=== PATIENT | female | born 1950 | race Caucasian/White ===

== ENCOUNTER → 2019-11-16 08:08 | Outpatient (CLI) | payer MEDICARE, MEDICAID, SELFPAY ==
--- NOTE | ~2019-11-16 | XR_ITS ---
XR knee RT min 4V 11/16/2019 08:40 Indication: Right knee pain Procedure: 4 views right knee Comparison: 05/26/2017 Findings: There is mild-moderate tricompartment osteoarthritis. No acute fracture or traumatic malali gnment. No significant joint effusion. No foreign bodies. Impression: 1: Mild-moderate tricompartment osteoarthritis of the right knee. Reviewed, dictated and finalized at location A. Impression: 1: Mild-moderate tricompartment osteoarthritis of the right knee.
== END ==
PROVIDERS: Visit Provider Nurse Practitioner Adult Health
DX: M17.11 Unilateral primary osteoarthritis, right knee (principal)
CPT/HCPCS: 73564

== ENCOUNTER 2020-02-01 07:16 | Outpatient (CLI) | payer MEDICARE, MEDICAID, SELFPAY ==
[2020-02-01 08:30] LABS: Basophils Percent Auto 0.2 % (0.2-1.2); Eosinophils Absolute Auto 0.1 K/mm3 (0-0.3); Hematocrit 45.6 % (37.0-47.0); Hemoglobin 14.8 g/dL (12.0-15.0); Immature Granulocyte Absolute 0.01 K/mm3 (0.00-0.031); Immature Granulocyte Percent A 0.2 % (0-0.5); Lymphocytes Absolute Auto 1.66 K/mm3 (0.9-3.2); Lymphocytes Percent Auto 33.3 % (18.3-44.2); Mean Corpuscular HGB Conc 32.5 g/dl (32-36); Mean Corpuscular Hemoglobin 29.2 pg (26-34); Mean Corpuscular Volume 90.1 fl (80-100); Mean Platelet Volume 10.4 fl (7.4-10.4); Monocytes Absolute Auto 0.4 K/mm3 (0.1-0.6); Neutrophils Absolute Auto 2.8 K/mm3 (1.3-6.7); Neutrophils Percent Auto 56.3 % (45.5-73.1); Platelet Count Result 222 k/mm3 (150-375); Red Blood Count 5.06 M/mm3 (4.2-5.4); Red Cell Distribution Width 13.1 % (11.5-14.5)
[2020-02-01 08:34] LABS: Add Urine Microscopic? NO; Appearance Urine Clear (Clear); Bilirubin Urine Negative (Negative); Blood Urine Negative (Negative); Color Urine Yellow (Yellow); Glucose Urine UA Negative (Negative); Ketones Urine Negative (Negative); Leukocyte Esterase Ur Negative LEU/UL (NEGATIVE); Nitrate Urine Negative (Negative); Protein Urine Negative (Negative); Specific Grav Ur 1.014 (1.001-1.035); Urobilinogen Urine Negative mg/dL (<2.0)
[2020-02-01 08:39] LABS: Alanine Aminotransferase 18 U/L (4-35); Albumin Level 4.1 g/dL (3.5-5.1); Alkaline Phosphatase 64 U/L (38-126); Aspartate Amino Transferase 23 U/L (14-36); Bilirubin,Total 0.4 mg/dL (0.2-1.3); Blood Urea Nitrogen 21 mg/dL (7-17); Calcium 9.1 mg/dL (8.4-10.2); Carbon Dioxide 27 mmol/L (22-30); Chloride 105 mmol/L (98-107); Cholesterol 260 mg/dL (0-200); Estimated Glomerular Filt Rate 44; Glucose 166 mg/dL (65-105); HDL Direct 44 mg/dL; Hemoglobin A1C 7.1 % (<5.7); Potassium 4.2 mmol/L (3.4-5.0); Sodium 139 mmol/L (137-145); Triglycerides 212 mg/dL (<150)
[2020-02-01 08:51] LABS: LDL Cholesterol Direct 158 mg/dL
[2020-02-01 09:45] LABS: Folic Acid 13.9 ng/mL (2.76->20)
== END 2020-02-01 07:17 | disposition home or self-care (01) ==
PROVIDERS: PCP Physician Assistant; Visit Provider Physician Assistant
DX: E78.2 Mixed hyperlipidemia (principal); R73.02 Impaired glucose tolerance (oral); E03.9 Hypothyroidism, unspecified; E53.8 Deficiency of other specified B group vitamins; R53.83 Other fatigue; Z79.899 Other long term (current) drug therapy
CPT/HCPCS: 36415; 80048; 80061; 80076; 81003; 82607; 82746; 83036; 84439; 84443; 85025

== ENCOUNTER 2020-03-21 12:40 | Inpatient (IN) | payer MEDICARE, MEDICAID, SELFPAY ==
[2020-03-21] VITALS (8 sets, daily range): BP systolic 142–176; BP diastolic 70–112; PULSE 60–83; RESP 16–20; TEMP 36.6–36.9; O2SAT 95–99; BMI 30.2; BMI 31.6
--- NOTE | ~2020-03-21 | CT_ITS ---
EXAMINATION: CT abdomen pelvis w con DATE: 03/21/2020 13:52 INDICATION: Upper abdominal pain for 2 months. History of uterine cancer. TECHNIQUE: Computed tomography (CT) of the abdomen and pelvis was performed with 100 cc Omnipaque 350 intravenous contrast. Automated exposure control and iterative reconstruction technique were employe d. Exam dose: 968.65 mGy-cm total exam DLP. COMPARISON: 09/25/2018 CT abdomen pelvis FINDINGS: There is minimal predominantly dependent atelectasis at the lower lungs. Heart size is with in normal range. No pericardial or pleural effusion. Status post cholecystectomy. Diffuse hepatic steatosis. No hepatic, splenic, pancreatic, and adrenal space-occupying mass lesion. No bile duct or pancreatic duct dilatation. No right renal mass lesion. 9 Millimeter probable left renal cyst. No urinary tract calculus or hydroureteronephrosis. Normal caliber of the abdominal aorta. No intraperitoneal or retroperitoneal or pelvic mass lesion or adenopathy or ascites. Diverticulosis of the colon; no CT evidence of diverticulitis. No bowel obstruction, bowel wall thick ening, pneumatosis or intraperitoneal free air. The appendix is not visualized. The urinary bladder is unremarkable. Status post hysterectomy. Status post ventral abdominal wall repair. Diffuse idiopathic skeletal hyperostosis of the thoracic spine. Moderate degenerative disc disease of the lumbar and lumbosacral spine. No suspicious osteolytic or osteoblastic lesions are noted. IMPRESSION: Status post cholecystectomy Status post hysterectomy Hepatic steatosis 9 mm left renal probable cyst Diverticulosis of the colon Reviewed, dictated and finalized at Location A. Reviewed, dictated and finalized at location B.
--- NOTE | 2020-03-21 13:03 | ED.ABDPAIN ---
HPI - Abdominal Pain General Chief Complaint: Abdominal Pain Stated Complaint: Rib Pain Time Seen by Provider: 03/21/20 12:49 Source: RN notes reviewed History of Present Illness HPI narrative: Patient presents emergency department from home for abdominal pain. Patient states that pain began 1 hour ago and is located in the upper abdomen with pain worse in the right upper quadrant. Associated with nausea. She has been having intermittent abdominal pain for the past 2 months. She denies any fevers or chills chest pain shortness of breath or any other symptoms. States she has been having associated diarrhea over the past month. Patient states she has had a previous cholecystectomy Related Data Allergies Allergy/AdvReac Type Severity Reaction Status Date / Time fentanyl Allergy Intermediate Nausea and Verified 03/21/20 12:57 Vomiting propoxyphene Allergy Mild VOMITTING Verified 03/21/20 12:57 albuterol Allergy Unknown ANXIETY. Verified 03/21/20 12:57 CAN'T STAND IT dicyclomine Allergy Unknown Nausea and Verified 03/21/20 12:57 Vomiting hydrocodone Allergy Unknown severe Verified 03/21/20 12:57 vomiting metoclopramide Allergy Unknown anxiety Verified 03/21/20 12:57 adhesive AdvReac Severe SKIN Verified 03/21/20 12:57 BLISTERS erythromycin base AdvReac Intermediate ABDOMINAL Verified 03/21/20 12:57 PAIN/VOMITING codeine AdvReac Mild NAUSEA Verified 03/21/20 12:57 morphine AdvReac Mild NAUSEA Verified 03/21/20 12:57 phenazopyridine AdvReac Unknown NAUSEA Verified 03/21/20 12:57 Review of Systems Review of Systems: Narrative: Gen.: Denies fevers or chills ENT: Denies congestion Respiratory: Denies shortness of breath or cough CV: Denies chest pain or palpitations GI: See HPI denies burning, urgency, frequency or hematuria Musculoskeletal: Denies back pain or muscle pain Neuro: Denies numbness, tingling, weakness or focal weakness Skin: Denies rash Except as documented, all other systems reviewed and negative [facility] Past Medical History Medical History (Updated 03/21/20 @ 14:35 by Dorian Hernandez DO) Diabetes mellitus Hypothyroidism Surgical History Surgical History (Updated 03/21/20 @ 13:04 by Dorian Hernandez DO) History of cholecystectomy Family History Family History (Updated 09/06/17 @ 10:33 by DOCTOR UNKNOWN) Father Family history of malignant neoplasm of stomach Sibling Family history of malignant neoplasm of esophagus Mother Family history of osteoarthritis Family history of elevated blood lipids Family history of thyroid disease Family history of cataracts Family history of arthritis Family history of diabetes mellitus in first degree relative Grandparent Diabetes mellitus Other Family history of kidney disease Family history of malignant neoplasm Social History Social History Smoking status: Never smoker Alcohol intake: never Exam Narrative: Exam Narrative: APPEARANCE: No acute distress, nontoxic, resting in bed HEENT: Normocephalic, atraumatic, OMM RESPIRATORY: No respiratory distress, clear to auscultation bilaterally with no rhonchi wheezing or rales CARDIOVASCULAR: RRR s murmur ABDOMINAL: Soft, nondistended, tender palpation epigastric and right upper quadrant, no tenderness left upper quadrant, right lower quadrant left lower quadrant, no rebound or guarding MUSCULOSKELETAl: Moves all extremities. No clubbing, cyanosis or edema. NEURO: Awake and alert. Following commands, speech normal, no focal deficits SKIN:: Warm, dry. Normal Color PSYCHIATRIC: Normal affect/mood Course Course Emergency Course: Discussed with CAPO Terry for Dr. Gunn presentation work-up. Agrees with admission at this time Discussed with patient and family results of workup and diagnosis. Discussed need for admission. Patient and family understand and agree to current treatment plan Vital Signs Vi
--- NOTE | 2020-03-21 13:05 | ECG_ITS ---
Measurements Intervals [place] Rate: 70 P: 34 MT: 152 QRS: -22 QRSD: 91 T: 59 QT: 353 QTc: 382 Interpretive Statements SINUS RHYTHM BORDERLINE R WAVE PROGRESSION, ANTERIOR LEADS CONSIDER INFERIOR INFARCT, AGE INDETERMINATE BASELINE ARTIFACT- I, II, III, AVR, AVL, AVF ABNORMAL ECG Electronically Signed On 03-21-2020 13:24:38 CDT by Carlos Jacome D.O.
[2020-03-21 13:06] LABS: Basophils Percent Auto 0.2 % (0.2-1.2); Eosinophils Absolute Auto 0.1 K/mm3 (0-0.3); Eosinophils Percent Auto 0.8 % (0-4.4); Hematocrit 49.8 % (37.0-47.0); Hemoglobin 16.7 g/dL (12.0-15.0); Immature Granulocyte Absolute 0.04 K/mm3 (0.00-0.031); Immature Granulocyte Percent A 0.4 % (0-0.5); Lymphocytes Absolute Auto 2.74 K/mm3 (0.9-3.2); Mean Corpuscular HGB Conc 33.5 g/dl (32-36); Mean Corpuscular Hemoglobin 29.7 pg (26-34); Mean Corpuscular Volume 88.6 fl (80-100); Mean Platelet Volume 9.9 fl (7.4-10.4); Monocytes Absolute Auto 0.6 K/mm3 (0.1-0.6); Monocytes Percent Auto 6.8 % (2.6-8.5); Neutrophils Absolute Auto 5.6 K/mm3 (1.3-6.7); Neutrophils Percent Auto 61.8 % (45.5-73.1); Platelet Count Result 265 k/mm3 (150-375); Red Blood Count 5.62 M/mm3 (4.2-5.4); Red Cell Distribution Width 13.2 % (11.5-14.5); White Blood Count 9.1 K/mm3 (4.5-10.0)
[2020-03-21] MEDS: SODIUM CHLORIDE 0.9% IV 1,000 ML 999 ML IV CONT (13:15)
[2020-03-21] MEDS: PROMETHAZINE HCL 25 MG/ML AMPUL 12.5 MG IV PUSH (13:18)
[2020-03-21 13:21] LABS: Alanine Aminotransferase 30 U/L (4-35); Albumin Level 4.6 g/dL (3.5-5.1); Alkaline Phosphatase 84 U/L (38-126); Aspartate Amino Transferase 50 U/L (14-36); Bilirubin,Total 0.5 mg/dL (0.2-1.3); Blood Urea Nitrogen 28 mg/dL (7-17); Calcium 9.5 mg/dL (8.4-10.2); Carbon Dioxide 24 mmol/L (22-30); Chloride 105 mmol/L (98-107); Estimated CRCL calculation 51 ml/min; Estimated Glomerular Filt Rate 49; Glucose 128 mg/dL (65-105); Sodium 137 mmol/L (137-145)
[2020-03-21 13:52] LABS: Lipase 3253 U/L (23-300)
[2020-03-21 15:10] LABS: Add Urine Microscopic? NO; Appearance Urine Clear (Clear); Bilirubin Urine Negative (Negative); Blood Urine Negative (Negative); Color Urine Straw (Yellow); Glucose Urine UA Negative (Negative); Ketones Urine Negative (Negative); Leukocyte Esterase Ur Negative LEU/UL (Negative); Nitrate Urine Negative (Negative); Protein Urine Negative (Negative); Squamous Epithelial Cell Urine Rare /hpf (Few); Urobilinogen Urine Negative mg/dL (<2.0)
[2020-03-21 15:21] LABS: Specific Grav Ur 1.034 (1.001-1.035)
--- NOTE | 2020-03-21 15:47 | ADMGEN ---
This patient, Jazlyn Montgomery, was admitted to Medical Room 340-01. Patient/family oriented to hospital policies and general routines including ID bracelet, bed and alarms, visiting hours, pain management, procedures, bathroom and other care routines, personal items, smoking policy, room service/diet, and visiting hours. Valuables list has been completed. Information on how to activate the Rapid Response Team has been discussed. Patient/Family are encouraged to report perceived risks to care and to ask questions if they do not understand what they are told or what they should do.
[2020-03-21] MEDS: SODIUM CHLORIDE 0.9% IV 1,000 ML 125 ML IV CONT (17:00)
--- NOTE | 2020-03-21 17:00 | PM.IMHP ---
H&P: HPI History of Present Illness Chief complaint: Epigastric pain. Narrative: Jazlyn Montgomery is a 69-year-old female with history of GERD, H. pylori, esophageal spasms requiring Botox injections (patient denies having achalasia), irritable bowel syndrome, type 2 diabetes mellitus, and hypothyroidism who presented to the emergency department earlier today for evaluation of abdominal pain. For the past couple of months she has had intermittent stomach issues including frequent nausea, occasional emesis, and severe heartburn for which she takes Gaviscon. Earlier today she developed pretty severe upper abdominal pain which she describes as a band like fashion just under her ribcage. It felt like a hollow feeling or severe gastritis. The pain was unrelenting , with associated nausea and sweats, and thus she came in for evaluation. A CT of the abdomen and pelvis showed no acute findings however her lipase was elevated and she is being admitted in this setting. She has no history of pancreatitis and she is status post cholecystectomy in 2007. She drinks approximately 10 beers per week and 1 large coffee a day. She denies hematemesis, melena, and hematochezia. Weight has remained relatively stable. She felt a bit short of breath, which she attributes to splinting due to the pain, and that has since resolved. No chest pain or pleuritic pain. Review of Systems Review of Systems: Narrative: Twelve systems were reviewed with pertinent positives and negatives as per HPI. She is currently going through physical therapy for neck pain attributed to bulging discs. She has mild neuropathy in her right great toe which is intermittent. No blurry vision, polydipsia, or polyuria. She denies dysphagia and concerns for aspiration. No history of sleep apnea but she reports snoring quite loudly. She does suffer from irritable bowel syndrome with intermittent diarrhea and constipation. Except as documented, all other systems were reviewed and are negative. [facility] Past Medical History Medical History (Updated 03/21/20 @ 20:11 by Mara Lugo PA-C) Anxiety Chronic kidney disease, stage 3 Baseline creatinine between 1.1 and 1.20. Degenerative disc disease Depression Gastroesophageal reflux disease Hypothyroidism Irritable bowel syndrome Osteoarthritis PTSD (post-traumatic stress disorder) Sarcoidosis In remission for over 40 years. Type 2 diabetes mellitus Surgical History Surgical History (Updated 03/21/20 @ 19:55 by Mara Lugo PA-C) History of appendectomy (~1997) Incidental appendectomy at the time of her hysterectomy. History of bilateral cataract extraction History of cardiac catheterization No evidence of coronary artery disease. History of cholecystectomy (~2007) History of cystoscopy For evaluation of microscopic hematuria reportedly unremarkable History of hysterectomy (~1997) History of partial thyroidectomy (~2007) Pathology revealed a benign nodule. History of tonsillectomy Family History Family History Father Family history of malignant neoplasm of stomach Sibling Family history of malignant neoplasm of esophagus Mother Family history of osteoarthritis Family history of elevated blood lipids Family history of thyroid disease Family history of cataracts Family history of arthritis Family history of diabetes mellitus in first degree relative Grandparent Diabetes mellitus Other Family history of kidney disease Family history of malignant neoplasm Social History Social History (Updated 03/21/20 @ 19:56 by Mara Lugo PA-C) Social History: The patient lives in [place]. She has a roommate at this time, a student from [employer]. she has 3 grown children. She smoked socially for short period of time and quit > 30 years ago. She drinks about 10 beers a week. She has used marijuana and THC pen in the past. She designates her son, B
[2020-03-21] MEDS: PANTOPRAZOLE SODIUM IV 40 MG VIAL IV PUSH (22:13)
[2020-03-22] VITALS (9 sets, daily range): BP systolic 123–167; BP diastolic 67–88; PULSE 63–84; RESP 14–16; TEMP 36.6–36.7; O2SAT 96–98
[2020-03-22] MEDS: AMITRIPTYLINE HCL 10 MG TABLET 30 MG PO ×2 (00:08→21:01)
[2020-03-22] MEDS: ALPRAZolam 0.5 MG TABLET 2 MG PO ×2 (00:09→21:01)
[2020-03-22] MEDS: SODIUM CHLORIDE 0.9% IV 1,000 ML 125 ML IV CONT (01:15)
[2020-03-22] MEDS: LEVOTHYROXINE SODIUM 100 MCG TABLET PO (05:27)
[2020-03-22 06:36] LABS: Basophils Percent Auto 0.2 % (0.2-1.2); Eosinophils Absolute Auto 0.1 K/mm3 (0-0.3); Hematocrit 41.8 % (37.0-47.0); Hemoglobin 13.7 g/dL (12.0-15.0); Immature Granulocyte Absolute 0.02 K/mm3 (0.00-0.031); Immature Granulocyte Percent A 0.3 % (0-0.5); Lymphocytes Percent Auto 23.6 % (18.3-44.2); Mean Corpuscular HGB Conc 32.8 g/dl (32-36); Mean Corpuscular Hemoglobin 29.3 pg (26-34); Mean Corpuscular Volume 89.3 fl (80-100); Mean Platelet Volume 10.2 fl (7.4-10.4); Monocytes Absolute Auto 0.5 K/mm3 (0.1-0.6); Monocytes Percent Auto 7.6 % (2.6-8.5); Neutrophils Percent Auto 67.3 % (45.5-73.1); Platelet Count Result 212 k/mm3 (150-375); Red Blood Count 4.68 M/mm3 (4.2-5.4); Red Cell Distribution Width 13.2 % (11.5-14.5); White Blood Count 5.9 K/mm3 (4.5-10.0)
[2020-03-22 06:48] LABS: Alanine Aminotransferase 109 U/L (4-35); Albumin Level 3.5 g/dL (3.5-5.1); Alkaline Phosphatase 73 U/L (38-126); Aspartate Amino Transferase 77 U/L (14-36); Bilirubin,Total 0.5 mg/dL (0.2-1.3); Blood Urea Nitrogen 21 mg/dL (7-17); Calcium 8.3 mg/dL (8.4-10.2); Carbon Dioxide 24 mmol/L (22-30); Chloride 109 mmol/L (98-107); Estimated CRCL calculation 62 ml/min; Estimated Glomerular Filt Rate > 60; Glucose 128 mg/dL (65-105); Lipase 587 U/L (23-300); Magnesium 2.4 mg/dL (1.6-2.3); Sodium 137 mmol/L (137-145)
[2020-03-22 07:12] LABS: Hemoglobin A1C 7.1 % (<5.7)
[2020-03-22] MEDS: FAMOTIDINE 20 MG TABLET PO (08:07)
[2020-03-22] MEDS: PANTOPRAZOLE SODIUM IV 40 MG VIAL IV PUSH ×2 (08:08→21:01)
--- NOTE | 2020-03-22 08:16 | PC.NURSE ---
Patient refuses xanax voices that she takes it at night.
--- NOTE | 2020-03-22 09:12 | WPDGICN ---
Assessment and Plan Assessment and plan (1) Acute pancreatitis: Code(s): K85.90 - Acute pancreatitis without necrosis or infection, unspecified Status: Acute Assessment and Plan: clinically she is doing much better, ok to start liquid diet and continue medical care maybe go home tomorrow if she is feeling better I can do her EGD as outpatient (h/o GERD and chronic nausea) I wonder if pancreatitis was triggered by alcohol, she says that will quit altogether (2) Epigastric pain: Code(s): R10.13 - Epigastric pain Status: Acute Assessment and Plan: resolved now (3) Chronic kidney disease, stage 3: Code(s): N18.3 - Chronic kidney disease, stage 3 (moderate) Status: Acute (4) Alcohol use: Code(s): Z72.89 - Other problems related to lifestyle Status: Acute (5) Colon cancer screening: Code(s): Z12.11 - Encounter for screening for malignant neoplasm of colon Status: Acute Assessment and Plan: her last colonoscopy was 10 years ago and she is due to have another one will set up as outpatient. GI Consult Note Consult date/time: 03/22/20 09:12 Reason for consult: pancreatitis HPI: Jazlyn Montgomery is a 69 year old female with history of GERD, esophageal spasm that has been treated with Botox injection last time 2015 at [facility], 2016 had EGD with [place]/esophageal manometry that showed distal esophageal reflux with normal LES. Currently only using pepcid as needed (she says that ppi was making symptoms worse). Also chronic nausea sometimes worse after BM's. She came yesterday with new onset of severe pain in epigastric area with radiation to her back, CT scan only showed post cholecystectomy, fatty liver, normal bile duct, no obvious pancreatitis. Lipase 3200 and admitted for pancreatitis. She had some nausea but no vomiting. Pain now is gone and feeling much better. She drinks about 10-12 beers a week, she had 5 beers 2 days prior admission. Never had pancreatitis. Review of Systems Constitutional: Constitutional: Denies headache(s) and Denies weakness Eyes: Eyes: Denies blurry vision ENT: Reports Normal hearing present, Denies headache(s) and Denies neck pain Cardiovascular: Cardiovascular: Denies chest pain and Denies dyspnea Respiratory: Respiratory: Denies dyspnea Gastrointestinal: Gastrointestinal: Reports no additional gastrointestinal complaints Genitourinary: Genitourinary: Denies dysuria Musculoskeletal: Musculoskeletal: Denies neck pain Integumentary/Breasts: Skin/Breast: Denies dry skin Neurologic: Reports Normal hearing present, Denies headache(s) and Denies weakness Psychiatric: Psychiatric: Denies anxiety Endocrine: Endocrine: Denies change in body appearance Hematologic/Lymphatic: Hematologic/Lymphatic: Denies easy bleeding Allergic/Immunologic: Allergic/Immunologic: Denies urticaria [facility] Past Medical History Medical History (Updated 03/22/20 @ 09:19 by Phillip Nichols MD) Alcohol use Anxiety Chronic kidney disease, stage 3 Baseline creatinine between 1.1 and 1.20. Colon cancer screening Degenerative disc disease Depression Gastroesophageal reflux disease Hypothyroidism Irritable bowel syndrome Osteoarthritis PTSD (post-traumatic stress disorder) Sarcoidosis In remission for over 40 years. Type 2 diabetes mellitus Surgical History Surgical History (Updated 03/21/20 @ 19:55 by Mara Lugo PA-C) History of appendectomy (~1997) Incidental appendectomy at the time of her hysterectomy. History of bilateral cataract extraction History of cardiac catheterization No evidence of coronary artery disease. History of cholecystectomy (~2007) History of cystoscopy For evaluation of microscopic hematuria reportedly unremarkable History of hysterectomy (~1997) History of partial thyroidectomy (~2007) Pathology revealed a benign nodule. History of tonsillectomy Family History Family History (Revi
[2020-03-22 10:13] LABS: Free T4 Free Thyroxine Reflex 1.13 ng/dL (0.78-2.19)
[2020-03-22] MEDS: SODIUM CHLORIDE 0.9% IV 1,000 ML 75 ML IV CONT ×2 (10:30→23:46)
[2020-03-22 11:16] LABS: Total Triiodothyronine (T3) 0.73 NG/ML (0.97-1.69)
[2020-03-22 11:41] LABS: Glucose Point of Care 110 (65-105)
--- NOTE | 2020-03-22 14:27 | PM.IMPN ---
Progress Note: A&P Assessment and Plan (1) Acute pancreatitis: Code(s): K85.90 - Acute pancreatitis without necrosis or infection, unspecified Status: Acute Assessment and Plan: She presented with severe pain in the epigastric region radiationg to the back. Lipase was elevated at 3,[address] abd/pelvis did not have evidence of pancreatitis although she did present very soon after sx onset. Her pancreatitis may be secondary to alcohol use. She also reports a hx of elevated cholesterol/triglycerids but refuses statin therapy. Her pain has resolved. Lipase is significantly lower at 587 today. LFTs are mildly increased with AST 77 and ALT 109. She tolerated a full liquid diet well. Plan to continue IV fluids and advance diet as tolerated. Continue analgesics PRN. Trend lipase and LFTs. Gastroenterology is on board and input is appreciated. She will need EGD outpatient. (2) Epigastric pain: Code(s): R10.13 - Epigastric pain Status: Acute Assessment and Plan: Resolved with treatment of her acute pancreatitis. Plan for EGD outpatient. (3) Polycythemia: Code(s): D75.1 - Secondary polycythemia Status: Acute Assessment and Plan: Polycythemia was documented in the past. RBC 4.68, Hb is 13.7, and Hct 41.8 today. I suspect that this was secondary to mild dehydration as she appeared dehydrated clinically and on labs. Continue to monitor. (4) Chronic kidney disease, stage 3: Code(s): N18.3 - Chronic kidney disease, stage 3 (moderate) Status: Acute Assessment and Plan: Chronic and at baseline. Creatinine is 0.9 and stable on review of prior labs. (5) Hypothyroidism: Code(s): E03.9 - Hypothyroidism, unspecified Status: Acute Assessment and Plan: Continue levothyroxine. TSH was elevated at 5.92 with normal free T4 and low total T3. 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 (6) Type 2 diabetes mellitus: Code(s): E11.9 - Type 2 diabetes mellitus without complications Status: Acute Assessment and Plan: She reports recent hemoglobin A1c of 7. No medications are listed for this on her medication reconciliation list and she reports intolerance to metformin in the past. Continue sliding scale insulin, Accu-Cheks, and hypoglycemic protocol. She has an appointment scheduled with her PCP to discuss her diabetes management. (7) Alcohol use: Code(s): Z72.89 - Other problems related to lifestyle Status: Acute Assessment and Plan: Continue to encourage alcohol cessation. (8) Colon cancer screening: Code(s): Z12.11 - Encounter for screening for malignant neoplasm of colon Status: Acute Assessment and Plan: She will follow-up with Dr. Paulino outpatient for a screening colonoscopy. (9) DVT prophylaxis: Code(s): Z29.9 - Encounter for prophylactic measures, unspecified Status: Acute Assessment and Plan: Continue SCDs. She declines lovenox. Time Spent With Patient Time with patient: 15 - 25 minutes Subjective Date/time seen: 03/22/20 14:27 Interval history: Mrs. Montgomery is a 69 y.o. female who is seen in follow-up for acute pancreatitis. She reports that she is feeling much better today. She tolerated a full liquid diet without any nausea, vomiting, or abdominal pain. She reports a hx of intermittent diarrhea following cholecystectomy and is having loose brown stools today. She denies melena and hematochezia. She reports fatigue and did not sleep well overnight due to her anxiety symptoms as she did not have her xanax. She has no other concerns. Review of Systems Review of Systems: All systems reviewed & are unremarkable except as noted in HPI and below Exam Narrative: Exam Narrative: General: Very pleasant and cooperative 69 y.o. female who appears her stated age lying semi-r
[2020-03-22 16:29] LABS: Glucose Point of Care 115 (65-105)
[2020-03-22] MEDS: BACLOFEN 10 MG TABLET PO (21:01)
[2020-03-23 05:37] VITALS: BP 147/74; PULSE 70; RESP 20; TEMP 36.2; O2SAT 96
[2020-03-23] MEDS: LEVOTHYROXINE SODIUM 100 MCG TABLET PO (05:37)
[2020-03-23 06:06] LABS: Hematocrit 42.7 % (37.0-47.0); Hemoglobin 14.1 g/dL (12.0-15.0); Mean Corpuscular Hemoglobin 29.4 pg (26-34); Mean Corpuscular Volume 89.1 fl (80-100); Mean Platelet Volume 9.9 fl (7.4-10.4); Platelet Count Result 205 k/mm3 (150-375); Red Blood Count 4.79 M/mm3 (4.2-5.4); Red Cell Distribution Width 13.1 % (11.5-14.5); White Blood Count 6.9 K/mm3 (4.5-10.0)
[2020-03-23 06:33] LABS: Alanine Aminotransferase 74 U/L (4-35); Albumin Level 3.6 g/dL (3.5-5.1); Alkaline Phosphatase 73 U/L (38-126); Anion Gap 10.7 mmol/L (7-16); Aspartate Amino Transferase 33 U/L (14-36); Bilirubin,Total 0.6 mg/dL (0.2-1.3); Blood Urea Nitrogen 19 mg/dL (7-17); Calcium 8.6 mg/dL (8.4-10.2); Carbon Dioxide 24 mmol/L (22-30); Chloride 107 mmol/L (98-107); Estimated CRCL calculation 57 ml/min; Estimated Glomerular Filt Rate 55; Glucose 128 mg/dL (65-105); Lipase 228 U/L (23-300); Magnesium 2.4 mg/dL (1.6-2.3); Potassium 3.7 mmol/L (3.4-5.0); Sodium 138 mmol/L (137-145)
[2020-03-23 07:37] LABS: Glucose Point of Care 113 (65-105)
[2020-03-23 08:00] VITALS: PULSE 70; RESP 20; O2SAT 96
[2020-03-23] MEDS: FAMOTIDINE 20 MG TABLET PO (09:31)
--- NOTE | 2020-03-23 09:35 | PC.NURSE ---
Patient has tolerated low fat diet with no problems.
--- NOTE | 2020-03-23 09:46 | WPDGIPROGNO ---
Progress Note: A&P Assessment and Plan (1) Acute pancreatitis: Code(s): K85.90 - Acute pancreatitis without necrosis or infection, unspecified Status: Acute Assessment and Plan: much better and tolerating diet she can go home and I will plan on doing EGD as outpatient (2) Epigastric pain: Code(s): R10.13 - Epigastric pain Status: Acute Assessment and Plan: she has esophageal spasm received botox injection EGD with biopsies as outpatient (3) Type 2 diabetes mellitus: Code(s): E11.9 - Type 2 diabetes mellitus without complications Status: Acute (4) Alcohol use: Code(s): Z72.89 - Other problems related to lifestyle Status: Acute Assessment and Plan: patient will stop drinking (5) Irritable bowel syndrome with diarrhea: Code(s): K58.0 - Irritable bowel syndrome with diarrhea Status: Acute Assessment and Plan: at home she uses lomotil prn, she also is due to have another colonoscopy if still ongoing problem perphaps she can try questran (she is post marino), will discuss as outpatient Subjective Date/time seen: 03/23/20 09:46 Interval history: no more upper abdominal pain and tolerating diet, just lower abdominal discomfort (h/o IBS-D) Review of Systems Review of Systems: All systems reviewed & are unremarkable except as noted in HPI and below Exam Const: General: comfortable and no acute distress HENMT: General nose exam: Normal nares present Eyes: General: appearance normal, both eyes and all related structures Neck: Neck: no JVD Resp: Auscultation: clear to auscultation bilaterally Cardio: Rate: regular rate Rhythm: regular rhythm GI: Inspection: non-distended GI Palp: Yes Soft to palpation Skin: General skin exam: normal color Neuro: General: gait normal Speech: normal speech Extrem: General: normal to inspection Psych: Mental Status: mental status grossly normal Objective Data Vital Signs Vital Signs: Vital Signs - 24 hr 03/22/20 12:00 03/22/20 14:00 03/22/20 20:40 Temperature 98.0 F Pulse Rate 74 65 84 Respiratory Rate 16 16 Blood Pressure 148/88 H Pulse Oximetry 96 98 03/22/20 21:00 03/23/20 05:37 03/23/20 08:00 Temperature 97.9 F 97.2 F L Pulse Rate 84 70 70 Respiratory Rate 16 20 20 Blood Pressure 167/87 H 147/74 H Pulse Oximetry 98 96 96 Intake/Output Intake/Output: Intake & Output 03/20/20 03/21/20 03/22/20 03/23/20 23:59 23:59 23:59 23:59 Intake Total 1100 3920 940 Output Total 200 2150 1550 Balance 900 1770 -610 Meds/Results Medications: Active Medications Generic Name Dose Route Start Last Admin Trade Name Freq PRN Reason Stop Dose Admin Alprazolam 2 mg 03/21/20 23:20 03/22/20 21:01 Xanax PO 2 mg HS NEREYDA Administration Amitriptyline HCl 30 mg 03/21/20 22:55 03/22/20 21:01 Elavil PO 30 mg HS NEREYDA Administration Baclofen 10 mg 03/22/20 21:00 03/22/20 21:01 Lioresal Po PO 10 mg HS NEREYDA Administration Dextrose 12.5 gm 03/21/20 20:12 Dextrose 50% Syringe IV PUSH PRN PRN Hypoglycemia Protocol Famotidine 20 mg 03/22/20 09:00 03/23/20 09:31 Pepcid PO 20 mg DAILY NEREYDA Administration Glucagon 1 mg 03/21/20 20:12 Glucagon For Inj IM PRN PRN Hypoglycemia Protocol Glucose 15 gm 03/21/20 20:12 Glutose 15 PO PRN PRN Hypoglycemia Protocol Dextrose 1,000 mls @ 100 mls/hr 03/21/20 20:12 Dextrose 5% 1,000 Ml IVPB PRN PRN Hypoglycemia Protocol Insulin Aspart 2 - 5 units 03/22/20 08:00 03/23/20 09:39 Novolog SUB-Q Not Given TIDWM NEREYDA Protocol Levothyroxine Sodium 100 mcg 03/22/20 06:30 03/23/20 05:37 Synthroid PO 100 mcg DAILY@0630 NEREYDA Administration Pantoprazole Sodium 40 mg 03/21/20 21:00 03/22/20 21:01 Protonix Iv IV PUSH 40 mg Q12HR NEREYDA Administration Promethazine HCl 12.5 mg 03/21/20
[2020-03-23 10:59] LABS: Glucose Point of Care 176 (65-105)
[2020-03-23 14:00] VITALS: BP 151/76; PULSE 72; RESP 16; TEMP 36.4; O2SAT 100
--- NOTE | 2020-03-23 14:01 | PM.DS ---
DS: Admitting Diagnosis Admitting Diagnosis Admitting Diagnosis: Epigastric pain DS: Discharge Diagnosis Discharge Diagnosis (1) Acute pancreatitis: Code(s): K85.90 - Acute pancreatitis without necrosis or infection, unspecified Status: Acute Assessment and Plan: Discharge Summary Date of service 03/23/20: Mrs. Montgomery is a 69 y.o. female with PMH significant for GERD, H. Pylori, esophageal spasms, IBS, T2DM, and hypothyroidism who presented to the emergency department for the evaluation of abdominal pain. She reported intermittent abdominal issues including nausea, emesis, and GERD for the past few months. She reported severe pain in the epigastric region radiating to the back which promted her to proceed to the ED 03/21/20. Iniital workup in the ED revealed that lipase was elevated at 3,253. CT abd/pelvis did not have evidence of acute abnormalities and revealed hepatic steatosis, 9mm left renal cyst, and diverticulosis without evidence of diverticulitis. She was treated with IV fluids and admitted to the hospitalist service. GI was consulted. Her diet was slowly advanced and she tolerated this very well. Her pancreatitis was likely idiopathic but may be secondary to alcohol use. She also reports a hx of elevated cholesterol/triglycerides but refuses statin therapy. Lipase normalized to 228 on the day of discharge. LFTs were mildly increased but improved with the treatment of her pancreatitis. GI recommended colonoscopy and EGD outpatient after discharge. She requested to go home as her pain was much better and she was tolerating a low fat diet well. She was discharged in stable condition on the afternoon of 03/23/20. (2) Epigastric pain: Code(s): R10.13 - Epigastric pain Status: Resolved Assessment and Plan: Resolved with treatment of her acute pancreatitis. Plan for EGD outpatient. (3) Polycythemia: Code(s): D75.1 - Secondary polycythemia Status: Acute Assessment and Plan: Polycythemia was documented in the past. Hb, Hct, and RBC were elevated at admission but I suspect that this was secondary to mild dehydration as she appeared dehydrated clinically and on labs. Her labs normalized. (4) Chronic kidney disease, stage 3: Code(s): N18.3 - Chronic kidney disease, stage 3 (moderate) Status: Chronic Assessment and Plan: Chronic and at baseline. (5) Hypothyroidism: Code(s): E03.9 - Hypothyroidism, unspecified Status: Chronic Assessment and Plan: Her current dose of levothyroxine was continued. TSH was elevated at 5.92 with normal free T4 and low total T3. I discussed her lab findings with her and she will need to follow-up with her manager group outpatient for further management. (6) Type 2 diabetes mellitus: Code(s): E11.9 - Type 2 diabetes mellitus without complications Status: Chronic Assessment and Plan: She reported a recent hemoglobin A1c of 7. She reported intolerance to metformin and was not interested in starting pharmacotherapy at this time. I encouraged low carb diet and exercise. She has an appointment scheduled with her PCP to discuss her diabetes management. (7) Alcohol use: Code(s): Z72.89 - Other problems related to lifestyle Status: Acute Assessment and Plan: Alcohol cessation was encouraged. (8) Colon cancer screening: Code(s): Z12.11 - Encounter for screening for malignant neoplasm of colon Status: Acute Assessment and Plan: She will follow-up with Dr. Paulino outpatient for a screening colonoscopy. DS: Summary Hospital Course Reason for hospitalization: Abdominal pain Hospital Course: As above Status at Discharge Functional status at discharge: independent ambulation Overall status at discharge: patient is back to baseline Time Spent with Patient Time attestation: Total time spent providing and/or coordinating
== END 2020-03-23 14:38 | disposition home or self-care (01) | DRG 440 ==
LOC: ANHED 14:41 → ANH3MED 16:53
PROVIDERS: Physician Assistant; Admitting Provider Family Medicine; Emergency Provider Emergency Medicine; PCP Physician Assistant; Visit Provider Physician Assistant
DX: K85.00 Idiopathic acute pancreatitis without necrosis or infection; E11.22 Type 2 diabetes mellitus with diabetic chronic kidney disease; N18.3 Chronic kidney disease, stage 3 (moderate); K76.0 Fatty (change of) liver, not elsewhere classified; E89.0 Postprocedural hypothyroidism; K58.0 Irritable bowel syndrome with diarrhea; K21.9 Gastro-esophageal reflux disease without esophagitis; D75.1 Secondary polycythemia; K57.30 Diverticulosis of large intestine without perforation or abscess without bleeding; N28.1 Cyst of kidney, acquired; Z72.89 Other problems related to lifestyle; Z90.49 Acquired absence of other specified parts of digestive tract; Z98.42 Cataract extraction status, left eye; Z98.41 Cataract extraction status, right eye; Z87.891 Personal history of nicotine dependence
CPT/HCPCS: 36415; 74177; 80053; 81003; 83036; 83690; 83735; 84439; 84443; 84480; 85025; 85027; 93005; 96365; 96375; 99285; A9270; C9113; J0131; J2550; J7030; Q9967

== ENCOUNTER → 2020-03-26 13:20 | Outpatient (CLI) | payer MEDICARE, MEDICAID, SELFPAY ==
--- NOTE | ~2020-03-26 | MR_ITS ---
EXAMINATION: MR cervical spine wo con DATE: 03/26/2020 13:55 INDICATION: Neck pain. TECHNIQUE: Magnetic resonance imaging (MRI) of the cervical spine was performed without intravenous c ontrast. Sequences included sagittal T2-weighted FSE, sagittal STIR FSE, sagittal T1-weighted FSE, ax ial MERGE, and axial T2-weighted FSE. COMPARISON: Cervical spine MRI 11/14/2017 FINDINGS: Bone alignment is normal. Vertebral body heights are normal. There is mildly decreased disc height at C6-C7. The spinal cord signal intensity is normal. There are changes of right hemithyroide ctomy. The following disc levels are specifically discussed: C2-C3: The disc does not extend beyond the endplate margin. There is no uncovertebral joint osteoarth ritis. There is mild bilateral facet joint osteoarthritis. There is no neural foraminal stenosis. The re is no central canal stenosis. C3-C4: There is a central protrusion. There is mild left uncovertebral joint osteoarthritis. There is no facet joint osteoarthritis. There is no neural foraminal stenosis. There is mild central canal st enosis. C4-C5: The disc does not extend beyond the endplate margin. There is no uncovertebral joint osteoarth ritis. There is mild bilateral facet joint osteoarthritis. There is no neural foraminal stenosis. The re is no central canal stenosis. C5-C6: The disc is bulging. There is no uncovertebral joint osteoarthritis. There is no facet joint o steoarthritis. There is no neural foraminal stenosis. There is mild central canal stenosis. C6-C7: The disc is bulging. There is moderate left uncovertebral joint osteoarthritis. There is mild right facet joint osteoarthritis. There is mild left neural foraminal stenosis. There is mild central canal stenosis. C7-T1: The disc does not extend beyond the endplate margin. There is no uncovertebral joint osteoarth ritis. There is mild bilateral facet joint osteoarthritis. There is no neural foraminal stenosis. The re is no central canal stenosis. IMPRESSION: 1. Mild cervical spondylosis, stable from 11/14/2017. Reviewed, dictated and finalized at location A.
== END ==
PROVIDERS: Visit Provider Nurse Practitioner Family
DX: M54.2 Cervicalgia (principal); M47.892 Other spondylosis, cervical region
CPT/HCPCS: 72141

== ENCOUNTER 2020-03-29 00:34 | Outpatient (CLI) | payer MEDICARE, MEDICAID, SELFPAY ==
[2020-03-31 12:00] LABS: SARS-CoV-2 RNA PCR Negative
== END 2020-03-29 00:35 | disposition home or self-care (01) ==
LOC: ANHCOVIDDT 00:34
PROVIDERS: PCP Physician Assistant; Visit Provider Internal Medicine Gastroenterology
DX: Z01.818 Encounter for other preprocedural examination (principal); Z11.59 Encounter for screening for other viral diseases
CPT/HCPCS: 87635; C9803; U0003

== ENCOUNTER 2020-04-01 01:57 | Day surgery (SDC) | payer MEDICARE, MEDICAID, SELFPAY ==
[2020-03-25 15:38] VITALS: BMI 29.6
--- NOTE | 2020-04-01 07:44 | WPDANESEPPF ---
Anes - Initial Pre Proc Eval Procedure: Operation Date: 04/01/20 11:30 Proposed Procedures p Esophagogastroduodenoscopy&Screen Colon - Phillip Nichols MD Date/Time: 04/01/20 07:44 Surgeon: Phillip Nichols MD Pre Op Diagnosis: Nausea, Neoplasm Screening Patient Data Age: 69 Gender: F Height: 1.75 m Weight: 91 kg Allergies Allergy/AdvReac Type Severity Reaction Status Date / Time fentanyl Allergy Intermediate Nausea and Verified 04/01/20 10:48 Vomiting propoxyphene Allergy Mild VOMITTING Verified 04/01/20 10:48 albuterol Allergy Unknown ANXIETY. Verified 04/01/20 10:48 CAN'T STAND IT dicyclomine Allergy Unknown Nausea and Verified 04/01/20 10:48 Vomiting hydrocodone Allergy Unknown severe Verified 04/01/20 10:48 vomiting metoclopramide Allergy Unknown anxiety Verified 04/01/20 10:48 adhesive AdvReac Severe SKIN Verified 04/01/20 10:48 BLISTERS erythromycin base AdvReac Intermediate ABDOMINAL Verified 04/01/20 10:48 PAIN/VOMITING codeine AdvReac Mild NAUSEA Verified 04/01/20 10:48 morphine AdvReac Mild NAUSEA Verified 04/01/20 10:48 phenazopyridine AdvReac Unknown NAUSEA Verified 03/25/20 15:29 Home Medications Medication Instructions Recorded Confirmed Type Gaviscon 2 tablet PO QID PRN 03/21/20 04/01/20 History alprazolam [Xanax] 1 mg PO DAILY 03/21/20 04/01/20 History amitriptyline 20 mg PO HS 03/21/20 04/01/20 History baclofen 10 mg PO HS 03/21/20 04/01/20 History famotidine 20 mg PO DAILY 03/21/20 04/01/20 History levothyroxine 100 mcg PO DAILY 03/21/20 04/01/20 History promethazine 25 mg PO Q6H PRN 03/21/20 03/25/20 History amlodipine 5 mg PO DAILY 30 Days #30 tablet 03/23/20 04/01/20 Rx Patient hx anesthesia problems: post op nausea/vomiting Family hx anesthesia problems: none PMFSH Past Medical History Medical History (Updated 03/23/20 @ 09:47 by Phillip Nichols MD) Alcohol use Anxiety Chronic kidney disease, stage 3 Baseline creatinine between 1.1 and 1.20. Colon cancer screening Degenerative disc disease Depression Gastroesophageal reflux disease Hypothyroidism Irritable bowel syndrome Irritable bowel syndrome with diarrhea Osteoarthritis PTSD (post-traumatic stress disorder) Sarcoidosis In remission for over 40 years. Type 2 diabetes mellitus Surgical History Surgical History (Updated 03/21/20 @ 19:55 by Mara Lugo PA-C) History of appendectomy (~1997) Incidental appendectomy at the time of her hysterectomy. History of bilateral cataract extraction History of cardiac catheterization No evidence of coronary artery disease. History of cholecystectomy (~2007) History of cystoscopy For evaluation of microscopic hematuria reportedly unremarkable History of hysterectomy (~1997) History of partial thyroidectomy (~2007) Pathology revealed a benign nodule. History of tonsillectomy Social History Social History (Updated 04/01/20 @ 10:48 by Jim Walters DO) Gender identity (if verbalized by the patient): Female Sexual Orientation (if Verbalized by the Patient): Straight or Heterosexual Spiritual care concerns: No Anes - Eval Final PreProcedure Day of Procedure 04/01/20 07:44 Patient weight: overweight Heart: regular rate and rhythm Lungs: clear to auscultation and normal air movement Airway: Mallampati scale class II Neurological: alert and oriented Last oral intake: >/= 8 hours ASA classification: III Emergent: no Anesthetic plan: proceed Anesthesia type and monitoring: general GIVS and standard monitoring Informed Consent: The patient's anesthetic plan and its attendant risks and benefits were discussed with the patient/family/POA. Questions were solicited and answers provided to the satisfaction of the patient/family/POA.
[2020-04-01 10:50] VITALS: BP 126/84; PULSE 85; RESP 18; TEMP 36.8; O2SAT 98
[2020-04-01] MEDS: LACTATED RINGERS 1,000 ML 150 ML IV CONT (11:00)
--- NOTE | 2020-04-01 12:00 | WPDHPUPDATE1 ---
History and Physical Update Update Date/Time: 04/01/20 12:00 History and Physical has been reviewed, including an updated exam of the patient. There are NO changes in the patient's condition. Risks, benefits, and alternatives have been discussed and questions answered. Patient agrees to proceed with procedure.
--- NOTE | 2020-04-01 12:05 | SUR.OPER ---
EGD ENDED 1200, COLONOSCOPY BEGAN 1204
[2020-04-01 12:30] VITALS: BP 135/82; PULSE 74; RESP 18; O2SAT 98
[2020-04-01 12:40] VITALS: BP 132/99; PULSE 71; RESP 22; O2SAT 100
[2020-04-01 12:50] VITALS: BP 136/89; PULSE 67; RESP 17; O2SAT 100
== END 2020-04-01 13:03 | disposition home or self-care (01) ==
PROVIDERS: PCP Physician Assistant; Visit Provider Internal Medicine Gastroenterology
PROC: 0DJ08ZZ Inspection of Upper Intestinal Tract, Via Natural or Artificial Opening Endoscopic (ICD-10-PCS; CPT 43235; principal; 2020-04-01 11:30)
DX: Z12.11 Encounter for screening for malignant neoplasm of colon (principal); K64.8 Other hemorrhoids; D12.3 Benign neoplasm of transverse colon; K57.30 Diverticulosis of large intestine without perforation or abscess without bleeding; K64.4 Residual hemorrhoidal skin tags; K29.80 Duodenitis without bleeding; K29.50 Unspecified chronic gastritis without bleeding; K21.0 Gastro-esophageal reflux disease with esophagitis; N18.3 Chronic kidney disease, stage 3 (moderate); E11.22 Type 2 diabetes mellitus with diabetic chronic kidney disease; F41.8 Other specified anxiety disorders; E03.9 Hypothyroidism, unspecified; K58.0 Irritable bowel syndrome with diarrhea; F43.10 Post-traumatic stress disorder, unspecified
CPT/HCPCS: 45385; 43239; 88305; J2704; J7120

== ENCOUNTER 2020-06-21 08:12 | Emergency (ER) | payer MEDICARE, MEDICAID, SELFPAY ==
--- NOTE | ~2020-06-21 | XR_ITS ---
EXAMINATION: XR chest 2V DATE: 06/21/2020 08:49 INDICATION: Sarcoidosis presenting with left-sided predominant chest pain. TECHNIQUE: PA and lateral views of the chest were obtained. COMPARISON: Chest radiograph and CT dated 04/30/2016 FINDINGS: The lungs remain clear with no focal airspace opacities, pulmonary edema, pleural effusion or pneumot horax. The cardiomediastinal silhouette is normal. Cholecystectomy clips in right upper quadrant. IMPRESSION: 1. No acute cardiopulmonary disease. Reviewed, dictated and finalized at location A.
--- NOTE | 2020-06-21 08:14 | ECG_ITS ---
Measurements Intervals [place] Rate: 82 P: -5 SD: 153 QRS: -45 QRSD: 98 T: 57 QT: 361 QTc: 424 Interpretive Statements SINUS RHYTHM LEFT AXIS DEVIATION BORDERLINE R WAVE PROGRESSION, ANTERIOR LEADS INFERIOR INFARCT, AGE INDETERMINATE ABNORMAL ECG Electronically Signed On 06-21-2020 8:57:32 CDT by Carlos Jacome D.O.
[2020-06-21 08:16] VITALS: BP 182/110; PULSE 82; RESP 16; TEMP 36.3; O2SAT 100
--- NOTE | 2020-06-21 08:42 | ED.CHESTPAIN ---
HPI - Chest Pain General Chief Complaint: Chest Pain Stated Complaint: pain in chest and under arm Time Seen by Provider: 06/21/20 08:28 Source: patient Mode of arrival: ambulatory Limitations: no limitations History of Present Illness HPI narrative: Patient is a 69-year-old female complaining of left sided chest pain, 8 out of 10, sharp, aching, worse with movement of the left upper extremity started approximately 5 days ago. Patient denies any shortness of breath, nausea or diaphoresis. Patient denies any injury to the area. Patient states that she had a cardiac cath this past summer, approximately 2 months ago, and was told that she had a clear cardiac cath, no plaques, heart of a teenager I was told . Related Data Home Medications Medication Instructions Recorded Confirmed Gaviscon 2 tablet PO QID PRN 03/21/20 05/28/20 alprazolam [Xanax] 1 mg PO DAILY 03/21/20 05/28/20 amitriptyline 20 mg PO HS 03/21/20 05/28/20 famotidine 20 mg PO DAILY 03/21/20 05/28/20 promethazine 25 mg PO Q6H PRN 03/21/20 05/28/20 levothyroxine 100 mcg tablet 112 mcg PO QAM tablet 05/28/20 05/28/20 Allergies Allergy/AdvReac Type Severity Reaction Status Date / Time fentanyl Allergy Intermediate Nausea and Verified 06/21/20 08:23 Vomiting propoxyphene Allergy Mild VOMITTING Verified 06/21/20 08:23 albuterol Allergy Unknown ANXIETY. Verified 06/21/20 08:23 CAN'T STAND IT dicyclomine Allergy Unknown Nausea and Verified 06/21/20 08:23 Vomiting hydrocodone Allergy Unknown severe Verified 06/21/20 08:23 vomiting metoclopramide Allergy Unknown anxiety Verified 06/21/20 08:23 adhesive AdvReac Severe SKIN Verified 06/21/20 08:23 BLISTERS erythromycin base AdvReac Intermediate ABDOMINAL Verified 06/21/20 08:23 PAIN/VOMITING codeine AdvReac Mild NAUSEA Verified 06/21/20 08:23 morphine AdvReac Mild NAUSEA Verified 06/21/20 08:23 phenazopyridine AdvReac Unknown NAUSEA Verified 06/21/20 08:23 Review of Systems Review of Systems: All systems reviewed & are unremarkable except as noted in HPI and below Constitutional: Constitutional: Denies body ache(s), Denies chills, Denies excessive sweating, Denies fatigue, Denies fever(s), Denies headache(s), Denies lethargy, Denies malaise, Denies weakness and Denies weight loss Eyes: Eyes: Denies blurry vision, Denies change in vision and Denies loss of vision ENT: Denies dizziness, Denies ear discharge, Denies headache(s), Denies lip swelling, Denies epistaxis, Denies nasal congestion, Denies neck pain, Denies throat swelling and Denies tongue swelling Cardiovascular: Cardiovascular: Denies diaphoresis, Denies rapid heart rate, Denies edema, Denies irregular heart rhythm, Denies lightheadedness, Denies palpitations, Denies dyspnea and Denies dyspnea on exertion Respiratory: Respiratory: Denies chest congestion, Denies cough, Denies hemoptysis, Denies dyspnea and Denies dyspnea on exertion Gastrointestinal: Gastrointestinal: Denies abdominal pain, Denies melena, Denies hematochezia, Denies diarrhea, Denies nausea, Denies vomiting and Denies hematemesis Musculoskeletal: Musculoskeletal: Denies abnormal gait, Denies deformity, Denies joint swelling, Denies limited range of motion, Denies neck pain and Denies numbness Neurologic: Denies Abnormal speech present, Denies abnormal gait, Denies confusion, Denies dizziness, Denies headache(s), Denies focal weakness, Denies loss of vision, Denies numbness, Denies Other visual disturbances, Denies Sensory deficit (Neuro) and Denies weakness Psychiatric: Psychiatric: Denies confusion, Denies depression, Denies auditory hallucinations, Denies homicidal ideation and Denies suicidal ideation Endocrine: Endocrine: Denies cold intolerance, Denies excessive sweating, Denies fatigue, Denies heat intolerance and Denies palpitations Hematologic/Lymphatic: Hematologic/Lymphatic: Denies easy bleeding and Denies easy bruising Allergic/Immunologic: Allergic/Immun
[2020-06-21 08:46] LABS: Basophils Percent Auto 0.3 % (0.2-1.2); Eosinophils Absolute Auto 0.1 K/mm3 (0-0.3); Eosinophils Percent Auto 2.4 % (0-4.4); Hemoglobin 15.2 g/dL (12.0-15.0); Immature Granulocyte Absolute 0.03 K/mm3 (0.00-0.031); Immature Granulocyte Percent A 0.5 % (0-0.5); Lymphocytes Absolute Auto 2.46 K/mm3 (0.9-3.2); Lymphocytes Percent Auto 41.7 % (18.3-44.2); Mean Corpuscular HGB Conc 31.7 g/dl (32-36); Mean Corpuscular Hemoglobin 29.5 pg (26-34); Mean Corpuscular Volume 93.2 fl (80-100); Monocytes Absolute Auto 0.4 K/mm3 (0.1-0.6); Monocytes Percent Auto 7.5 % (2.6-8.5); Neutrophils Absolute Auto 2.8 K/mm3 (1.3-6.7); Neutrophils Percent Auto 47.6 % (45.5-73.1); Platelet Count Result 254 k/mm3 (150-375); Red Blood Count 5.15 M/mm3 (4.2-5.4); Red Cell Distribution Width 13.2 % (11.5-14.5); White Blood Count 5.9 K/mm3 (4.5-10.0)
[2020-06-21 08:47] LABS: Anion Gap 6 mmol/L (8-16); Blood Urea Nitrogen 27 mg/dL (7-17); Calcium 9.7 mg/dL (8.4-10.2); Carbon Dioxide 33 mmol/L (22-30); Chloride 100 mmol/L (98-107); Estimated CRCL calculation 46 ml/min; Estimated Glomerular Filt Rate 44; Glucose 192 mg/dL (65-105); Potassium 3.9 mmol/L (3.4-5.0); Sodium 139 mmol/L (137-145)
[2020-06-21 08:49] LABS: Partial Thromboplastin Time 24.7 SECONDS (22.3-36.8); Prothrombin Time 12.9 Seconds (11.1-14.7)
[2020-06-21 08:59] LABS: Troponin I < 0.012 ng/mL (0.000-0.034)
[2020-06-21] MEDS: ASPIRIN 81 MG CHEWABLE TABLET 324 MG PO (09:21)
[2020-06-21 09:56] VITALS: BP 141/85; PULSE 69; RESP 18; O2SAT 100
[2020-06-21 10:22] VITALS: BP 134/81; PULSE 80; RESP 17; O2SAT 97
[2020-06-21] MEDS: NITROGLYCERIN SL 0.4 MG TABLET SUBLINGUAL (10:59)
[2020-06-21] MEDS: SODIUM CHLORIDE 0.9% IV 50 ML 400 ML (10:59)
[2020-06-21] MEDS: PROMETHAZINE HCL 25 MG/ML AMPUL 12.5 MG IV PUSH (10:59)
[2020-06-21 11:00] VITALS: BP 128/82; PULSE 67; RESP 12; O2SAT 100
== END 2020-06-21 11:47 | disposition left against medical advice (07) ==
PROVIDERS: Emergency Provider Emergency Medicine; PCP Physician Assistant
DX: R07.89 Other chest pain (principal); F41.9 Anxiety disorder, unspecified; F32.9 Major depressive disorder, single episode, unspecified; E11.22 Type 2 diabetes mellitus with diabetic chronic kidney disease; N18.30 Chronic kidney disease, stage 3 unspecified; K21.9 Gastro-esophageal reflux disease without esophagitis; K58.0 Irritable bowel syndrome with diarrhea; F43.10 Post-traumatic stress disorder, unspecified; Z98.42 Cataract extraction status, left eye; Z98.41 Cataract extraction status, right eye; E89.0 Postprocedural hypothyroidism
CPT/HCPCS: 36415; 71046; 80048; 84484; 85025; 85610; 85730; 93005; 96365; 96375; 99284; A9270; J0131; J2550

== ENCOUNTER 2021-01-05 11:31 | Emergency (ER) | payer MEDICARE, MEDICAID, SELFPAY ==
[2021-01-05 11:40] VITALS: BP 152/102; PULSE 95; RESP 20; TEMP 36.3; O2SAT 95
[2021-01-05 11:55] LABS: Basophils Percent Auto 0.1 % (0.2-1.2); Eosinophils Absolute Auto 0.1 K/mm3 (0-0.3); Eosinophils Percent Auto 0.9 % (0-4.4); Hematocrit 46.1 % (37.0-47.0); Hemoglobin 15.3 g/dL (12.0-15.0); Immature Granulocyte Absolute 0.02 K/mm3 (0.00-0.031); Immature Granulocyte Percent A 0.3 % (0-0.5); Lymphocytes Absolute Auto 1.61 K/mm3 (0.9-3.2); Lymphocytes Percent Auto 22.8 % (18.3-44.2); Mean Corpuscular HGB Conc 33.2 g/dl (32-36); Mean Corpuscular Hemoglobin 29.9 pg (26-34); Mean Platelet Volume 9.7 fl (7.4-10.4); Monocytes Absolute Auto 0.4 K/mm3 (0.1-0.6); Monocytes Percent Auto 5.1 % (2.6-8.5); Neutrophils Percent Auto 70.8 % (45.5-73.1); Platelet Count Result 228 k/mm3 (150-375); Red Blood Count 5.12 M/mm3 (4.2-5.4); Red Cell Distribution Width 12.1 % (11.5-14.5); White Blood Count 7.1 K/mm3 (4.5-10.0)
[2021-01-05 12:05] LABS: Alanine Aminotransferase 42 U/L (4-35); Albumin Level 4.3 g/dL (3.5-5.1); Alkaline Phosphatase 80 U/L (38-126); Anion Gap 6 mmol/L (8-16); Aspartate Amino Transferase 31 U/L (14-36); Bilirubin,Total 0.3 mg/dL (0.2-1.3); Blood Urea Nitrogen 17 mg/dL (7-17); Calcium 9.6 mg/dL (8.4-10.2); Carbon Dioxide 25 mmol/L (22-30); Chloride 108 mmol/L (98-107); Estimated CRCL calculation 54 ml/min; Estimated Glomerular Filt Rate 55; Glucose 188 mg/dL (65-105); Lipase 55 U/L (23-300); Potassium 4.1 mmol/L (3.4-5.0); Sodium 139 mmol/L (137-145)
[2021-01-05 12:11] LABS: Add Urine Microscopic? YES; Appearance Urine Turbid (Clear); Bacteria Urine 1+ /hpf; Bilirubin Urine Negative (Negative); Blood Urine Negative (Negative); Color Urine Yellow (Yellow); Glucose Urine UA Negative (Negative); Ketones Urine Negative (Negative); Leukocyte Esterase Ur Negative LEU/UL (Negative); Mucus Urine Rare /lpf; Nitrate Urine Negative (Negative); Protein Urine Negative (Negative); RBC Urine 21-50 /hpf (0-2); Specific Grav Ur 1.006 (1.001-1.035); Squamous Epithelial Cell Urine Many /hpf (Few); Urobilinogen Urine Negative mg/dL (<2.0); WBC Urine 31-50 /hpf
[2021-01-05 14:44] VITALS: BP 140/88; PULSE 84; RESP 20; O2SAT 96
[2021-01-05] MEDS: SODIUM CHLORIDE 0.9% IV 1,000 ML 999 ML IV CONT (14:48)
[2021-01-05] MEDS: FAMOTIDINE 20 MG/2 ML VIAL IV PUSH (14:49)
[2021-01-05] MEDS: PROMETHAZINE HCL 25 MG/ML AMPUL 12.5 MG IV PUSH (14:50)
--- NOTE | 2021-01-05 16:06 | ED.GENADULT ---
HPI - General Adult General Chief complaint: Abdominal Pain Stated complaint: n/v, chills, urinary s/s Time Seen by Provider: 01/05/21 13:48 Source: patient, RN notes reviewed and old records reviewed Mode of arrival: ambulatory Limitations: no limitations History of Present Illness HPI narrative: Patient is a 70-year-old female who presents to emergency department for evaluation of feeling fatigued with abdominal discomfort and back discomfort with urinary frequency and urgency over the last couple of days. Patient notes nausea denies emesis. Patient notes normal bowel habits. On arrival patient denies any other injuries or complaints or recent illness patient has not taken anything for symptoms nor is she been seen for this complaint Related Data Home Medications Medication Instructions Recorded Confirmed Gaviscon 2 tablet PO QID PRN 03/21/20 05/28/20 alprazolam [Xanax] 1 mg PO DAILY 03/21/20 05/28/20 amitriptyline 20 mg PO HS 03/21/20 05/28/20 famotidine 20 mg PO DAILY 03/21/20 05/28/20 promethazine 25 mg PO Q6H PRN 03/21/20 05/28/20 levothyroxine 112 mcg tablet 112 mcg PO DAILY 12/23/20 12/23/20 Allergies Allergy/AdvReac Type Severity Reaction Status Date / Time fentanyl Allergy Intermediate Nausea and Verified 06/21/20 08:23 Vomiting propoxyphene Allergy Mild VOMITTING Verified 06/21/20 08:23 albuterol Allergy Unknown ANXIETY. Verified 06/21/20 08:23 CAN'T STAND IT dicyclomine Allergy Unknown Nausea and Verified 06/21/20 08:23 Vomiting hydrocodone Allergy Unknown severe Verified 06/21/20 08:23 vomiting metoclopramide Allergy Unknown anxiety Verified 06/21/20 08:23 adhesive AdvReac Severe SKIN Verified 06/21/20 08:23 BLISTERS erythromycin base AdvReac Intermediate ABDOMINAL Verified 06/21/20 08:23 PAIN/VOMITING codeine AdvReac Mild NAUSEA Verified 06/21/20 08:23 morphine AdvReac Mild NAUSEA Verified 06/21/20 08:23 phenazopyridine AdvReac Unknown NAUSEA Verified 06/21/20 08:23 Review of Systems Review of Systems: All systems reviewed & are unremarkable except as noted in HPI and below PMFSH Past Medical History Medical History (Updated 01/05/21 @ 16:09 by Jonnie Gray PA-C) Alcohol use Anxiety Chronic kidney disease, stage 3 Baseline creatinine between 1.1 and 1.20. Colon cancer screening Degenerative disc disease Depression Gastroesophageal reflux disease Hypothyroidism Irritable bowel syndrome Irritable bowel syndrome with diarrhea Osteoarthritis PTSD (post-traumatic stress disorder) Sarcoidosis In remission for over 40 years. Type 2 diabetes mellitus Surgical History Surgical History History of appendectomy (~1997) Incidental appendectomy at the time of her hysterectomy. History of bilateral cataract extraction History of cardiac catheterization No evidence of coronary artery disease. History of cholecystectomy (~2007) History of cystoscopy For evaluation of microscopic hematuria reportedly unremarkable History of hysterectomy (~1997) History of partial thyroidectomy (~2007) Pathology revealed a benign nodule. History of tonsillectomy Family History Family History Father Family history of malignant neoplasm of stomach Sibling Family history of malignant neoplasm of esophagus Mother Family history of osteoarthritis Family history of elevated blood lipids Family history of thyroid disease Family history of cataracts Family history of arthritis Family history of diabetes mellitus in first degree relative Grandparent Diabetes mellitus Other Family history of kidney disease Family history of malignant neoplasm Social History Social History Alcohol intake: current Gender identity (if verbalized by the patient): Female Spiritual care concerns: No Exam Narrativ
[2021-01-05 16:22] VITALS: BP 138/88; PULSE 78; RESP 20; O2SAT 99
== END 2021-01-05 16:23 | disposition home or self-care (01) ==
PROVIDERS: Emergency Provider Emergency Medicine; PCP Physician Assistant
DX: N39.0 Urinary tract infection, site not specified (principal); E11.22 Type 2 diabetes mellitus with diabetic chronic kidney disease; N18.30 Chronic kidney disease, stage 3 unspecified; K58.0 Irritable bowel syndrome with diarrhea; M19.90 Unspecified osteoarthritis, unspecified site; K21.9 Gastro-esophageal reflux disease without esophagitis; F43.10 Post-traumatic stress disorder, unspecified; F32.9 Major depressive disorder, single episode, unspecified; F41.9 Anxiety disorder, unspecified; Z98.42 Cataract extraction status, left eye; Z98.41 Cataract extraction status, right eye; E89.0 Postprocedural hypothyroidism
CPT/HCPCS: 36415; 80053; 81001; 83690; 85025; 87086; 96361; 96365; 96375; 99284; J0696; J2550; J7030

== ENCOUNTER 2021-01-23 14:12 | Outpatient (CLI) | payer MEDICARE, MEDICAID, SELFPAY ==
--- NOTE | ~2021-01-23 | CT_ITS ---
EXAMINATION: CT abdomen pelvis w con DATE: 01/23/2021 15:05 INDICATION: Abdominal pain. History of pancreatitis. TECHNIQUE: Computed tomography (CT) of the abdomen and pelvis was performed with 100 cc Omnipaque 350 intravenous contrast. The dose-length product was 1170.66 mGy-cm. Automated exposure control and ite rative reconstruction technique were employed. COMPARISON: CT dated 03/21/2020. FINDINGS: Lung bases are unremarkable. Heart size normal. No significant pleural or pericardial effus ion. No significant vascular abnormality. No lymphadenopathy. Fatty infiltration of the liver. 1.4 cm left renal cyst. The spleen, pancreas, adrenal glands and rig ht kidney are unremarkable. There are cholecystectomy clips. There are surgical changes consistent wi th ventral hernia repair.. Nonobstructive bowel gas pattern. Uterus is surgically absent. There is a urachal remnant of the bladder. Colonic diverticulosis without evidence for diverticulitis. Mild lumb ar spondylosis. IMPRESSION: 1. No acute abdominal abnormality. Reviewed, dictated and finalized at location A.
[2021-01-23 14:52] LABS: Estimated Glomerular Filt Rate 44
== END 2021-01-23 14:13 | disposition home or self-care (01) ==
PROVIDERS: PCP Physician Assistant; Visit Provider Physician Assistant
DX: K85.90 Acute pancreatitis without necrosis or infection, unspecified (principal); N18.9 Chronic kidney disease, unspecified; Z85.42 Personal history of malignant neoplasm of other parts of uterus; R11.2 Nausea with vomiting, unspecified; N28.1 Cyst of kidney, acquired; K57.30 Diverticulosis of large intestine without perforation or abscess without bleeding; M47.816 Spondylosis without myelopathy or radiculopathy, lumbar region
CPT/HCPCS: 74177; Q9967

== ENCOUNTER 2021-03-23 09:28 | Emergency (ER) | payer MEDICARE, MEDICAID, SELFPAY ==
--- NOTE | ~2021-03-23 | CT_ITS ---
EXAMINATION: CT brain wo con EXAM DATE: 03/23/2021 09:56 INDICATION: Trauma, right-sided headache. States head injury on February 06. TECHNIQUE: Spiral CT of the head was performed without contrast. Axial, coronal and sagittal images were reviewed. The dose-length product (DLP) for this examination was 605.33 mGy-cm. The exposure w as tailored according to patient size, and iterative reconstruction (ASIR) was used as additional dos e reduction technique. Comparison is made to prior examination from 10/09/2015. FINDINGS: There is punctate old right caudate head lacunar infarction. There is no acute intraparench ymal hemorrhage. No evidence of intraparenchymal brain mass lesion. No evidence of acute infarction . There is no mass effect or midline shift. The ventricles are normal in size. There are no extra- axial collections. There are no acute calvarial fractures. Patient has had bilateral ocular lens maame sara. Soft tissue is unremarkable. The visualized sinuses and mastoid air cells are well aerated. IMPRESSION: 1. No acute intracranial findings. 2. Punctate old right caudate head lacunar infarction. Reviewed, dictated and finalized at location B.
[2021-03-23 09:44] VITALS: BP 144/89; PULSE 82; RESP 18; TEMP 36.6; O2SAT 98
[2021-03-23] MEDS: SODIUM CHLORIDE 0.9% IV 1,000 ML 999 ML IV CONT (10:13)
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
[2021-03-23] MEDS: PROMETHAZINE HCL 25 MG TABLET 12.5 MG PO (11:23)
[2021-03-23 11:40] VITALS: BP 125/68; PULSE 71; RESP 16; TEMP 36.9; O2SAT 100
== END 2021-03-23 11:43 | disposition home or self-care (01) ==
PROVIDERS: Emergency Provider Emergency Medicine; PCP Physician Assistant
DX: R51.9 Headache, unspecified (principal); E11.22 Type 2 diabetes mellitus with diabetic chronic kidney disease; N18.30 Chronic kidney disease, stage 3 unspecified; K21.9 Gastro-esophageal reflux disease without esophagitis; K58.0 Irritable bowel syndrome with diarrhea; F41.9 Anxiety disorder, unspecified; F32.9 Major depressive disorder, single episode, unspecified; F43.10 Post-traumatic stress disorder, unspecified; Z98.42 Cataract extraction status, left eye; Z98.41 Cataract extraction status, right eye; E89.0 Postprocedural hypothyroidism
CPT/HCPCS: 70450; 96361; 96374; 99284; A9270; J0131; J7030

== ENCOUNTER 2021-11-09 07:13 | Emergency (ER) | payer MEDICARE, MEDICAID, SELFPAY ==
--- NOTE | ~2021-11-09 | XR_ITS ---
EXAMINATION: XR chest 1V portable DATE: 11/09/2021 08:50 INDICATION: Cough TECHNIQUE: frontal view of the chest was obtained. COMPARISON: Chest radiograph dated 06/21/2020 FINDINGS: The lungs remain clear with no focal airspace opacities, pulmonary edema, pleural effusion or pneumot horax. The cardiomediastinal silhouette is normal. IMPRESSION: 1. No acute cardiopulmonary disease. Reviewed, dictated and finalized at location A.
--- NOTE | ~2021-11-09 | CT_ITS ---
EXAMINATION: CT abdomen pelvis w con DATE: 11/09/2021 09:18 INDICATION: Upper abdominal pain. TECHNIQUE: Computed tomography (CT) of the abdomen and pelvis was performed with 100 mL Omnipaque 350 intravenous contrast. Automated exposure control and iterative reconstruction technique were employe d. The dose-length product was 916.89 mGy-cm. COMPARISON: CT abdomen and pelvis 01/23/2021 FINDINGS: The visualized portions of the lung bases demonstrate mild atelectasis. No pleural effusion . The heart size is normal. No pericardial effusion. There is a small sliding hiatal hernia. There is diffuse hepatic steatosis. There are changes of cholecystectomy. The spleen, pancreas, adrenal gland s, and right kidney are normal. There is a 14 mm cyst in left kidney. There is diverticulosis of the colon without evidence of diverticulitis. There are changes of ventral hernia repair. The appendix is not visualized. There are no pathologically enlarged lymph nodes. There is no free intraperitoneal f luid. There is mild thoracic spondylosis and moderate lumbar spondylosis. IMPRESSION: 1. Small sliding hiatal hernia. 2. Diffuse hepatic steatosis. Reviewed, dictated and finalized at location A.
[2021-11-09 07:17] VITALS: BP 148/93; PULSE 96; RESP 16; TEMP 36.8; O2SAT 99
[2021-11-09 07:36] LABS: Basophils Percent Auto 0.3 % (0.2-1.2); Eosinophils Absolute Auto 0.1 K/mm3 (0-0.3); Eosinophils Percent Auto 1.3 % (0-4.4); Hematocrit 43.8 % (37.0-47.0); Hemoglobin 14.9 g/dL (12.0-15.0); Immature Granulocyte Absolute 0.01 K/mm3 (0.00-0.031); Immature Granulocyte Percent A 0.1 % (0-0.5); Lymphocytes Absolute Auto 2.03 K/mm3 (0.9-3.2); Mean Corpuscular Hemoglobin 29.7 pg (26-34); Mean Corpuscular Volume 87.3 fl (80-100); Mean Platelet Volume 9.8 fl (7.4-10.4); Monocytes Absolute Auto 0.5 K/mm3 (0.1-0.6); Monocytes Percent Auto 6.9 % (2.6-8.5); Neutrophils Absolute Auto 4.4 K/mm3 (1.3-6.7); Neutrophils Percent Auto 62.4 % (45.5-73.1); Platelet Count Result 213 k/mm3 (150-375); Red Blood Count 5.02 M/mm3 (4.2-5.4); Red Cell Distribution Width 12.9 % (11.5-14.5)
[2021-11-09 07:43] LABS: Appearance Urine Cloudy (Clear); Bilirubin Urine Negative (Negative); Color Urine Yellow (Yellow); Glucose Urine UA Negative (Negative); Ketones Urine Negative (Negative); Leukocyte Esterase Ur Negative LEU/UL (Negative); Nitrate Urine Negative (Negative); Protein Urine 1+ mg/dL (Negative); Specific Grav Ur >= 1.030 (1.001-1.035); Urobilinogen Urine 0.2 mg/dL (<2.0)
[2021-11-09 07:44] LABS: Alanine Aminotransferase 19 U/L (4-35); Albumin Level 4.2 g/dL (3.5-5.1); Alkaline Phosphatase 73 U/L (38-126); Anion Gap 7 mmol/L (8-16); Aspartate Amino Transferase 23 U/L (14-36); Bilirubin,Total 0.5 mg/dL (0.2-1.3); Blood Urea Nitrogen 17 mg/dL (7-17); Carbon Dioxide 25 mmol/L (22-30); Chloride 104 mmol/L (98-107); Estimated CRCL calculation 48 ml/min; Estimated Glomerular Filt Rate 49; Glucose 196 mg/dL (65-110); Lipase 68 U/L (23-300); Sodium 136 mmol/L (137-145)
[2021-11-09 07:46] LABS: Add Urine Microscopic? YES; Blood Urine Trace-Intact (Negative)
[2021-11-09 07:49] LABS: Bacteria Urine 2+ /hpf; RBC Urine 0-2 /hpf (0-2); Squamous Epithelial Cell Urine Many /hpf (Few); WBC Urine 0-3 /hpf (0-3)
[2021-11-09 07:50] LABS: Mucus Urine Few /lpf
[2021-11-09 08:17] VITALS: BP 126/75; PULSE 62; RESP 18; O2SAT 100
--- NOTE | 2021-11-09 08:41 | ECG_ITS ---
Measurements Intervals [place] Rate: 76 P: 22 WI: 157 QRS: -33 QRSD: 94 T: 71 QT: 368 QTc: 415 Interpretive Statements SINUS RHYTHM PATTERN CONSISTENT WITH PULMONARY DISEASE INFERIOR MYOCARDIAL INFARCTION , OLD COMPARED TO ECG 06/21/2020 08:19:00 NO SIGNIFICANT CHANGES Electronically Signed On 11-09-2021 14:24:33 CDT by Shankar Canada M.D.
--- NOTE | 2021-11-09 08:49 | ED.ABDPAIN ---
HPI - Abdominal Pain General Chief Complaint: Abdominal Pain Stated Complaint: congestion, rib pain Time Seen by Provider: 11/09/21 08:02 Source: patient and RN notes reviewed Mode of arrival: ambulatory Limitations: no limitations History of Present Illness HPI narrative: This is a 71 year old female with history of pancreatitis who presents for evaluation of sinus congestion and right upper abdominal pain. She is reports sinus drainage for 4 days and she also reports brown drainage with she bloods her nose. She is also complaining of right upper abdominal pain for 2 days. This pain intermittently radiates across her abdomen. She states her pain is similar to when she has pancreatitis but it is not severe. She denies vomiting, diarrhea fever, chills, chest pain or sob. Related Data Home Medications Medication Instructions Recorded Confirmed Gaviscon 2 tablet PO QID PRN 03/21/20 05/28/20 alprazolam [Xanax] 1 mg PO DAILY 03/21/20 05/28/20 amitriptyline 20 mg PO HS 03/21/20 05/28/20 famotidine 20 mg PO DAILY 03/21/20 05/28/20 promethazine 25 mg PO Q6H PRN 03/21/20 05/28/20 Allergies Allergy/AdvReac Type Severity Reaction Status Date / Time fentanyl Allergy Intermediate Nausea and Verified 11/09/21 07:16 Vomiting propoxyphene Allergy Mild VOMITTING Verified 11/09/21 07:16 albuterol Allergy Unknown ANXIETY. Verified 11/09/21 07:16 CAN'T STAND IT dicyclomine Allergy Unknown Nausea and Verified 11/09/21 07:16 Vomiting hydrocodone Allergy Unknown severe Verified 11/09/21 07:16 vomiting metoclopramide Allergy Unknown anxiety Verified 11/09/21 07:16 adhesive AdvReac Severe SKIN Verified 11/09/21 07:16 BLISTERS erythromycin base AdvReac Intermediate ABDOMINAL Verified 11/09/21 07:16 PAIN/VOMITING codeine AdvReac Mild NAUSEA Verified 11/09/21 07:16 morphine AdvReac Mild NAUSEA Verified 11/09/21 07:16 phenazopyridine AdvReac Unknown NAUSEA Verified 11/09/21 07:16 Review of Systems Review of Systems: All systems reviewed & are unremarkable except as noted in HPI and below Constitutional: Constitutional: Denies chills and Denies fever(s) ENT: Reports nasal congestion and Denies sore throat Cardiovascular: Cardiovascular: Denies chest pain Respiratory: Respiratory: Reports cough and Denies dyspnea Gastrointestinal: Gastrointestinal: Reports abdominal pain, Denies diarrhea, Reports nausea and Denies vomiting Genitourinary: Genitourinary: Denies hematuria, Denies dysuria and Reports flank pain Psychiatric: Psychiatric: Reports depression [facility] Past Medical History Medical History (Updated 11/09/21 @ 11:04 by Ashley Small MD) Alcohol use Anxiety Chronic kidney disease, stage 3 Baseline creatinine between 1.1 and 1.20. Colon cancer screening Degenerative disc disease Depression Gastroesophageal reflux disease Hypothyroidism Irritable bowel syndrome Irritable bowel syndrome with diarrhea Osteoarthritis PTSD (post-traumatic stress disorder) Sarcoidosis In remission for over 40 years. Type 2 diabetes mellitus Surgical History Surgical History History of appendectomy (~1997) Incidental appendectomy at the time of her hysterectomy. History of bilateral cataract extraction History of cardiac catheterization No evidence of coronary artery disease. History of cholecystectomy (~2007) History of cystoscopy For evaluation of microscopic hematuria reportedly unremarkable History of hysterectomy (~1997) History of partial thyroidectomy (~2007) Pathology revealed a benign nodule. History of tonsillectomy Family History Family History Father Family history of malignant neoplasm of stomach Sibling Family history of malignant neoplasm of esophagus Mother Family history of osteoarthritis Family history of elevated blood lipids Family history of th
[2021-11-09] MEDS: SODIUM CHLORIDE 0.9% IV 1,000 ML 999 ML IV CONT (08:50)
--- NOTE | 2021-11-09 09:20 | PC.NURSE ---
pt in CT at this time.
[2021-11-09 09:55] VITALS: BP 144/78; PULSE 72; RESP 18; O2SAT 97
[2021-11-09 10:05] LABS: SARS-CoV-2 RNA PCR Negative
[2021-11-09 11:12] VITALS: BP 146/77; PULSE 86; RESP 18; O2SAT 98
== END 2021-11-09 11:13 | disposition home or self-care (01) ==
PROVIDERS: Emergency Provider General Practice; PCP Physician Assistant
DX: R10.11 Right upper quadrant pain (principal); J06.9 Acute upper respiratory infection, unspecified; Z20.822 Contact with and (suspected) exposure to COVID-19; N18.30 Chronic kidney disease, stage 3 unspecified; E11.22 Type 2 diabetes mellitus with diabetic chronic kidney disease; K58.0 Irritable bowel syndrome with diarrhea; M19.90 Unspecified osteoarthritis, unspecified site; F43.10 Post-traumatic stress disorder, unspecified; F32.A Depression, unspecified; F41.9 Anxiety disorder, unspecified; Z98.42 Cataract extraction status, left eye; Z98.41 Cataract extraction status, right eye; E89.0 Postprocedural hypothyroidism; Z87.891 Personal history of nicotine dependence; K76.0 Fatty (change of) liver, not elsewhere classified; K44.9 Diaphragmatic hernia without obstruction or gangrene; Z79.84 Long term (current) use of oral hypoglycemic drugs
CPT/HCPCS: 36415; 71045; 74177; 80053; 81001; 83690; 85025; 93005; 96361; 96365; 99284; C9803; J0131; J7030; Q9967; U0003; U0005

== ENCOUNTER 2022-02-06 18:54 | Emergency (ER) | payer MEDICARE, MEDICAID, SELFPAY ==
[2022-02-06] VITALS (10 sets, daily range): BP systolic 139–145; BP diastolic 73–82; PULSE 98–113; RESP 17–24; TEMP 36.7–37.2; O2SAT 94–98
--- NOTE | ~2022-02-06 | XR_ITS ---
EXAMINATION: XR chest 1V portable Exam Date/Time: 02/06/2022 19:00 CDT HISTORY: chest pain, cough, stage 3 kidney disease Comparison: 11/09/2021. RESULT: Lines, tubes, and devices: None. Lungs and pleura: Clear. Cardiomediastinal silhouette: Stable cardiomediastinal silhouette. Other: No acute osseous or upper abdominal finding. IMPRESSION: No acute cardiopulmonary process. Reviewed, dictated and finalized at location K.
--- NOTE | ~2022-02-06 | CT_ITS ---
EXAMINATION: CTA chest PE protocol DATE: 02/06/2022 20:13 INDICATION: PE suspected TECHNIQUE: Computed tomography angiography (CTA) of the chest was performed with 100 mL Omnipaque-350 intravenous contrast timed to evaluate the pulmonary arteries. Coronal maximum intensity projection 3D-reconstructions were created by the technologist. The dose-length product (DLP) was 975.76 mGy-cm. Automated exposure control and iterative reconstruction technique were employed. COMPARISON: 04/30/2016, 05/27/2015, 12/05/2014. FINDINGS: Study quality: Adequate. Pulmonary arteries: No pulmonary emboli detected. Thoracic aorta: Mild ectasia and arch calcification. Lung parenchyma and airways: Clear. Thoracic inlet, axillae and chest wall: Partially visualized enlarged lower cervical lymph node versu s partial visualization of the right submandibular gland, incompletely imaged. Prior right thyroidect cara. Mediastinum: Small hiatal hernia, otherwise normal. Heart and pericardium: Normal. Coronary artery calcifications: Absent. Pleura: Unremarkable. Upper abdomen: Steatosis. Cholecystectomy. Bones: No acute osseous finding. IMPRESSION: No CT evidence of acute pulmonary embolus. Lower right cervical lymphadenopathy versus partial visual ization of a normal or slightly enlarged right submandibular gland. Reviewed, dictated and finalized at location K. IMPRESSION: No CT evidence of acute pulmonary embolus. Lower right cervical lymphadenopathy versus partial visualization of a normal or slightly enlarged right submandibu lar gland.
--- NOTE | 2022-02-06 18:57 | ECG_ITS ---
Measurements Intervals [place] Rate: 111 P: 24 [place]: 152 QRS: -72 QRSD: 80 T: 59 QT: 306 QTc: 417 Interpretive Statements SINUS TACHYCARDIA LEFT ANTERIOR FASCICULAR BLOCK [QRS AXIS <= -45, QR IN I, RS IN II] POSSIBLE ANTERIOR MYOCARDIAL INFARCTION , PROBABLY OLD [30 ms Q WAVE IN V3/V4, OR R < 0.2 mV IN V4] INFERIOR MYOCARDIAL INFARCTION , PROBABLY OLD [40+ ms Q WAVE AND/OR ST/T ABNORMALITY IN II/aVF] COMPARED TO ECG 11/09/2021 08:57:42 SINUS TACHYCARDIA NOW PRESENT LEFT ANTERIOR FASCICULAR BLOCK NOW PRESENT Electronically Signed On 02-07-2022 11:03:03 CDT by Thiago Pena M.D.
--- NOTE | 2022-02-06 19:29 | ED.GENADULT ---
HPI - General Adult General Chief complaint: Upper Respiratory Infection Stated complaint: COVID POSITIVE AND CHEST PAIN AND CHILLS Time Seen by Provider: 02/06/22 18:57 Source: RN notes reviewed History of Present Illness HPI narrative: Patient presents emergency department from home for COVID-19. Patient states she began to feel bad yesterday with a cough that was nonproductive as well as generalized body aches and chills states that she gone to the urgent care today and had a COVID test that was positive and was told that she should return for further evaluation as she had felt any chest discomfort or felt worse she states that she had had some chest tightness today that went from her throat all the way down to her upper abdomen states it felt like esophageal spasms and has been constant and is worse with coughing she denies having any fevers, shortness of breath nausea vomiting diarrhea or any other symptoms Related Data Home Medications Medication Instructions Recorded Confirmed Al hyd-Mg tr-alg ac-sod bicarb 80 2 tablet PO QID PRN Indigestion 03/21/20 05/28/20 mg-14.2 mg chewable tablet (Gaviscon) alprazolam 1 mg tablet (Xanax) 1 mg PO DAILY 03/21/20 05/28/20 amitriptyline 10 mg tablet 20 mg PO HS 03/21/20 05/28/20 famotidine 20 mg tablet 20 mg PO DAILY 03/21/20 05/28/20 promethazine 25 mg tablet 25 mg PO Q6H PRN Nausea 03/21/20 05/28/20 Allergies Allergy/AdvReac Type Severity Reaction Status Date / Time fentanyl Allergy Intermediate Nausea and Verified 02/06/22 19:16 Vomiting propoxyphene Allergy Mild VOMITTING Verified 02/06/22 19:16 albuterol Allergy Unknown ANXIETY. Verified 02/06/22 19:16 CAN'T STAND IT dicyclomine Allergy Unknown Nausea and Verified 02/06/22 19:16 Vomiting hydrocodone Allergy Unknown severe Verified 02/06/22 19:16 vomiting metoclopramide Allergy Unknown anxiety Verified 02/06/22 19:16 adhesive AdvReac Severe SKIN Verified 02/06/22 19:16 BLISTERS erythromycin base AdvReac Intermediate ABDOMINAL Verified 02/06/22 19:16 PAIN/VOMITING codeine AdvReac Mild NAUSEA Verified 02/06/22 19:16 morphine AdvReac Mild NAUSEA Verified 02/06/22 19:16 phenazopyridine AdvReac Unknown NAUSEA Verified 02/06/22 19:16 diazepam AdvReac Vomiting Verified 02/06/22 19:16 Review of Systems Review of Systems: Gen.: Denies fevers or chills ENT: Denies congestion Respiratory: Denies shortness of breath or cough CV: See HPI GI: Denies abdominal pain nausea, emesis or diarrhea Musculoskeletal: Denies back pain or muscle pain Neuro: Denies numbness, tingling, weakness or focal weakness Skin: Denies rash Except as documented, all other systems reviewed and negative [facility] Past Medical History Medical History (Updated 02/06/22 @ 21:49 by Dorian Hernandez DO) Alcohol use Anxiety Chronic kidney disease, stage 3 Baseline creatinine between 1.1 and 1.20. Colon cancer screening Degenerative disc disease Depression Gastroesophageal reflux disease Hypothyroidism Irritable bowel syndrome Irritable bowel syndrome with diarrhea Osteoarthritis PTSD (post-traumatic stress disorder) Sarcoidosis In remission for over 40 years. Type 2 diabetes mellitus Surgical History Surgical History History of appendectomy (~1997) Incidental appendectomy at the time of her hysterectomy. History of bilateral cataract extraction History of cardiac catheterization No evidence of coronary artery disease. History of cholecystectomy (~2007) History of cystoscopy For evaluation of microscopic hematuria reportedly unremarkable History of hysterectomy (~1997) History of partial thyroidectomy (~2007) Pathology revealed a benign nodule. History of tonsillectomy Family History Family History Father Family history of malignant neoplasm of stomach Sibling Family history of malignant neoplasm o
[2022-02-06 19:34] LABS: Alanine Aminotransferase 22 U/L (6-35); Albumin Level 4.5 g/dL (3.5-5.1); Alkaline Phosphatase 71 U/L (38-126); Anion Gap 7 mmol/L (8-16); Aspartate Amino Transferase 26 U/L (14-36); Bilirubin,Total 0.6 mg/dL (0.2-1.3); Blood Urea Nitrogen 15 mg/dL (7-17); Calcium 9.3 mg/dL (8.4-10.2); Carbon Dioxide 25 mmol/L (22-30); Chloride 104 mmol/L (98-107); Estimated CRCL calculation 52 ml/min; Estimated Glomerular Filt Rate 54; Glucose 173 mg/dL (65-110); Lactate Dehydrogenase 474 U/L (313-618); Lipase 50 U/L (23-300); Potassium 4.1 mmol/L (3.4-5.0); Sodium 136 mmol/L (137-145)
[2022-02-06 19:35] LABS: Prothrombin Time 13.1 Seconds (11.1-14.7)
[2022-02-06 19:36] LABS: Partial Thromboplastin Time 23.6 SECONDS (22.3-36.8)
[2022-02-06 19:45] LABS: Troponin I < 0.012 ng/mL (0.000-0.034)
[2022-02-06 19:51] LABS: Eosinophils Percent Auto 0.8 % (0-4.4); Hematocrit 45.4 % (37.0-47.0); Hemoglobin 14.7 g/dL (12.0-15.0); Immature Granulocyte Absolute 0.01 K/mm3 (0.00-0.031); Immature Granulocyte Percent A 0.2 % (0-0.5); Lymphocytes Absolute Auto 0.33 K/mm3 (0.9-3.2); Lymphocytes Percent Auto 6.4 % (18.3-44.2); Mean Corpuscular HGB Conc 32.4 g/dl (32-36); Mean Corpuscular Hemoglobin 29.4 pg (26-34); Mean Corpuscular Volume 90.8 fl (80-100); Mean Platelet Volume 9.5 fl (7.4-10.4); Monocytes Absolute Auto 0.3 K/mm3 (0.1-0.6); Monocytes Percent Auto 5.8 % (2.6-8.5); Neutrophils Absolute Auto 4.5 K/mm3 (1.3-6.7); Neutrophils Percent Auto 86.8 % (45.5-73.1); Platelet Count Result 184 k/mm3 (150-375); Red Cell Distribution Width 13.2 % (11.5-14.5); White Blood Count 5.2 K/mm3 (4.5-10.0)
--- NOTE | 2022-02-06 19:54 | PC.NURSE ---
Patient in CT at this time.
[2022-02-06] MEDS: SODIUM CHLORIDE 0.9% IV 1,000 ML 999 ML IV CONT (20:28)
--- NOTE | 2022-02-06 21:31 | PC.NURSE ---
Patient states after GI cocktail, she is ready to go home, states she is feeling better. Patient states she does not want any more blood tests or imaging done, states I just want to go home, I am ready to go home. ERP notified.
== END 2022-02-06 22:14 | disposition home or self-care (01) ==
PROVIDERS: Emergency Provider Emergency Medicine; PCP Physician Assistant
DX: U07.1 COVID-19 (principal); E11.22 Type 2 diabetes mellitus with diabetic chronic kidney disease; N18.30 Chronic kidney disease, stage 3 unspecified; K58.0 Irritable bowel syndrome with diarrhea; K21.9 Gastro-esophageal reflux disease without esophagitis; M19.90 Unspecified osteoarthritis, unspecified site; F32.A Depression, unspecified; F41.9 Anxiety disorder, unspecified; E89.0 Postprocedural hypothyroidism; Z98.42 Cataract extraction status, left eye; Z98.41 Cataract extraction status, right eye; Z87.891 Personal history of nicotine dependence; R00.0 Tachycardia, unspecified; I44.4 Left anterior fascicular block; R94.31 Abnormal electrocardiogram [ECG] [EKG]; Z79.84 Long term (current) use of oral hypoglycemic drugs
CPT/HCPCS: 36415; 71045; 71275; 80053; 83615; 83690; 84484; 85025; 85610; 85730; 93005; 96361; 96374; 99284; A9270; J0131; J7030; Q9967

== ENCOUNTER 2022-02-08 14:21 | Outpatient (RCR) | payer MEDICARE, MEDICAID, SELFPAY ==
[2022-02-08] MEDS: ACETAMINOPHEN 325 MG TABLET 650 MG PO (14:39)
[2022-02-08] MEDS: diphenhydrAMINE HCl CAP 25 MG CAPSULE PO (14:39)
[2022-02-08] MEDS: FAMOTIDINE 20 MG TABLET PO (14:39)
[2022-02-08 14:41] VITALS: BP 120/68; PULSE 81; O2SAT 96
[2022-02-08] MEDS: BEBTELOVIMAB 175 MG/2 ML VIAL IV PUSH (15:02)
[2022-02-08 15:37] VITALS: BP 121/70; PULSE 73; RESP 18; O2SAT 96
== END 2022-02-08 16:00 ==
LOC: AMCINF 14:21
PROVIDERS: Referring Provider Physician Assistant; Visit Provider Internal Medicine Hematology & Oncology
DX: U07.1 COVID-19 (principal); E11.9 Type 2 diabetes mellitus without complications; I10 Essential (primary) hypertension
CPT/HCPCS: A9270; M0222; Q0222

== ENCOUNTER 2022-02-24 11:21 | Outpatient (CLI) | payer MEDICARE, MEDICAID, SELFPAY ==
--- NOTE | ~2022-02-24 | XR_ITS ---
XR knee RT 2V DATE: 02/24/2022 12:14 INDICATION: Chronic right knee pain. No injury. TECHNIQUE: AP and lateral views COMPARISON: None FINDINGS: There is superior pole patellar enthesopathy at quadriceps tendon insertion. There is mild periarticular spurring at all 3 compartments. Joint spaces are relatively well preserve d. No fracture or dislocation, periosteal reaction or bone destruction. No radiopaque intra-articular lo ose body or chondrocalcinosis. No significant joint effusion is evident. IMPRESSION: Moderate tricompartment osteoarthritis Reviewed, dictated and finalized at location B.
== END 2022-02-24 11:22 | disposition home or self-care (01) ==
PROVIDERS: Visit Provider Nurse Practitioner Family
DX: M25.561 Pain in right knee (principal); M17.11 Unilateral primary osteoarthritis, right knee
CPT/HCPCS: 73560

== ENCOUNTER 2022-07-20 09:23 | Emergency (ER) | payer MEDICARE, MEDICAID, SELFPAY ==
[2022-07-20] VITALS (10 sets, daily range): BP systolic 119–149; BP diastolic 65–83; PULSE 67–85; RESP 14–20; TEMP 36.9; O2SAT 90–98
--- NOTE | ~2022-07-20 | XR_ITS ---
XR chest 2V 07/20/2022 10:20 Indication: Weakness. Chronic kidney disease. Procedure: 2 view chest Comparison: Comparison to multiple prior studies sequentially, with oldest reviewed study dated 09/2015. Findings: Heart size normal. No focal air space disease, pulmonary edema, pleural effusion or suspect ed pneumothorax. No acute osseous abnormality. Impression: 1: No acute cardiopulmonary disease. Reviewed, dictated and finalized at location B. D DIE CUTTER Impression: 1: No acute cardiopulmonary disease.
--- NOTE | ~2022-07-20 | XR_ITS ---
EXAMINATION: XR knee LT 3V DATE: 07/20/2022 12:26 INDICATION: Generalized left knee pain TECHNIQUE: Anteroposterior, oblique and crosstable lateral views of the left knee were obtained COMPARISON: None. FINDINGS: Alignment is normal. No fracture. No evident joint space narrowing the medial and lateral compartmen ts although this could be underestimated on nonweightbearing imaging. Tiny marginal osteophytes along the patella consistent with at least mild osteoarthritis. There are also small enthesophytes at the patellar insertion of the distal quadriceps tendon. No joint effusion/layering lipohemarthrosis. Soft tissues are unremarkable. IMPRESSION: 1. No left knee joint effusion or acute osseous normality. 2. At least mild osteoarthritis at the patellofemoral compartment. Reviewed, dictated and finalized at location A. SLIP COVER INSTALLER
--- NOTE | 2022-07-20 09:50 | ECG_ITS ---
Measurements Intervals [place] Rate: 68 P: -9 [place]: 174 QRS: -34 QRSD: 97 T: 81 QT: 367 QTc: 392 Interpretive Statements SINUS RHYTHM LEFT AXIS DEVIATION BORDERLINE R WAVE PROGRESSION, ANTERIOR LEADS INFERIOR INFARCT, AGE INDETERMINATE BORDERLINE ST-T WAVE ABNORMALITY- HIGH LATERAL LEADS BASELINE ARTIFACT- II, AVR ABNORMAL ECG COMPARED TO ECG 02/06/2022 19:20:04 SINUS RHYTHM NOW PRESENT T-WAVE ABNORMALITY NOW PRESENT Electronically Signed On 07-20-2022 14:03:34 FRONT END ASSISTANT by Carlos Jacome D.O.
[2022-07-20 10:12] LABS: Basophils Percent Auto 0.2 % (0.2-1.2); Eosinophils Absolute Auto 0.1 K/mm3 (0-0.3); Eosinophils Percent Auto 2.1 % (0-4.4); Hematocrit 40.5 % (37.0-47.0); Hemoglobin 13.6 g/dL (12.0-15.0); Immature Granulocyte Absolute 0.01 K/mm3 (0.00-0.031); Immature Granulocyte Percent A 0.2 % (0-0.5); Lymphocytes Absolute Auto 1.67 K/mm3 (0.9-3.2); Lymphocytes Percent Auto 35.5 % (18.3-44.2); Mean Corpuscular HGB Conc 33.6 g/dl (32-36); Mean Corpuscular Hemoglobin 28.7 pg (26-34); Mean Corpuscular Volume 85.4 fl (80-100); Mean Platelet Volume 9.7 fl (7.4-10.4); Monocytes Absolute Auto 0.3 K/mm3 (0.1-0.6); Monocytes Percent Auto 5.5 % (2.6-8.5); Neutrophils Absolute Auto 2.7 K/mm3 (1.3-6.7); Neutrophils Percent Auto 56.5 % (45.5-73.1); Platelet Count Result 199 k/mm3 (150-375); Red Blood Count 4.74 M/mm3 (4.2-5.4); Red Cell Distribution Width 12.6 % (11.5-14.5); White Blood Count 4.7 K/mm3 (4.5-10.0)
[2022-07-20 10:24] LABS: Alanine Aminotransferase 17 U/L (6-35); Albumin Level 3.9 g/dL (3.5-5.1); Alkaline Phosphatase 62 U/L (38-126); Anion Gap 11 mmol/L (8-16); Aspartate Amino Transferase 20 U/L (14-36); Bilirubin,Total 0.5 mg/dL (0.2-1.3); Blood Urea Nitrogen 20 mg/dL (7-17); Calcium 8.8 mg/dL (8.4-10.2); Carbon Dioxide 25 mmol/L (22-30); Chloride 102 mmol/L (98-107); Estimated CRCL calculation 42 ml/min; Estimated Glomerular Filt Rate 49; Glucose 230 mg/dL (65-110); Sodium 138 mmol/L (137-145)
[2022-07-20 11:42] LABS: Mucus Urine Rare /lpf; RBC Urine 0-2 /hpf (0-2); Squamous Epithelial Cell Urine Many /hpf (Few); WBC Urine 0-3 /hpf
[2022-07-20 11:43] LABS: Appearance Urine Clear (Clear); Bilirubin Urine Negative (Negative); Blood Urine Negative (Negative); Color Urine Yellow (Yellow); Glucose Urine UA Trace mg/dL (Negative); Ketones Urine Negative (Negative); Leukocyte Esterase Ur Negative LEU/UL (Negative); Nitrate Urine Negative (Negative); Protein Urine Negative (Negative); Urobilinogen Urine 0.2 mg/dL (<2.0)
[2022-07-20 11:46] LABS: Add Urine Microscopic? YES
--- NOTE | 2022-07-20 12:23 | ED.GENADULT ---
HPI - General Adult General Chief complaint: Extremity Injury, Lower Stated complaint: unable to walk, bilat leg weakness Time Seen by Provider: 07/20/22 10:19 History of Present Illness HPI narrative: 72-year-old female with a past medical history of chronic back pain and knee pain presents to our department for worsening knee pain which is so uncomfortable that it makes it difficult for her to walk. Pain is worsened for the past 2 to 3 days. Related Data Home Medications Medication Instructions Recorded Confirmed Al hyd-Mg tr-alg ac-sod bicarb 80 2 tablet PO QID PRN Indigestion 03/21/20 07/07/22 mg-14.2 mg chewable tablet (Gaviscon) alprazolam 1 mg tablet (Xanax) 1 mg PO DAILY 03/21/20 07/07/22 amitriptyline 10 mg tablet 20 mg PO HS 03/21/20 07/07/22 famotidine 20 mg tablet 20 mg PO DAILY PRN 03/04/22 07/07/22 Allergies Allergy/AdvReac Type Severity Reaction Status Date / Time fentanyl Allergy Intermediate Nausea and Verified 07/07/22 09:59 Vomiting propoxyphene Allergy Mild VOMITTING Verified 07/07/22 09:59 albuterol Allergy Unknown ANXIETY. Verified 07/07/22 09:59 CAN'T STAND IT dicyclomine Allergy Unknown Nausea and Verified 07/07/22 09:59 Vomiting hydrocodone Allergy Unknown severe Verified 07/07/22 09:59 vomiting metoclopramide Allergy Unknown anxiety Verified 07/07/22 09:59 adhesive AdvReac Severe SKIN Verified 07/07/22 09:59 BLISTERS erythromycin base AdvReac Intermediate ABDOMINAL Verified 07/07/22 09:59 PAIN/VOMITING codeine AdvReac Mild NAUSEA Verified 07/07/22 09:59 morphine AdvReac Mild NAUSEA Verified 07/07/22 09:59 glimepiride AdvReac Unknown unknown Verified 07/07/22 09:59 phenazopyridine AdvReac Unknown NAUSEA Verified 07/07/22 09:59 diazepam AdvReac Vomiting Verified 07/07/22 09:59 Review of Systems Review of Systems: CONSTITUTIONAL: Denies fever, chills, or sweats. EYES: Denies visual changes, redness, or discharge. ENT: Denies rhinorrhea, congestion, sore throat, or otalgia. CARDIOVASCULAR: Denies chest pain, palpitations, or edema. RESPIRATORY: Denies cough or dyspnea. GASTROINTESTINAL: Denies abdominal pain, nausea, vomiting, or diarrhea. GENITOURINARY: Denies dysuria or hematuria. SKIN: Denies rash or itching. MUSCULOSKELETAL: Denies back pain, joint pain, or myalgia. NEUROLOGIC: Denies headache, numbness, or weakness. PSYCHIATRIC: Denies anxiety or depression. [facility] Past Medical History Medical History Alcohol use Anxiety Body mass index (BMI) 35 or more (06/13/17) Chronic kidney disease, stage 3 Baseline creatinine between 1.1 and 1.20. Complex tear of lateral meniscus of right knee as current injury Degenerative disc disease Depression DVT prophylaxis Effusion, right knee Elevated lipase Gastroesophageal reflux disease Hypothyroidism Irritable bowel syndrome with diarrhea Liver disease Nontoxic multinodular goiter Osteoarthritis Polycythemia Primary osteoarthritis of right knee PTSD (post-traumatic stress disorder) Sarcoidosis In remission for over 40 years. Tibia fracture Trochanteric bursitis of right hip Type 2 diabetes mellitus with hyperglycemia Uterine cancer Surgical History Surgical History History of appendectomy (~1997) Incidental appendectomy at the time of her hysterectomy. History of bilateral cataract extraction History of cardiac catheterization No evidence of coronary artery disease. History of cholecystectomy (~2007) History of cystoscopy For evaluation of microscopic hematuria reportedly unremarkable History of hysterectomy (~1997) History of partial thyroidectomy (~2007) Pathology revealed a benign nodule. History of tonsillectomy Family History Family History Father Family history of malignant neoplasm of stomach Sibling Family history of
== END 2022-07-20 15:44 | disposition home or self-care (01) ==
PROVIDERS: Physician Assistant; Emergency Provider Emergency Medicine; PCP Physician Assistant
DX: M25.562 Pain in left knee (principal); N18.30 Chronic kidney disease, stage 3 unspecified; E11.22 Type 2 diabetes mellitus with diabetic chronic kidney disease; K76.9 Liver disease, unspecified; D75.1 Secondary polycythemia; E89.0 Postprocedural hypothyroidism; M17.12 Unilateral primary osteoarthritis, left knee; K21.9 Gastro-esophageal reflux disease without esophagitis; K58.0 Irritable bowel syndrome with diarrhea; F41.9 Anxiety disorder, unspecified; F32.A Depression, unspecified; F43.10 Post-traumatic stress disorder, unspecified; Z90.710 Acquired absence of both cervix and uterus; Z85.42 Personal history of malignant neoplasm of other parts of uterus; Z98.42 Cataract extraction status, left eye; Z98.41 Cataract extraction status, right eye; Z87.891 Personal history of nicotine dependence; R94.31 Abnormal electrocardiogram [ECG] [EKG]; Z79.84 Long term (current) use of oral hypoglycemic drugs
CPT/HCPCS: 36415; 71046; 73562; 80053; 81001; 85025; 93005; 96365; 99284; J0131

== ENCOUNTER → 2022-08-11 12:44 | Outpatient (CLI) | payer MEDICARE, MEDICAID, SELFPAY ==
--- NOTE | ~2022-08-11 | MR_ITS ---
MRI of the lumbar spine Clinical History: Radiculopathy Technique: Axial T2-weighted, and sagittal T1-weighted, T2-weighted, and T2 fat sat images were acqui red. COMPARISON: 11/27/2018 Findings: There is no fracture or subluxation of the lumbar spine. Vertebral bodies maintain normal h eight and alignment. Marrow signal changes in the L4 and L5 vertebral bodies are likely related to un derlying degenerative disc disease. At L1-L2, there is minimal disc bulge. No spinal canal stenosis or neural foraminal narrowing. At L2-L3, there is minimal disc bulge and mild facet joint arthropathy, right worse than left. No spi nal canal stenosis or neural foraminal narrowing. At L3-L4, there is minimal disc bulge and mild facet arthropathy. No spinal canal stenosis or neural foraminal narrowing. At L4-L5, there is disc bulge with small superimposed central disc extrusion. Facet joint hypertrophy also contributes to severe thecal sac compression at this level. There is mild bilateral neural fora issac narrowing. At L5-S1, there is mild disc bulge with facet joint arthropathy. There is no spinal canal stenosis. T here is moderate left neural foraminal narrowing and [id number] right neural foraminal narrowin g. Paravertebral soft tissues are unremarkable. Impression: Small central disc extrusion at L4-L5, superimposed on disc bulge, contributing to severe thecal sac compression at this level. Please see details above. Bilateral neural foraminal narrowing at L4-L5 and L5-S1. Reviewed, dictated and finalized at location [] MOTIVE DETAILER Impression: Small central disc extrusion at L4-L5, superimposed on disc bulge, contributing to severe thecal sac compression at this level. Please see details above. Bilateral neural foraminal narrowing at L4-L5 and L5-S1.
== END ==
PROVIDERS: PCP Physician Assistant; Visit Provider Nurse Practitioner Family
DX: M54.16 Radiculopathy, lumbar region (principal); M51.26 Other intervertebral disc displacement, lumbar region; M25.561 Pain in right knee
CPT/HCPCS: 72148

== ENCOUNTER 2022-11-03 13:39 | Outpatient (CLI) | payer MEDICARE, MEDICAID, SELFPAY ==
[2022-11-03 16:54] LABS: Cholesterol 236 mg/dL (0-200); HDL Direct 37 mg/dL; Triglycerides 234 mg/dL (<150)
[2022-11-03 17:05] LABS: LDL Cholesterol Direct 134 mg/dL
[2022-11-03 17:22] LABS: Free T4 Free Thyroxine 1.47 ng/mL (0.78-2.19); Vitamin D 25 Hydroxy 39.5 ng/mL
[2022-11-03 17:29] LABS: Thyroid Stimulating Hormone 0.636 uIU/mL (0.465-4.680); Total Triiodothyronine (T3) 1.16 NG/ML (0.97-1.69)
[2022-11-03 17:35] LABS: Creatinine Urine 74.9 mg/dL
[2022-11-03 20:07] LABS: MALB Creatinine Ratio < 8.0 mg/g (0-30); Microalbumin Urine Random < 6.0 mg/L (0-16.7)
[2022-11-03 21:26] LABS: Alanine Aminotransferase 18 U/L (6-35); Albumin Level 4.1 g/dL (3.5-5.1); Alkaline Phosphatase 73 U/L (38-126); Anion Gap 6 mmol/L (8-16); Aspartate Amino Transferase 19 U/L (14-36); Bilirubin,Total 0.4 mg/dL (0.2-1.3); Blood Urea Nitrogen 20 mg/dL (7-17); Calcium 9.5 mg/dL (8.4-10.2); Carbon Dioxide 26 mmol/L (22-30); Chloride 102 mmol/L (98-107); Estimated Glomerular Filt Rate > 60; Glucose 138 mg/dL (65-110); Potassium 4.2 mmol/L (3.4-5.0); Sodium 134 mmol/L (137-145)
== END 2022-11-03 13:40 | disposition home or self-care (01) ==
LOC: ANHWCLAB 13:41
PROVIDERS: PCP Physician Assistant; Visit Provider Nurse Practitioner Family
DX: E03.9 Hypothyroidism, unspecified (principal); E04.2 Nontoxic multinodular goiter; E11.65 Type 2 diabetes mellitus with hyperglycemia; E55.9 Vitamin D deficiency, unspecified
CPT/HCPCS: 36415; 80053; 80061; 82043; 82306; 82607; 84439; 84443; 84480

== ENCOUNTER 2022-12-07 13:15 | Outpatient (RCR) | payer MEDICARE, MEDICAID, SELFPAY ==
[2022-12-07 13:32] VITALS: BMI 30.2
[2022-12-07 15:23] VITALS: BMI 30.2
== END 2023-01-31 14:13 | disposition home or self-care (01) ==
LOC: ANHDMC 13:15
PROVIDERS: PCP Physician Assistant; Visit Provider Nurse Practitioner Family
DX: E11.65 Type 2 diabetes mellitus with hyperglycemia (principal); Z71.89 Other specified counseling; Z71.3 Dietary counseling and surveillance
CPT/HCPCS: 97802; G0108

== ENCOUNTER 2022-12-16 16:38 | Emergency (ER) | payer MEDICARE, MEDICAID, SELFPAY ==
--- NOTE | 2022-12-16 16:45 | ED.URI ---
HPI - URI/Sore Throat General Chief Complaint: Upper Respiratory Infection Stated Complaint: sore throat,congestion Time Seen by Provider: 12/16/22 16:45 Source: patient Mode of arrival: ambulatory Limitations: no limitations History of Present Illness HPI Narrative: 72 yo F presents with c/o sore throat, nasal congestion, cough, fatigue for 3 days. Afebrile. Denies CP/SOB. No N/V/d. Taking benadryl to treat symptoms. Thinks she has bacterial sinus infection. All systems reviewed and negative except as noted above. Related Data Home Medications Medication Instructions Recorded Confirmed Al hyd-Mg tr-alg ac-sod bicarb 80 2 tablet PO QID PRN Indigestion 03/21/20 12/16/22 mg-14.2 mg chewable tablet (Gaviscon) alprazolam 1 mg tablet (Xanax) 1 mg PO DAILY 03/21/20 12/16/22 amitriptyline 10 mg tablet 20 mg PO HS 03/21/20 12/16/22 famotidine 20 mg tablet 20 mg PO DAILY PRN Acid Reflux 03/04/22 12/16/22 levothyroxine 125 mcg capsule 125 mcg PO DAILY 10/11/22 12/16/22 Allergies Allergy/AdvReac Type Severity Reaction Status Date / Time fentanyl Allergy Intermediate Nausea and Verified 12/16/22 16:49 Vomiting propoxyphene Allergy Mild VOMITTING Verified 12/16/22 16:49 albuterol Allergy Unknown ANXIETY. Verified 12/16/22 16:49 CAN'T STAND IT dicyclomine Allergy Unknown Nausea and Verified 12/16/22 16:49 Vomiting hydrocodone Allergy Unknown severe Verified 12/16/22 16:49 vomiting metoclopramide Allergy Unknown anxiety Verified 12/16/22 16:49 adhesive AdvReac Severe SKIN Verified 12/16/22 16:49 BLISTERS erythromycin base AdvReac Intermediate ABDOMINAL Verified 12/16/22 16:49 PAIN/VOMITING codeine AdvReac Mild NAUSEA Verified 12/16/22 16:49 morphine AdvReac Mild NAUSEA Verified 12/16/22 16:49 glimepiride AdvReac Unknown unknown Verified 12/16/22 16:49 phenazopyridine AdvReac Unknown NAUSEA Verified 12/16/22 16:49 diazepam AdvReac Vomiting Verified 12/16/22 16:49 Review of Systems Review of Systems: CONSTITUTIONAL: Denies fever, chills, or sweats. Reports fatigue. EYES: Denies visual changes, redness, or discharge. ENT: Reports rhinorrhea, congestion, sore throat. Denies otalgia. CARDIOVASCULAR: Denies chest pain, palpitations, or edema. RESPIRATORY: Reports cough. Denies dyspnea. GASTROINTESTINAL: Denies abdominal pain, nausea, vomiting, or diarrhea. GENITOURINARY: Denies dysuria or hematuria. SKIN: Denies rash or itching. MUSCULOSKELETAL: Denies back pain, joint pain, or myalgia. NEUROLOGIC: Denies headache, numbness, or weakness. PSYCHIATRIC: Denies anxiety or depression. All other systems reviewed are negative, except as documented in HPI. [facility] Past Medical History Medical History Alcohol use Anxiety Body mass index (BMI) 35 or more (06/13/17) Chronic kidney disease, stage 3 Baseline creatinine between 1.1 and 1.20. Complex tear of lateral meniscus of right knee as current injury Degenerative disc disease Depression DVT prophylaxis Effusion, right knee Elevated lipase Gastroesophageal reflux disease Hypothyroidism Irritable bowel syndrome with diarrhea Liver disease Nontoxic multinodular goiter Osteoarthritis Polycythemia Primary osteoarthritis of right knee PTSD (post-traumatic stress disorder) Sarcoidosis In remission for over 40 years. Tibia fracture Trochanteric bursitis of right hip Type 2 diabetes mellitus with hyperglycemia Uterine cancer Surgical History Surgical History History of appendectomy (~1997) Incidental appendectomy at the time of her hysterectomy. History of bilateral cataract extraction History of cardiac catheterization No evidence of coronary artery disease. History of cholecystectomy (~2007) History of cystoscopy For evaluation of microscopic hematuria reportedly unremarkable History of hysterectomy (~1997) History of pa
[2022-12-16 16:52] VITALS: BP 138/72; PULSE 95; RESP 16; TEMP 35.9; O2SAT 97
== END 2022-12-16 17:19 | disposition home or self-care (01) ==
PROVIDERS: Emergency Provider Nurse Practitioner Family; PCP Physician Assistant
DX: J01.90 Acute sinusitis, unspecified (principal); Z87.891 Personal history of nicotine dependence; F12.90 Cannabis use, unspecified, uncomplicated; E11.22 Type 2 diabetes mellitus with diabetic chronic kidney disease; K21.9 Gastro-esophageal reflux disease without esophagitis; E03.9 Hypothyroidism, unspecified; M17.11 Unilateral primary osteoarthritis, right knee; Z85.42 Personal history of malignant neoplasm of other parts of uterus; F41.9 Anxiety disorder, unspecified; F32.A Depression, unspecified; N18.30 Chronic kidney disease, stage 3 unspecified; Z79.4 Long term (current) use of insulin; Z90.89 Acquired absence of other organs
CPT/HCPCS: 87081; 87804; 87880; 99213; G0463

== ENCOUNTER 2023-02-22 13:30 | Outpatient (RCR) | payer MEDICARE, MEDICAID, SELFPAY ==
[2023-02-22 14:16] VITALS: BMI 31.3
[2023-02-22 14:17] VITALS: BMI 31.3
== END 2023-05-03 08:21 | disposition home or self-care (01) ==
LOC: ANHDMC 13:30
PROVIDERS: PCP Physician Assistant; Visit Provider Nurse Practitioner Family
DX: E11.65 Type 2 diabetes mellitus with hyperglycemia (principal); Z71.89 Other specified counseling; Z71.3 Dietary counseling and surveillance
CPT/HCPCS: 97802; G0109

== ENCOUNTER → 2023-03-18 09:44 | Outpatient (CLI) | payer MEDICARE, MEDICAID, SELFPAY ==
--- NOTE | ~2023-03-18 | XR_ITS ---
AP view of the pelvis and AP and lateral views of the bilateral hips Clinical history: Pain Findings: No acute fracture or dislocation is seen. Osseous alignment is anatomic. Bilateral hip and SI joint spaces are preserved. Soft tissues are unremarkable. Impression: No significant abnormality is seen. Reviewed, dictated and finalized at location . Impression: No significant abnormality is seen.
== END ==
PROVIDERS: PCP Physician Assistant; Visit Provider Physician Assistant
DX: M25.551 Pain in right hip (principal); M25.552 Pain in left hip; R10.2 Pelvic and perineal pain
CPT/HCPCS: 73521

== ENCOUNTER 2023-05-15 09:20 | Emergency (ER) | payer MEDICARE, MEDICAID, SELFPAY ==
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
[2023-05-15 09:29] VITALS: BP 139/74; PULSE 93; RESP 16; TEMP 36.8; O2SAT 98
== END 2023-05-15 10:04 | disposition home or self-care (01) ==
PROVIDERS: Emergency Provider Nurse Practitioner Family; PCP Physician Assistant
DX: R59.9 Enlarged lymph nodes, unspecified (principal); J06.9 Acute upper respiratory infection, unspecified; J02.9 Acute pharyngitis, unspecified; Z20.822 Contact with and (suspected) exposure to COVID-19; Z87.891 Personal history of nicotine dependence; F41.9 Anxiety disorder, unspecified; F32.A Depression, unspecified; I12.9 Hypertensive chronic kidney disease with stage 1 through stage 4 chronic kidney disease, or unspecified chronic kidney disease; E11.22 Type 2 diabetes mellitus with diabetic chronic kidney disease; N18.30 Chronic kidney disease, stage 3 unspecified; Z79.4 Long term (current) use of insulin; Z79.84 Long term (current) use of oral hypoglycemic drugs; E89.0 Postprocedural hypothyroidism; K21.9 Gastro-esophageal reflux disease without esophagitis; M17.11 Unilateral primary osteoarthritis, right knee; Z85.42 Personal history of malignant neoplasm of other parts of uterus; Z98.42 Cataract extraction status, left eye; Z98.41 Cataract extraction status, right eye
CPT/HCPCS: 87081; 87426; 87880; 99213; C9803; G0463

== ENCOUNTER 2023-07-01 12:42 | Outpatient (CLI) | payer MEDICARE, MEDICAID, SELFPAY ==
--- NOTE | ~2023-07-01 | XR_ITS ---
XR lumbar spine min 4V DATE: 07/01/2023 13:06 INDICATION: Spondylosis without myelopathy or radiculopathy TECHNIQUE: Standing AP, lateral and standing flexion and extension lateral views of the lumbar spine COMPARISON: None FINDINGS: There is no evidence of instability on flexion or extension. There is mild lumbar levoscoliosis. There is mild degenerative disease at L1-2 and L2-3, moderate degenerative disc disease at L3-4, mode rately severe degenerative disease at L4-5. L5-S1 interspace is relatively preserved. No fracture or bone destruction is detected. Included lower thoracic and lumbar pedicles are intact. No spondylolisthesis. The sacroiliac joints appear normal. Surgical clips overlie the right abdomen. IMPRESSION: Multilevel degenerative disc disease, most pronounced at L4-5 Reviewed, dictated and finalized at location B.
== END 2023-07-01 12:43 | disposition home or self-care (01) ==
LOC: ANHIMG 12:46
PROVIDERS: PCP Physician Assistant; Visit Provider Neurological Surgery
DX: M47.816 Spondylosis without myelopathy or radiculopathy, lumbar region (principal); M51.36 Other intervertebral disc degeneration, lumbar region
CPT/HCPCS: 72110

== ENCOUNTER 2023-07-05 08:57 | Emergency (ER) | payer MEDICARE, MEDICAID, SELFPAY ==
--- NOTE | ~2023-07-05 | CT_ITS ---
EXAMINATION: CT abdomen pelvis w con INDICATION: Abdominal pain and nausea TECHNIQUE: Computed tomographic images of the abdomen and pelvis were obtained after the administrati on of 100 cc of Omnipaque 350 intravenous contrast. The dose-length product (DLP) was 1199.11 mGy-cm. Automated exposure control and iterative reconstruction technique were employed. COMPARISON: 11/09/2021 FINDINGS: Minimal dependent atelectasis is present in the lung bases. The heart size is normal. The l iver is diffusely low in attenuation when compared with the spleen, consistent with hepatic steatosis . Changes of cholecystectomy are noted. The spleen, pancreas, and adrenal glands are normal. A 1.6 cm cyst is noted in the left kidney. The right kidney is unremarkable. No pathologically enlarged abdom inal or pelvic lymph nodes are identified. Colonic diverticulosis is present without evidence of dive rticulitis. No free intraperitoneal gas or evidence of bowel obstruction. There is moderate lumbar sp ondylosis. Changes of mesh ventral hernia repair are noted. IMPRESSION: 1. No CT correlate for the patient's symptoms. 2. Diffuse hepatic steatosis. Reviewed, dictated and finalized at location L. E WORKER
[2023-07-05 09:01] VITALS: BP 174/78; PULSE 85; RESP 18; TEMP 37.2; O2SAT 100
--- NOTE | 2023-07-05 09:07 | ECG_ITS ---
Measurements Intervals [place] Rate: 80 P: 35 CT: 170 QRS: -39 QRSD: 84 T: 80 QT: 352 QTc: 406 Interpretive Statements SINUS RHYTHM LEFT AXIS DEVIATION PATTERN CONSISTENT WITH PULMONARY DISEASE INFERIOR INFARCT, AGE INDETERMINATE BASELINE ARTIFACT- I, II, III, AVR, AVL, AVF ABNORMAL ECG COMPARED TO ECG 07/20/2022 10:27:49 NO SIGNIFICANT CHANGES Electronically Signed On 07-05-2023 9:21:30 PROCEDURE MANAGER by Carlos Jacome D.O.
[2023-07-05 09:10] VITALS: BP 165/92; PULSE 86; RESP 20; O2SAT 99
--- NOTE | 2023-07-05 09:36 | ED.GENADULT ---
HPI - General Adult General Chief complaint: Abdominal Pain Stated complaint: Pain under breasts Time Seen by Provider: 07/05/23 09:05 History of Present Illness HPI narrative: Jazlyn Montgomery was a 73 y/o female who presents with reports of upper abdominal pain that has been constant for 4 days. She reports feeling nauseated but has not vomited. She was able to eat breakfast and kept it down but still not feeling any better. Reports hx of pancreatitis and she states that she had 4 beers last night to celebrate her birthday. Last BM was today, denies changes to urine. Denies Chest pain/ SOB/ No hx of MA/ Cardiac Stents/HTN - Denies fever/chills/ sore throat cough. Related Data Home Medications Medication Instructions Recorded Confirmed Al hyd-Mg tr-alg ac-sod bicarb 80 2 tablet PO QID PRN Indigestion 03/21/20 05/15/23 mg-14.2 mg chewable tablet (Gaviscon) alprazolam 1 mg tablet (Xanax) 1 mg PO DAILY 03/21/20 05/15/23 amitriptyline 10 mg tablet 20 mg PO HS 03/21/20 05/15/23 famotidine 20 mg tablet 20 mg PO DAILY PRN Acid Reflux 03/04/22 05/15/23 levothyroxine 125 mcg capsule 125 mcg PO DAILY 10/11/22 05/15/23 Allergies Allergy/AdvReac Type Severity Reaction Status Date / Time fentanyl Allergy Intermediate Nausea and Verified 07/05/23 09:15 Vomiting propoxyphene Allergy Mild VOMITTING Verified 07/05/23 09:15 albuterol Allergy Unknown ANXIETY. Verified 07/05/23 09:15 CAN'T STAND IT dicyclomine Allergy Unknown Nausea and Verified 07/05/23 09:15 Vomiting hydrocodone Allergy Unknown severe Verified 07/05/23 09:15 vomiting metoclopramide Allergy Unknown anxiety Verified 07/05/23 09:15 adhesive AdvReac Severe SKIN Verified 07/05/23 09:15 BLISTERS erythromycin base AdvReac Intermediate ABDOMINAL Verified 07/05/23 09:15 PAIN/VOMITING codeine AdvReac Mild NAUSEA Verified 07/05/23 09:15 morphine AdvReac Mild NAUSEA Verified 07/05/23 09:15 glimepiride AdvReac Unknown unknown Verified 07/05/23 09:15 phenazopyridine AdvReac Unknown NAUSEA Verified 07/05/23 09:15 diazepam AdvReac Vomiting Verified 07/05/23 09:15 Review of Systems Review of Systems: CONSTITUTIONAL: Denies fever, chills, or sweats. EYES: Denies visual changes, redness, or discharge. ENT: Denies rhinorrhea, congestion, sore throat, or otalgia. CARDIOVASCULAR: Denies chest pain, palpitations, or edema. RESPIRATORY: Denies cough or dyspnea. GASTROINTESTINAL: Complains of upper abdominal pain for 4 days, reports nausea, Denies vomiting, Last BM today GENITOURINARY: Denies dysuria or hematuria. SKIN: Denies rash or itching. MUSCULOSKELETAL: Denies back pain, joint pain, or myalgia. NEUROLOGIC: Denies headache, numbness, dizziness, or weakness. PSYCHIATRIC: Denies anxiety or depression. [facility] Past Medical History Medical History Alcohol use Anxiety Body mass index (BMI) 35 or more (06/13/17) Chronic kidney disease, stage 3 Baseline creatinine between 1.1 and 1.20. Complex tear of lateral meniscus of right knee as current injury Degenerative disc disease Depression DVT prophylaxis Effusion, right knee Elevated lipase Gastroesophageal reflux disease Hypothyroidism Irritable bowel syndrome with diarrhea Liver disease Nontoxic multinodular goiter Osteoarthritis Polycythemia Primary osteoarthritis of right knee PTSD (post-traumatic stress disorder) Sarcoidosis In remission for over 40 years. Tibia fracture Trochanteric bursitis of right hip Type 2 diabetes mellitus with hyperglycemia Uterine cancer Surgical History Surgical History History of appendectomy (~1997) Incidental appendectomy at the time of her hysterectomy. History of bilateral cataract extraction History of cardiac catheterization No evidence of coronary artery disease. History of cholecystectomy (~2007) History of cystoscopy For evaluation of microsco
[2023-07-05] MEDS: PROMETHAZINE HCL 25 MG TABLET PO (09:39)
[2023-07-05] MEDS: SODIUM CHLORIDE 0.9% IV 1,000 ML 999 ML IV CONT (09:39)
[2023-07-05] MEDS: FAMOTIDINE 20 MG/2 ML VIAL IV PUSH (09:45)
[2023-07-05 09:52] VITALS: BP 165/90; PULSE 79; RESP 20; O2SAT 99
[2023-07-05 09:52] LABS: Basophils Percent Auto 0.2 % (0.2-1.2); Eosinophils Absolute Auto 0.1 K/mm3 (0-0.3); Eosinophils Percent Auto 1.2 % (0-4.4); Hematocrit 45.3 % (37.0-47.0); Hemoglobin 14.4 g/dL (12.0-15.0); Immature Granulocyte Absolute 0.02 K/mm3 (0.00-0.031); Immature Granulocyte Percent A 0.4 % (0-0.5); Lymphocytes Absolute Auto 1.62 K/mm3 (0.9-3.2); Lymphocytes Percent Auto 33.2 % (18.3-44.2); Mean Corpuscular HGB Conc 31.8 g/dl (32-36); Mean Corpuscular Hemoglobin 28.9 pg (26-34); Mean Corpuscular Volume 90.8 fl (80-100); Mean Platelet Volume 10.2 fl (7.4-10.4); Monocytes Absolute Auto 0.4 K/mm3 (0.1-0.6); Monocytes Percent Auto 7.8 % (2.6-8.5); Neutrophils Absolute Auto 2.8 K/mm3 (1.3-6.7); Neutrophils Percent Auto 57.2 % (45.5-73.1); Platelet Count Result 247 k/mm3 (150-375); Red Blood Count 4.99 M/mm3 (4.2-5.4); Red Cell Distribution Width 13.7 % (11.5-14.5); White Blood Count 4.9 K/mm3 (4.5-10.0)
[2023-07-05 09:55] LABS: Alanine Aminotransferase 19 U/L (6-35); Alkaline Phosphatase 67 U/L (38-126); Anion Gap 5 mmol/L (8-16); Aspartate Amino Transferase 21 U/L (14-36); Bilirubin,Total 0.6 mg/dL (0.2-1.3); Blood Urea Nitrogen 15 mg/dL (7-17); Calcium 9.1 mg/dL (8.4-10.2); Carbon Dioxide 27 mmol/L (22-30); Chloride 103 mmol/L (98-107); Estimated CRCL calculation 57 ml/min; Estimated Glomerular Filt Rate > 60; Glucose 193 mg/dL (65-110); Lipase 56 U/L (23-300); Potassium 4.1 mmol/L (3.4-5.0); Sodium 135 mmol/L (137-145)
[2023-07-05 09:58] LABS: Lactic Acid Reflex 1.7 mmol/L (0.7-2.0)
[2023-07-05 09:59] LABS: Appearance Urine Clear (Clear); Bilirubin Urine Negative (Negative); Blood Urine Negative (Negative); Color Urine Yellow (Yellow); Glucose Urine UA Negative (Negative); Ketones Urine Negative (Negative); Leukocyte Esterase Ur Negative LEU/UL (Negative); Nitrate Urine Negative (Negative); Protein Urine Negative (Negative); Specific Grav Ur 1.006 (1.001-1.035); Urobilinogen Urine 0.2 mg/dL (<2.0)
[2023-07-05 10:06] LABS: Troponin I < 0.012 ng/mL (0.000-0.034)
[2023-07-05 10:07] LABS: Add Urine Microscopic? NO
[2023-07-05 11:28] VITALS: BP 174/82; PULSE 73; RESP 20; O2SAT 99
== END 2023-07-05 11:28 | disposition home or self-care (01) ==
PROVIDERS: Emergency Provider Nurse Practitioner Family; PCP Physician Assistant
DX: K29.00 Acute gastritis without bleeding (principal); E11.22 Type 2 diabetes mellitus with diabetic chronic kidney disease; N18.30 Chronic kidney disease, stage 3 unspecified; E03.9 Hypothyroidism, unspecified; Z87.891 Personal history of nicotine dependence
CPT/HCPCS: 36415; 74177; 80053; 81003; 83605; 83690; 84484; 85025; 93005; 96361; 96374; 99284; A9270; J7030; Q9967

== ENCOUNTER 2023-08-16 03:55 | Emergency (ER) | payer MEDICARE, MEDICAID, SELFPAY ==
--- NOTE | ~2023-08-16 | XR_ITS ---
Clinical Indication: Cough PA and lateral views of the chest: Comparison: 07/20/2022 Findings: The lungs are clear, without evidence of focal consolidation or pleural effusion. Cardiome diastinal silhouette is within normal limits. Bones and soft tissues are unremarkable. Impression: Normal chest. Reviewed, dictated and finalized at location . L MELTER Impression: Normal chest.
[2023-08-16 03:57] VITALS: BP 134/85; PULSE 102; RESP 20; TEMP 36.6; O2SAT 97
[2023-08-16 04:35] VITALS: O2SAT 96
[2023-08-16 04:37] VITALS: BP 149/89; PULSE 104; RESP 22; O2SAT 96
--- NOTE | 2023-08-16 04:39 | PC.NURSE ---
Patient states that she cannot take Paxlovid since she is taking amitriptyline.
[2023-08-16 04:44] LABS: Influenza A QL RT-PCR Negative (Negative); Influenza B QL RT-PCR Negative (Negative); RSV RNA, RT-PCR Positive (Negative); SARS-CoV-2 RNA PCR Negative (Negative)
[2023-08-16] MEDS: BENZONATATE 100 MG CAPSULE 200 MG PO (06:02)
--- NOTE | 2023-08-16 06:18 | ED.GENADULT ---
HPI - General Adult General Chief complaint: Upper Respiratory Infection Stated complaint: cough Time Seen by Provider: 08/16/23 05:43 History of Present Illness HPI narrative: patient is a 73-year-old female who presents emergency department with chief complaint of body aches and not feeling well the patient reports symptoms been ongoing for 5 days reports that she has been wheezing reports that which she uses an albuterol inhaler she gets extremely anxious. The patient reports that a she has had a cough reports that the symptoms are not improved by anything. Related Data Home Medications Medication Instructions Recorded Confirmed Al hyd-Mg tr-alg ac-sod bicarb 80 2 tablet PO QID PRN Indigestion 03/21/20 07/14/23 mg-14.2 mg chewable tablet (Gaviscon) alprazolam 1 mg tablet (Xanax) 1 mg PO DAILY 03/21/20 07/14/23 famotidine 20 mg tablet 20 mg PO DAILY PRN Acid Reflux 03/04/22 07/14/23 levothyroxine 125 mcg capsule 125 mcg PO DAILY 10/11/22 07/14/23 amitriptyline 10 mg tablet 20 mg PO HS 08/08/23 promethazine 25 mg tablet 25 mg PO TID PRN 08/08/23 Allergies Allergy/AdvReac Type Severity Reaction Status Date / Time fentanyl Allergy Intermediate Nausea and Verified 08/16/23 03:55 Vomiting propoxyphene Allergy Mild VOMITTING Verified 08/16/23 03:55 albuterol Allergy Unknown ANXIETY. Verified 08/16/23 03:55 CAN'T STAND IT dicyclomine Allergy Unknown Nausea and Verified 08/16/23 03:55 Vomiting hydrocodone Allergy Unknown severe Verified 08/16/23 03:55 vomiting metoclopramide Allergy Unknown anxiety Verified 08/16/23 03:55 ondansetron [From Zofran] Allergy Other Verified 08/16/23 04:34 adhesive AdvReac Severe SKIN Verified 08/16/23 03:55 BLISTERS erythromycin base AdvReac Intermediate ABDOMINAL Verified 08/16/23 03:55 PAIN/VOMITING codeine AdvReac Mild NAUSEA Verified 08/16/23 03:55 morphine AdvReac Mild NAUSEA Verified 08/16/23 03:55 glimepiride AdvReac Unknown unknown Verified 08/16/23 03:55 phenazopyridine AdvReac Unknown NAUSEA Verified 08/16/23 03:55 diazepam AdvReac Vomiting Verified 08/16/23 03:55 Review of Systems Review of Systems: A 10 system review of systems was completed on the patient and is negative except for what is stated in the HPI. Nursing and ancillary documentation was reviewed. [facility] Past Medical History Medical History Alcohol use Anxiety Body mass index (BMI) 35 or more (06/13/17) Chronic kidney disease, stage 3 Baseline creatinine between 1.1 and 1.20. Complex tear of lateral meniscus of right knee as current injury Degenerative disc disease Depression DVT prophylaxis Effusion, right knee Elevated lipase Gastroesophageal reflux disease Hypothyroidism Irritable bowel syndrome with diarrhea Liver disease Nontoxic multinodular goiter Osteoarthritis Polycythemia Primary osteoarthritis of right knee PTSD (post-traumatic stress disorder) Sarcoidosis In remission for over 40 years. Tibia fracture Trochanteric bursitis of right hip Type 2 diabetes mellitus with hyperglycemia Uterine cancer Surgical History Surgical History History of appendectomy (~1997) Incidental appendectomy at the time of her hysterectomy. History of bilateral cataract extraction History of cardiac catheterization No evidence of coronary artery disease. History of cholecystectomy (~2007) History of cystoscopy For evaluation of microscopic hematuria reportedly unremarkable History of hysterectomy (~1997) History of partial thyroidectomy (~2007) Pathology revealed a benign nodule. History of tonsillectomy Family History Family History Father Family history of malignant neoplasm of stomach Sibling Family history of malignant neoplasm of esophagus Mother Family history of osteo
[2023-08-16 07:10] VITALS: BP 153/93; PULSE 103; RESP 22; TEMP 36.8; O2SAT 95
== END 2023-08-16 07:11 | disposition home or self-care (01) ==
PROVIDERS: Emergency Provider Emergency Medicine; PCP Physician Assistant
DX: J06.9 Acute upper respiratory infection, unspecified (principal); B97.4 Respiratory syncytial virus as the cause of diseases classified elsewhere; Z20.822 Contact with and (suspected) exposure to COVID-19; F41.9 Anxiety disorder, unspecified; F32.A Depression, unspecified; K21.9 Gastro-esophageal reflux disease without esophagitis; E03.9 Hypothyroidism, unspecified; M19.90 Unspecified osteoarthritis, unspecified site; E11.9 Type 2 diabetes mellitus without complications
CPT/HCPCS: 71046; 87637; 96372; 99283; A9270; J1100

== ENCOUNTER 2023-08-18 16:17 | Emergency (ER) | payer MEDICARE, MEDICAID, SELFPAY ==
[2023-08-18 16:40] VITALS: BP 174/71; PULSE 92; RESP 16; TEMP 36.6; O2SAT 97
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
--- NOTE | 2023-08-18 18:05 | PC.NURSE ---
PT NOT IN TRIAGE. DNAP #1
--- NOTE | 2023-08-18 18:06 | PC.NURSE ---
Pt called x2 for room, no answer. Pt left without being seen
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
== END 2023-08-18 18:14 | disposition left against medical advice (07) ==
LOC: ANHED 18:13
PROVIDERS: PCP Physician Assistant
DX: R73.9 Hyperglycemia, unspecified (principal)
CPT/HCPCS: 99199

== ENCOUNTER 2023-12-28 16:11 | Outpatient (CLI) | payer MEDICARE, MEDICAID, SELFPAY ==
--- NOTE | ~2023-12-28 | MM_ITS ---
EXAMINATION: MM screening allyn BI w [place] HISTORY: Screening mammogram TECHNIQUE: Craniocaudal and mediolateral oblique 3-D tomosynthesis images were obtained and synthetic 2-D images were generated. CAD analysis was submitted and interpreted. COMPARISON: 01/27/2016 bilateral screening mammogram BREAST PARENCHYMAL COMPOSITION: The breasts are almost entirely fatty. FINDINGS: There is no evidence of suspicious mass, calcification, or architectural distortion to sugg est malignancy in either breast. There has been no suspicious interval change. IMPRESSION: 1. No mammographic evidence of malignancy. 2. Recommend routine screening mammography in one year. BI-RADS Category 1: Negative Reviewed, dictated and finalized at location A.
== END 2023-12-28 16:12 | disposition home or self-care (01) ==
LOC: ANHIMG 16:14
PROVIDERS: PCP Physician Assistant; Visit Provider Physician Assistant
DX: Z12.31 Encounter for screening mammogram for malignant neoplasm of breast (principal)
CPT/HCPCS: 77063; 77067

== ENCOUNTER 2024-04-13 11:01 | Emergency (ER) | payer MEDICARE, MEDICAID, SELFPAY ==
[2024-04-13] VITALS (7 sets, daily range): BP systolic 134–143; BP diastolic 77–78; PULSE 77–87; RESP 14–20; TEMP 36.6; O2SAT 92–98
--- NOTE | 2024-04-13 12:52 | ED.GENADULT ---
HPI - General Adult General Chief complaint: Nausea/Vomiting/Diarrhea Stated complaint: sick to my stomach Time Seen by Provider: 04/13/24 12:24 History of Present Illness HPI narrative: 73-year-old female presents to the emergency department for evaluation for nausea and vomiting over the last 4 days. Patient is also reporting increased sinus congestion and body aches. Patient states that the sinus congestion is causing stomach irritation and during the nausea. Patient denies any recent emesis today but is complaining of body aches and nausea. Related Data Home Medications Medication Instructions Recorded Confirmed Al hyd-Mg tr-alg ac-sod bicarb 80 2 tablet PO QID PRN Indigestion 03/21/20 12/27/23 mg-14.2 mg chewable tablet (Gaviscon) alprazolam 1 mg tablet (Xanax) 1 mg PO DAILY 03/21/20 12/27/23 famotidine 20 mg tablet 20 mg PO DAILY PRN Acid Reflux 03/04/22 12/27/23 levothyroxine 125 mcg capsule 125 mcg PO DAILY 10/11/22 12/27/23 amitriptyline 10 mg tablet 20 mg PO HS 08/08/23 12/27/23 promethazine 25 mg tablet 25 mg PO TID PRN 08/08/23 12/27/23 Allergies Allergy/AdvReac Type Severity Reaction Status Date / Time fentanyl Allergy Intermediate Nausea and Verified 04/13/24 14:20 Vomiting propoxyphene Allergy Mild VOMITTING Verified 04/13/24 14:20 albuterol Allergy Unknown ANXIETY. Verified 04/13/24 14:20 CAN'T STAND IT dicyclomine Allergy Unknown Nausea and Verified 04/13/24 14:20 Vomiting hydrocodone Allergy Unknown severe Verified 04/13/24 14:20 vomiting metoclopramide Allergy Unknown anxiety Verified 04/13/24 14:20 ondansetron [From Zofran] Allergy Other Verified 04/13/24 14:20 adhesive AdvReac Severe SKIN Verified 04/13/24 14:20 BLISTERS erythromycin base AdvReac Intermediate ABDOMINAL Verified 04/13/24 14:20 PAIN/VOMITING codeine AdvReac Mild NAUSEA Verified 04/13/24 14:20 morphine AdvReac Mild NAUSEA Verified 04/13/24 14:20 glimepiride AdvReac Unknown unknown Verified 04/13/24 14:20 phenazopyridine AdvReac Unknown NAUSEA Verified 04/13/24 14:20 diazepam AdvReac Vomiting Verified 04/13/24 14:20 Review of Systems Review of Systems: All systems reviewed & are unremarkable except as noted in HPI and below PMFSH Past Medical History Medical History Alcohol use Anxiety Body mass index (BMI) 35 or more (06/13/17) Chronic kidney disease, stage 3 Baseline creatinine between 1.1 and 1.20. Complex tear of lateral meniscus of right knee as current injury Degenerative disc disease Depression DVT prophylaxis Effusion, right knee Elevated lipase Gastroesophageal reflux disease Hypothyroidism Irritable bowel syndrome with diarrhea Liver disease Nontoxic multinodular goiter Osteoarthritis Polycythemia Primary osteoarthritis of right knee PTSD (post-traumatic stress disorder) Sarcoidosis In remission for over 40 years. Tibia fracture Trochanteric bursitis of right hip Type 2 diabetes mellitus with hyperglycemia Uterine cancer Surgical History Surgical History History of appendectomy (~1997) Incidental appendectomy at the time of her hysterectomy. History of bilateral cataract extraction History of cardiac catheterization No evidence of coronary artery disease. History of cholecystectomy (~2007) History of cystoscopy For evaluation of microscopic hematuria reportedly unremarkable History of hysterectomy (~1997) History of partial thyroidectomy (~2007) Pathology revealed a benign nodule. History of tonsillectomy Family History Family History Father Family history of malignant neoplasm of stomach Sibling Family history of malignant neoplasm of esophagus Mother Family history of osteoarthritis Family history of elevated blood lipids Family history of thyroid disease Family history of cataracts Famil
[2024-04-13 12:53] LABS: Add Urine Microscopic? YES; Appearance Urine Cloudy (Clear); Bacteria Urine Rare /hpf; Bilirubin Urine Negative (Negative); Blood Urine Negative (Negative); Color Urine Yellow (Yellow); Glucose Urine UA Trace mg/dL (Negative); Ketones Urine Negative (Negative); Leukocyte Esterase Ur Negative LEU/UL (Negative); Nitrate Urine Negative (Negative); Non Pathogenic Casts 0-2; Protein Urine Negative (Negative); RBC Urine 0-2 /hpf (0-2); Specific Grav Ur 1.018 (1.001-1.035); Squamous Epithelial Cell Urine Many /hpf (Few); Urobilinogen Urine 0.2 mg/dL (<2.0); WBC Urine 0-5 /hpf (0-3)
[2024-04-13 12:55] LABS: Basophils Percent Auto 0.2 % (0.2-1.2); Eosinophils Absolute Auto 0.1 K/mm3 (0-0.3); Eosinophils Percent Auto 1.7 % (0-4.4); Hemoglobin 15.2 g/dL (12.0-15.0); Immature Granulocyte Absolute 0.03 K/mm3 (0.00-0.031); Immature Granulocyte Percent A 0.5 % (0-0.5); Lymphocytes Absolute Auto 2.09 K/mm3 (0.9-3.2); Lymphocytes Percent Auto 35.8 % (18.3-44.2); Mean Corpuscular Hemoglobin 29.6 pg (26-34); Mean Corpuscular Volume 89.5 fl (80-100); Mean Platelet Volume 9.7 fl (7.4-10.4); Monocytes Absolute Auto 0.4 K/mm3 (0.1-0.6); Monocytes Percent Auto 6.7 % (2.6-8.5); Neutrophils Absolute Auto 3.2 K/mm3 (1.3-6.7); Neutrophils Percent Auto 55.1 % (45.5-73.1); Platelet Count Result 221 k/mm3 (150-375); Red Blood Count 5.14 M/mm3 (4.2-5.4); White Blood Count 5.8 K/mm3 (4.5-10.0)
[2024-04-13 13:04] LABS: Alanine Aminotransferase 24 U/L (6-35); Albumin Level 4.2 g/dL (3.5-5.1); Alkaline Phosphatase 66 U/L (38-126); Anion Gap 8 mmol/L (4-12); Aspartate Amino Transferase 25 U/L (14-36); Bilirubin,Total 0.5 mg/dL (0.2-1.3); Blood Urea Nitrogen 19 mg/dL (7-17); Calcium 9.2 mg/dL (8.4-10.2); Carbon Dioxide 28 mmol/L (22-30); Chloride 100 mmol/L (98-107); Estimated CRCL calculation 53 ml/min; Estimated Glomerular Filt Rate 54; Glucose 222 mg/dL (65-110); Lipase 58 U/L (23-300); Sodium 136 mmol/L (137-145)
[2024-04-13 13:05] LABS: Lactic Acid Reflex 1.2 mmol/L (0.7-2.0)
[2024-04-13 13:24] LABS: Influenza A QL RT-PCR Negative (Negative); Influenza B QL RT-PCR Negative (Negative); RSV RNA, RT-PCR Negative (Negative); SARS-CoV-2 RNA PCR Negative (Negative)
== END 2024-04-13 15:18 | disposition home or self-care (01) ==
PROVIDERS: Emergency Provider Emergency Medicine; PCP Physician Assistant
DX: R11.2 Nausea with vomiting, unspecified (principal); Z20.822 Contact with and (suspected) exposure to COVID-19; E11.22 Type 2 diabetes mellitus with diabetic chronic kidney disease; N18.30 Chronic kidney disease, stage 3 unspecified; E89.0 Postprocedural hypothyroidism; K21.9 Gastro-esophageal reflux disease without esophagitis; K58.0 Irritable bowel syndrome with diarrhea; M19.90 Unspecified osteoarthritis, unspecified site; F43.10 Post-traumatic stress disorder, unspecified; F32.A Depression, unspecified; F41.9 Anxiety disorder, unspecified; Z85.42 Personal history of malignant neoplasm of other parts of uterus; Z87.891 Personal history of nicotine dependence; Z98.42 Cataract extraction status, left eye; Z98.41 Cataract extraction status, right eye; Z90.49 Acquired absence of other specified parts of digestive tract; Z90.710 Acquired absence of both cervix and uterus; Z79.899 Other long term (current) drug therapy; Z79.4 Long term (current) use of insulin
CPT/HCPCS: 36415; 80053; 81001; 83605; 83690; 85025; 87637; 99283

== ENCOUNTER 2024-05-25 09:15 | Outpatient (CLI) | payer MEDICARE, MEDICAID, SELFPAY ==
--- NOTE | ~2024-05-25 | CT_ITS ---
EXAMINATION: CTA chest PE protocol DATE: 05/25/2024 10:10 INDICATION: PENDLETON TECHNIQUE: Computed tomography angiography (CTA) of the chest was performed with 100 mL Omnipaque-350 intravenous contrast timed to evaluate the pulmonary arteries. Coronal maximum intensity projection 3D-reconstructions were created by the technologist. The dose-length product (DLP) was 758.83 mGy-cm. Automated exposure control and iterative reconstruction technique were employed. COMPARISON: 02/06/2022. FINDINGS: Lung parenchyma and airways: Clear. Pleura: Unremarkable. Thoracic inlet, axillae and chest wall: Prior right thyroidectomy. Thoracic aorta: No significant dilation. No dissection. Mild arch calcification. Mediastinum: Normal. Heart and pericardium: Normal. Coronary artery calcifications: Absent. Upper abdomen: Status post cholecystectomy.. Bones: No acute osseous finding. Pulmonary arteries: Study quality: Adequate. No pulmonary emboli detected. IMPRESSION: No CT evidence of acute pulmonary embolus. No acute process detected in the chest. Reviewed, dictated and finalized at location K.
[2024-05-25 10:00] LABS: Estimated Glomerular Filt Rate 48
== END 2024-05-25 09:16 | disposition home or self-care (01) ==
LOC: ANHIMG 09:20
PROVIDERS: PCP Physician Assistant; Visit Provider Physician Assistant
DX: R06.09 Other forms of dyspnea (principal)
CPT/HCPCS: 71275; Q9967

== ENCOUNTER 2024-06-07 09:11 | Outpatient (CLI) | payer MEDICARE, MEDICAID, SELFPAY ==
--- NOTE | 2024-06-07 | EST_ITS ---
Patient Info Name: Jazlyn Montgomery Age: 73 years : 1950 Gender: Female Ht: 69 in Wt: 215 lbs BSA: 2.21 m2 HR: 75 bpm BP: 133 / 84 mmHg Heart Rhythm: Sinus Rhythm Exam Date: 06/07/2024 10:22 AM Exam Location: Echo Lab Patient Status: Outpatient Admit Date: 06/07/2024 Staff Ordering Physician: Nicol, Janna HERNANDEZ Attending Provider: Nicol, Janna HERNANDEZ Exercise Technologist: Shruthi Rubio CT Exercise Physician: Carlos Jacome DO Exam Type: CA stress caty w NM Study Info Indications R06.09 - Other forms of dyspnea A regadenoson stress test was performed. Summary 1. 1. Negative lexiscan stress test for ischemic ST changes by ECG criteria. 2. 2. Stable hemodynamics throughout the test. 3. 3. Nuclear scan to follow and will be reported separately. Please correlate with it. 4. 4. Patient informed of the above results. Protocol: Lexiscan Rest HR: 75 bpm Peak HR: 93 bpm Rest Sys BP: 133 mmHg Peak Sys BP: 142 mmHg Max Pred HR: 145 bpm % Max Pred HR: 64 % Target HR: 123 bpm Max RPP: 13,206 bpm*mmHg Termination Reason: Completed protocol Cardiac Symptoms: Shortness of breath Rest Lopez BP: 84 mmHg Peak Lopez BP: 85 mmHg Total Dose: 0.4 mg Resting ECG Sinus rhythm, low voltage in diffuse leads, anterior infarct, ag indeterminate. Stress ECG No ST changes. Arrhythmias None. Report Signatures
--- NOTE | ~2024-06-07 | NM_ITS ---
EXAMINATION: NM caty stress w perfusion DATE: 06/07/2024 12:29 INDICATION: Dyspnea on exertion. TECHNIQUE: Rest images were obtained following intravenous administration of 9.9 mCi Tc99m tetrofosmi n (Myoview). The patient was infused intravenously with Lexiscan (regadenoson). Then, 31.7 mCi Tc99m tetrofosmin (Myoview) was administered intravenously, and stress images were obtained. Data was recon structed into short axis and horizontal and vertical long axis SPECT images. Gated SPECT images were also obtained. COMPARISON: Chest CT 05/25/2024 FINDINGS: There is no definite reversible or fixed perfusion abnormality to suggest ischemia or infar ction. There is no segmental wall motion abnormality. Left ventricular ejection fraction measures > 70%. IMPRESSION: 1. No definite ischemia or infarct. 2. Normal left ventricular ejection fraction measuring >70%. Reviewed, dictated and finalized at location A.
== END 2024-06-07 09:12 | disposition home or self-care (01) ==
LOC: ANHCARD 09:14
PROVIDERS: PCP Physician Assistant; Visit Provider Physician Assistant
DX: R06.09 Other forms of dyspnea (principal)
CPT/HCPCS: 78452; 93017; A9502; J2785

== ENCOUNTER 2024-10-03 13:54 | Outpatient (CLI) | payer MEDICARE, MEDICAID, SELFPAY ==
--- NOTE | ~2024-10-03 | CT_ITS ---
EXAMINATION: CT abdomen pelvis w con DATE: 10/03/2024 14:24 INDICATION: Abdominal pain TECHNIQUE: Computed tomography (CT) of the abdomen and pelvis was performed with 100 mL Omnipaque-350 intravenous contrast. Automated exposure control and iterative reconstruction technique were employe d. The dose-length product was 977.16 mGy-cm. COMPARISON: 07/05/2023 FINDINGS: Mild dependent atelectasis in the bilateral lower lobes. Heart size is normal. No pericardial or pleu ral effusion. Small sliding-type hiatal hernia. Cholecystectomy clips the gallbladder fossa. Diffuse hepatic steatosis. Spleen, pancreas and bilateral adrenal glands are normal. 6 mm low-attenuation cys t at the lower pole of the right kidney. 2.1 cm lesion at the mid left kidney which is of relatively low but still greater than simple fluid attenuation. There is moderate colonic diverticulosis with a sigmoid predominance and without adjacent inflammatory change to suggest diverticulitis. No bowel ob struction. Bladder is normal. The uterus is not identified and has likely been surgically resected. N o free intraperitoneal gas or fluid. No pathologically enlarged abdominal or pelvic lymphadenopathy. Postoperative change of umbilical hernia mesh repair. Moderate to severe lower lumbar spondylosis. IMPRESSION: 1. No acute intra-abdominal/pelvic process. 2. Small sliding-type hiatal hernia. 3. Diffuse hepatic steatosis. 4. Moderate diverticulosis. Reviewed, dictated and finalized at location A. [employer]
[2024-10-03 14:20] LABS: Estimated Glomerular Filt Rate 48
--- OUTSIDE RECORDS SUMMARY | 2024-10-03 14:56 | XMS_ITS | Clinical Summary ---
Author Organization [facility] Address [address] [place] [address] Care Team Providers Care Swing Type Lathe Operator Name Role Phone Naif Brownlee MD Primary Care Provider [phone] Source Comments [facility],non-owned Affiliates and Associated Physician Practices is amultiple site organization consisting of ambulatory clinics and hospital sitesin [place], [place] and [place]. This disclosure is being madepursuant to the Care Everywhere program and may not contain all information available regarding this patient. Last updated 18.[facility] [employer] Social History Tobacco Use Types Packs/Day Years Used Date Smoking Tobacco: Never Assessed Sex and Gender Information Value Date Recorded Sex Assigned at Not on file Gender Identity Not on file Sexual Orientation Not on file Plan of Treatment Health Maintenance Due Date Last Done Comments BONE DENSITY TESTING 1950 MEDICARE AWV 12 MONTHS 1950 HEPATITIS C SCREENING 07/01/1966 DTAP/TDAP/TD VACCINES (1 - Tdap) 1967 PNEUMOCOCCAL VACCINE 50+ (1 of 1 - PCV) 1998 ZOSTER VACCINE (1 of 2) 1998 Respiratory Syncytial Virus (RSV) Vaccine Pt: or over 60 yrs (1 - 1-dose 75+ series) 2023 COVID-19 VACCINE ( - 2023-2 5 season) 2024 INFLUENZA VACCINE (#1) 2024 DEPRESSION SCREENING 08/29/2024 HEPATITIS B VACCINE Aged Out No longe r eligible based on patient's age to complete this topic HIB VACCINE Aged Out No longer eligi ble based on patient's age to complete this topic HPV VACCINE Aged Out No longer eligi ble based on patient's age to complete this topic MENINGOCOCCAL (Group B) VACCINE Aged Out No longer eligible based on patient's age to complete this topic MENINGOCOCCAL VACCINE Aged Out No benji james eligible based on patient's age to complete this topic Care Teams Swing Type Lathe Operator Relationship Specialty Start Date End Date Naif Brownlee MD [address] [place] [id number] PCP - General 02/10/18
--- OUTSIDE RECORDS SUMMARY | 2024-10-03 14:56 | XMS_ITS | Patient Health Summary ---
Author Organization [facility] Address [address] [place] [address] Care Team Providers Care Accounts Receivable Processor Name Role Phone Naif Brownlee MD Primary Care Provider [phone] Note from [facility],non-owned Affiliates and Associated Physician Practices is amultiple site organization consisting of ambulatory clinics and hospital sitesin [place], [place], [place] and [place]. This disclosure is being madepursuant to the Care Everywhere program and may not contain all information available regarding this patient. Last updated 18.[facility] Social History Tobacco Use Types Packs/Day Years Used Date Smoking Tobacco: Never Assessed Sex and Gender Information Value Date Recorded Sex Assigned at Not on file Gender Identity Not on file Sexual Orientation Not on file Care Teams Accounts Receivable Processor Relationship Specialty Start Date End Date Naif Brownlee MD [address] [place] [id number] PCP - General 02/10/18
--- OUTSIDE RECORDS SUMMARY | 2024-10-03 14:56 | XMS_ITS | Data Portability ---
Author Organization [facility] [employer], Main Office Address [address] [place] [address] Care Team Providers Care Proofer Prepress Name Role Phone BAMBIADRIEN BOSCH Primary Care Provider ADRIEN STEVENS Referring Provider [phone] Assessment No assessment recorded. Plan of Treatment Reminders Order Date Submit Date Provider Last Modified By Organization Details Last Modified Time Details Appointments None recorded. Lab urinalysis, complete 2022 023 [facility], [address], [place], [address], 3 21:12:08 culture, urine 2022 023 [facility], [address], [place], [address], 3 21:12:10 BMP, serum or plasma 2022 023 [facility], [address], [place], [address], 3 21:12:03 CBC w/ auto diff 2022 023 [facility], [address], [place], [address], 3 21:12:07 hepatic function panel, serum 2022 023 [employer] [facility], [address], [place], [address], 3 21:12:04 lipid panel, serum 2022 023 [employer] [employer] [facility], [address], [address], [place], [address], 3 21:12:03 microalbumi n/creatinin e, mass ratio, urine 2022 023 [facility], [address], [address], [place], [address], 3 21:12:02 C-reactive protein, quantitativ e, serum or plasma 2022 023 [facility] [employer] [facility], [address], [address], [place], [address], 3 21:12:09 erythrocyte sedimentati on rate by westergren method 2022 023 [employer] [employer] [facility], [address], [address], [place], [address], 3 21:12:06 TSH, serum or plasma 2022 023 [employer] [employer] [facility], [address], [address], [place], [address], 3 21:12:05 T4, free, serum 2022 023 [facility], [address], [address], [place], [address], 3 21:12:06 vitamin B12, serum 2022 023 [facility], [address], [place], [address], 3 21:12:09 Referral None recorded. Procedures None recorded. Surgeries None recorded. Imaging XR, pelvis 2022 023 [email or web address] [facility], [address], [place], [address], 3 16:52:53 XR, hip, bilateral 2022 023 [facility]IN [facility] , [address], [address], [place], [address], 3 12:44:42 Medication Orders cyanocobala min (vit B-12) 1,000 mcg/mL injection solution 2022 023 [email or web address] [id number], [address] [place], [place], [id number], 3 12:42:30 cyanocobala min (vit B-12) 1,000 mcg/mL injection solution 2022 023 [id number], [address] [place], [place], [id number], 3 17:13:03 Patient TargetsNo targets recorded. Patient InstructionsNo instructions recorded. Reason for Referral None Reported. Results Created Date Observation Date Name Description Value Unit Range Abnormal Flag Note LastModifiedBy Organization Detail LastModifiedTime 03/18/2003/19/2023 ALBUM IN, RANDO M URINE W/CRE ATINI NE creatinine, random urine 104 mg/dL 20-275 normal Not Available [facility] [address] [place], [address], 03/19/2023 21:12:02 03/18/20 23 03/19/2023 ALBUM IN, RANDO M URINE W/CRE ATINI NE albumin, urine 0.3 mg/dL see note: normal Refer ence Range : Refer ence Range Not estab lishe d Not Available [facility] [address] [place], [address], 03/19/2023 21:12:02 03/18/20 23 03/19/2023 ALBUM IN, RANDO M URINE W/CRE ATINI NE albumin/crea tinine ratio, random urine 3 mcg/m g_cre at <30 normal The ADA defin es abnor malit ies in album in excre tion as follo ws: Album inuri a Categ ory Resul t (mcg/ mg creat inine ) Emma l to Mildl y incre ased <30 Moder ately incre ased 30-29 9 Sever bj incre ased > OR = 300 The ADA recom mends that at least two of three speci mens colle cted withi n a 3-6 month perio d be abnor mal befor e consi cari g a patie nt to be withi n a diagn ostic categ ory. Not Available [address], [address], 03/19/2023 21:12:02 03/18/20 23 03/19/2023 LIPID PANEL WITH RATIO S cholesterol, total 257 mg/dL <200 high Not Available [address] [place], [address], 03/19/2023 21:12:03 03/18/20 23 03/19/2023 LIPID PANEL WITH RATIO S HDL cholesterol 46 mg/dL > or = 50 low Not Available [address], [address], 03/19/2023 21:12:03 03/18/20 23 03/19/2023 LIPID PANEL WITH RATIO S triglyceride s 218 mg/dL <150 high If a non-f astin g speci men was colle cted, consi santiago repea t trigl yceri de testi ng on a fasti ng speci men if clini magali indic ated. Zac wells et al. J. of Clin. Lipid ol. 2015; 9:129 -169. Not Available [facility] [address] [place], [address], 03/19/2023 21:12:03 03/18/20 23 03/19/2023 LIPID PANEL WITH RATIO S LDL-choleste rol 172 mg/dL _(cici c) high Refer ence range : <100 Juan able range <100 mg/dL for prima ry preve ntion ; <70 mg/dL for patie nts with CHD or diabe tic patie nts with > or = 2 CHD risk facto rs. LDL-C is now calcu lated using the Lorelei n-Hop kins bernadetteu nyla n, which is a valid ated novel lalao paul mejiai rosalino carrerate r accur acy than the Fried shai equat ion in the estim ation of LDL-C . Lorelei brink SS et al. YINA. 2013; 310(1 9): 2061- 2068 (http ://ed ucati on.Qu Sproutling. com/f aq/FA Q164) Not Available [facility] [address] [place], [address], 03/19/2023 21:12:03 03/18/20 23 03/19/2023 LIPID PANEL WITH RATIO S chol/HDLC ratio 5.6 (calc ) <5.0 high Not Available [facility] [address] [address] [place], [address], 03/19/2023 21:12:03 03/18/20 23 03/19/2023 LIPID PANEL WITH RATIO S LDL/HDL ratio 3.7 (calc ) Below avera ge Risk: <2.34 Rudyard ge Risk: 2.35- 4.12 Moder ate Risk: 4.13- 5.56 High Risk: >5.57 Not Available [facility] [address] , [place], [address], 03/19/2023 21:12:03 03/18/20 23 03/19/2023 LIPID PANEL WITH RATIO S non HDL cholesterol 211 mg/dL _(cici c) <130 high For patie nts with diabe robert plus 1 major ASCVD risk facto r, treat ing to a non-H DL-C goal of <100 mg/dL (LDL- C of <70 mg/dL ) is consi nakita a tessa stratton optio n. Not Available [facility] [address] [place], [address], 03/19/2023 21:12:03 03/18/20 23 03/19/2023 BASIC METAB OLIC PANEL glucose 160 mg/dL 65-99 high Fasti ng refer ence inter griffin For someo ne witho ut known diabe robert, a gluco se value >125 mg/dL indic ates that they may have diabe robert and this shoul d be confi rmed with a follo w-up test. Not Available [address], [address], 03/19/2023 21:12:03 03/18/20 23 03/19/2023 BASIC METAB OLIC PANEL urea nitrogen (BUN) 20 mg/dL 7-25 normal Not Available [address], [address], 03/19/2023 21:12:03 03/18/20 23 03/19/2023 BASIC METAB OLIC PANEL creatinine 1.11 mg/dL 0.60-1 .00 high Not Available [address], [address], 03/19/2023 21:12:03 03/18/20 23 03/19/2023 BASIC METAB OLIC PANEL eGFR 52 mL/mi n/1.7 3m2 > or = 60 low The eGFR is based on the CKD-E PI 2020 equat ion. To calcu late the new eGFR from a previ ous Creat inine or Cysta tin C resul t, go to https ://alfie garcia.amos sands.o kat/harpreet phillips s/ kdoqi /gfr% 5Fcal culat or Not Available [address], [address], 03/19/2023 21:12:03 03/18/20 23 03/19/2023 BASIC METAB OLIC PANEL BUN/creatini ne ratio 18 (calc ) 6-22 normal Not Available [address] [place], [address], 03/19/2023 21:12:03 03/18/20 23 03/19/2023 BASIC METAB OLIC PANEL sodium 138 mmol/ L 135-14 6 normal Not Available [address], [address], 03/19/2023 21:12:03 03/18/20 23 03/19/2023 BASIC METAB OLIC PANEL potassium 4.2 mmol/ L 3.5-5. 3 normal Not Available [address], [address], 03/19/2023 21:12:03 03/18/20 23 03/19/2023 BASIC METAB OLIC PANEL chloride 103 mmol/ L 98-110 normal Not Available [address], [address], 03/19/2023 21:12:03 03/18/20 23 03/19/2023 BASIC METAB OLIC PANEL carbon dioxide 28 mmol/ L 20-32 normal Not Available [address], [address], 03/19/2023 21:12:03 03/18/20 23 03/19/2023 BASIC METAB OLIC PANEL calcium 9.5 mg/dL 8.6-10 .4 normal Not Available [address], [address], 03/19/2023 21:12:03 03/18/20 23 03/19/2023 HEPAT IC FUNCT ION PANEL protein, total 6.7 g/dL 6.1-8. 1 normal Not Available [address], [address], 03/19/2023 21:12:04 03/18/20 23 03/19/2023 HEPAT IC FUNCT ION PANEL albumin 3.9 g/dL 3.6-5. 1 normal Not Available [address] [place], [address], 03/19/2023 21:12:04 03/18/20 23 03/19/2023 HEPAT IC FUNCT ION PANEL globulin 2.8 g/dL_ (calc ) 1.9-3. 7 normal Not Available [address] [address] [place], [address], 03/19/2023 21:12:04 03/18/20 23 03/19/2023 HEPAT IC FUNCT ION PANEL albumin/glob ulin ratio 1.4 (calc ) 1.0-2. 5 normal Not Available [address], [address], 03/19/2023 21:12:04 03/18/20 23 03/19/2023 HEPAT IC FUNCT ION PANEL bilirubin, total 0.6 mg/dL 0.2-1. 2 normal Not Available [address] [address] [place], [address], 03/19/2023 21:12:04 03/18/20 23 03/19/2023 HEPAT IC FUNCT ION PANEL bilirubin, direct 0.1 mg/dL < or = 0.2 normal Not Available [address] [address] [place], [address], 03/19/2023 21:12:04 03/18/20 23 03/19/2023 HEPAT IC FUNCT ION PANEL bilirubin, indirect 0.5 mg/dL _(cici c) 0.2-1. 2 normal Not Available [address] [address] [place], [address], 03/19/2023 21:12:04 03/18/20 23 03/19/2023 HEPAT IC FUNCT ION PANEL alkaline phosphatase 63 U/L 37-153 normal Not Available [address] [address] [place], [address], 03/19/2023 21:12:04 03/18/20 23 03/19/2023 HEPAT IC FUNCT ION PANEL AST 12 U/L 10-35 normal Not Available [address], [address], 03/19/2023 21:12:04 03/18/20 23 03/19/2023 HEPAT IC FUNCT ION PANEL ALT 16 U/L 6-29 normal Not Available [address], [address], 03/19/2023 21:12:04 03/18/20 23 03/19/2023 TSH TSH 1.13 mIU/L 0.40-4 .50 normal Not Available [address], [address], 03/19/2023 21:12:05 03/18/20 23 03/19/2023 T4, FREE T4, free 1.2 NG/dL 0.8-1. 8 normal Not Available [address], [address], 03/19/2023 21:12:06 03/18/20 23 03/19/2023 SED RATE BY MODIF IED WESTE RGREN sed rate by modified westergren 28 mm/h < or = 30 normal Not Available [address], [address], 03/19/2023 21:12:06 03/18/20 23 03/19/2023 CBC (INCL UDES DIFF/ PLT) white blood cell count 4.7 thous and/u L 3.8-10 .8 normal Not Available [address], [address], 03/19/2023 21:12:07 03/18/20 23 03/19/2023 CBC (INCL UDES DIFF/ PLT) red blood cell count 4.97 rosy on/uL 3.80-5 .10 normal Not Available [address] [place], [address], 03/19/2023 21:12:07 03/18/20 23 03/19/2023 CBC (INCL UDES DIFF/ PLT) hemoglobin 14.0 g/dL 11.7-1 5.5 normal Not Available [address], [address], 03/19/2023 21:12:07 03/18/20 23 03/19/2023 CBC (INCL UDES DIFF/ PLT) hematocrit 42.4 % 35.0-4 5.0 normal Not Available [address], [address], 03/19/2023 21:12:07 03/18/20 23 03/19/2023 CBC (INCL UDES DIFF/ PLT) MCV 85.3 fL 80.0-1 00.0 normal Not Available [address], [address], 03/19/2023 21:12:07 03/18/20 23 03/19/2023 CBC (INCL UDES DIFF/ PLT) MCH 28.2 pg 27.0-3 3.0 normal Not Available [address], [address], 03/19/2023 21:12:07 03/18/20 23 03/19/2023 CBC (INCL UDES DIFF/ PLT) MCHC 33.0 g/dL 32.0-3 6.0 normal Not Available [address], [address], 03/19/2023 21:12:07 03/18/20 23 03/19/2023 CBC (INCL UDES DIFF/ PLT) RDW 13.1 % 11.0-1 5.0 normal Not Available [address], [address], 03/19/2023 21:12:07 03/18/20 23 03/19/2023 CBC (INCL UDES DIFF/ PLT) platelet count 213 thous and/u L 140-40 0 normal Not Available [address], [address], 03/19/2023 21:12:07 03/18/20 23 03/19/2023 CBC (INCL UDES DIFF/ PLT) MPV 10.4 fL 7.5-12 .5 normal Not Available [address], [address], 03/19/2023 21:12:07 03/18/20 23 03/19/2023 CBC (INCL UDES DIFF/ PLT) absolute neutrophils 2515 cells /uL 1500-7 800 normal Not Available [address], [address], 03/19/2023 21:12:07 03/18/20 23 03/19/2023 CBC (INCL UDES DIFF/ PLT) absolute lymphocytes 1814 cells /uL 850-39 00 normal Not Available [address], [address], 03/19/2023 21:12:07 03/18/20 23 03/19/2023 CBC (INCL UDES DIFF/ PLT) absolute monocytes 301 cells /uL 200-95 0 normal Not Available [address], [address], 03/19/2023 21:12:07 03/18/20 23 03/19/2023 CBC (INCL UDES DIFF/ PLT) absolute eosinophils 71 cells /uL 15-500 normal Not Available [address], [address], 03/19/2023 21:12:07 03/18/20 23 03/19/2023 CBC (INCL UDES DIFF/ PLT) absolute basophils 0 cells /uL 0-200 normal Not Available [address], [address], 03/19/2023 21:12:07 03/18/20 23 03/19/2023 CBC (INCL UDES DIFF/ PLT) neutrophils 53.5 % normal Not Available [facility] [address], [address], 03/19/2023 21:12:07 03/18/20 23 03/19/2023 CBC (INCL UDES DIFF/ PLT) lymphocytes 38.6 % normal Not Available [facility] [address], [address], 03/19/2023 21:12:07 03/18/20 23 03/19/2023 CBC (INCL UDES DIFF/ PLT) monocytes 6.4 % normal Not Available [facility] [address], [address], 03/19/2023 21:12:07 03/18/20 23 03/19/2023 CBC (INCL UDES DIFF/ PLT) eosinophils 1.5 % normal Not Available [facility] [address], [address], 03/19/2023 21:12:07 03/18/20 23 03/19/2023 CBC (INCL UDES DIFF/ PLT) basophils 0.0 % normal Not Available [address], [address], 03/19/2023 21:12:07 03/18/20 23 03/19/2023 URINA LYSIS , COMPL ETE color YELLOW yellow normal Not Available [facility] [address], [address], 03/19/2023 21:12:08 03/18/20 23 03/19/2023 URINA LYSIS , COMPL ETE appearance CLEAR clear normal Not Available [facility] [address], [address], 03/19/2023 21:12:08 03/18/20 23 03/19/2023 URINA LYSIS , COMPL ETE specific gravity 1.015 1.001- 1.035 normal Not Available [address], [address], 03/19/2023 21:12:08 03/18/20 23 03/19/2023 URINA LYSIS , COMPL ETE pH < OR = 5.0 5.0-8. 0 normal Not Available [address], [address], 03/19/2023 21:12:08 03/18/20 23 03/19/2023 URINA LYSIS , COMPL ETE glucose NEGATI VE negati ve normal Not Available [address], [address], 03/19/2023 21:12:08 03/18/20 23 03/19/2023 URINA LYSIS , COMPL ETE bilirubin NEGATI VE negati ve normal Not Available [address], [address], 03/19/2023 21:12:08 03/18/20 23 03/19/2023 URINA LYSIS , COMPL ETE ketones NEGATI VE negati ve normal Not Available [address], [address], 03/19/2023 21:12:08 03/18/20 23 03/19/2023 URINA LYSIS , COMPL ETE occult blood NEGATI VE negati ve normal Not Available [facility] [address], [address], 03/19/2023 21:12:08 03/18/20 23 03/19/2023 URINA LYSIS , COMPL ETE protein NEGATI VE negati ve normal Not Available [address] [place], [address], 03/19/2023 21:12:08 03/18/20 23 03/19/2023 URINA LYSIS , COMPL ETE nitrite NEGATI VE negati ve normal Not Available [address], [address], 03/19/2023 21:12:08 03/18/20 23 03/19/2023 URINA LYSIS , COMPL ETE leukocyte esterase NEGATI VE negati ve normal Not Available [address], [address], 03/19/2023 21:12:08 03/18/20 23 03/19/2023 URINA LYSIS , COMPL ETE WBC NONE SEEN /hpf < or = 5 normal Not Available [address], [address], 03/19/2023 21:12:08 03/18/20 23 03/19/2023 URINA LYSIS , COMPL ETE RBC NONE SEEN /hpf < or = 2 normal Not Available [address], [address], 03/19/2023 21:12:08 03/18/20 23 03/19/2023 URINA LYSIS , COMPL ETE squamous epithelial cells 10-20 /hpf < or = 5 abnormal Not Available [address], [address], 03/19/2023 21:12:08 03/18/20 23 03/19/2023 URINA LYSIS , COMPL ETE bacteria NONE SEEN /hpf none seen normal Not Available [address], [address], 03/19/2023 21:12:08 03/18/20 23 03/19/2023 URINA LYSIS , COMPL ETE hyaline cast NONE SEEN /lpf none seen normal Not Available [address], [address], 03/19/2023 21:12:08 03/18/20 23 03/19/2023 VITAM IN B12 vitamin B12 >2000 pg/mL 200-11 00 high Not Available [facility] [address] [place], [address], 03/19/2023 21:12:09 03/18/20 23 03/19/2023 C-JOANIE CTIVE PROTE IN C-reactive protein 4.3 mg/L <8.0 normal Not Available [facility] [address] [place], [address], 03/19/2023 21:12:09 03/18/20 23 03/19/2023 CULTU RE, URINE , ROUTI NE culture, urine, routine CULTU RE, URINE , ROUTI NE Micro Numbe r: [id number] Test Statu s: Final Speci men Sourc e: Urine , clean catch Speci men Quali ty: Adequ ate Resul t: Mixed genit al luz maria isola sarina. These super ficia l bacte reese are not indic ative of a urina ry tract infec tion. No furth er organ ism ident ifica tion is warra nted on this speci men. If clini magali indic ated, recol lect clean -catc h, mid-s tream urine and trans elsie immed iatel y to Urine Cultu re Trans port Tube. Not Available [facility] [address] , [place], [address], 03/19/2023 21:12:10 07/20/20 22 07/20/2022 XR, chest , 2 view No observ ation record ed. [id number] [facility] [address], [place], [address], 10/27/2022 01:16:06 09/06/19 23 08/11/2022 MRI, lumba r spine , w/wo contr ast No observ ation record ed. [id number] [facility] [address], [place], [address], 10/27/2022 01:16:06 03/18/20 23 03/18/2023 XR, hip, bilat eral No observ ation record ed. [email or web address] [facility] [address], [place], [address], 03/25/2023 10:35:06 Result Notes None recorded. Problems Name Problem SNOMED Code Status Onset Date Resolution Date Notes Provider Name and Address Organization Details Recorded Time Irritable bowel syndrome 59126669 Active Not Available [facility] 3 01:05:13 Chronic vaginitis 67244312 Active Not Available [facility] 3 01:05:13 Herpes labialis 0017908 Active Not Available [facility] 3 01:05:13 Constipati on 66400190 Active Not Available [facility] 3 01:05:13 Acute sinusitis 25641393 Active Not Available [facility] 3 01:05:13 Left flank pain 891941598 Active Not Available [facility] 3 01:05:13 Cobalamin deficiency 646391312 Active Not Available [facility] 3 01:05:13 Recurrent anxiety 681697529 Active Not Available [facility] 3 01:05:13 Gastroesop hageal reflux disease 343467447 Active Not Available [facility] 3 01:05:13 Screening mammograph y Active 2021 Not Available [facility] 3 01:05:13 Headache 60819920 Active Not Available [facility] 3 01:05:13 Long-term drug therapy Active 2021 Not Available [facility] 3 01:05:13 Mixed hyperlipid emia 235889770 Active 2021 Not Available [facility] 3 01:05:13 Low back pain 219123183 Active 2021 Not Available [facility] 3 01:05:13 Rib pain 462189553 Active Not Available [facility] 3 01:05:14 Right upper quadrant pain 633089506 Active Not Available [facility] 3 01:05:14 Otitis externa 6637439 Active Not Available [facility] 3 01:05:14 Sarcoidosi s 70738873 Active 1977 Not Available [facility] 3 01:05:14 Acute pharyngiti s 256901043 Active Not Available [facility] 3 01:05:14 Dizziness 595640963 Active 2021 Not Available [facility] 3 01:05:14 Hypothyroi dism 32242409 Active Not Available [facility] 3 01:05:14 Nausea 759715989 Active Not Available [facility] 3 01:05:14 Night sweats 59888785 Active Not Available [facility] 3 01:05:14 Acute urinary tract infection 219013937 Active 2022 Not Available [facility] 3 01:05:14 Streptococ cici sore throat 91177788 Active Not Available [facility] 3 01:05:14 Uncontroll ed type 2 diabetes mellitus 926158550 Active 2021 Not Available [facility] 3 01:05:14 Anxiety 62302436 Active Not Available [facility] 3 01:05:15 Dysuria 80982154 Active Not Available [facility] 3 01:05:15 Cough 72641630 Active Not Available [facility] 3 01:05:15 Stomach cramps 35247358 Active 2022 Not Available [facility] 3 01:05:15 Atrophic vaginitis 31023781 Active Not Available [facility] 3 01:05:15 Hyperlipid emia 93175091 Active 2021 Not Available [facility] 3 01:05:15 Essential hypertensi on 49809626 Active 2021 Not Available [facility] 3 01:05:15 Vitamin B12 deficiency (non anemic) 05337686 Active 2021 Not Available [facility] 3 01:05:15 Otitis media 84191586 Active Not Available [facility] 3 01:05:15 Posterior rhinorrhea 36713060 Active Not Available [facility] 3 01:05:16 Epigastric pain 74209298 Active Not Available [facility] 3 01:05:16 Diffuse spasm of esophagus 59080710 Active Not Available [facility] 3 01:05:16 COVID-19 351075272 Active 2021 Not Available [facility] 3 01:05:16 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 3 10:22:00 Bilateral hip joint pain 4554762284393 9100 Active 2022 CAPO Rasehed [address], [address], [place], [address] , [facility] 3 10:22:08 Multiple joint pain 03570917 Active 2022 CAPO Rasheed [address], [address], [place], [address] , [facility] 3 10:25:00 Lower urinary tract symptoms 713876843 Active 2022 CAPO Rasheed [address], [address], [place], [address] , [facility] 3 10:25:35 Gastroesop hageal reflux disease without esophagiti s 327262944 Active 2022 CAPO Rasheed [address], [address], [place], [address] , [facility] [employer] [facility] [employer] [facility] 3 15:51:34 Thoracic back pain 651397552 Active 2022 CAPO Rasheed [address], [place], [address] , [facility] [employer] [facility] [employer] [facility] 3 14:55:34 Problem Notes None recorded. Procedures Surgical History Date Name Laterality Status Provider Name and Address Organization Details Recorded Time 04/01/20 Date of Last Colonoscopy completed Not Available [facility] 10/27/2022 00:57:07 01/27/20 16 Most Recent Bone Density completed Not Available [facility] 10/27/2022 00:57:08 12/14/19 09 Colonoscopy completed Not Available [facility] 10/27/2022 00:57:11 cholecystectomy completed Not Available [facility] 10/27/2022 00:57:11 Removal of thyroid completed Not Available [facility] 10/27/2022 00:57:11 Tonsillectomy completed Not Available [facility] 10/27/2022 00:57:11 hysterectomy completed Not Available [facility] 10/27/2022 00:57:11 hernia repair completed Not Available [facility] 10/27/2022 00:57:11 Imaging Results Imaging Date Name Status LastModified by Organiz ation Details LastModified Time 08/11/2022 MRI, lumbar spine, w/wo contrast completed [id number] [facility] [address], [place], [address], 10/27/2022 01:16:06 07/20/2022 XR, chest, 2 view completed [id number] [address] [place] [address] [address], [place], [address], 10/27/2022 01:16:06 03/18/2023 XR, hip, bilateral completed [email or web address] [facility] [address], [place], [address], 03/25/2023 10:35:06 Procedure Notes None recorded. Medical Equipment None Reported. Allergies Allergen ID Allergen Name Allergen Category Reaction Reaction Severity Criticality Documentation Date Start Date Code Code System Note Provider Name and Address Organization Details Recorded Time 1774 Valium medicatio n Not available Not available Not available 10/27/2022 85057 2 RxNorm Not Available [facility] 3 01:15:26 1775 tetracycl ine medicatio n vomiting moderate Not available 10/27/2022 37151 RxNorm Not Available [facility] 3 01:15:26 1776 Pyridium medicatio n vomiting Not available Not available 10/27/2022 8998 RxNorm Not Available [facility] 3 01:15:27 1777 morphine medicatio n vomiting Not available Not available 10/27/2022 7052 RxNorm Not Available [facility] 3 01:15:27 1778 hydrocodo ne Not available vomiting Not available Not available 10/27/2022 5489 RxNorm Not Available [facility] 3 01:15:27 1779 codeine medicatio n vomiting Not available Not available 10/27/2022 2670 RxNorm Not Available [facility] 3 01:15:27 1780 Cipro medicatio n nausea Not available Not available 10/27/2022 72241 3 RxNorm Not Available [facility] 3 01:15:27 1781 cefdinir medicatio n rash Not available Not available 10/27/2022 86615 RxNorm head, neck, chest redne ss Not Available [facility] 3 01:15:27 1782 diazepam medicatio n dizziness Not available Not available 10/27/2022 3322 RxNorm error Not Available [facility] 3 01:15:27 1783 amitripty line medicatio n Not available Not available Not available 10/27/2022 704 RxNorm Not Available [facility] 3 01:15:27 Medications Name Sig Start Date Stop Date Status Note LastModified by Organization Details LastModified Time cyclobenz aprine 10 mg tablet TAKE 1 TABLET BY MOUTH THREE TIMES DAILY NEEDED active Not Available Not Available No t Available amoxicill in 500 mg capsule TAKE 1 CAPSULE BY MOUTH EVERY 12 HOURS FOR 7 DAYS 09/25 completed Not Available Not Available Not Available pioglitaz one 15 mg tablet TAKE 1 TABLET BY MOUTH DAILY 09/15 completed Not Available Not Available Not Available buspirone 5 mg tablet 10/17 completed Not Available Not Available Not Available Augmentin 875 mg-125 mg tablet Take 1 tablet every 12 hours by oral route. 12/09 completed Not Available Not Available Not Available terconazo le 0.4 % vaginal cream 05/05 completed Not Available Not Available Not Available promethaz ine-DM 6.25 mg-15 mg/5 mL oral syrup Take 5 mL every 6 hours by oral route as needed. 09/01 completed Not Available Not Available Not Available neomycin- polymyxin -hydrocor t 3.5 mg/mL-10, 000 unit/mL-1 % ear solution 07/19 completed Not Available Not Available Not Available acetic acid 2 % ear solution INSTILL 3 DROPS TO AFFECTED EAR THREE TIMES DAILY FOR 7 DAYS 03/18 completed Not Available Not Available Not Available nystatin 100,000 unit/mL oral suspensio n 06/21 completed Not Available Not Available Not Available prednison e 10 mg tablet take [id number], [id number], [id number], [id number] active Not Available Not Available No t Available ketoconaz ole 2 % shampoo 01/09 completed Not Available Not Available Not Available triamcino lone acetonide 0.5 % topical cream APPLY A THIN LAYER TO THE AFFECTED AREA(S) BY TOPICAL ROUTE 2 TIMES PER DAY active Not Available Not Available No t Available atorvasta tin 10 mg tablet TAKE 1 TABLET BY MOUTH EVERY NIGHT AT BEDTIME 09/25 completed Not Available Not Available Not Available azithromy sandra 250 mg tablet TAKE 2 TABLETS (500 MG) BY ORAL ROUTE ONCE DAILY FOR 1 DAY THEN 1 TABLET (250 MG) BY ORAL ROUTE ONCE DAILY FOR 4 DAYS active Not Available Not Available No t Available alprazola m 1 mg tablet TAKE 1 TABLET BY MOUTH THREE TIMES DAILY NEEDED active Not Available Not Available No t Available Lidocaine Viscous 2 % mucosal solution PRN 10/17 completed Not Available Not Available Not Available fluconazo le 150 mg tablet TAKE 1 TABLET BY MOUTH 1 TIME FOR 1 DAY 09/15 completed Not Available Not Available Not Available benzonata te 200 mg capsule active Not Available Not Available Not Available valacyclo vir 1 gram tablet Take 2 tablets every 12 hours by oral route for 2 days. active Not Available Not Available No t Available hydrocort isone 1 % topical ointment APPLY TOPICALL Y TWICE DAILY NEEDED active Not Available Not Available No t Available promethaz ine 6.25 mg/5 mL oral syrup Take 5 mL every 6-8 hours by oral route as needed. active Not Available Not Available No t Available Avelox 400 mg tablet Take 1 tablet every day by oral route. active Not Available Not Available No t Available sucralfat e 1 gram tablet active caused constipa tion had to stop Not Available Not Available Not Available promethaz ine 12.5 mg tablet TK 1 T PO Q 6 H PRF NAUSEA OR VOM 09/29 completed Not Available Not Available Not Available FreeStyle Lancets 28 gauge active Not Available Not Available Not Available metronida zole 0.75 % (37.5 mg/5 gram) vaginal gel 05/05 completed Not Available Not Available Not Available famotidin e 40 mg tablet active Not Available Not Available Not Available prednison e 20 mg tablet TAKE 2 TABLETS BY MOUTH DAILY FOR 5 DAYS active Not Available Not Available No t Available clobetaso l 0.05 % topical cream APPLY A THIN LAYER TO THE scalp BY TOPICAL ROUTE 2 TIMES PER DAY active Not Available Not Available No t Available diphenoxy late-atro pine 2.5 mg-0.025 mg tablet TAKE 1 TO 2 TABLETS BY MOUTH THREE TIMES DAILY NEEDED FOR DIARRHEA active Not Available Not Available No t Available meclizine 12.5 mg tablet active Not Available Not Available Not Available metronida zole 500 mg tablet 09/29 completed Not Available Not Available Not Available lidocaine HCl 2 % mucosal jelly APPLY TOPICALL Y TO THE AFFECTED AREA 2 TO 3 TIMES DAILY NEEDED FOR PAIN 03/18 completed Not Available Not Available Not Available sulfameth oxazole 800 mg-trimet hoprim 160 mg tablet Take 1 tablet every 12 hours by oral route. active Not Available Not Available No t Available omeprazol e 40 mg capsule,d elayed release active Not Available Not Available Not Available triamcino lone acetonide 0.1 % topical cream 05/23 completed Not Available Not Available Not Available glimepiri de 2 mg tablet TAKE 1 TABLET BY MOUTH TWICE DAILY WITH MEALS 03/25 completed Not Available Not Available Not Available glimepiri de 1 mg tablet TAKE 1 TABLET BY MOUTH EVERY MORNING WITH BREAKFAS T 09/15 completed Not Available Not Available Not Available dexametha sone sodium phosphate 0.1 % eye drops 05/05 completed Not Available Not Available Not Available Kenalog 40 mg/mL suspensio n for injection Take 60 mL by injectio n route. 07/07 completed [facility]#: [id number] Not Available Not Available Not Available levothyro xine 100 mcg tablet TK 1 T PO D IN THE MORNING 03/27 completed Not Available Not Available Not Available amoxicill in 875 mg tablet TAKE 1 TABLET BY MOUTH EVERY 12 HOURS FOR 7 DAYS active Not Available Not Available No t Available famotidin e 20 mg tablet TAKE 1 TABLET BY MOUTH TWICE DAILY NEEDED active Not Available Not Available No t Available desiprami ne 50 mg tablet active Not Available Not Available Not Available Lidoderm 5 % topical patch APPLY 1 PATCH BY TRANSDER MAL ROUTE ONCE DAILY (MAY WEAR UP TO 12HOURS. ) 03/10 completed Not Available Not Available Not Available betametha sone valerate 0.1 % topical cream 05/23 completed Not Available Not Available Not Available ciproflox acin 0.3 % eye drops 09/15 completed Not Available Not Available Not Available OneTouch Ultra Test strips USE TO CHECK BLOOD SUGAR TWICE DAILY active Not Available Not Available No t Available amitripty line 10 mg tablet TAKE 3 TABLETS BY MOUTH EVERY NIGHT AT BEDTIME active Not Available Not Available No t Available meclizine 25 mg tablet TAKE 1 TABLET BY MOUTH EVERY 8 HOURS NEEDED FOR DIZZINES S active Not Available Not Available No t Available diazepam 2 mg tablet Take 1 tablet twice a day by oral route as needed. active Not Available Not Available No t Available sulfaceta mide sodium 10 % eye drops active Not Available Not Available Not Available baclofen 10 mg tablet TK 1 T PO QD AT DINNER active Not Available Not Available No t Available benzonata te 100 mg capsule TK 2 CS PO Q 8 H PRN 01/09 completed Not Available Not Available Not Available cephalexi n 500 mg capsule TAKE 1 CAPSULE BY MOUTH EVERY 8 HOURS FOR 10 DAYS 01/20 completed Not Available Not Available Not Available pantopraz ole 40 mg tablet,de layed release Take 1 tablet every day by oral route in the morning. active causes stomach pain Not Available Not Available Not Available cyanocoba mark anthony (vit B-12) 1,000 mcg/mL injection solution Inject 2 mL every month by subcutan eous route. 2022 active [facility]# [id number] [id number] erated well. Not Available Not Available Not Available tacrolimu s 0.1 % topical ointment APPLY TO LIPS AND MOUTH TWICE DAILY NEEDED ONLY active Not Available Not Available No t Available levothyro xine 125 mcg tablet TAKE 1 TABLET BY MOUTH EVERY DAY IN THE MORNING active Not Available Not Available No t Available neomycin- polymyxin -dexameth 3.5 mg/mL-10, 000 unit/mL-0 .1% eye drops INSTILL 1 DROP INTO OU QID UTD 06/21 completed Not Available Not Available Not Available Cipro 500 mg tablet Take 1 tablet every 12 hours by oral route. 09/15 completed Not Available Not Available Not Available nitrofura ntoin macrocrys emily 100 mg capsule active Not Available Not Available Not Available tobramyci n 0.3 % eye drops 03/18 completed Not Available Not Available Not Available triamcino lone acetonide 0.1 % topical ointment APPLY TOPICALL Y TO THE AFFECTED AREA EVERY 12 HOURS NEEDED active Not Available Not Available No t Available nystatin 100,000 unit/gram topical cream APPLY TOPICALL Y TO THE AFFECTED AREA 2 TO 3 TIMES DAILY NEEDED 11/30 completed Not Available Not Available Not Available clotrimaz ole-betam ethasone 1 %-0.05 % topical cream APPLY TO AFFECTED AREA BID 10/17 completed Not Available Not Available Not Available prednison e 50 mg tablet TK 1 T PO QD FOR 5 DAYS active Not Available Not Available No t Available hyoscyami ne 0.125 mg sublingua l tablet Place 1 tablet every 4-6 hours by sublingu al route as needed. 05/23 completed Not Available Not Available Not Available promethaz ine 25 mg tablet TAKE 1 TABLET BY MOUTH EVERY 6 HOURS NEEDED FOR NAUSEA OR VOMITING active Not Available Not Available No t Available losartan 25 mg tablet TAKE 1 TABLET BY MOUTH EVERY DAY active Not Available Not Available No t Available betametha sone dipropion ate 0.05 % topical cream 05/05 completed Not Available Not Available Not Available gabapenti n 300 mg capsule 05/05 completed Not Available Not Available Not Available omeprazol e 20 mg capsule,d elayed release active pt stopped Not Available Not Available Not Available diclofena c sodium 75 mg tablet,de layed release active Not Available Not Available Not Available monteluka st 10 mg tablet active Not Available Not Available Not Available clindamyc in 2 % vaginal cream 09/29 completed Not Available Not Available Not Available mupirocin 2 % topical ointment 03/18 completed Not Available Not Available Not Available Prometheg an 25 mg rectal supposito ry active Not Available Not Available Not Available fluocinol one 0.01 % topical solution 05/23 completed Not Available Not Available Not Available fluocinon afua 0.05 % topical solution 01/22 completed Not Available Not Available Not Available calcipotr iene 0.005 % scalp solution 01/22 completed Not Available Not Available Not Available Cipro HC 0.2 %-1 % ear drops,kadeem pension INSTILL 3 DROPS INTO AFFECTED EAR(S) BY OTIC ROUTE EVERY 12 HOURS 07/19 completed Not Available Not Available Not Available estradiol 0.01% (0.1 mg/gram) vaginal cream INSERT 1 GRAM VAGINALL Y 3 TIMES A WEEK DIRECTED 2022 active Not Available Not Available Not Avai lable methylpre dnisolone 4 mg tablets in a dose pack FOLLOW PACKAGE DIRECTIO NS 03/17 completed Not Available Not Available Not Available albuterol sulfate HFA 90 mcg/actua tion aerosol inhaler INHALE 2 PUFFS BY MOUTH EVERY 4 TO 6 HOURS NEEDED 03/18 completed Not Available Not Available Not Available hydroxyzi ne HCl 10 mg tablet TK 1 T PO BID PRF ITCHING 05/05 completed Not Available Not Available Not Available clobetaso l 0.05 % scalp solution 01/09 completed Not Available Not Available Not Available ondansetr on 4 mg disintegr ating tablet TK 1 T PO PRN Q 4-6 HOURS 09/01 completed Not Available Not Available Not Available cefdinir 300 mg capsule active rash Not Available Not Available Not Available diltiazem 60 mg tablet Take 1 tablet 3 times a day by oral route. active Not Available Not Available No t Available fluticaso ne propionat e 50 mcg/actua tion nasal spray,kadeem pension SHAKE LIQUID AND USE 1 SPRAY IN EACH NOSTRIL TWICE DAILY 03/18 completed Not Available Not Available Not Available levothyro xine 112 mcg tablet TAKE 1 TABLET BY MOUTH DAILY 06/15 completed Not Available Not Available Not Available neomycin 3.5 mg/g-poly myxin B 10,000 unit/g-de xameth 0.1 % eye oint KAM A SMALL AMT ON BOTH EYELIDS BID UTD 06/21 completed Not Available Not Available Not Available neomycin- polymyxin -hydrocor t 3.5 mg-10,000 unit/mL-1 % ear drops,kadeem p INSTILL 4 DROPS INTO AFFECTED EAR(S) BY OTIC ROUTE 3 TIMES PER DAY 07/19 completed Not Available Not Available Not Available Premarin 0.625 mg/gram vaginal cream APPLY A PEA-SIZE D AMOUNT PER VAGINA TWICE PER WEEK 05/05 completed Not Available Not Available Not Available ciproflox acin 0.3 %-dexamet hasone 0.1 % ear drops,kadeem pension SHAKE LIQUID AND INSTILL 4 DROPS TO AFFECTED EAR EVERY 12 HOURS FOR 7 DAYS active Not Available Not Available No t Available nitrofura ntoin monohydra te/macroc rystals 100 mg capsule TAKE 1 CAPSULE BY MOUTH EVERY 12 HOURS active Not Available Not Available No t Available amoxicill in 05/28 completed Not Available Not Available Not Available meclizine 2014 active Not Available Not Available Not Avai lable Xopenex HFA 45 mcg/actua tion aerosol inhaler active Not Available Not Available Not Available Pataday 0.2 % eye drops active Not Available Not Available Not Available Lantus Solostar U-100 Insulin 100 unit/mL (3 mL) subcutane ous pen active Not Available Not Available Not Available ciproflox acin 0.2 % ear drops in a dropperet te active Not Available Not Available Not Available Tradjenta 5 mg tablet TAKE 1 TABLET BY MOUTH EVERY MORNING 03/18 completed Not Available Not Available Not Available Vascepa 1 gram capsule TAKE 2 CAPSULES BY MOUTH TWICE DAILY active Not Available Not Available No t Available Fluvirin [id number] 45 mcg (15 mcg x 3)/0.5 mL intramusc ular suspensio n active Not Available Not Available Not Available Jardiance 10 mg tablet TAKE 1 TABLET BY MOUTH DAILY active Not Available Not Available No t Available Fluzone High-Dose (PF) 180 mcg/0.5 mL intramusc ular syringe ADM 0.5ML IM UTD active Not Available Not Available No t Available OneTouch Ultra Blue Test Strip USE TO CHECK BLOOD SUGAR TWICE DAILY active Not Available Not Available No t Available Fluzone High-Dose (PF) 180 mcg/0.5 mL intramusc ular syringe ADM 0.5ML IM UTD 07/10 completed Not Available Not Available Not Available BD Hui 2nd Gen Pen Needle 32 gauge x USE ONCE DAILY active Not Available Not Available No t Available OneTouch Ultra2 Meter USE DIRECTED TO CHECK BLOOD SUGARS TWICE DAILY active Not Available Not Available No t Available OneTouch Delica Plus Lancet 30 gauge USE TO TEST BLOOD SUGAR TWICE DAILY active Not Available Not Available No t Available [facility] ODT 75 mg disintegr ating tablet take one tab SL as directed for migraine . 24 hours between doses required active Not Available Not Available No t Available Gvoke HypoPen 2-Pack 1 mg/0.2 mL subcutane ous auto-inje ctor active Not Available Not Available Not Available Fluzone High-Dose Quad (PF) 240 mcg/0.7 mL IM syringe ADM 0.7ML IM UTD 06/30 completed Not Available Not Available Not Available Vitals Date Recorded Body mass index (BMI) Body height Body height Body height Oxygen saturation Oxygen saturation in Arterial blood by Pulse oximetry Oxygen saturation Oxygen saturation in Arterial blood by Pulse oximetry Heart rate Heart rate Respiratory rate Body temperature Body temperature Body temperature Body weight Systolic blood pressure Diastolic blood pressure Systolic blood pressure Diastolic blood pressure Provider Name and Address Organization Details Last Updated DateTime 3 32.1 kg/m2 167.64 cm 167.64 cm 167.64 cm 98 % 98 % 98 % 98 % 72 /min 97 /min 16 /min 98.2 [degF] 97 [degF] 97.2 [degF] 47696.8 8 g 122 mm[Hg] 78 mm[Hg] 122 mm[Hg] 78 mm[Hg] Not Available [facility] 3 01:00:35 Date Recorded Body height Body temperature Body mass index (BMI) Body weight Respiratory rate Oxygen saturation Oxygen saturation in Arterial blood by Pulse oximetry Heart rate Systolic blood pressure Diastolic blood pressure Provider Name and Address Organization Details Last Updated DateTime 3 167.64 cm 97.3 [degF] 34.6 kg/m2 90329.5 6 g 16 /min 96 % 96 % 81 /min 140 mm[Hg] 90 mm[Hg] Sangeeta Marie Saw [facility] [employer] [facility] 3 09:55:30 Date Recorded Body height Body temperature Body mass index (BMI) Body weight Respiratory rate Oxygen saturation Oxygen saturation in Arterial blood by Pulse oximetry Heart rate Systolic blood pressure Diastolic blood pressure Provider Name and Address Organization Details Last Updated DateTime 3 167.64 cm 96.5 [degF] 35.2 kg/m2 90302.1 4 g 16 /min 96 % 96 % 80 /min 138 mm[Hg] 80 mm[Hg] Sangeeta Marie Saw [facility] [employer] [facility] 3 14:28:10 Social History Question Answer Notes LastModified by Dopplr ion Details LastModified Time Tobacco Smoking Status Former Smoker Not Available [facility] 10/27/2022 00:53:42 Do You Have An Advance Directive? Yes [id number] Information not available 10/27/2022 What Is Your Level Of Alcohol Consumption? Occasional [id number] Information not available 10/27/2022 Are You Blind Or Do You Have Difficulty Seeing? No [id number].[id number] 0158 Information not available 10/27/2022 What Is Your Level Of Caffeine Consumption? Moderate [id number].[id number] Information not available 10/27/2022 How Much Tobacco Do You Chew? None [id number] Information not available 10/27/2022 In The 14 Days Before Symptom Onset, Have You Had Close Contact With A Laboratory-confir med COVID-19 While That Case Was Ill? No [id number].[id number] Information not available 10/27/2022 In The 14 Days Before Symptom Onset, Have You Had Close Contact With A Person Who Is Under Investigation For COVID-19 While That Person Was Ill? No [id number] 0614 Information not available 10/27/2022 Are You Currently Employed? No [email or web address] Information not available 03/17/2023 Are You Deaf Or Do You Have Serious Difficulty Hearing? No MIGRATION.[id number] Information not available 10/27/2022 What Type Of Diet Are You Following? REGULAR MIGRATION.196013 5062 Information not available 10/27/2022 Which Illicit Or Recreational Drugs Have You Used? None [id number].[id number] Information not available 10/27/2022 Do You Or Have You Ever Used E-cigarettes Or Vape? Never Used Electronic Cigarettes MIGRATION.[id number] Information not available 10/27/2022 What Is Your Occupation? Retired MIGRATION.[id number] Information not available 10/27/2022 Have There Been Any Changes To Your Family Or Social Situation? No MIGRATION.[id number] Information not available 10/27/2022 Are There Any Guns Present In Your Home? Yes MIGRATION.[id number] Information not available 10/27/2022 Do You Use Insect Repellent Routinely? No [email or web address] Information not available 03/17/2023 Do You Have A Medical Power Of Power Distribution Engineer? No MIGRATION.[id number] 0575 Information not available 10/27/2022 What Was The Date Of Your Most Recent Tobacco Screening? 10/31/2020 [id number].[id number] Information not available 10/27/2022 What Is Your Relationship Status? MIGRATION.[id number] 0478 Information not available 10/27/2022 Do You Use Your Seat Belt Or Car Seat Routinely? Yes MIGRATION.[id number] Information not available 10/27/2022 Do You Have Smoke And Carbon Monoxide Detectors In Your Home? Yes MIGRATION.[id number] 1706 Information not available 10/27/2022 At What Age Did You Start Smoking Tobacco? 28 MIGRATION.[id number] 8596 Information not available 10/27/2022 Do You Or Have You Ever Used Smokeless Tobacco? Never Used Smokeless Tobacco MIGRATION.[id number] 1017 Information not available 10/27/2022 How Much Tobacco Do You Smoke? 0.5 PPD MIGRATION.970231 1655 Information not available 10/27/2022 Do You Use Any Illicit Or Recreational Drugs? No MIGRATION.[id number] 1902 Information not available 10/27/2022 Do You Use Sunscreen Routinely? No MIGRATION.[id number] 2754 Information not available 10/27/2022 Have You Recently Traveled Abroad? No MIGRATION.[id number] 0815 Information not available 10/27/2022 Do You Have Any Dietary Restrictions? No MIGRATION.912761 5194 Information not available 10/27/2022 Do You Or Have You Ever Used Any Other Forms Of Tobacco Or Nicotine? No MIGRATION.119703 9893 Information not available 10/27/2022 Sex: Female Functional Status Question Answer Note LastModified by Organizat ion Details LastModified Time Do you have difficulty walking or climbing stairs? No MIGRATION.[id number] 026 Information not available 10/27/2022 Do you have transportation difficulties? No MIGRATION.[id number] 026 Information not available 10/27/2022 Are you able to walk? YESWOREST MIGRATION.[id number] 026 Information not available 10/27/2022 Do you have difficulty doing errands alone? No MIGRATION.[id number] 026 Information not available 10/27/2022 Are you able to care for yourself? Yes MIGRATION.[id number] 026 Information not available 10/27/2022 Do you have difficulty dressing or bathing? No MIGRATION.[id number] 026 Information not available 10/27/2022 What is your exercise level? None MIGRATION.[id number] 026 Information not available 10/27/2022 Mental Status Question Answer Note LastModified by Organizat ion Details LastModified Time Do you have difficulty concentrating, remembering or making decisions? Yes [id number] Information not available 10/27/2022 Family History Relationship Description Onset Age of this Age Resolved Age Notes LastModified by Organization Details LastModified Time Mother Diabetes mellitus [id number] Not available 10/27/2022 00:57:14 Father Malignant tumor of stomach 83 [id number] Not available 10/27/2022 00:57:14 Brother Malignant tumor of esophagus MIGRATION.[id number] Not available 10/27/2022 00:57:14 Son Mental disorder [id number] Not available 10/27/2022 00:57:14 Medical History Condition Response NERVE DISEASE N BLINDNESS N RHEUMATIC FEVER N KIDNEY STONES N BLADDER PROBLEMS N OTHER # 1 N POLIO N LUNG DISEASE/DISORDER N RADIATION / CHEMOTHERAPY N COPD N Other # 2 N BLOOD DISEASES N SURGERY N EAR OR HEARING PROBLEMS N MUMPS N BOWEL PROBLEMS Y DEPRESSION (INCLUDING POST ) Y STROKE/TIA N ULCERS N BENIGN PROSTATIC HYPERPLASIA N MEASLES N MYOCARDIAL INFARCTION N OBESITY N GERD/NAUSEA N ANEURYSM N URINARY/BLADDER/KIDNEY PROBLEMS Y INPATIENT PSYCH CARE N CORONARY ARTERY DISEASE (CAD) N ADDICTION CONCERNS N Impotence N ENDOMETRIOSIS N USE OF BLOOD THINNERS N SKIN PROBLEMS N GASTROINTESTINAL DISORDER N PERIPHERAL VASCULAR DISEASE N MUSCLE,JOINT OR BONE PROBLEMS N GASTROINTESTINAL BLEEDING N BLOOD CLOTS N ASTHMA N CATARACTS N ERECTILE DYSFUNCTION N VARICOSITIES N GI PROBLEMS N Low Testosterone N INFERTILITY N AIDS/HIV N LIVER DISEASE N MALE HYPOGONADISM N HYPERTENSION N Deficiency N ANXIETY DISORDER Y BLOOD TRANSFUSION N ANEMIA/BLOOD DISORDER N CHRONIC EAR INFECTIONS N BRONCHITIS N TUBERCULOSIS N GLAUCOMA N DIVERTICULITIS N SLEEP APNEA N CHICKENPOX N INFECTIOUS DISEASE N PROSTATE N HEART ARRHYTHMIA N INSOMNIA N HIGH CHOLESTEROL / HYPERLIPIDEMIA N EYE PROBLEMS N HYPERTHYROIDISM N NEUROLOGICAL PROBLEMS N EDEMA N CHRONIC PAIN SYNDROME N HYPOTHYROIDISM N CONSTIPATION N CAROTID BLOCKAGE N BACK / NECK PROBLEMS Y HAVE YOU BEEN HOSPITALIZED OR SEEN IN [facility] IN THE PAST YEAR ? N ATHEROSCLEROSIS N BREAST PROBLEMS N DIALYSIS N ECZEMA N OSTEOPOROSIS N ARTHRITIS N NO SIGNIFICANT PAST MEDICAL HISTORY N APPENDICITIS N DIABETES, TYPE Y BAD TEETH N ENT N HEARTBURN / REFLUX Y AUTISM SPECTRUM DISORDER (ASD) N HEPATITIS / LIVER DISEASE N PULMONARY DISEASE N GOUT N SLEEP DISORDER N ALZHEIMER'S DISEASE N Brain Problems N DEMENTIA N HERPES N SEIZURES/EPILEPSY N HEADACHES/MIGRAINES N VASCULAR DISEASE N PACEMAKER N Blood Disorder N DIZZINESS N HEART DISEASE/HEART PROBLEMS N KIDNEY DISEASE N MULTIPLE SCLEROSIS N CANCER: SPECIFY Y CARDIAC ARRHYTHMIA N ANESTHESIA COMPLICATIONS N ATRIAL FIBRILLATION N Gall Stones N PULMONARY EMBOLISM N AUTOIMMUNE DISEASE N Gynecological History Statement/Question Response Date of Last Pap 05/07/1997 Date of Last Mammogram 01/27/2016 Date of Last Colonoscopy 04/01/2020 Most Recent Bone Density 01/27/2016 Sexually Active? Y Obstetrics History GPAL:G 0 P 0 0 0 0 Immunizations Vaccine Type Date Status Note Provider Nam e and Address Organization Details Recorded Time Novel [id number], all formulations 6 completed Not Available [facility] 10/27/2022 01:15:16 influenza, unspecified formulation 6 completed Not Available [facility] 10/27/2022 01:15:16 COVID-19, mRNA, LNP-S, PF, 30 mcg/0.3 mL dose 1 completed Not Available [facility] 10/27/2022 01:15:16 COVID-19, mRNA, LNP-S, PF, 30 mcg/0.3 mL dose 1 completed Not Available [facility] 10/27/2022 01:15:16 Influenza, split virus, quadrivalent, preservative 8 completed Not Available [facility] 10/27/2022 01:15:16 influenza, unspecified formulation 4 completed Not Available [facility] 10/27/2022 01:15:16 Influenza, high-dose, trivalent, PF 7 completed Not Available [facility] 10/27/2022 01:15:16 pneumococcal polysaccharide PPV23 6 completed Not Available [facility] 10/27/2022 01:15:16 Influenza, split virus, quadrivalent, preservative 5 completed Not Available [facility] 10/27/2022 01:15:16 Past Encounters Encounter ID Performer Location Encounter Start Date Encounter Closed Date Diagnosis/Indication Diagnosis SNOMED-CT Code Diagnosis ICD10 Code Diagnosis Note [id number] [facility] [address] [place] [address] 10/31/2020 00:00:00 11/22/2020 20:55:14 [id number] [facility] [address] [place] [address] 01/20/2021 00:00:00 01/23/2021 17:41:58 [id number] [facility] [address] [place] [address] 03/25/2021 00:00:00 03/26/2021 00:43:21 [id number] [facility] [address] [place] [address] 05/05/2021 00:00:00 05/28/2021 20:25:19 [id number] [facility] [address] [place] [address] 06/30/2021 00:00:00 07/19/2021 21:24:40 [id number] [facility] [address] [place] [address] 07/01/2021 00:00:00 07/02/2021 15:06:48 [id number] [facility] [address] [place] [address] 09/25/2021 00:00:00 09/27/2021 11:22:11 [id number] [facility] [address] [place] [address] 11/30/2021 00:00:00 12/26/2021 10:03:24 [id number] [facility] [address] [place] [address] 12/29/2021 00:00:00 01/26/2022 23:04:19 [id number] [facility] [address] [place] [address] 01/05/2022 00:00:00 01/05/2022 18:00:20 [id number] [facility] [address] [place] [address] 04/20/2022 00:00:00 04/25/2022 09:13:56 [id number] [facility] [address] [place] [address] 05/18/2022 00:00:00 05/18/2022 17:53:51 [id number] [facility] [address] [place] [address] 06/15/2022 00:00:00 06/15/2022 18:35:44 [id number] [facility] [address] [place] [address] 09/15/2022 00:00:00 09/28/2022 20:36:03 [id number] [facility] [address] [place] [address] 10/25/2022 00:00:00 10/25/2022 19:30:46 [id number] CAPO Rasheed [facility] [address] [place] [address] 03/18/2023 09:48:00 03/18/2023 10:28:22 Bilateral hip joint pain [id number] M25.552 M25.551 check xrays of hip bilaterall y. Pain in pelvis 24845462 R10.2 check xray pelvis Cobalamin deficiency 190 469699 E53.8 refill b12 RX and check lab Hyperlipidemia 92137005 E78.5 fasting lipids are due Hypothyroidism 30867086 E03.9 on supplement and due for TFTs Multiple joint pain 3567 8005 M25.50 screening CRP and ESR with spike up in joint pain Long-term drug therapy [id number] Z79.899 routine bmp, CBC and LFT due Lower urin estephania tract symptoms 651662910 R39.9 screening UA w/cx with long hx of UTIs and frequency noted Uncontroll ed type 2 diabetes mellitus 536327773 E11.65 managed by endo and A1c checked in that office. she is still due for albumin annual check [id number] CAPO Rasheed [facility] [address] [place] [address] 07/20/2023 14:12:34 07/20/2023 15:02:26 Thoracic back pain 188692769 M54.6 right lateral flank pain episodes are reported by the patient today. she is not having pain currently. She will discuss this further with her pain management team and if P.T. can also be completed for this area while she is having her SI joint therapy. Vitamin B1 2 deficiency (non anemic) [id number] E53.8 b12 injection given today. Health Concerns Section Related Observation LastModified by Organization Detai ls LastModified Time None Recorded Concern Status LastModified by Organization Details LastModified Time None Recorded Advance Directives Directive Y: Payers Encounter Date Sequence Insurance Name Policy Number Policy Street Covered Member ID Street Member ID Guarantor Name 03/18/2023 1 [place] Jazlyn Montgomery [id number] Jazlyn Montgomery 03/18/2023 2 [place] WHEN MED[place]ARE OR MEDICARE REPLACEMENT PRIMARY) Jazlyn Montgomery [id number] Jazlyn Montgomery 07/20/2023 1 [place] Jazlyn Montgomery [id number] Jazlyn Montgomery 07/20/2023 2 [place]IC[place] REPLACEMENT [place]IMARY) Jazlyn Montgomery [id number] Jazlyn Montgomery Notes Date Note Type Note Provider Name and Address Organization Details Recorded Time 023 text/ht ml NauseaReported bypatient.LocationLLQ; RLQ Quality:worsening;sharp;pressure; frequent; constant cramping Severity:severe; pain rated 8/10 Durationpresent for 1-6 months (abd pain only for 3 days) Onset/Timing:daily; gone now Contextno drug/alcohol abuse; no one else with similar symptoms; no recent camping; no recent picnic; no possible food sources; no well water Alleviating factors:prescription medication; hasnt tried anything for the abd pain Aggravating factors:nothing makes it worse Associated Symptoms:no fever; no cholesterol issues; no vomiting; no dry heaves; no heartburn; no weight loss; no weight gain; no muscle aches; no muscle weakness; no nutrient deficiency;abdominal pain;excess gas( but cant get rid of it );diarrhea;fatigue;weakness; chills and sweats but unsure of fever Not Available [facility] [employer] [facility] 09/28/2022 20:36:03 023 text/ht ml Anxiety/DepressionReported bypatient.Severity:denies suicidal ideations; able to maintain relationships;interference with household activities Duration:symptoms lasting over 2 weeks Onset/Timing:still present Context:major life stressors;family problems Modifying Factors:medications as directed Associated Symptoms:denies homicidal ideations; no significant weight gain; no significant weight loss; no visual/auditory hallucinations; no delusions; no shortness of breath; no anxiety; no crying spells; no panic; no isolation; sleeping well; appetite good; energy good; no apathy; maintaining functionality;depression;grieving;de spair/hopelessnessDiabetesReported bypatient.Duration:chronic Control:home blood sugar range high; treated with diet and oral medications; hemoglobin A1C has been 8-9; hemoglobin A1C goal is less than 7 Compliance:compliant with medications; compliant with follow-up visits Self Care:monitoring glucose Context:seeing eye doctor regularly; checking feet regularly Associated Symptoms:no weight gain; no weight loss; no dizziness; no sweats; no headaches; no confusion; no increased thirst; no increased appetite; no increased urination; no blurred vision; no numbness of feet; no calluses on feet; no fatigue; no blurred vision; no paresthesiasHypothyroidismReported bypatient.Onset/Timing:better Context/Risk:normal thyroid levels; no history of head or neck radiation during childhood; no history of thyroid disease; no history of hyperthyroidism; no excess iron exposure;history of hypothyroidism;female gender Exercisegets exercise Associated Symptoms:no cold intolerance; no heat intolerance; no weight loss; no weight gain; no double vision; no dry eyes; no hoarseness; no difficulty swallowing; no neck masses; no deepening of the voice; no fast heart rate; no increased blood pressure; no palpitations; no chest pain; no chest tightess or pressure; no constipation; no diarrhea; no vomiting; no decreased appetite; no loose stools; no irregular menstrual periods; no excessive sweating; no joint pain; no numbness; no tingling of the hands or feet; no dry skin; no tremor; no nervousness; no anxiety; no depression; no fatigue; no sleep difficulties; no skin changes; no hair changes Not Available [facility] [employer] [facility] 10/25/2022 19:30:46 023 text/ht ml FatigueReported bypatient.Quality:continuous Severity:normal sleep patterns; normal exercise habits; normal activity;worsening Duration:constant Timing:worse; actual date: (6 months) Context:symptoms improve on weekends/vacation; no problems/stress at work or home Modifying Factors:no new stressors in life; taking vitamins Associated Symptoms:no drug/alcohol withdrawal; no depression; no anxiety; no sleep disturbances; no snoring; periods of not breathing (apnea) have not been observed; no recent change in weight; painNotes:She is also having pain all over. She seen PM and chiropractor. Pm gave her injections and it didnt help. The pain is all over her body. CAPO Rasheed [address] [place] [address], [place] [address], [place], [address], [facility] [employer] [facility] [employer] [facility] 03/27/2023 12:34:43 023 text/ht ml Generic HPI TemplateReported bypatient.Notes:Pt is here for an e/r f/u from 07/05/23 for abd pain. They dx her w/gastritis. Records are in the room w/her. She says she had it for a couple more days after that but doing ok today. They didnt put her on anything. CAPO Rasheed [address], [facility] [[email or web address] [address], [place], [address], [employer] [facility] [employer] [facility] 07/21/2023 11:29:18 OBGyn Episode No OBEpisode recorded.
--- OUTSIDE RECORDS SUMMARY | 2024-10-03 14:56 | XMS_ITS | Data Portability ---
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 Not available 12/07/2023 13:05:48 02/21/2024 02/21/2024 Mammogram is up-to-date from January 16, 2024 and negative. Not available 03/04/2024 11:20:54 Plan of Treatment Reminders Order Date Submit Date Provider Last Modified By Organization Details Last Modified Time Details Appointments ANY 15 2024 10:30A M CAPO Rasheed Not available Not available Not available Lab lipid panel, serum 2023 024 [facility], [address] [place] [address], [address], 12/27/2023 05:36:50 BMP, serum or plasma 2023 024 [facility], [facility] [address], [address], 12/27/2023 05:36:51 hepati c functi on panel, serum 2023 024 [facility], [facility] [address], [address], 12/27/2023 05:36:51 CBC w/ auto diff 2023 024 [facility], [address], [place], [address], 12/27/2023 05:36:53 vitami n B12, serum 2023 024 [facility], [address], [place], [address], 12/27/2023 05:36:53 TSH + free T4, serum 2023 024 [facility], [address], [place], [address], 12/27/2023 05:36:49 cobala min and folate panel, serum 2024 025 [facility], [address], [place], [address], 09/25/2024 07:08:07 lipid panel, serum 2024 025 [facility], [address], [place], [address], 09/25/2024 07:08:03 CBC w/ auto diff 2024 025 [facility], [address], [place], [address], 09/25/2024 07:08:08 hepati c functi on panel, serum 2024 025 CALVINSAE Borjas, [address], [place], [address], 09/25/2024 07:08:04 BMP, serum or plasma 2024 025 CALVIN Borjas, [address], [place], [address], 09/25/2024 07:08:06 TSH + free T4, serum 2024 025 CALVIN Osborne, [address], [place], [address], 09/25/2024 07:08:02 Referral None record ed. Procedures lexisc an cardio lite stress test (PROC) 2023 [facility] (Cardiology [facility]), [address], [place], [address], 06/07/2024 16:10:45 upper endosc opy proced ure (EGD) (PROC) - Patien t is in need a follow -up endosc opy proced ure 2023 024 mary Feng MD, [address], [address], [place], [address], 09/25/2024 12:24:37 colono scopy proced ure (PROC) 2023 024 mary Feng MD, [address], [address], [place], [address], 09/25/2024 12:24:36 Surgeries None record ed. Imaging MAMMO, screen ing, digita l, bilate ral 2023 024 [facility] (Mammography) , [address], [place], [address], 12/29/2023 12:55:36 CT, angiog venus, chest, w/ contra st 2023 024 [facility] (Cardiology [facility]), [address], [place], [address], 05/26/2024 08:59:01 CT, abdome n + pelvis , w/ contra st 2024 025 [facility] (Imaging), [address], [place], [address], 09/25/2024 13:04:20 MRI, brain, w/wo contra st 2024 [facility] (Imaging), [address], [place], [address], 09/25/2024 13:04:09 Medication Orders estrad iol 0.01% (0.1 mg/gra m) vagina l cream 2023 [facility], [address], [place], [place], [id number], 12/07/2023 13:16:44 levoth yroxin e 125 mcg tablet 2023 [email or web address] #03945, [address], [place], [place], [id number], 09/04/2024 11:43:19 amitri ptylin e 10 mg tablet 2023 024 [email or web address] #83387, [address], [place], [place], [id number], 05/08/2024 11:24:55 fluoci nonide 0.05 % topica l cream 2023 [facility] #54683, [address], [place], [place], [id number], 12/07/2023 13:07:49 Lomoti l 2.5 mg-0.0 25 mg tablet 2023 [facility] #36643, [address], [place], [place], [id number], 02/21/2024 17:42:47 amlodi pine 5 mg tablet 2023 [facility] #48177, [address], [place], [place], [id number], 02/21/2024 17:34:50 cyanoc obalam in (vit B-12) 1,000 mcg/mL inject ion soluti on 2023 024 Not available 02/21/2024 18:12:20 losart an 25 mg tablet 2023 024 [facility] #30113, [address] [facility], [place], [place], [id number], 05/27/2024 09:29:40 cyanoc obalam in (vit B-12) 1,000 mcg/mL inject ion soluti on 2023 024 [email or web address] Not available 06/14/2024 12:25:27 Amitiz a 24 mcg capsul e 2023 024 [facility] #81409, [address] [facility], [place], [place], [id number], 07/01/2024 22:53:37 omepra zole 40 mg capsul e,gerardo yed releas e 2024 025 [facility] #10199, [address], [place], [id number], 09/04/2024 12:19:03 Patient TargetsNo targets recorded. Patient Instructions Encounter Date Encounter Id Patient Instructions Last Modified By Organization Details Last Modified Time 02/21/2024 [id number] A healthy lifestyle: care instructions Not available 02/21/2024 17:34:42 Reason for Referral None Reported. Results Created Date Observation Date Name Description Value Unit Range Abnormal Flag Note LastModifiedBy Organization Detail LastModifiedTime 12/26/19 24 12/27/2023 TSH+F REE T4 TSH 1.260 uIU/m L 0.450- 4.500 Not Available [facility] ([facility]) [address], [place], [address], 12/27/2023 05:36:49 12/26/19 24 12/27/2023 TSH+F REE T4 T4,free(dire ct) 1.43 NG/dL 0.82-1 .77 Not Available [facility] ([facility]) [address] [place], [address], 12/27/2023 05:36:49 12/26/19 24 12/27/2023 LIPID PANEL cholesterol, total 274 mg/dL 100-19 9 above high normal Not Available [facility] ([facility]) [address] [place], [address], 12/27/2023 05:36:50 12/26/19 24 12/27/2023 LIPID PANEL triglyceride s 319 mg/dL 0-149 above high normal Not Available [facility] ([facility]) [address] [place], [address], 12/27/2023 05:36:50 12/26/19 24 12/27/2023 LIPID PANEL HDL cholesterol 45 mg/dL >39 Not Available [facility] ([facility]) [address] [place], [address], 12/27/2023 05:36:50 12/26/19 24 12/27/2023 LIPID PANEL VLDL cholesterol cici 61 mg/dL 5-40 above high normal Not Available [facility] ([facility]) [address] [place], [address], 12/27/2023 05:36:50 12/26/19 24 12/27/2023 LIPID PANEL LDL chol calc ([facility]) 168 mg/dL 0-99 above high normal Not Available [facility] ([facility]) [address] [place], [address], 12/27/2023 05:36:50 12/26/19 24 12/27/2023 HEPAT IC FUNCT ION PANEL (7) protein, total 6.7 g/dL 6.0-8. 5 Not Available [facility] ([facility]) [address], [place], [id number], 12/27/2023 05:36:50 12/26/19 24 12/27/2023 HEPAT IC FUNCT ION PANEL (7) albumin 4.0 g/dL 3.8-4. 8 Not Available [facility] ([facility]) [address], [place], [id number], 12/27/2023 05:36:50 12/26/19 24 12/27/2023 HEPAT IC FUNCT ION PANEL (7) bilirubin, total 0.3 mg/dL 0.0-1. 2 Not Available [facility] ([facility]) [address], [place], [id number], 12/27/2023 05:36:50 12/26/19 24 12/27/2023 HEPAT IC FUNCT ION PANEL (7) bilirubin, direct <0.10 mg/dL 0.00-0 .40 Not Available [facility] ([facility]) [address], [place], [id number], 12/27/2023 05:36:50 12/26/19 24 12/27/2023 HEPAT IC FUNCT ION PANEL (7) alkaline phosphatase 71 IU/L 44-121 Not Available [facility]) [address] [facility], [place], [id number], 12/27/2023 05:36:50 12/26/19 24 12/27/2023 HEPAT IC FUNCT ION PANEL (7) AST (SGOT) 15 IU/L 0-40 Not Available [facility] ([facility]) [address] [place], [id number], 12/27/2023 05:36:50 12/26/19 24 12/27/2023 HEPAT IC FUNCT ION PANEL (7) ALT (SGPT) 17 IU/L 0-32 Not Available [facility] ([facility]) [address] [place], [address], 12/27/2023 05:36:50 12/26/19 24 12/27/2023 BASIC METAB OLIC PANEL (8) glucose 176 mg/dL 70-99 above high normal Not Available [facility] ([facility]) [address] [place], [address], 12/27/2023 05:36:51 12/26/19 24 12/27/2023 BASIC METAB OLIC PANEL (8) BUN 17 mg/dL 8-27 Not Available [facility] ([facility]) [address] [place], [address], 12/27/2023 05:36:51 12/26/19 24 12/27/2023 BASIC METAB OLIC PANEL (8) creatinine 1.10 mg/dL 0.57-1 .00 above high normal Not Available [facility] ([facility]) [address] [place], [address], 12/27/2023 05:36:51 12/26/19 24 12/27/2023 BASIC METAB OLIC PANEL (8) eGFR 52 mL/mi n/1.7 3 >59 below low normal Not Available [facility] ([facility]) [address] [place], [address], 12/27/2023 05:36:51 12/26/19 24 12/27/2023 BASIC METAB OLIC PANEL (8) BUN/creatini ne ratio 15 12-28 Not Available [facility] ([facility]) [address] [place], [address], 12/27/2023 05:36:51 12/26/19 24 12/27/2023 BASIC METAB OLIC PANEL (8) sodium 140 mmol/ L 134-14 4 Not Available [facility] ([facility]) [address] [place], [address], 12/27/2023 05:36:51 12/26/19 24 12/27/2023 BASIC METAB OLIC PANEL (8) potassium 4.3 mmol/ L 3.5-5. 2 Not Available [facility] ([facility]) [address] [place], [address], 12/27/2023 05:36:51 12/26/19 24 12/27/2023 BASIC METAB OLIC PANEL (8) chloride 101 mmol/ L 96-106 Not Available [facility] ([facility]) [address] [place], [address], 12/27/2023 05:36:51 12/26/1912/27/2023 BASIC METAB OLIC PANEL (8) carbon dioxide, total 27 mmol/ L 20- Not Available [facility] ([facility]) [address] [place], [address], 12/27/2023 05:36:51 12/26/1912/27/2023 BASIC METAB OLIC PANEL (8) calcium 9.6 mg/dL 8.7-10 .3 Not Available [facility] ([facility]) [address] [place], [address], 12/27/2023 05:36:51 12/26/1912/26/2023 ANJEL ABBRE V BMP8 DEFAU LT ambig abbrev BMP8 default Commen t A hand- writt en panel /prof ile was recei heriberto from your offic e. In accor dance with the [facility] Anjel uous Test Code Polic y dated February 2003, we have compl eted your order by using the close st curre ntly or forme rly recog nized AMA panel . We have assloretta garcia Basic Metab olic Panel (8), Test Code #32[address]. If this is not the testi ng you wishe d to recei ve on this speci men, pleas e conta ct the [facility] Clien t Inqui ry/Te chnic al Servi james Depar tment to pineda fy the test order . We appre ciate your busin ess. Not Available [facility] ([facility] [employer] [address] [place], [address], 12/27/2023 05:36:52 12/26/1912/26/2023 AMBIG ABBRE V LP DEFAU LT ambig abbrev LP default Commen t A hand- writt en panel /prof ile was recei heriberto from your offic e. In accor dance with the [facility] Ambig uous Test Code [facility] y dated February 2003, we have compl eted your order by using the close st curre ntly or forme rly recog nized AMA panel . We have gian garcia Lipid Panel , Test Code #30[address]. If this is not the testi ng you wishe d to recei ve on this speci men, pleas e conta ct the [facility] Clien t Inqui ry/Te chnic al Servi james Depar tment to pineda fy the test order . We appre ciate your busin ess. Not Available [facility] ([facility] [employer] [address] [facility], [place], [address], 12/27/2023 05:36:52 12/26/1912/26/2023 CHRISTOSIG ABBRE V HFP7 DEFAU LT ambig abbrev hfp7 default Commen t A hand- writt en panel /prof ile was recei heriberto from your offic e. In accor dance with the [facility] Ambig uous Test Code [facility] y dated February 2003, we have compl eted your order by using the close st curre ntly or forme rly recog nized AMA panel . We have gian garcia Hepat ic Funct ion Panel (7), Test Code #3227 [address]. If this is not the testi ng you wishe d to recei ve on this speci men, pleas e conta ct the [facility] Clien t Inqui ry/Te chnic al Servi james Depar tment to pineda fy the test order . We appre ciate your busin ess. Not Available [facility] ([facility] [employer] [address] [place], [address], 12/27/2023 05:36:53 12/26/19 24 12/27/2023 VITAM IN B12 vitamin B12 412 pg/mL 232-12 45 Not Available [facility] ([facility]) [address] [facility], [place], [address], 12/27/2023 05:36:53 12/26/19 24 12/27/2023 CBC WITH DIFFE RENTI AL/PL ATELE T WBC 5.6 x10e3 /uL 3.4-10 .8 Not Available [facility] ([facility]) [address] [facility], [place], [address], 12/27/2023 05:36:53 12/26/19 24 12/27/2023 CBC WITH DIFFE RENTI AL/PL ATELE T RBC 5.08 x10e6 /uL 3.77-5 .28 Not Available [facility] ([facility]) [address] [facility], [place], [address], 12/27/2023 05:36:53 12/26/19 24 12/27/2023 CBC WITH DIFFE RENTI AL/PL ATELE T hemoglobin 14.8 g/dL 11.1-1 5.9 Not Available [facility] ([facility]) [address] [facility], [place], [address], 12/27/2023 05:36:53 12/26/19 24 12/27/2023 CBC WITH DIFFE RENTI AL/PL ATELE T hematocrit 44.9 % 34.0-4 6.6 Not Available [facility] ([facility]) [address] [place], [address], 12/27/2023 05:36:53 12/26/19 24 12/27/2023 CBC WITH DIFFE RENTI AL/PL ATELE T MCV 88 fL 79-97 Not Available [facility] ([facility]) [address] [place], [address], 12/27/2023 05:36:53 12/26/19 24 12/27/2023 CBC WITH DIFFE RENTI AL/PL ATELE T MCH 29.1 pg 26.6-3 3.0 Not Available [facility] ([facility]) [address] [facility], [place], [address], 12/27/2023 05:36:53 12/26/19 24 12/27/2023 CBC WITH DIFFE RENTI AL/PL ATELE T MCHC 33.0 g/dL 31.5-3 5.7 Not Available [facility] ([facility]) [address] [facility], [place], [address], 12/27/2023 05:36:53 12/26/19 24 12/27/2023 CBC WITH DIFFE RENTI AL/PL ATELE T RDW 13.2 % 11.7-1 5.4 Not Available [facility] ([facility]) [address] [facility], [place], [address], 12/27/2023 05:36:53 12/26/19 24 12/27/2023 CBC WITH DIFFE RENTI AL/PL ATELE T platelets 237 x10e3 /uL 150-45 0 Not Available [facility] ([facility]) [address] [facility], [place], [address], 12/27/2023 05:36:53 12/26/19 24 12/27/2023 CBC WITH DIFFE RENTI AL/PL ATELE T neutrophils 57 % notest ab. Not Available [facility] ([facility]) [address] [facility], [place], [address], 12/27/2023 05:36:53 12/26/19 24 12/27/2023 CBC WITH DIFFE RENTI AL/PL ATELE T lymphs 34 % notest ab. Not Available [facility] ([facility]) [address] [place], [address], 12/27/2023 05:36:53 12/26/19 24 12/27/2023 CBC WITH DIFFE RENTI AL/PL ATELE T monocytes 7 % notest ab. Not Available [facility] ([facility]) [address] [facility], [place], [address], 12/27/2023 05:36:53 12/26/19 24 12/27/2023 CBC WITH DIFFE RENTI AL/PL ATELE T eos 2 % notest ab. Not Available [facility] ([facility]) [address] [facility], [place], [address], 12/27/2023 05:36:53 12/26/19 24 12/27/2023 CBC WITH DIFFE RENTI AL/PL ATELE T basos 0 % notest ab. Not Available [facility] ([facility]) [address] [facility], [place], [address], 12/27/2023 05:36:53 12/26/19 24 12/27/2023 CBC WITH DIFFE RENTI AL/PL ATELE T neutrophils (absolute) 3.2 x10e3 /uL 1.4-7. 0 Not Available [facility] ([facility]) [address] [facility], [place], [address], 12/27/2023 05:36:53 12/26/19 24 12/27/2023 CBC WITH DIFFE RENTI AL/PL ATELE T lymphs (absolute) 1.9 x10e3 /uL 0.7-3. 1 Not Available [facility] ([facility]) [address] [place], [address], 12/27/2023 05:36:53 12/26/19 24 12/27/2023 CBC WITH DIFFE RENTI AL/PL ATELE T monocytes(ab solute) 0.4 x10e3 /uL 0.1-0. 9 Not Available [facility] ([facility]) [address] [place], [address], 12/27/2023 05:36:53 12/26/19 24 12/27/2023 CBC WITH DIFFE RENTI AL/PL ATELE T eos (absolute) 0.1 x10e3 /uL 0.0-0. 4 Not Available [facility] ([facility]) [address] [place], [address], 12/27/2023 05:36:53 12/26/19 24 12/27/2023 CBC WITH DIFFE RENTI AL/PL ATELE T baso (absolute) 0.0 x10e3 /uL 0.0-0. 2 Not Available [facility] ([facility]) [address] [place], [address], 12/27/2023 05:36:53 12/26/19 24 12/27/2023 CBC WITH DIFFE RENTI AL/PL ATELE T immature granulocytes 0 % notest ab. Not Available [facility] ([facility]) [address] [facility], [place], [address], 12/27/2023 05:36:53 12/26/19 24 12/27/2023 CBC WITH DIFFE RENTI AL/PL ATELE T immature grans (abs) 0.0 x10e3 /uL 0.0-0. 1 Not Available [facility] ([facility]) [address] [place], [address], 12/27/2023 05:36:53 09/24/19 25 09/25/2024 TSH+F REE T4 TSH 3.150 uIU/m L 0.450- 4.500 Not Available [facility] ([facility]) [address] [place], [address], 09/25/2024 07:08:02 09/24/19 25 09/25/2024 TSH+F REE T4 T4,free(dire ct) 1.68 NG/dL 0.82-1 .77 Not Available [facility] ([facility]) [address] [place], [address], 09/25/2024 07:08:02 09/24/19 25 09/25/2024 LIPID PANEL cholesterol, total 262 mg/dL 100-19 9 above high normal Not Available [facility] ([facility]) [address] [place], [address], 09/25/2024 07:08:03 09/24/19 25 09/25/2024 LIPID PANEL triglyceride s 205 mg/dL 0-149 above high normal Not Available [facility] ([facility]) [address] [place], [address], 09/25/2024 07:08:03 09/24/19 25 09/25/2024 LIPID PANEL HDL cholesterol 48 mg/dL >39 Not Available [facility] ([facility]) [address] [place], [address], 09/25/2024 07:08:03 09/24/19 25 09/25/2024 LIPID PANEL VLDL cholesterol cici 38 mg/dL 5-40 Not Available [facility] ([facility]) [address] [place], [address], 09/25/2024 07:08:03 09/24/19 25 09/25/2024 LIPID PANEL LDL chol calc ([facility]) 176 mg/dL 0-99 above high normal Not Available [facility] ([facility]) [address] [place], [address], 09/25/2024 07:08:03 09/24/19 25 09/25/2024 HEPAT IC FUNCT ION PANEL (7) protein, total 6.8 g/dL 6.0-8. 5 Not Available [facility] ([facility]) [address] [place], [address], 09/25/2024 07:08:04 09/24/19 25 09/25/2024 HEPAT IC FUNCT ION PANEL (7) albumin 3.9 g/dL 3.8-4. 8 Not Available [facility] ([facility]) [address] [place], [id number], 09/25/2024 07:08:04 09/24/19 25 09/25/2024 HEPAT IC FUNCT ION PANEL (7) bilirubin, total 0.4 mg/dL 0.0-1. 2 Not Available [facility] ([facility]) [address] [place], [address], 09/25/2024 07:08:04 09/24/19 25 09/25/2024 HEPAT IC FUNCT ION PANEL (7) bilirubin, direct 0.13 mg/dL 0.00-0 .40 Not Available [facility] ([facility]) [address] [place], [address], 09/25/2024 07:08:04 09/24/19 25 09/25/2024 HEPAT IC FUNCT ION PANEL (7) alkaline phosphatase 74 IU/L 44-121 Not Available [facility] ([facility]) [address] [place], [address], 09/25/2024 07:08:04 09/24/1909/25/2024 HEPAT IC FUNCT ION PANEL (7) AST (SGOT) 15 IU/L 0-40 Not Available [facility] ([facility]) [address] [place], [address], 09/25/2024 07:08:04 09/24/19 25 09/25/2024 HEPAT IC FUNCT ION PANEL (7) ALT (SGPT) 16 IU/L 0-32 Not Available [facility] ([facility]) [address] [place], [address], 09/25/2024 07:08:04 09/24/1909/25/2024 BMP7+ EGFR glucose 191 mg/dL 70-99 above high normal Not Available [facility] ([facility]) [address] [place], [address], 09/25/2024 07:08:05 09/24/19 25 09/25/2024 BMP7+ EGFR BUN 20 mg/dL 8- Not Available [facility] ([facility]) [address] [place], [address], 09/25/2024 07:08:05 09/24/19 25 09/25/2024 BMP7+ EGFR creatinine 1.02 mg/dL 0.57-1 .00 above high normal Not Available [facility] ([facility]) [address] [place], [address], 09/25/2024 07:08:05 09/24/19 25 09/25/2024 BMP7+ EGFR eGFR 57 mL/mi n/1.7 3 >59 below low normal Not Available [facility] ([facility]) [address] [place], [address], 09/25/2024 07:08:05 09/24/19 25 09/25/2024 BMP7+ EGFR sodium 139 mmol/ L 134-14 4 Not Available [facility] ([facility]) [address] [place], [address], 09/25/2024 07:08:05 09/24/19 25 09/25/2024 BMP7+ EGFR potassium 4.4 mmol/ L 3.5-5. 2 Not Available [facility] ([facility]) [address] [place], [address], 09/25/2024 07:08:05 09/24/19 25 09/25/2024 BMP7+ EGFR chloride 103 mmol/ L 96-106 Not Available [facility] ([facility]) [address] [place], [address], 09/25/2024 07:08:05 09/24/19 25 09/25/2024 BMP7+ EGFR carbon dioxide, total 22 mmol/ L 20-29 Not Available [facility] ([facility]) [address] [facility], [place], [address], 09/25/2024 07:08:05 09/24/19 25 09/25/2024 VITAM IN B12 AND FOLAT E vitamin B12 499 pg/mL 232-12 45 Not Available [facility] ([facility]) [address] [facility], [place], [address], 09/25/2024 07:08:07 09/24/19 25 09/25/2024 VITAM IN B12 AND FOLAT E folate (folic acid), serum 6.8 NG/mL >3.0 A serum folat e judith ntrat ion of less than 3.1 ng/mL is consi dered to repre sent clini cici defic iency . Not Available [facility] ([facility]) [address] [facility], [place], [address], 09/25/2024 07:08:07 09/24/19 25 09/24/2024 CBC WITH DIFFE RENTI AL/PL ATELE T WBC 5.9 x10e3 /uL 3.4-10 .8 Not Available [facility] ([facility]) [address] [facility], [place], [address], 09/25/2024 07:08:08 09/24/19 25 09/24/2024 CBC WITH DIFFE RENTI AL/PL ATELE T RBC 5.23 x10e6 /uL 3.77-5 .28 Not Available [facility] ([facility]) [address] [facility], [place], [address], 09/25/2024 07:08:08 09/24/19 25 09/24/2024 CBC WITH DIFFE RENTI AL/PL ATELE T hemoglobin 14.8 g/dL 11.1-1 5.9 Not Available [facility] ([facility]) [address] [facility], [place], [address], 09/25/2024 07:08:08 09/24/19 25 09/24/2024 CBC WITH DIFFE RENTI AL/PL ATELE T hematocrit 45.1 % 34.0-4 6.6 Not Available [facility] ([facility]) [address] [facility], [place], [address], 09/25/2024 07:08:08 09/24/19 25 09/24/2024 CBC WITH DIFFE RENTI AL/PL ATELE T MCV 86 fL 79-97 Not Available [facility] ([facility]) [address] [facility], [place], [address], 09/25/2024 07:08:08 09/24/19 25 09/24/2024 CBC WITH DIFFE RENTI AL/PL ATELE T MCH 28.3 pg 26.6-3 3.0 Not Available [facility] ([facility]) [address] [facility], [place], [address], 09/25/2024 07:08:08 09/24/19 25 09/24/2024 CBC WITH DIFFE RENTI AL/PL ATELE T MCHC 32.8 g/dL 31.5-3 5.7 Not Available [facility] ([facility]) [address] [place], [address], 09/25/2024 07:08:08 09/24/19 25 09/24/2024 CBC WITH DIFFE RENTI AL/PL ATELE T RDW 12.9 % 11.7-1 5.4 Not Available [facility] ([facility]) [address] [place], [address], 09/25/2024 07:08:08 09/24/19 25 09/24/2024 CBC WITH DIFFE RENTI AL/PL ATELE T platelets 234 x10e3 /uL 150-45 0 Not Available [facility] ([facility]) [address] [place], [address], 09/25/2024 07:08:08 09/24/19 25 09/24/2024 CBC WITH DIFFE RENTI AL/PL ATELE T neutrophils 65 % notest ab. Not Available [facility] ([facility]) [address] [facility], [place], [address], 09/25/2024 07:08:08 09/24/19 25 09/24/2024 CBC WITH DIFFE RENTI AL/PL ATELE T lymphs 27 % notest ab. Not Available [facility] ([facility]) [address] [facility], [place], [address], 09/25/2024 07:08:08 09/24/19 25 09/24/2024 CBC WITH DIFFE RENTI AL/PL ATELE T monocytes 6 % notest ab. Not Available [facility] ([facility]) [address] [facility], [place], [address], 09/25/2024 07:08:08 09/24/19 25 09/24/2024 CBC WITH DIFFE RENTI AL/PL ATELE T eos 2 % notest ab. Not Available [facility] ([facility]) [address] [facility], [place], [address], 09/25/2024 07:08:08 09/24/1909/24/2024 CBC WITH DIFFE RENTI AL/PL ATELE T basos 0 % notest ab. Not Available [facility] ([facility]) [address] [facility], [place], [address], 09/25/2024 07:08:08 09/24/19 25 09/24/2024 CBC WITH DIFFE RENTI AL/PL ATELE T neutrophils (absolute) 3.8 x10e3 /uL 1.4-7. 0 Not Available [facility] ([facility]) [address] [facility], [place], [address], 09/25/2024 07:08:08 09/24/19 25 09/24/2024 CBC WITH DIFFE RENTI AL/PL ATELE T lymphs (absolute) 1.6 x10e3 /uL 0.7-3. 1 Not Available [facility] ([facility]) [address] [facility], [place], [address], 09/25/2024 07:08:08 09/24/19 25 09/24/2024 CBC WITH DIFFE RENTI AL/PL ATELE T monocytes(ab solute) 0.4 x10e3 /uL 0.1-0. 9 Not Available [facility] ([facility]) [address] [facility], [place], [address], 09/25/2024 07:08:08 09/24/19 25 09/24/2024 CBC WITH DIFFE RENTI AL/PL ATELE T eos (absolute) 0.1 x10e3 /uL 0.0-0. 4 Not Available [facility] ([facility]) [address] [facility], [place], [address], 09/25/2024 07:08:08 09/24/19 25 09/24/2024 CBC WITH DIFFE RENTI AL/PL ATELE T baso (absolute) 0.0 x10e3 /uL 0.0-0. 2 Not Available [facility] ([facility]) [address] [facility], [place], [address], 09/25/2024 07:08:08 09/24/19 25 09/24/2024 CBC WITH DIFFE RENTI AL/PL ATELE T immature granulocytes 0 % notest ab. Not Available [facility] ([facility]) [address] [facility], [place], [address], 09/25/2024 07:08:08 09/24/19 25 09/24/2024 CBC WITH DIFFE RENTI AL/PL ATELE T immature grans (abs) 0.0 x10e3 /uL 0.0-0. 1 Not Available [facility] ([facility]) [address] [facility], [place], [address], 09/25/2024 07:08:08 12/29/19 24 12/28/2023 MAMMO , scree sussy, digit al, bilat eral No observ ation record ed. [address] [address], [place], [address], 01/03/2024 11:53:02 05/26/20 24 05/25/2024 CT, angio gram, chest , w/ contr ast No observ ation record ed. [address] [address], [place], [address], 06/14/2024 12:05:30 06/07/20 24 06/07/2024 naz can cardi olite stres s test (PROC ) No observ ation record ed. [address] ([facility]) [address] [place] [address], [place], [address], 06/14/2024 12:05:29 06/22/20 24 06/07/2024 naz can cardi olite stres s test (PROC ) No observ ation record ed. [facility] ([facility]) [address] [place] [address], [place], [address], 06/22/2024 14:57:16 09/05/19 25 08/31/2024 colon oscop y scree sussy (PROC ) No observ ation record ed. BARCODE Not Available 2024 09:16:32 Result Notes None recorded. Problems Name Problem SNOMED Code Status Onset Date Resolution Date Notes Provider Name and Address Organization Details Recorded Time Atrophic vaginitis 57236935 Active 2023 CAPO Rasheed Attn: Nancy palacios,[address] [facility], [place], [address], [facility] - [facility] 4 09:54:21 Diffuse spasm of esophagus 68488821 Active 2023 CAPO Rasheed Attn: Nancy palacios,[address] [facility], [place], [address], [facility] - [facility] 4 09:54:22 Bilateral dermatitis of external ear canals 0112069727050 104 Active 2023 CAPO Rasheed Attn: Accountin g,[address] [facility], [place], [place], [address] [place] [address] 2, [place] [facility] 4 09:54:23 Vitamin B12 deficiency (non anemic) 94269770 Active 2023 CAPO Rasheed Attn: Accountin g,[address] [place], [place], [address] [place] [address], [place] [facility] 4 09:54:25 Hypertrigly ceridemia 756656140 Active 2023 CAPO Rasheed Attn: Accountin g,[address] [place], [place], [address] [place] [address] 2, [place] [facility] 4 09:54:26 Gastroesoph ageal reflux disease without esophagitis 679377141 Active 2023 CAPO Rasheed Attn: Accountin g,[address] [place], [place], [address] [place] [address], [place] [facility] 4 09:54:28 Mixed anxiety and depressive disorder 107812656 Active 2023 CAPO Rasheed Attn: Accountin g,[address] [place], [place], [address] [place] [address] 2, [place] [facility] 4 09:54:29 Hypothyroid ism 77109064 Active 2023 CAPO Rasheed Attn: Accountin g,[address] [place], [place], [address] [place] [address] 2, [place] [facility] 4 09:54:31 Long-term current use of insulin 494761611 Active 2023 CAPO Rasheed Attn: Accountin g,[address] [place], [place], [address] [place] [address] 2, [place] [facility] 4 09:54:32 Uncontrolle d type 2 diabetes mellitus 339539250 Active 2023 CAPO Rasheed Attn: Accountin g,[address] [place], [address], [place] [facility] 4 09:54:33 Obesity 303064419 Active 2023 CAPO Rasheed Attn: Accountranjeet g,[address] [facility], [place], [address], [place] [facility] 4 11:17:24 Body mass index 30+ - obesity 072058726 Active 2023 CAPO Rasheed Attn: Accountin g,[address] [facility], [place], [address], [place] [facility] 4 11:17:25 Irritable bowel syndrome with diarrhea 627421421 Active 2023 CAPO Rasheed Attn: Accountin g,[address] [facility], [place], [address], [place] [facility] 4 11:17:27 Benign essential hypertensio n 1699038 Active 2023 CAPO Rasheed Attn: Accountin g,[address] [facility], [place], [address], [place] [facility] 4 11:17:31 Cobalamin deficiency 164035301 Active 2023 CAPO Rasheed Attn: Accountin g,[address] [facility], [place], [address], [place] [facility] 4 11:17:33 Long-term drug therapy Active 2023 CAPO Rasheed Attn: Accountin g,[address] [facility], [place], [address], [place] [facility] 4 11:17:51 Feeling stressed 640542408 Active 2023 CAPO Rasheed Attn: Accountin g,[address] [facility], [place], [address], [place] [facility] 4 09:48:37 Acid reflux 161845958 Active 2023 CAPO Rasheed Attn: Nancy palacios,[address], [place], [address], [facility] - SI 12:06:37 Irritable bowel syndrome characteriz ed by alternating bowel habit 429098301 Active 2023 CAPO Rasheed Attn: Nancy palacios,[address], [place], [address], [facility] - [place] 12:06:39 Problem Notes None recorded. Procedures Surgical History Date Name Laterality Status Provider Name and Address Organization Details Recorded Time Appendectomy completed Leda Brian MA [facility] 12/07/2023 14:49:11 Cholecystectomy completed Leda Brian MA [facility] 12/07/2023 14:49:16 Eye Surgery completed Leda Brian MA [facility] 12/07/2023 14:49:22 Hernia Repair completed Leda Brian MA [facility] 12/07/2023 14:49:27 Tonsillectomy completed Leda Brian MA [facility] 12/07/2023 14:49:43 hysterectomy completed Leda Brian MA [facility] 12/07/2023 14:49:52 ligation of bilateral fallopian tubes completed Leda Brian MA [facility] 12/07/2023 14:50:06 Imaging Results Imaging Date Name Status LastModified by Organiz ation Details LastModified Time 12/28/2023 MAMMO, screening, digital, bilateral completed [address] [place] [address], [address], 01/03/2024 11:53:02 05/25/2024 CT, angiogram, chest, w/ contrast completed [address], [address], 06/14/2024 12:05:30 06/07/2024 lexiscan cardiolite stress test (PROC) completed [address] ([facility]) [address] [place] [address], [address], 06/14/2024 12:05:29 06/07/2024 lexiscan cardiolite stress test (PROC) completed [facility] ([facility]) [address], [place], [address], 06/22/2024 14:57:16 08/31/2024 colonoscopy screening (PROC) completed BAR[facility] Information not available 09/05/2024 09:16:32 Procedure Notes None recorded. Medical Equipment None Reported. Allergies Allergen ID Allergen Name Allergen Category Reaction Reaction Severity Criticality Documentation Date Start Date Code Code System Note Provider Name and Address Organization Details Recorded Time 892376 Substance with morphinan structure and opioid receptor agonist mechanism of action (substanc e) medicatio n Not available Not available Not available 12/07/2023 [id number] 4304 SNOMED Not Available Not Available Not Available Medications Name Sig Start Date Stop Date Status Note LastModified by Organization Details LastModified Time neomycin- polymyxin -hydrocor t 3.5 mg/mL-10, 000 unit/mL-1 % ear solution 12/06 completed Not Available Not Available Not Available azithromy sandra 250 mg tablet 12/06 completed Not Available Not Available Not Available alprazola m 1 mg tablet TAKE 1 TABLET BY MOUTH TWICE DAILY NEEDED active Not Available Not Available No t Available hydrocort isone 1 % topical ointment APPLY TOPICALL Y TWICE DAILY NEEDED 12/06 completed Not Available Not Available Not Available prednison e 20 mg tablet TAKE 2 TABLETS BY MOUTH DAILY FOR 5 DAYS 12/06 completed Not Available Not Available Not Available diphenoxy late-atro pine 2.5 mg-0.025 mg tablet TAKE 1 TABLET BY MOUTH EVERY 4 TO 6 HOURS NEEDED active Not Available Not Available No t Available amlodipin e 5 mg tablet Take 1 tablet every day by oral route for 90 days. active Not Available Not Available No t Available omeprazol e 40 mg capsule,d elayed release Take 1 capsule every day by oral route in the morning. 2024 active Not Available Not Available Not Avai lable glimepiri de 2 mg tablet 12/06 completed Not Available Not Available Not Available amoxicill in 875 mg tablet TAKE 1 TABLET BY MOUTH EVERY 12 HOURS FOR 7 DAYS 12/06 completed Not Available Not Available Not Available famotidin e 20 mg tablet TAKE 1 TABLET BY MOUTH TWICE DAILY NEEDED active Not Available Not Available No t Available OneTouch Ultra Test strips USE TO CHECK BLOOD SUGAR TWICE DAILY active Not Available Not Available No t Available amitripty line 10 mg tablet TAKE 1 TABLET BY MOUTH EVERY DAY AT BEDTIME 2023 active Not Available Not Available Not Avai lable cyanocoba mark anthony (vit B-12) 1,000 mcg/mL injection solution Inject 1 mL every month by subcutan eous route. 2023 active jstevens onma Not Available Not Available Not Available levothyro xine 125 mcg tablet Take 1 tablet every day by oral route for 90 days. active Not Available Not Available No t Available losartan 25 mg tablet Take 1 tablet every day by oral route. 05/15 completed Not Available Not Available Not Available mupirocin 2 % topical ointment 12/06 completed Not Available Not Available Not Available ergocalci ferol (vitamin D2) 1,250 mcg (50,000 unit) capsule TAKE 1 CAPSULE BY MOUTH WEEKLY FOR 14 WEEKS active Not Available Not Available No t Available estradiol 0.01% (0.1 mg/gram) vaginal cream USE 1 GRAM VAGINALL Y 3 TIMES EVERY WEEK DIRECTED active Not Available Not Available No t Available methylpre dnisolone 4 mg tablets in a dose pack FOLLOW PACKAGE DIRECTIO NS 12/06 completed Not Available Not Available Not Available fluocinon afua 0.05 % topical cream APPLY TOPICALL Y TO AFFECTED AREAS OF EAR CANAL TWICE DAILY active Not Available Not Available No t Available fluticaso ne propionat e 50 mcg/actua tion nasal spray,kadeem pension SHAKE LIQUID AND USE 1 SPRAY IN EACH NOSTRIL TWICE DAILY 12/06 completed Not Available Not Available Not Available insulin lispro (U-100) 100 unit/mL subcutane ous pen INJECT 5 UNITS UNDER SKIN THREE TIMES DAILY WITH MEALS PER SLIDING SCALE. MAX DAILY DOSE OF 33 UNITS. SEE ATTACHED FOR SCALE active Not Available Not Available No t Available nitrofura ntoin monohydra te/macroc rystals 100 mg capsule TAKE 1 CAPSULE BY MOUTH EVERY 12 HOURS 12/06 completed Not Available Not Available Not Available Amitiza 24 mcg capsule Take 1 capsule twice a day by oral route. 07/01 completed Not Available Not Available Not Available Lantus Solostar U-100 Insulin 100 unit/mL (3 mL) subcutane ous pen ADMINIST ER 30 UNITS UNDER THE SKIN EVERY MORNING 12/06 completed Not Available Not Available Not Available Linzess 145 mcg capsule Take 1 capsule every day by oral route for 90 days. active Not Available Not Available No t Available Vascepa 1 gram capsule TAKE 2 CAPSULES BY MOUTH TWICE DAILY active Not Available Not Available No t Available Easy Touch 32 gauge x 5/32 needle USE ONCE DAILY active Not Available Not Available No t Available Jardiance 10 mg tablet TAKE 1 TABLET BY MOUTH DAILY 12/06 completed Not Available Not Available Not Available Tresiba FlexTouch U-200 insulin 200 unit/mL (3 mL) subcutane ous pen INJECT 30 UNITS UNDER THE SKIN EVERY NIGHT AT BEDTIME active Not Available Not Available No t Available Fiasp FlexTouch U-100 Insulin 100 unit/mL (3 mL) subcutane ous pen INJECT 5 UNITS UNDER SKIN THREE TIMES DAILY WITH MEALS DIRECTED . MAX DAILY DOSE OF 33 UNITS PER 24 HOURS. SEE ATTACHED PAPER FOR SLIDING SCALE active Not Available Not Available No t Available OneTouch Delica Plus Lancet 30 gauge USE TO TEST BLOOD SUGAR TWICE DAILY active Not Available Not Available No t Available Gvoke HypoPen 2-Pack 1 mg/0.2 mL subcutane ous auto-inje ctor active Not Available Not Available Not Available Vitals Date Recorded Body height Respiratory rate Body mass index (BMI) Body weight Oxygen saturation Oxygen saturation in Arterial blood by Pulse oximetry Heart rate Systolic blood pressure Diastolic blood pressure Provider Name and Address Organization Details Last Updated DateTime 4 175.26 cm 20 /min 31.3 kg/m2 21032.8 7 g 96 % 96 % 80 /min 132 mm[Hg] 88 mm[Hg] Leda Brian [place] [facility] 4 12:45:57 Date Recorded Systolic blood pressure Diastolic blood pressure Provider Name and Address Organization Details Last Updated DateTime 12/07/2023 140 mm[Hg] 84 mm[Hg] CAPO Rasheed Attn: Accounting,[address] [place], [address], [facility] 12/07/2023 13:14:16 Date Recorded Body height Body mass index (BMI) Body weight Respiratory rate Oxygen saturation Oxygen saturation in Arterial blood by Pulse oximetry Heart rate Systolic blood pressure Diastolic blood pressure Provider Name and Address Organization Details Last Updated DateTime 4 175.26 cm 32.1 kg/m2 90885.6 9 g 20 /min 96 % 96 % 82 /min 158 mm[Hg] 98 mm[Hg] Leda Brian MA [facility] 4 17:05:00 Date Recorded Systolic blood pressure Diastolic blood pressure Systolic blood pressure Diastolic blood pressure Provider Name and Address Organization Details Last Updated DateTime 02/21/2024 180 mm[Hg] 100 mm[Hg] 180 mm[Hg] 98 mm[Hg] CAPO Laboy Attn: Accounting ,[address] [place], [address] , [facility] 4 17:32:23 Date Recorded Body height Body mass index (BMI) Body weight Respiratory rate Oxygen saturation Oxygen saturation in Arterial blood by Pulse oximetry Heart rate Systolic blood pressure Diastolic blood pressure Provider Name and Address Organization Details Last Updated DateTime 4 175.26 cm 32.1 kg/m2 85442.6 9 g 20 /min 96 % 96 % 84 /min 160 mm[Hg] 100 mm[Hg] Leda Brian MA [facility] 4 11:27:27 Date Recorded Systolic blood pressure Diastolic blood pressure Systolic blood pressure Diastolic blood pressure Provider Name and Address Organization Details Last Updated DateTime 05/08/2024 160 mm[Hg] 100 mm[Hg] 140 mm[Hg] 92 mm[Hg] CAPO Laboy Attn: Accounting ,[address] [place], [address] , [facility] 4 12:02:07 Date Recorded Body height Body mass index (BMI) Body weight Heart rate Oxygen saturation Oxygen saturation in Arterial blood by Pulse oximetry Respiratory rate Systolic blood pressure Diastolic blood pressure Provider Name and Address Organization Details Last Updated DateTime 4 175.26 cm 31.9 kg/m2 64263.9 5 g 86 /min 95 % 95 % 18 /min 130 mm[Hg] 82 mm[Hg] Zee Powell MA [facility] 4 11:38:36 Date Recorded Systolic blood pressure Diastolic blood pressure Provider Name and Address Organization Details Last Updated DateTime 06/14/2024 130 mm[Hg] 72 mm[Hg] CAPO Rasheed Attn: Accounting,[address] [place], [address], [facility] 06/14/2024 12:06:31 Date Recorded Body height Body mass index (BMI) Body weight Oxygen saturation Oxygen saturation in Arterial blood by Pulse oximetry Heart rate Respiratory rate Systolic blood pressure Diastolic blood pressure Provider Name and Address Organization Details Last Updated DateTime 5 175.26 cm 31.6 kg/m2 59522.7 7 g 98 % 98 % 84 /min 18 /min 142 mm[Hg] 80 mm[Hg] Leda Brian MA [facility] 5 11:45:32 Date Recorded Systolic blood pressure Diastolic blood pressure Provider Name and Address Organization Details Last Updated DateTime 09/04/2024 140 mm[Hg] 80 mm[Hg] CAPO Rasheed Attn: Accounting,[address] [place], [address] 09/04/2024 12:18:44 Social History Question Answer Notes LastModified by Organizat ion Details LastModified Time Tobacco Smoking Status Former Smoker quit 40 years ago Leda Brian MA [facility], [facility] 12/07/2023 12:41:15 Do You Have An Advance Directive? No Information not available 12/07/2023 What Is Your Level Of Alcohol Consumption? Occasional Beer Information not available 12/07/2023 Are You Blind Or Do You Have Difficulty Seeing? No Glasses Information not available 12/07/2023 What Is Your Level Of Caffeine Consumption? Occasional 1x Am Information not available 12/07/2023 In The 14 Days Before Symptom Onset, Have You Had Close Contact With A Laboratory-confir med COVID-19 While That Case Was Ill? No Information not available 12/07/2023 In The 14 Days Before Symptom Onset, Have You Had Close Contact With A Person Who Is Under Investigation For COVID-19 While That Person Was Ill? No Information not available 12/07/2023 Have You Been To An Area Known To Be High Risk For COVID-19? No Information not available 12/07/2023 Are You Currently Employed? No Information not available 05/08/2024 Are You Deaf Or Do You Have Serious Difficulty Hearing? No Information not available 12/07/2023 What Type Of Diet Are You Following? DIABETIC Regular/ No Bread Information not available 12/07/2023 Are There Any Guns Present In Your Home? No Information not available 12/07/2023 What Was The Date Of Your Most Recent Tobacco Screening? 09/04/2024 Information not available 09/04/2024 What Is Your Current Pack Years? 10packyears Information not available 12/07/2023 What Is Your Relationship Status? Unknown Information not available 05/08/2024 Do You Use Your Seat Belt Or Car Seat Routinely? Yes Information not available 05/08/2024 Do You Have Smoke And Carbon Monoxide Detectors In Your Home? Yes Information not available 12/07/2023 How Much Tobacco Do You Smoke? No Information not available 12/07/2023 Do You Use Any Illicit Or Recreational Drugs? No Information not available 12/07/2023 Do You Use Sunscreen Routinely? No Information not available 12/07/2023 Has Tobacco Cessation Counseling Been Provided? Yes Information not available 12/07/2023 On What Date Was Tobacco Cessation Counseling Provided? 09/04/2024 Information not available 09/04/2024 Do You Or Have You Ever Used Any Other Forms Of Tobacco Or Nicotine? No Information not available 12/07/2023 Sex: Female Functional Status Question Answer Note LastModified by Organizat ion Details LastModified Time Are you able to care for yourself? Yes Information not available 12/07/2023 What is your exercise level? Occasional Information not available 12/07/2023 Mental Status None recorded. Family History Relationship Description Onset Age of this Age Resolved Age Notes LastModified by Organization Details LastModified Time Brother Depressive disorder [email or web address] Not available 2023 14:50:26 Mother Diabetes mellitus [email or web address] Not available 2023 14:50:52 Mother Disorder of thyroid gland [email or web address] Not available 2023 14:51:00 Medical History Condition Response Coronary Artery Disease N Other N High Blood Pressure N Atrial Fibrillation N Kidney or Bladder Problems N Thyroid Problems Y GI Problems N Depression Y COPD N Blood Clots N Skin Problems Y Anemia N Heart Attack ([place]) N Anxiety Disorder Y Diabetes Y Muscle, Joint, or Bone Problems N Seizures/Epilepsy N Acid Reflux (GERD) N Cancer Y Stroke N Asthma N Allergies Y High Cholesterol N Hepatitis N Liver Disease N Headaches N Heart Failure N Osteoporosis N Gynecological History Statement/Question Response Menses Monthly N Current Control Method Other Obstetrics History GPAL:G 0 P 0 0 0 0 Immunizations Vaccine Type Date Status Note Provider Nam e and Address Organization Details Recorded Time Influenza, high-dose, quadrivalent, PF 2 completed Leda [place] [facility] 06/13/2024 11:20:42 Influenza, high-dose, quadrivalent, PF 0 completed Leda [place] [facility] 06/13/2024 11:20:42 COVID-19, mRNA, LNP-S, PF, 30 mcg/0.3 mL dose 1 completed L[place] [facility] 06/13/2024 11:20:42 COVID-19, mRNA, LNP-S, PF, 30 mcg/0.3 mL dose 1 completed [place] [facility] 06/13/2024 11:20:42 influenza, unspecified formulation 2 [place] L[place] [facility] 06/13/2024 11:20:42 influenza, unspecified formulation 3 [place] [facility] 06/13/2024 11:20:42 Influenza, high-dose, trivalent, PF 6 [place] [facility] 06/13/2024 11:20:42 Influenza, high-dose, trivalent, PF 8 [place] [facility] 06/13/2024 11:20:42 Influenza, split virus, trivalent, preservative 4 completed [place] [facility] 06/13/2024 11:20:42 Influenza, high-dose, trivalent, PF 4 completed CAPO Rasheed Attn: Accounting,[address] [place], [address], [facility] 07/01/2024 12:35:29 Past Encounters Encounter ID Performer Location Encounter Start Date Encounter Closed Date Diagnosis/Indication Diagnosis SNOMED-CT Code Diagnosis ICD10 Code Diagnosis Note [id number] CAPO Rasheed [facility] [address] [place] [address] 12/07/2023 12:24:44 12/07/2023 13:54:54 Hypothyroidism 28500318 E03.9 due for TFT panel. she says endocrine is only managing her diabetes and she needs refill on levothyrox ine 125mcg daily. Mixed anxi ety and depressive disorder 878754543 F41.8 stable at this time. no acute c/o. she takes alprazolam 1mg bid PRN. Uncontroll ed type 2 diabetes mellitus 209243252 E11.65 last a1c around 11% and ran in office from Endocrinol ogpedro. on tresiba and fiasp therapy with them. labs per their office. Gastroesop hageal reflux disease without esophagitis 015011158 K21.9 stable on famotidine 20mg bid. Long-term drug therapy 656960314 Z79.899 routine bmp, lft and cbc due. Bilateral dermatitis of external ear canals 0156193642 247852 H60.93 rx for refill fluocinoni de 0.05% cream bid PRN Long-term current use of insulin 422673064 Z79.4 as above. Hypertriglyceridemia 302 829317 E78.2 on vascepa 1g 2 bid. due for fasting lipids. Screening mammography 24 956600 Z12.31 mammogram is due. Vitamin B1 2 deficiency (non anemic) 51322210 E53.8 screening b12 lab and then will decide b12 injection dosing schedule. Diffuse sp asm of esophagus 00971930 K22.4 refill on amitriptyl ine 10mg qhs. Atrophic vaginitis 70826 000 N95.2 refill on estradiol 0.01% cream [place] three times per week. [id number] CAPO Rasheed [facility] [employer] [address] [place] [address] 02/21/2024 16:28:41 02/23/2024 16:15:58 Body mass index 30+ - obesity 037849251 Z68.32 BMI is 32.1 Obesity 023093086 E66.8 discussed healthy diet, exercise, controllin g carbohydra robert and added sugars in the diet Benign ess ential hypertension 4217963 I10 Start amlodipine 5 mg p.o. daily for elevated blood pressure in 180/98 range on multiple checks today. Encouraged patient to control sodium in her diet keeping it low, encouragin g some walking for exercise and weight loss to also help manage hypertensi on. Irritable bowel syndrome with diarrhea 379316974 K58.0 just needs refill on PRN infrequent use. Cobalamin deficiency 190 128102 E53.8 Refill on vitamin B12 solution for monthly injection. Long-term drug therapy 448354288 Z79.899 Labs are currently all up-to-date . Hypothyroidism 18746724 E03.9 Patient is stable on levothyrox ine 125mcg daily. She is up-to-date on labs and being managed by endocrinol shaquille. [id number] CAPO Rasheed [employer] [address] [place] [id number] 1 05/08/2024 10:44:38 05/08/2024 12:49:37 Benign essential hypertension 2760583 I10 BP is 140/92, add losartan 25 mg daily to the regimen with amlodipine 7.5 mg daily to better control hypertensi on Long-term drug therapy 781952669 Z79.899 All labs are currently up-to-date Dyspnea on exertion 6084 5006 R06.09 Refer for Lexiscan cardiac stress testing and CT angiogram of the chest with contrast Feeling stressed 6622253 06 Z73.3 Related to her son living with her still. Patient does have alprazolam dosing that she uses on a p.r.n. basis. Have encouraged her to start titration down on this [id number] CAPO Rasheed [facility] [employer] [address] [place] [id number] 06/14/2024 11:22:04 06/18/2024 14:58:01 Administration of influenza vaccine 85012491 Z23 Flu shot given today Vitamin B1 2 deficiency (non anemic) 84187856 E53.8 Refill on B12 solution Benign ess ential hypertension 8692679 I10 Blood pressure is improved and stable on amlodipine 7.5 mg daily Acid reflux 887037358 K2 1.9 needs updated EGD completed. Saw Dr. Fitzgerald in the past but he has retired. need alternate option that saw her in practice. pt will get back to us about the name of who to send it to. Irritable bowel syndrome characterized by alternating bowel habit 085410847 K58.9 pt will be due for colonoscop y. will prefer to get at same time as EGD as ordered above. Pt will notify us of the doctor to fax orders to. Trial of Amitiza 24 mcg twice daily Long-term drug therapy 831158655 Z79.899 All labs are currently up-to-date [id number] CAPO Rasheed [facility] [employer] [address] [place] [id number] 09/04/2024 11:31:43 09/04/2024 13:44:09 Gastroesophageal reflux disease without esophagitis 533379209 K21.9 Refill omeprazole 40 mg daily to be taken in the morning with reflux noted on her EGD this she is provided us notes a lot Headache 51273201 R51.9 Refer for MRI of the brain with and without contrast for more frequent almost daily headaches the last few weeks. Abdominal pain 71961001 R10.9 Generalize d abdominal pain that waxes and wanes we will send for CT scan abdomen and pelvis with contrast Tortuous colon 652145932 3 2107 K63.89 Patient also has a history of tortuous colon unable to have complete evaluation on her colonoscop y. Benign ess ential hypertension 7847279 I10 Blood pressure is improved and stable on amlodipine 7.5 mg daily Long-term drug therapy 100052340 Z79.899 Due for CBC, BMP and liver panel Cholesterol screening 27 9891625 Z13.220 Fasting lipids are due Hypothyroidism 81414128 E03.9 Patient is stable on levothyrox ine 125mcg daily. She is following with endocrinol shaquille and is due for an updated thyroid function panel Vitamin B1 2 deficiency (non anemic) 38784090 E53.8 Check vitamin B12 and folate labs Health Concerns Section Related Observation LastModified by Organization Detai ls LastModified Time None Recorded Concern Status LastModified by Organization Details LastModified Time None Recorded Advance Directives Directive N: Payers Encounter Date Sequence Insurance Name Policy Number Policy Street Covered Member ID Street Member ID Guarantor Name 12/07/2023 1 [place] Jazlyn Montgomery [id number] Jazlyn Montgomery 12/07/2023 2 [facility] (MEDICAID HMO) [id number] Jazlyn Montgomery [id number] Jazlyn Montgomery 02/21/2024 2 [place] WHEN MEDICARE OR MEDICARE REPLACEMENT PRIMARY) Jazlyn Montgomery [id number] Jazlyn Montgomery 02/21/2024 [place] [facility] Jazlyn Montgomery [id number] Jazlyn Montgomery 05/08/2024 1 [place] Jazlyn Montgomery [id number] Jazlyn Montgomery 05/08/2024 2 [place] OR MEDIC[place] REPLACEMENT PRIMARY) Jazlyn Montgomery [id number] Jazlyn Montgomery 06/14/2024 1 [place] Jazlyn Montgomery [id number] Jazlyn Montgomery 06/14/2024 2 [place] OR [place]IC[place] REPLACEMENT PRIMARY) Jazlyn Montgomery [id number] Jazlyn Montgomery 09/04/2024 1 [place] Jazlyn Montgomery [id number] Jazlyn Montgomery 09/04/2024 2 [place] OR [place] REPLACEMENT [place]) Jazlyn Montgomery [id number] Jazlyn Montgomery Notes Date Note Type Note Provider Name and Address Organization Details Recorded Time 12/07/19 24 text/ht ml Anxiety/DepressionReported bypatient.Notes:pt is taking alprazolam 1mg TID Prn anxiety. she has not tolerated other medications well in the past.DiabetesReported bypatient.Notes:pt is seeing Endocrine for managaement now. on tresiba and Fiasp injectable therapy. a1c improving she reports.ThyroidReported bypatient.Notes:seeing endocrine now. on levothyroxine 125mcg daily. CAPO Rasheed Attn: Accounting, [address] [facility], [place], [address], [facility] 12/26/2023 09:54:50 02/21/20 24 text/ht ml DiabetesReported bypatient.Notes:Patient is on insulin therapy now and followed by endocrinology for diabetes management.HypertensionReported bypatient.Notes:Patient has had high blood pressure at other offices and is here for follow-up. She is not currently taking any medication. She has had some weight gain and steroid injections into the spine which are contributing to elevated blood pressure.ThyroidReported bypatient.Notes:Patient is taking levothyroxine 125 mcg daily and is managed by endocrinology, labs are up-to-date from November. Irritable bowel with diarrhea- patient does have underlying and would like to have as needed medication that she has had in the past that helped her. CAPO Rasheed Attn: Accounting, [address] [facility], [place], [address], [facility] 03/04/2024 11:21:20 05/08/20 24 text/ht ml HypertensionReported bypatient.Notes:Patient has had high blood pressure at other offices and is here for follow-up. She is now taking amlodipine 1-1/2 tablets daily to equal 7.5 mg. states that she is having troubles breathing at times; states that it hard for her to get and go to the bathroom for her room, states that she has also had a dry cough about a couple of weeks now. Patient denies any chest pain and the shortness of breath does come and go. CAPO Rasheed Attn: Accounting, [address] [place], [address], [facility] 05/27/2024 09:49:15 06/14/20 24 text/ht ml Bowel Complaints/Fecal IncontinenceReported bypatient.Notes:Patient reports irritable bowel constipation issues that are still continuing.HypertensionReported bypatient.Notes:Blood pressure is much better today patient is taking amlodipine 5 mg 1-1/2 tablets daily. Her stress is much lower now as well and she is overall feeling better than the last appointment.Reflux/GERDReported bypatient.Notes:Patient continues to have some acid reflux despite treatment with famotidine Patient would like to have her B12 refill CAPO Rasheed Attn: Accounting, [address] [facility], [place], [address], [facility] 07/01/2024 12:43:06 09/04/19 25 text/ht ml Bowel Complaints/Fecal IncontinenceReported bypatient.Notes:Patient reports irritable bowel constipation issues that are still continuing.HeadacheReported bypatient.Location:bilateral; temporal; parietal; deep; band around head Quality:not the worst headache ever;aching;throbbing;dull;contin uous Severity:moderate Duration:constant Onset/Timing:worse Context:not related to trauma Alleviating factors:nothing gives relief Associated Symptoms:no vomiting; no sensitivity to light; no confusion; no slurred speech; no double vision; normal feeling/sensation; no motor paralysis; no nosebleedsHypertensionReported bypatient.Notes:Blood pressure is much better and well-controlled on medication.Reflux/GERDReported bypatient.Notes:Patient continues to have some acid reflux despite treatment with famotidineThyroidReported bypatient.Notes:Patient has underlying hypothyroidism which is managed now by her special needs nanny and she is on levothyroxine 125 mcg daily. Patient would like to have her B12 refill CAPO Rasheed Attn: Accounting, [address] [place], [address], [facility] 09/23/2024 23:16:35 OBGyn Episode No OBEpisode recorded.
--- OUTSIDE RECORDS SUMMARY | 2024-10-03 14:56 | XMS_ITS | Referral Summary ---
Author Organization [facility] Address [address] [facility] [place] [address] Care Team Providers Care Cigarette Stamper Name Role Phone Naif Brownlee MD Primary Care Provider [phone] Source Comments [facility],non-owned Affiliates and Associated Physician Practices is amultiple site organization consisting of ambulatory clinics and hospital sitesin [place], [place], [place] and [place]. This disclosure is being madepursuant to the Care Everywhere program and may not contain all information available regarding this patient. Last updated 18.[facility] [employer] Social History Tobacco Use Types Packs/Day Years Used Date Smoking Tobacco: Never Assessed Sex and Gender Information Value Date Recorded Sex Assigned at Not on file Gender Identity Not on file Sexual Orientation Not on file Plan of Treatment Not on file Care Teams Cigarette Stamper Relationship Specialty Start Date End Date Naif Brownlee MD [address] [id number] PCP - General 02/10/18
--- OUTSIDE RECORDS SUMMARY | 2024-10-03 14:56 | XMS_ITS | Continuity of Care Document ---
Author Organization [facility] Address [address] [place] [address] Phone Care Team Providers Care Cook Frozen Dessert Name Role Phone Joe Centeno Unavailable Unavailable Procedures Procedure Date Post-op Follow-up Visit Refraction Post-op Follow-up Visit Post-op Follow-up Visit Remove Cataract, Insert Lens Eye Exam & Treatment IOLMaster Advance Directives Directive Yes / No Effective Date File Name No Information Encounters Encounter Description Practice Location Reason(s) For Visit Diagnoses Date Provider Providers Copied on Encounter [facility], [address] [place] [address] [address], [place], [place], [id number], [place] tel:[phone] [facility] No Information Oct-2 5-200 9 Krishnasamy Joe. [address], [facility], [place]. tel:[phone] [facility], [address], [place], [place], [id number], [place] tel:[phone] [facility] No Information Mar-0 4-200 9 Krishnasamy Joe. [address] [facility] [address], [place], [address], [place]. tel:[phone] [facility], [address] [place] [address] [address], [place], [place], [id number], tel:[phone] [facility] No Information b-2 0-200 9 Polanco OD Grzegorz. [address] [facility], [place], [place], [facility], . tel:[phone] [facility], [address], [place], [place], [address], tel:[phone] [facility] No Information Sep-1 9-200 9 Krishnasamy Joe. [facility] [address], [place], [facility], . tel:[phone] [facility], [address], [place], [place], [address], tel:[phone] [facility] No Information b-0 4-200 9 Krishnasamy Joe. [address] [place] [address], [facility], [place]. tel:[phone] Referring Provider: Joe vasquez, [address] [place] [address], [place], [facility]. tel:[phone] Family History Family Member Type Diagnosis Age At Onset No Information Payers Payer name Insurance type Covered alliance party ID Authoriza tion(s) No Information Social History Type Description Quantity Date Captured Comments Sex Female Smoking Status No Information Chief Complaint And Reason For Visit No Information Reason For Referral Reason For Referral No Information History Of Present Illness Encounter Date Complaint History Of Prese nt Illness No Information Functional Status Date Functional Assessmen t No Information Instructions Date Instruction Additional Infor mation No Information Assessments Type Assessment Date No Information Patient Care Teams Name Effective Dates (start - stop) Status Members No Information
--- OUTSIDE RECORDS SUMMARY | 2024-10-03 14:56 | XMS_ITS | Clinical Summary ---
Author Organization [facility] Address [address] [place] [address] Care Team Providers Care Infection Control Coordinator Name Role Phone Unavailable Primary Care Provider Unavailabl e Allergies Active Allergy Reactions Criticality Noted Date Comments Erythromycin Nausea Only 08/15/2024 Hydrocodone Vomiting 08/15/2024 All opiod drugs Tetracycline Nausea and Vomiting 08/15/2024 Ondansetron Other (see comment) 08/15/2024 Causes constipation Medications amLODIPine (NORVASC) 5 MG tablet Take 1.5 tablets (7.5 mg total) by mouth daily. 4 Active levothyroxine (SYNTHROID) 125 MCG tablet Take 1 tablet (125 mcg total) by mouth daily. 4 Active ALPRAZolam (XANAX) 1 MG tablet Take 1 tablet (1 mg total) by mouth 2 (two) times daily as needed. 4 Active amitriptyline (ELAVIL) 10 MG tablet Take 1 tablet (10 mg total) by mouth nightly at bedtime. 4 Active diphenoxylate-a tropine (LOMOTIL) 2.5-0.025 MG tablet Take 1 tablet by mouth every 4 (four) hours as needed. 4 Active vitamin D2, ergocalciferol, (DRISDOL) 1.25 mg capsule TAKE 1 CAPSULE BY MOUTH WEEKLY FOR 14 WEEKS 4 Active estradiol (ESTRACE) 0.1 MG/GM vaginal cream USE 1 GRAM VAGINALLY 3 TIMES EVERY WEEK DIRECTED 4 Active fluocinonide (LIDEX) 0.05 % cream APPLY TOPICALLY TO AFFECTED AREAS OF EAR CANAL TWICE DAILY 4 Active VASCEPA 1 g capsule Take 2 capsules (2 g total) by mouth 2 (two) times daily. 4 Active TRESIBA FLEXTOUCH 200 UNIT/ML injection (PEN) INJECT 30 UNITS UNDER THE SKIN EVERY NIGHT AT BEDTIME 4 Active insulin lispro, 1 Unit Dial, (HUMALOG) 100 UNIT/ML injection (PEN) INJECT 5 UNITS UNDER SKIN THREE TIMES DAILY WITH MEALS PER SLIDING SCALE. MAX DAILY DOSE OF 33 UNITS. SEE ATTACHED FOR SCALE 4 Active Active Problems Problem Noted Date Diagnosed Date Gastroesophageal reflux disease 06/15/2024 Irritable bowel syndrome 06/15/2024 Encounters Date Type Department Care Team Description 09/03/2024 Orders Only [facility] General Surgery - [place] [address] [facility], [address] [place] [address] Sean Gomez MD 08/28/2024 9:15 AM [facility] Anesthesia Event [facility] [place] [address] [place] [address] Lobo Lehman, Omar Banks MD 08/28/2024 9:06 AM DYE TUB OPERATOR - 08/28/2024 9:45 AM DYE TUB OPERATOR Surgery [facility] OR [address] [place] [address] Sean Gomez MD COLONOSCOPY 08/28/2024 7:43 AM DYE TUB OPERATOR - 08/28/2024 11:10 AM [facility] Hospital Encounter [facility] OR [address] [place] [address] Sean Gomez MD Discharge Disposition: Home or Self Care (Routine Discharge) 08/28/2024 Travel 08/15/2024 Travel from Last 3 Months Family History Medical History Relation Comments Cancer Brother esophageal Cancer Father stomach Diabetes Mother Relation Status Comments Brother Father Mother Social History Tobacco Use Types Packs/Day Years Used Date Smoking Tobacco: Never Passive Smoke Exposure: Past Smokeless Tobacco: Never Tobacco Cessation:Counseling Given: Not Answered Comments:Spouse smoked tobacco Alcohol Use Standard Drinks/Week Comments Yes 0 (1 standard drink = 0.6 oz pur e alcohol) rare Comments No Sex and Gender Information Value Date Recorded Sex Assigned at Not on file Legal Sex Female 6:27 PM CDT Gender Identity Not on file Sexual Orientation Not on file Last Filed Vital Signs Vital Sign Reading Time Taken Comments Blood Pressure 133/80 08/28/2024 10:20 AM DYE TUB OPERATOR Pulse 80 08/28/2024 8:29 AM DYE TUB OPERATOR Temperature 36.6 C (97.8 F) 08/28/2024 9:55 AM DYE TUB OPERATOR Respiratory Rate 18 08/28/2024 10:10 AM DYE TUB OPERATOR Oxygen Saturation 96% 08/28/2024 10:20 AM DYE TUB OPERATOR Inhaled Oxygen Concentration - - Weight 95.3 kg (210 lb) 08/28/2024 8:29 AM DYE TUB OPERATOR Height 175.3 cm (5' 9 ) 08/28/2024 8:29 AM DYE TUB OPERATOR Body Mass Index 31.01 08/28/2024 8:29 AM DYE TUB OPERATOR Plan of Treatment Health Maintenance Due Date Last Done Comments PHQ-2 (Physician [place]) 1960 Hepatitis C 1966 DTaP, Tdap and Td Vaccines (1 - Tdap) 1967 Zoster Vaccines (1 of 2) 1998 Annual Medicare Wellness Visit 2013 Dexa Scan (General) 2013 Pneumococcal Vaccine: 65+ Years (2 of 2 - PCV) 10/23/2016 10/23/2015 COVID-19 Vaccine (3 - season) 2024 06/25/2021, 05/25/2021 PHQ-2 (Physician [place]) 08/29/2024 Influenza Adult Completed 06/14/2024, 05/30, 06/22/2020, Additional history exists RSV Immunization or 60+ Years Completed 07/09/2024 Colorectal Cancer Screening Colonoscopy (10 Years) Discontinued 08/28/2024 Meningococcal B Vaccine Aged Out No l onger eligible based on patient's age to complete this topic Meningococcal Vaccine Aged Out No benji james eligible based on patient's age to complete this topic RSV Immunizations Under 20 Months Aged Out No longer eligible based on patient's age to complete this topic Procedures Procedure Name Priority Date/Time Associated Diagnosis Comments UP GI ENDOSCOPY,ALBERTOATN W GUIDE 08/28/2024 9:13 AM DYE TUB OPERATOR Gastroesophageal reflux disease Irritable bowel syndrome Special Needs IDDM diabeticLives an hour away so doesn't want to be too early UPPER GI ENDOSCOPY,BIOPSY 08/28/2024 9:13 AM DYE TUB OPERATOR Gastroesophageal reflux disease Irritable bowel syndrome Special Needs IDDM diabeticLives an hour away so doesn't want to be too early COLONOSCOPY FLX DX W/COLLJ SPEC WHEN PFRMD 08/28/2024 9:13 AM DYE TUB OPERATOR Gastroesophageal reflux disease Irritable bowel syndrome Special Needs IDDM diabeticLives an hour away so doesn't want to be too early POCT GLUCOSE - CARPIO DOCKED DEVICE Routine 08/28/2024 8:45 AM DYE TUB OPERATOR PATHOLOGY Routine 08/28/2024 12:00 AM DYE TUB OPERATOR from Last 3 Months Results * (ABNORMAL) POCT glucose (08/28/2024 8:45 AM DYE TUB OPERATOR) GLUCOSE POC 220(H) 70 - 99 MG/DL 08/28/2024 8:47 AM DYE TUB OPERATOR [facility] 08/28/2024 8:45 AM DYE TUB OPERATOR us Sean Gomez MD POCT ORDERABLES - DEVICE Fi nal Result [facility] [address] [place] [address], * Pathology (08/28/2024 12:00 AM DYE TUB OPERATOR) PATHOLOGY [facility] Department of Laboratory Medicine [address] [place] [address] , extension [phone] Pathology Report Surgical Pathology Report Name: JAZLYN WRIGHT Specimen #: [id number] Age: 11 1950 (Age: 74) Location: [facility] Sex: F Procedure Date: 08/28/2024 [facility] #: [id number] Date Received: 08/30/2024 Date Reported: 08/31/2024 Provider: SEAN GOMEZ MD Source: A: Antrum, biopsies B: GE junction, biopsies Clinical History: GERD and irritable bowel syndrome. Postoperative Diagnosis: Rule out H. pylori. FINAL DIAGNOSIS: A. Stomach, antrum, biopsy: -Antral mucosa with minimal chronic inactive gastritis. -Helicobacter pylori organisms are not identified. B. Gastroesophageal junction, biopsy: -Squamocolumnar junction mucosa with mild reflux associated changes. -No evidence of intestinal metaplasia or malignancy. Gross Description: A. Received in formalin, labeled with a patient label and as biopsies of antrum are 2 pieces of watson tissue, each 0.2 cm. The specimen is entirely submitted in cassette A1. B. Received in formalin, labeled with a patient label and as biopsies of GE junction are 5 pieces of white-watson tissue ranging from less than 0.1 to 0.2 cm. The specimen is entirely submitted in cassette B1. Gross examination (when applicable), interpretation, and sign out were performed at [facility], [address] [place] [address]. Electronically Signed Out VAL YEPEZ MD [facility] TISSUE GASTRIC BIOPSY SPECIMEN / Unknown 08/28/2024 9:21 AM DYE TUB OPERATOR Tissue specimen (specimen) ESOPHAGEAL STRUCTURE / Unknown 08/28/2024 9:23 AM DYE TUB OPERATOR us Sean Gomez MD PATHOLOGY/CYTOLOGY ORDERABL ES Final Result [facility] [address] [place] [address], [id number] from Last 3 Months Insurance MEDICAID MEDICARE
== END 2024-10-03 13:55 | disposition home or self-care (01) ==
PROVIDERS: PCP Physician Assistant; Visit Provider Physician Assistant
DX: K44.9 Diaphragmatic hernia without obstruction or gangrene (principal); K76.0 Fatty (change of) liver, not elsewhere classified; K57.30 Diverticulosis of large intestine without perforation or abscess without bleeding
CPT/HCPCS: 74177; Q9967

== ENCOUNTER 2024-10-09 07:49 | Outpatient (CLI) | payer MEDICARE, MEDICAID, SELFPAY ==
--- NOTE | ~2024-10-09 | MR_ITS ---
EXAMINATION: MR cervical spine wo con DATE: 10/09/2024 08:44 INDICATION: Cervical radiculopathy TECHNIQUE: Magnetic resonance imaging (MRI) of the cervical spine was performed without intravenous c ontrast. Sequences included sagittal T2-weighted FSE, sagittal T2-weighted FS FSE, sagittal T1-weight ed FSE, axial MERGE and axial T2-weighted FSE. COMPARISON: None FINDINGS: 10 degrees cervical levocurvature and 10 degrees upper thoracic dextrocurvature. Sagittal alignment i s normal. Vertebral body heights are normal. T1 hyperintense hemangioma at C5 and T2. Bone marrow sig nal intensity is otherwise normal. Mild disc height loss at C6-C7. Cord signal intensity is normal. R ight thyroid lobe is not visualized and may be surgically absent. The following disc levels are speci fically discussed: C2-C3: The disc does not extend beyond the endplate margin. There is no uncovertebral joint osteoarth ritis. There is mild bilateral facet joint osteoarthritis. There is no neural foraminal stenosis. The re is no central canal stenosis. C3-C4: Small central disc protrusion. There is mild bilateral uncovertebral joint osteoarthritis. The re is no facet joint osteoarthritis. There is minimal right neural foraminal stenosis. There is mild central canal stenosis. C4-C5: The disc does not extend beyond the endplate margin. There is no uncovertebral joint osteoarth ritis. There is mild bilateral facet joint osteoarthritis. There is no neural foraminal stenosis. The re is no central canal stenosis. C5-C6: Disc is bulging. There is mild bilateral uncovertebral joint osteoarthritis. There is mild elvira ateral facet joint osteoarthritis. There is minimal bilateral neural foraminal stenosis. There is mil d central canal stenosis. C6-C7: Disc is bulging. There is moderate right and severe left uncovertebral joint osteoarthritis. T here is mild bilateral facet joint osteoarthritis. There is mild right and moderate left neural john inal stenosis. There is mild central canal stenosis. C7-T1: The disc does not extend beyond the endplate margin. There is no uncovertebral joint osteoarth ritis. There is mild bilateral facet joint osteoarthritis. There is no neural foraminal stenosis. The re is no central canal stenosis. IMPRESSION: 1. Minimal interval progression in still mild cervical spondylosis. Reviewed, dictated and finalized at location A. 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
--- NOTE | ~2024-10-09 | MR_ITS ---
EXAMINATION: MR brain/brain stem wo/w con DATE: 10/09/2024 09:16 INDICATION: Headache. TECHNIQUE: Magnetic resonance imaging (MRI) of the brain and brainstem was performed without and with 19 mL MultiHance intravenous contrast. COMPARISON: Brain MRI 02/22/2014 FINDINGS: There are scattered areas of nonspecific increased T2-weighted signal intensity in the cere bral white matter, which is within normal limits for the patient's age. There are old lacunar infarct s in the bilateral basal ganglia. There is no intracranial hemorrhage, acute infarction, or abnormal intracranial mass lesion. The ventricles are normal in size. There are likely changes of ocular lens replacement surgeries. There is mucosal thickening in the paranasal sinuses. The mastoid air cells ar e normal. IMPRESSION: 1. Old lacunar infarcts in the bilateral basal ganglia. Reviewed, dictated and finalized at location A. ANICAL MANUFACTURING ENGINEER
--- OUTSIDE RECORDS SUMMARY | 2024-10-09 08:14 | XMS_ITS | Referral Summary ---
Author Organization [facility] Address [address] [facility] [place] [address] Care Team Providers Care Neurology Technician Name Role Phone Naif Brownlee MD Primary Care Provider [phone] Source Comments [facility],non-owned Affiliates and Associated Physician Practices is amultiple site organization consisting of ambulatory clinics and hospital sitesin [place], [place], [place] and [place]. This disclosure is being madepursuant to the Care Everywhere program and may not contain all information available regarding this patient. Last updated 18.[facility] [employer] Social History Tobacco Use Types Packs/Day Years Used Date Smoking Tobacco: Never Assessed Sex and Gender Information Value Date Recorded Sex Assigned at Not on file Gender Identity Not on file Sexual Orientation Not on file Plan of Treatment Not on file Care Teams Neurology Technician Relationship Specialty Start Date End Date Naif Brownlee MD [address] [place] [id number] PCP - General 02/10/18
--- OUTSIDE RECORDS SUMMARY | 2024-10-09 08:14 | XMS_ITS | Continuity of Care Document ---
Author Organization [facility] [place] [address] [place] [address] Phone Care Team Providers Care Telecommunications Project Manager Name Role Phone Joe Centeno Unavailable Unavailable Procedures Procedure Date Post-op Follow-up Visit Refraction Post-op Follow-up Visit Post-op Follow-up Visit Remove Cataract, Insert Lens Eye Exam & Treatment IOLMaster Advance Directives Directive Yes / No Effective Date File Name No Information Encounters Encounter Description Practice Location Reason(s) For Visit Diagnoses Date Provider Providers Copied on Encounter [facility], [address] [place] [address] [address], [place], [place], [id number], [place] tel:[phone] [facility] No Information Oct-2 5-200 9 Krishnasamy Joe. [address], [facility], [place]. tel:[phone] [facility], [address], [place], [place], [id number], [place] tel:[phone] [facility] No Information Mar-0 4-200 9 Krishnasamy Joe. [address] [facility] [address], [place], [address], [place]. tel:[phone] [facility], [address] [place] [address] [address], [place], [place], [id number], tel:[phone] [facility] No Information b-2 0-200 9 Polanco OD Grzegorz. [address], [place], [place], [facility], . tel:[phone] [facility], [address], [place], [place], [id number], tel:[phone] [facility] No Information Sep-1 9-200 9 Krishnasamy Joe. [facility] [address], [place], [facility], . tel:[phone] [facility], [address], [place], [place], [id number], tel:[phone] [facility] No Information b-0 4-200 9 Krishnasamy Joe. [address] [place] [address], [facility], [place]. tel:[phone] Referring Provider: Joe vasquez, [address] [place] [address] [address], [place], [facility]. tel:[phone] Family History Family Member Type Diagnosis Age At Onset No Information Payers Payer name Insurance type Covered constitution party ID Authoriza tion(s) No Information Social [...]
--- OUTSIDE RECORDS SUMMARY | 2024-10-09 08:14 | XMS_ITS | Data Portability ---
Author Organization [facility], Main Office Address [address] [place] [address] Care Team Providers Care Entry Writer Name Role Phone BAMBIADRIEN BOSCH Primary Care Provider ADRIEN STEVENS Referring Provider Assessment No assessment recorded. Plan of Treatment Reminders Order Date Submit Date Provider Last Modified By Organization Details Last Modified Time Details Appointments None recorded. Lab urinalysis, complete 2022 023 [facility], [address], [place], [address], 3 21:12:08 culture, urine 2022 023 [facility], [address], [place], [address], 3 21:12:10 BMP, serum or plasma 2022 023 [facility], [address], [place], [address], 3 21:12:03 CBC w/ auto diff 2022 023 [facility], [address], [place], [address], 3 21:12:07 hepatic function panel, serum 2022 023 [facility], [address], [place], [address], 3 21:12:04 lipid panel, serum 2022 023 BRISTOW [facility], [address], [address], [place], [address], 3 21:12:03 microalbumi n/creatinin e, mass ratio, urine 2022 023 [facility], [address], [address], [place], [address], 3 21:12:02 C-reactive protein, quantitativ e, serum or plasma 2022 023 BRISTOW [facility], [address], [address], [place], [address], 3 21:12:09 erythrocyte sedimentati on rate by westergren method 2022 023 BRISTOW [facility], [address], [address], [place], [address], 3 21:12:06 TSH, serum or plasma 2022 023 BRISTOW [facility], [address], [address], [place], [address], 3 21:12:05 T4, free, serum 2022 023 [facility], [address], [address], [place], [address], 3 21:12:06 vitamin B12, serum 2022 023 [facility], [address], [place], [address], 3 21:12:09 Referral None recorded. Procedures None recorded. Surgeries None recorded. Imaging XR, pelvis 2022 023 [email or web address] [facility], [address], [place], [address], 3 16:52:53 XR, hip, bilateral 2022 023 CALVIN [facility] , [address], [address], [place], [address], 3 12:44:42 Medication Orders cyanocobala min (vit B-12) 1,000 mcg/mL injection solution 2022 023 [email or web address] [id number], [address] [place], [place], [id number], 3 12:42:30 cyanocobala min (vit B-12) 1,000 mcg/mL injection solution 2022 023 [id number], [address] [place], [place], [id number], 3 17:13:03 Patient TargetsNo targets recorded. Patient InstructionsNo instructions recorded. Reason for Referral None Reported. Results Created Date Observation Date Name Description Value Unit Range Abnormal Flag Note LastModifiedBy Organization Detail LastModifiedTime 03/18/2003/19/2023 ALBUM IN, RANDO M URINE W/CRE ATINI NE creatinine, random urine 104 mg/dL 20-275 normal Not Available [facility] [employer] [facility] [address] [place], [address], 03/19/2023 21:12:02 03/18/20 23 03/19/2023 ALBUM IN, RANDO M URINE W/CRE ATINI NE albumin, urine 0.3 mg/dL see note: normal Refer ence Range : Refer ence Range Not estab lishe d Not Available [facility] [address] [place], [address], 03/19/2023 21:12:02 03/18/20 23 03/19/2023 ALBUM IN, [...] a diagn ostic categ ory. Not Available [address], [address], 03/19/2023 21:12:02 03/18/20 23 03/19/2023 LIPID PANEL WITH RATIO S cholesterol, total 257 mg/dL <200 high Not Available [address] [place], [address], 03/19/2023 21:12:03 03/18/20 23 03/19/2023 LIPID PANEL WITH RATIO S HDL cholesterol 46 mg/dL > or = 50 low Not Available [address], [address], 03/19/2023 21:12:03 03/18/20 23 03/19/2023 LIPID PANEL WITH RATIO S triglyceride s 218 mg/dL <150 high If a non-f astin g speci men was colle cted, consi santiago repea t trigl yceri de testi ng on a fasti ng speci men if clini magali indic ated. Zac wells et al. J. of Clin. Lipid ol. 2015; 9:129 -169. Not Available [facility] [address] [place], [address], 03/19/2023 21:12:03 03/18/20 23 03/19/2023 LIPID PANEL [...] 9): 2061- 2068 (http ://ed ucati on.Qu Ovalis. com/f aq/FA Q164) Not Available [facility] [address] [place], [address], 03/19/2023 21:12:03 03/18/20 23 03/19/2023 LIPID PANEL WITH RATIO S chol/HDLC ratio 5.6 (calc ) <5.0 high Not Available [facility] [address] [address] [place], [address], 03/19/2023 21:12:03 03/18/20 23 03/19/2023 LIPID PANEL WITH RATIO S LDL/HDL ratio 3.7 (calc ) Below avera ge Risk: <2.34 [place] ge Risk: 2.35- 4.12 Moder ate Risk: 4.13- 5.56 High Risk: >5.57 Not Available [facility] [address] [address] , [place], [address], 03/19/2023 21:12:03 03/18/20 23 03/19/2023 LIPID PANEL WITH RATIO S non HDL cholesterol 211 mg/dL _(cici c) <130 high For patie nts with diabe robert plus 1 major ASCVD risk facto r, treat ing to a non-H DL-C goal of <100 mg/dL (LDL- C of <70 mg/dL ) is consi nakita a tessa stratton optio n. Not Available [facility] [address] [place], [address], 03/19/2023 21:12:03 03/18/20 23 03/19/2023 BASIC METAB OLIC PANEL glucose 160 mg/dL 65-99 high Fasti ng refer ence inter griffin For someo ne witho ut known diabe robert, a gluco se value >125 mg/dL indic ates that they may have diabe robert and this shoul d be confi rmed with a follo w-up test. Not Available [address], [address], 03/19/2023 21:12:03 03/18/20 23 03/19/2023 BASIC METAB OLIC PANEL urea nitrogen (BUN) 20 mg/dL 7-25 normal Not Available [address], [address], 03/19/2023 21:12:03 03/18/20 23 03/19/2023 BASIC METAB OLIC PANEL creatinine 1.11 mg/dL 0.60-1 .00 high Not Available [address], [address], 03/19/2023 21:12:03 03/18/20 23 03/19/2023 BASIC METAB [...] kdoqi /gfr% 5Fcal culat or Not Available [address], [address], 03/19/2023 21:12:03 03/18/20 23 03/19/2023 BASIC METAB OLIC PANEL BUN/creatini ne ratio 18 (calc ) 6-22 normal Not Available [address] [place], [address], 03/19/2023 21:12:03 03/18/20 23 03/19/2023 BASIC METAB OLIC PANEL sodium 138 mmol/ L 135-14 6 normal Not Available [address], [address], 03/19/2023 21:12:03 03/18/20 23 03/19/2023 BASIC METAB OLIC PANEL potassium 4.2 mmol/ L 3.5-5. 3 normal Not Available [address], [address], 03/19/2023 21:12:03 03/18/20 23 03/19/2023 BASIC METAB OLIC PANEL chloride 103 mmol/ L 98-110 normal Not Available [address], [address], 03/19/2023 21:12:03 03/18/20 23 03/19/2023 BASIC METAB OLIC PANEL carbon dioxide 28 mmol/ L 20-32 normal Not Available [address], [address], 03/19/2023 21:12:03 03/18/20 23 03/19/2023 BASIC METAB OLIC PANEL calcium 9.5 mg/dL 8.6-10 .4 normal Not Available [address], [address], 03/19/2023 21:12:03 03/18/20 23 03/19/2023 HEPAT IC FUNCT ION PANEL protein, total 6.7 g/dL 6.1-8. 1 normal Not Available [address], [address], 03/19/2023 21:12:04 03/18/20 23 03/19/2023 HEPAT IC FUNCT ION PANEL albumin 3.9 g/dL 3.6-5. 1 normal Not Available [address] [place], [address], 03/19/2023 21:12:04 03/18/20 23 03/19/2023 HEPAT IC FUNCT ION PANEL globulin 2.8 g/dL_ (calc ) 1.9-3. 7 normal Not Available [address] [address] [place], [address], 03/19/2023 21:12:04 03/18/20 23 03/19/2023 HEPAT IC FUNCT ION PANEL albumin/glob ulin ratio 1.4 (calc ) 1.0-2. 5 normal Not Available [address], [address], 03/19/2023 21:12:04 03/18/20 23 03/19/2023 HEPAT IC FUNCT ION PANEL bilirubin, total 0.6 mg/dL 0.2-1. 2 normal Not Available [address] [address] [place], [address], 03/19/2023 21:12:04 03/18/20 23 03/19/2023 HEPAT IC FUNCT ION PANEL bilirubin, direct 0.1 mg/dL < or = 0.2 normal Not Available [address] [address] [place], [address], 03/19/2023 21:12:04 03/18/20 23 03/19/2023 HEPAT IC FUNCT ION PANEL bilirubin, indirect 0.5 mg/dL _(cici c) 0.2-1. 2 normal Not Available [address] [address] [place], [address], 03/19/2023 21:12:04 03/18/20 23 03/19/2023 HEPAT IC FUNCT ION PANEL alkaline phosphatase 63 U/L 37-153 normal Not Available [address] [address] [place], [address], 03/19/2023 21:12:04 03/18/20 23 03/19/2023 HEPAT IC FUNCT ION PANEL AST 12 U/L 10-35 normal Not Available [address], [address], 03/19/2023 21:12:04 03/18/20 23 03/19/2023 HEPAT IC FUNCT ION PANEL ALT 16 U/L 6-29 normal Not Available [address], [address], 03/19/2023 21:12:04 03/18/20 23 03/19/2023 TSH TSH 1.13 mIU/L 0.40-4 .50 normal Not Available [address], [address], 03/19/2023 21:12:05 03/18/20 23 03/19/2023 T4, FREE T4, free 1.2 NG/dL 0.8-1. 8 normal Not Available [address], [address], 03/19/2023 21:12:06 03/18/20 23 03/19/2023 SED RATE BY MODIF IED WESTE RGREN sed rate by modified westergren 28 mm/h < or = 30 normal Not Available [address], [address], 03/19/2023 21:12:06 03/18/20 23 03/19/2023 CBC (INCL UDES DIFF/ PLT) white blood cell count 4.7 thous and/u L 3.8-10 .8 normal Not Available [address], [address], 03/19/2023 21:12:07 03/18/20 23 03/19/2023 CBC (INCL UDES DIFF/ PLT) red blood cell count 4.97 rosy on/uL 3.80-5 .10 normal Not Available [address] [place], [address], 03/19/2023 21:12:07 03/18/20 23 03/19/2023 CBC (INCL UDES DIFF/ PLT) hemoglobin 14.0 g/dL 11.7-1 5.5 normal Not Available [address], [address], 03/19/2023 21:12:07 03/18/20 23 03/19/2023 CBC (INCL UDES DIFF/ PLT) hematocrit 42.4 % 35.0-4 5.0 normal Not Available [address], [address], 03/19/2023 21:12:07 03/18/20 23 03/19/2023 CBC (INCL UDES DIFF/ PLT) MCV 85.3 fL 80.0-1 00.0 normal Not Available [address], [address], 03/19/2023 21:12:07 03/18/20 23 03/19/2023 CBC (INCL UDES DIFF/ PLT) MCH 28.2 pg 27.0-3 3.0 normal Not Available [address], [address], 03/19/2023 21:12:07 03/18/20 23 03/19/2023 CBC (INCL UDES DIFF/ PLT) MCHC 33.0 g/dL 32.0-3 6.0 normal Not Available [address], [address], 03/19/2023 21:12:07 03/18/20 23 03/19/2023 CBC (INCL UDES DIFF/ PLT) RDW 13.1 % 11.0-1 5.0 normal Not Available [address], [address], 03/19/2023 21:12:07 03/18/20 23 03/19/2023 CBC (INCL UDES DIFF/ PLT) platelet count 213 thous and/u L 140-40 0 normal Not Available [address], [address], 03/19/2023 21:12:07 03/18/20 23 03/19/2023 CBC (INCL UDES DIFF/ PLT) MPV 10.4 fL 7.5-12 .5 normal Not Available [address], [address], 03/19/2023 21:12:07 03/18/20 23 03/19/2023 CBC (INCL UDES DIFF/ PLT) absolute neutrophils 2515 cells /uL 1500-7 800 normal Not Available [address], [address], 03/19/2023 21:12:07 03/18/20 23 03/19/2023 CBC (INCL UDES DIFF/ PLT) absolute lymphocytes 1814 cells /uL 850-39 00 normal Not Available [address], [address], 03/19/2023 21:12:07 03/18/20 23 03/19/2023 CBC (INCL UDES DIFF/ PLT) absolute monocytes 301 cells /uL 200-95 0 normal Not Available [address], [address], 03/19/2023 21:12:07 03/18/20 23 03/19/2023 CBC (INCL UDES DIFF/ PLT) absolute eosinophils 71 cells /uL 15-500 normal Not Available [address], [address], 03/19/2023 21:12:07 03/18/20 23 03/19/2023 CBC (INCL UDES DIFF/ PLT) absolute basophils 0 cells /uL 0-200 normal Not Available [address], [address], 03/19/2023 21:12:07 03/18/20 23 03/19/2023 CBC (INCL UDES DIFF/ PLT) neutrophils 53.5 % normal Not Available [facility] [address], [address], 03/19/2023 21:12:07 03/18/20 23 03/19/2023 CBC (INCL UDES DIFF/ PLT) lymphocytes 38.6 % normal Not Available [facility] [address], [address], 03/19/2023 21:12:07 03/18/20 23 03/19/2023 CBC (INCL UDES DIFF/ PLT) monocytes 6.4 % normal Not Available [facility] [address], [address], 03/19/2023 21:12:07 03/18/20 23 03/19/2023 CBC (INCL UDES DIFF/ PLT) eosinophils 1.5 % normal Not Available [facility] [address], [address], 03/19/2023 21:12:07 03/18/20 23 03/19/2023 CBC (INCL UDES DIFF/ PLT) basophils 0.0 % normal Not Available [address], [address], 03/19/2023 21:12:07 03/18/20 23 03/19/2023 URINA LYSIS , COMPL ETE color YELLOW yellow normal Not Available [facility] [address], [address], 03/19/2023 21:12:08 03/18/20 23 03/19/2023 URINA LYSIS , COMPL ETE appearance CLEAR clear normal Not Available [facility] [address], [address], 03/19/2023 21:12:08 03/18/20 23 03/19/2023 URINA LYSIS , COMPL ETE specific gravity 1.015 1.001- 1.035 normal Not Available [address], [address], 03/19/2023 21:12:08 03/18/20 23 03/19/2023 URINA LYSIS , COMPL ETE pH < OR = 5.0 5.0-8. 0 normal Not Available [address], [address], 03/19/2023 21:12:08 03/18/20 23 03/19/2023 URINA LYSIS , COMPL ETE glucose NEGATI VE negati ve normal Not Available [address], [address], 03/19/2023 21:12:08 03/18/20 23 03/19/2023 URINA LYSIS , COMPL ETE bilirubin NEGATI VE negati ve normal Not Available [address], [address], 03/19/2023 21:12:08 03/18/20 23 03/19/2023 URINA LYSIS , COMPL ETE ketones NEGATI VE negati ve normal Not Available [address], [address], 03/19/2023 21:12:08 03/18/20 23 03/19/2023 URINA LYSIS , COMPL ETE occult blood NEGATI VE negati ve normal Not Available [facility] [address], [address], 03/19/2023 21:12:08 03/18/20 23 03/19/2023 URINA LYSIS , COMPL ETE protein NEGATI VE negati ve normal Not Available [address] [place], [address], 03/19/2023 21:12:08 03/18/20 23 03/19/2023 URINA LYSIS , COMPL ETE nitrite NEGATI VE negati ve normal Not Available [address], [address], 03/19/2023 21:12:08 03/18/20 23 03/19/2023 URINA LYSIS , COMPL ETE leukocyte esterase NEGATI VE negati ve normal Not Available [address], [address], 03/19/2023 21:12:08 03/18/20 23 03/19/2023 URINA LYSIS , COMPL ETE WBC NONE SEEN /hpf < or = 5 normal Not Available [address], [address], 03/19/2023 21:12:08 03/18/20 23 03/19/2023 URINA LYSIS , COMPL ETE RBC NONE SEEN /hpf < or = 2 normal Not Available [address], [address], 03/19/2023 21:12:08 03/18/20 23 03/19/2023 URINA LYSIS , COMPL ETE squamous epithelial cells 10-20 /hpf < or = 5 abnormal Not Available [address], [address], 03/19/2023 21:12:08 03/18/20 23 03/19/2023 URINA LYSIS , COMPL ETE bacteria NONE SEEN /hpf none seen normal Not Available [address], [address], 03/19/2023 21:12:08 03/18/20 23 03/19/2023 URINA LYSIS , COMPL ETE hyaline cast NONE SEEN /lpf none seen normal Not Available [address], [address], 03/19/2023 21:12:08 03/18/20 23 03/19/2023 VITAM IN B12 vitamin B12 >2000 pg/mL 200-11 00 high Not Available [facility] [address] [place] [address] [place], [address], 03/19/2023 21:12:09 03/18/20 23 03/19/2023 C-JOANIE CTIVE PROTE IN C-reactive protein 4.3 mg/L <8.0 normal Not Available [facility] [address] [place], [address], 03/19/2023 21:12:09 03/18/20 23 03/19/2023 CULTU RE, URINE , ROUTI NE culture, urine, routine CULTU RE, URINE , ROUTI NE Micro Numbe r: [id number] Test Statu s: Final Speci men [...] Cultu re Trans port Tube. Not Available [facility] [address] [address] , [place], [address], 03/19/2023 21:12:10 07/20/20 22 07/20/2022 XR, chest , 2 view No observ ation record ed. [id number] [facility] [address], [place], [address], 10/27/2022 01:16:06 09/06/19 23 08/11/2022 MRI, lumba r spine , w/wo contr ast No observ ation record ed. [id number] [facility] [address], [place], [address], 10/27/2022 01:16:06 03/18/20 23 03/18/2023 XR, hip, bilat eral No observ ation record ed. [email or web address] [facility] [address], [place], [address], 03/25/2023 10:35:06 Result Notes None recorded. Problems Name Problem SNOMED Code Status Onset Date Resolution Date Notes Provider Name and Address Organization Details Recorded Time Irritable bowel syndrome 55422041 Active Not Available [facility] 3 01:05:13 Chronic vaginitis 53988216 Active Not Available [facility] 3 01:05:13 Herpes labialis 5162396 Active Not Available [facility] 3 01:05:13 Constipati on 08397279 Active Not Available [facility] 3 01:05:13 Acute sinusitis 64474218 Active Not Available [facility] 3 01:05:13 Left flank pain 795997356 Active Not Available [facility] 3 01:05:13 Cobalamin deficiency 286338778 Active Not Available [facility] 3 01:05:13 Recurrent anxiety 928236137 Active Not Available [facility] 3 01:05:13 Gastroesop hageal reflux disease 939816117 Active Not Available [facility] 3 01:05:13 Screening mammograph y Active 2021 Not Available [facility] 3 01:05:13 Headache 25273481 Active Not Available [facility] 3 01:05:13 Long-term drug therapy Active 2021 Not Available [facility] 3 01:05:13 Mixed hyperlipid emia 268269173 Active 2021 Not Available [facility] 3 01:05:13 Low back pain 521807571 Active 2021 Not Available [facility] 3 01:05:13 Rib pain 153230406 Active Not Available [facility] 3 01:05:14 Right upper quadrant pain 169303806 Active Not Available [facility] 3 01:05:14 Otitis externa 7756548 Active Not Available [facility] 3 01:05:14 Sarcoidosi s 38487038 Active 1977 Not Available [facility] 3 01:05:14 Acute pharyngiti s 118336565 Active Not Available [facility] 3 01:05:14 Dizziness 934493209 Active 2021 Not Available [facility] 3 01:05:14 Hypothyroi dism 14438003 Active Not Available [facility] 3 01:05:14 Nausea 903719589 Active Not Available [facility] 3 01:05:14 Night sweats 34218926 Active Not Available [facility] 3 01:05:14 Acute urinary tract infection 931568198 Active 2022 Not Available [facility] 3 01:05:14 Streptococ cici sore throat 28479796 Active Not Available [facility] 3 01:05:14 Uncontroll ed type 2 diabetes mellitus 161793920 Active 2021 Not Available [facility] 3 01:05:14 Anxiety 28498532 Active Not Available [facility] 3 01:05:15 Dysuria 93619319 Active Not Available [facility] 3 01:05:15 Cough 63619735 Active Not Available [facility] 3 01:05:15 Stomach cramps 52041799 Active 2022 Not Available [facility] 3 01:05:15 Atrophic vaginitis 69138172 Active Not Available [facility] 3 01:05:15 Hyperlipid emia 93373718 Active 2021 Not Available [facility] 3 01:05:15 Essential hypertensi on 84075182 Active 2021 Not Available [facility] 3 01:05:15 Vitamin B12 deficiency (non anemic) 89713126 Active 2021 Not Available [facility] 3 01:05:15 Otitis media 56610381 Active Not Available [facility] 3 01:05:15 Posterior rhinorrhea 33624092 Active Not Available [facility] 3 01:05:16 Epigastric pain 04489245 Active Not Available [facility] 3 01:05:16 Diffuse spasm of esophagus 27365597 Active Not Available [facility] 3 01:05:16 COVID-19 156855743 Active 2021 Not Available [facility] 3 01:05:16 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 Not Available [facility] 3 01:05:16 Impaired glucose tolerance 7710610 Active Not Available [facility] 3 01:05:16 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 2021 Not Available [facility] 3 01:05:16 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 Not Available [facility] 3 01:05:16 Pain in pelvis 84921167 Active 2022 CAPO Rasheed [address], [address], [place], [address] , [facility] 3 10:22:00 Bilateral hip joint pain 4640918688296 9100 Active 2022 CAPO Rasheed [address], [address], [place], [address] , [facility] 3 10:22:08 Multiple joint pain 03858756 Active 2022 CAPO Rasheed [address], [address], [place], [address] , [facility] 3 10:25:00 Lower urinary tract symptoms 700486683 Active 2022 CAPO Rasheed [address], [address], [place], [address] , [facility] 3 10:25:35 Gastroesop hageal reflux disease without esophagiti s 736058916 Active 2022 CAPO Rasheed [address], [address], [place], [address] , [facility] [employer] [facility] 3 15:51:34 Thoracic back pain 568638064 Active 2022 CAPO Rasheed [address], [place], [address] , [facility] [employer] [facility] 3 14:55:34 Problem Notes None recorded. Procedures Surgical History Date Name Laterality Status Provider Name and Address Organization Details Recorded Time 04/01/20 Date of Last Colonoscopy completed Not Available [facility] 10/27/2022 00:57:07 01/27/20 16 Most Recent Bone Density completed Not Available [facility] 10/27/2022 00:57:08 12/14/19 09 Colonoscopy completed Not Available [facility] 10/27/2022 00:57:11 cholecystectomy completed Not Available [facility] 10/27/2022 00:57:11 Removal of thyroid completed Not Available [facility] 10/27/2022 00:57:11 Tonsillectomy completed Not Available [facility] 10/27/2022 00:57:11 hysterectomy completed Not Available [facility] 10/27/2022 00:57:11 hernia repair completed Not Available [facility] 10/27/2022 00:57:11 Imaging Results Imaging Date Name Status LastModified by Organiz ation Details LastModified Time 08/11/2022 MRI, lumbar spine, w/wo contrast completed [id number] [facility] [address], [place], [address], 10/27/2022 01:16:06 07/20/2022 XR, chest, 2 view completed [id number] [address] [place] [address] [address], [place], [address], 10/27/2022 01:16:06 03/18/2023 XR, hip, bilateral completed [email or web address] [facility] [address], [place], [address], 03/25/2023 10:35:06 Procedure Notes None recorded. Medical Equipment None Reported. Allergies Allergen ID Allergen Name Allergen Category Reaction Reaction Severity Criticality Documentation Date Start Date Code Code System Note Provider Name and Address Organization Details Recorded Time 1774 Valium medicatio n Not available Not available Not available 10/27/2022 64321 2 RxNorm Not Available [facility] 3 01:15:26 1775 tetracycl ine medicatio n vomiting moderate Not available 10/27/2022 73567 RxNorm Not Available [facility] 3 01:15:26 1776 Pyridium medicatio n vomiting Not available Not available 10/27/2022 8998 RxNorm Not Available [facility] 3 01:15:27 1777 morphine medicatio n vomiting Not available Not available 10/27/2022 7052 RxNorm Not Available [facility] 3 01:15:27 1778 hydrocodo ne Not available vomiting Not available Not available 10/27/2022 5489 RxNorm Not Available [facility] 3 01:15:27 1779 codeine medicatio n vomiting Not available Not available 10/27/2022 2670 RxNorm Not Available [facility] 3 01:15:27 1780 Cipro medicatio n nausea Not available Not available 10/27/2022 89466 3 RxNorm Not Available [facility] 3 01:15:27 1781 cefdinir medicatio n rash Not available Not available 10/27/2022 82677 RxNorm head, neck, chest redne ss Not Available [facility] 3 01:15:27 1782 diazepam medicatio n dizziness Not available Not available 10/27/2022 3322 RxNorm error Not Available [facility] 3 01:15:27 1783 amitripty line medicatio n Not available Not available Not available 10/27/2022 704 RxNorm Not Available [facility] 3 01:15:27 Medications Name Sig Start Date [...] Available prednison e 10 mg tablet take 6h6yjda, 6u7apob, 1i1uvzs, 3g7narm active Not Available Not Available No t [...] mL by injectio n route. 07/07 completed [facility]#: [id number] Not Available Not Available Not Available [...] month by subcutan eous route. 2022 active [facility]# [id number] [id number] erated well. Not Available Not Available [...] Available Not Available No t Available Fluvirin 0444-2243 45 mcg (15 mcg x 3)/0.5 mL [...] Not Available Not Available No t Available [facility] ODT 75 mg disintegr ating [...] /min 98.2 [degF] 97 [degF] 97.2 [degF] 96240.8 8 g 122 mm[Hg] 78 mm[Hg] 122 mm[Hg] 78 mm[Hg] Not Available [facility] 3 01:00:35 Date Recorded Body height Body temperature Body mass index (BMI) Body weight Respiratory rate Oxygen saturation Oxygen saturation in Arterial blood by Pulse oximetry Heart rate Systolic blood pressure Diastolic blood pressure Provider Name and Address Organization Details Last Updated DateTime 3 167.64 cm 97.3 [degF] 34.6 kg/m2 82048.5 6 g 16 /min 96 % 96 % 81 /min 140 mm[Hg] 90 mm[Hg] Sangeeta Marie Saw [facility] [employer] [facility] 3 09:55:30 Date Recorded Body height Body temperature Body mass index (BMI) Body weight Respiratory rate Oxygen saturation Oxygen saturation in Arterial blood by Pulse oximetry Heart rate Systolic blood pressure Diastolic blood pressure Provider Name and Address Organization Details Last Updated DateTime 3 167.64 cm 96.5 [degF] 35.2 kg/m2 70444.1 4 g 16 /min 96 % 96 % 80 /min 138 mm[Hg] 80 mm[Hg] Sangeeta Marie Saw [facility] [employer] [facility] 3 14:28:10 Social History Question Answer Notes LastModified by [employer] ion Details LastModified Time Tobacco Smoking Status Former Smoker Not Available [facility] 10/27/2022 00:53:42 Do You Have An Advance Directive? Yes MIGRATION.[id number] 1634 Information not available 10/27/2022 What Is Your Level Of Alcohol Consumption? Occasional MIGRATION.824112 4996 Information not available 10/27/2022 Are You Blind Or Do You Have Difficulty Seeing? No MIGRATION.206700 5640 Information not available 10/27/2022 What Is Your Level Of Caffeine Consumption? Moderate MIGRATION.394677 8445 Information not available 10/27/2022 How Much Tobacco Do You Chew? None MIGRATION.767850 1582 Information not available 10/27/2022 In The 14 Days Before Symptom Onset, Have You Had Close Contact With A Laboratory-confir med COVID-19 While That Case Was Ill? No MIGRATION.102912 0981 Information not available 10/27/2022 In The 14 Days Before Symptom Onset, Have You Had Close Contact With A Person Who Is Under Investigation For COVID-19 While That Person Was Ill? No MIGRATION.369547 5731 Information not available 10/27/2022 Are You Currently Employed? No Information not available 03/17/2023 Are You Deaf Or Do You Have Serious Difficulty Hearing? No MIGRATION.512335 8459 Information not available 10/27/2022 What Type Of Diet Are You Following? REGULAR MIGRATION.698402 5982 Information not available 10/27/2022 Which Illicit Or Recreational Drugs Have You Used? None MIGRATION.222319 7317 Information not available 10/27/2022 Do You Or Have You Ever Used E-cigarettes Or Vape? Never Used Electronic Cigarettes MIGRATION.555562 2089 Information not available 10/27/2022 What Is Your Occupation? Retired MIGRATION.954527 9836 Information not available 10/27/2022 Have There Been Any Changes To Your Family Or Social Situation? No MIGRATION.758912 7173 Information not available 10/27/2022 Are There Any Guns Present In Your Home? Yes MIGRATION.296019 6454 Information not available 10/27/2022 Do You Use Insect Repellent Routinely? No [email or web address] Information not available 03/17/2023 Do You Have A Medical Power Of Drug Abuse Program Coordinator? No MIGRATION.287621 6057 Information not available 10/27/2022 What Was The Date Of Your Most Recent Tobacco Screening? 10/31/2020 MIGRATION.493015 2278 Information not available 10/27/2022 What Is Your Relationship Status? MIGRATION.739831 7128 Information not available 10/27/2022 Do You Use Your Seat Belt Or Car Seat Routinely? Yes MIGRATION.396165 0944 Information not available 10/27/2022 Do You Have Smoke And Carbon Monoxide Detectors In Your Home? Yes MIGRATION.533956 3634 Information not available 10/27/2022 At What Age Did You Start Smoking Tobacco? 28 MIGRATION.060453 6603 Information not available 10/27/2022 Do You Or Have You Ever Used Smokeless Tobacco? Never Used Smokeless Tobacco MIGRATION.794842 3181 Information not available 10/27/2022 How Much Tobacco Do You Smoke? 0.5 PPD MIGRATION.376495 5844 Information not available 10/27/2022 Do You Use Any Illicit Or Recreational Drugs? No MIGRATION.414657 8689 Information not available 10/27/2022 Do You Use Sunscreen Routinely? No MIGRATION.058400 1364 Information not available 10/27/2022 Have You Recently Traveled Abroad? No MIGRATION.116773 9963 Information not available 10/27/2022 Do You Have Any Dietary Restrictions? No MIGRATION.524818 6962 Information not available 10/27/2022 Do You Or Have You Ever Used Any Other Forms Of Tobacco Or Nicotine? No MIGRATION.295753 4621 Information not available 10/27/2022 Sex: Female Functional Status Question Answer Note LastModified by Organizat ion Details LastModified Time Do you have difficulty walking or climbing stairs? No MIGRATION.3215008 026 Information not available 10/27/2022 Do you have transportation difficulties? No MIGRATION.4540295 026 Information not available 10/27/2022 Are you able to walk? YESWOREST MIGRATION.8432482 026 Information not available 10/27/2022 Do you have difficulty doing errands alone? No MIGRATION.1830668 026 Information not available 10/27/2022 Are you able to care for yourself? Yes MIGRATION.4501643 026 Information not available 10/27/2022 Do you have difficulty dressing or bathing? No MIGRATION.2296879 026 Information not available 10/27/2022 What is your exercise level? None MIGRATION.5325851 026 Information not available 10/27/2022 Mental Status Question Answer Note LastModified by Organizat ion Details LastModified Time Do you have difficulty concentrating, remembering or making decisions? Yes MIGRATION.398199279 6 Information not available 10/27/2022 Family History Relationship Description Onset Age of this Age Resolved Age Notes LastModified by Organization Details LastModified Time Mother Diabetes mellitus MIGRATION.954 [id number] Not available 10/27/2022 00:57:14 Father Malignant tumor of stomach 83 MIGRATION.788 [id number] Not available 10/27/2022 00:57:14 Brother Malignant tumor of esophagus MIGRATION.735 0624148 Not available 10/27/2022 00:57:14 Son Mental disorder MIGRATION.702 [id number] Not available 10/27/2022 00:57:14 Medical History Condition Response NERVE DISEASE N BLINDNESS N RHEUMATIC FEVER N KIDNEY STONES N BLADDER PROBLEMS N OTHER # 1 N POLIO N LUNG DISEASE/DISORDER N COPD N RADIATION / CHEMOTHERAPY N Other # 2 N BLOOD DISEASES N SURGERY N EAR OR HEARING PROBLEMS N MUMPS N DEPRESSION (INCLUDING POST ) Y BOWEL PROBLEMS Y STROKE/TIA N ULCERS N BENIGN PROSTATIC HYPERPLASIA N MEASLES N MYOCARDIAL INFARCTION N OBESITY N GERD/NAUSEA N ANEURYSM N URINARY/BLADDER/KIDNEY PROBLEMS Y CORONARY ARTERY DISEASE (CAD) N INPATIENT PSYCH CARE N ADDICTION CONCERNS N Impotence N ENDOMETRIOSIS [...] N CHRONIC PAIN SYNDROME N HYPOTHYROIDISM N CAROTID BLOCKAGE N CONSTIPATION N BACK / NECK PROBLEMS Y HAVE YOU BEEN HOSPITALIZED OR SEEN IN [facility] IN THE PAST YEAR ? N ATHEROSCLEROSIS [...] and Address Organization Details Recorded Time Novel [id number], all formulations 6 completed Not Available [facility] 10/27/2022 01:15:16 influenza, unspecified formulation 6 completed Not Available [facility] 10/27/2022 01:15:16 COVID-19, mRNA, LNP-S, PF, 30 mcg/0.3 mL dose 1 completed Not Available [facility] 10/27/2022 01:15:16 COVID-19, mRNA, LNP-S, PF, 30 mcg/0.3 mL dose 1 completed Not Available [facility] 10/27/2022 01:15:16 Influenza, split virus, quadrivalent, preservative 8 completed Not Available [facility] 10/27/2022 01:15:16 influenza, unspecified formulation 4 completed Not Available [facility] 10/27/2022 01:15:16 Influenza, high-dose, trivalent, PF 7 completed Not Available [facility] 10/27/2022 01:15:16 pneumococcal polysaccharide PPV23 6 completed Not Available [facility] 10/27/2022 01:15:16 Influenza, split virus, quadrivalent, preservative 5 completed Not Available [facility] 10/27/2022 01:15:16 Past Encounters Encounter ID Performer Location Encounter Start Date Encounter Closed Date Diagnosis/Indication Diagnosis SNOMED-CT Code Diagnosis ICD10 Code Diagnosis Note [id number] [facility] [place] [address] [place] [address] 10/31/2020 00:00:00 11/22/2020 20:55:14 [id number] [facility] [place] [address] [place] [address] 01/20/2021 00:00:00 01/23/2021 17:41:58 [id number] [facility] [place] [address] [place] [address] 03/25/2021 00:00:00 03/26/2021 00:43:21 [id number] [facility] [place] [address] [place] [address] 05/05/2021 00:00:00 05/28/2021 20:25:19 [id number] [facility] [place] [address] [place] [address] 06/30/2021 00:00:00 07/19/2021 21:24:40 [id number] [facility] [place] [address] [place] [address] 07/01/2021 00:00:00 07/02/2021 15:06:48 [id number] [facility] [place] [address] [place] [address] 09/25/2021 00:00:00 09/27/2021 11:22:11 [id number] [facility] [place] [address] [place] [address] 11/30/2021 00:00:00 12/26/2021 10:03:24 [id number] [facility] [place] [address] [place] [address] 12/29/2021 00:00:00 01/26/2022 23:04:19 [id number] [facility] [place] [address] [place] [address] 01/05/2022 00:00:00 01/05/2022 18:00:20 [id number] [facility] [place] [address] [place] [address] 04/20/2022 00:00:00 04/25/2022 09:13:56 [id number] [facility] [place] [address] [place] [address] 05/18/2022 00:00:00 05/18/2022 17:53:51 [id number] [facility] [place] [address] [place] [address] 06/15/2022 00:00:00 06/15/2022 18:35:44 [id number] [facility] [place] [address] [place] [address] 09/15/2022 00:00:00 09/28/2022 20:36:03 [id number] [facility] [place] [address] [place] [address] 10/25/2022 00:00:00 10/25/2022 19:30:46 [id number] CAPO Rasheed [facility] [place] [address] [place] [address] 03/18/2023 09:48:00 03/18/2023 10:28:22 Bilateral hip joint pain 0081837894 3346693 M25.552 M25.551 check xrays of hip bilaterall y. Pain in pelvis 03336424 R10.2 check xray pelvis Cobalamin deficiency 190 947050 E53.8 refill b12 RX and check lab Hyperlipidemia 10341506 E78.5 fasting lipids are due Hypothyroidism 26824842 E03.9 on supplement and due for TFTs Multiple joint pain 3567 8005 M25.50 screening CRP and ESR with spike up in joint pain Long-term drug therapy 912344137 Z79.899 routine bmp, CBC and LFT due Lower urin estephania tract symptoms 202300160 R39.9 screening UA w/cx with long hx of UTIs and frequency noted Uncontroll ed type 2 diabetes mellitus 691388566 E11.65 managed by endo and A1c checked in that office. she is still due for albumin annual check [id number] CAPO Rasheed [facility] [place] [address] [place] [address] 07/20/2023 14:12:34 07/20/2023 15:02:26 Thoracic back pain 810342799 M54.6 right lateral flank pain episodes are reported by the patient today. she is not having pain currently. She will discuss this further with her pain management team and if P.T. can also be completed for this area while she is having her SI joint therapy. Vitamin B1 2 deficiency (non anemic) 26929688 E53.8 b12 injection given today. Health Concerns Section Related Observation LastModified by Organization Detai ls LastModified Time None Recorded Concern Status LastModified by Organization Details LastModified Time None Recorded Advance Directives Directive Y: Payers Encounter Date Sequence Insurance Name Policy Number Policy Street Covered Member ID Street Member ID Guarantor Name 03/18/2023 1 [place] Jazlyn Montgomery [id number] Jazlyn Montgomery 03/18/2023 2 [place] WHEN MEDICARE OR MEDICARE REPLACEMENT PRIMARY) Jazlyn Montgomery [id number] Jazlyn Montgomery 07/20/2023 1 [place] Jazlyn Montgomery [id number] Jazlyn Montgomery 07/20/2023 2 [place]ARE OR MEDICARE REPLACEMENT [place]IMARY) Jazlyn Montgomery [id number] Jazlyn Montgomery Notes Date Note Type Note [...] sweats but unsure of fever Not Available [facility] [email or web address] [facility] 09/28/2022 20:36:03 023 text/ht ml Anxiety/DepressionReported bypatient.Severity:denies [...] skin changes; no hair changes Not Available [facility] [email or web address] [facility] 10/25/2022 19:30:46 023 text/ht ml FatigueReported bypatient.Quality:continuous [...] is all over her body. CAPO Rasheed [address] [place] [address], [place] [address], [place], [address], [facility] [employer] [facility] [employer] [facility] 03/27/2023 12:34:43 023 text/ht ml Generic HPI TemplateReported bypatient.Notes:Pt is here for an e/r f/u from 07/05/23 for abd pain. They dx her w/gastritis. Records are in the room w/her. She says she had it for a couple more days after that but doing ok today. They didnt put her on anything. CAPO Rasheed [address], [facility] [address], [place], [address], [employer] [facility] [employer] [facility] 07/21/2023 11:29:18 OBGyn Episode No OBEpisode recorded.
--- OUTSIDE RECORDS SUMMARY | 2024-10-09 08:14 | XMS_ITS | Clinical Summary ---
Author Organization [facility] Address [address] [place] [address] Care Team Providers Care Entrepreneur Name Role Phone Unavailable Primary Care Provider [...] Department Care Team Description 09/03/2024 Orders Only [facility] General Surgery - [place] [address], [address] [place] [address] Sean Gomez MD 08/28/2024 9:15 AM [facility] Anesthesia Event [facility] [place] [address] [place] [address] Lobo Lehman, Omar Banks MD 08/28/2024 9:06 AM [employer] - 08/28/2024 9:45 AM [employer] Surgery [facility] OR [address] [place] [address] Sean Gomez MD COLONOSCOPY 08/28/2024 7:43 AM [employer] - 08/28/2024 11:10 AM [facility] Hospital Encounter [facility] [address] [place] [address] Sean Gomez MD Discharge Disposition: Home or [...] Comments Blood Pressure 133/80 08/28/2024 10:20 AM [employer] Pulse 80 08/28/2024 8:29 AM [employer] Temperature 36.6 C (97.8 F) 08/28/2024 9:55 AM [employer] Respiratory Rate 18 08/28/2024 10:10 AM [employer] Oxygen Saturation 96% 08/28/2024 10:20 AM [employer] Inhaled Oxygen Concentration - - Weight 95.3 kg (210 lb) 08/28/2024 8:29 AM [employer] Height 175.3 cm (5' 9 ) 08/28/2024 8:29 AM [employer] Body Mass Index 31.01 08/28/2024 8:29 AM [employer] Plan of Treatment Health Maintenance Due Date Last Done Comments PHQ-2 (Physician [place]) 1962 Hepatitis C 1966 DTaP, Tdap and Td Vaccines (1 - Tdap) 1967 Zoster Vaccines (1 of 2) 1998 Annual Medicare Wellness Visit 2013 Dexa Scan (General) 2013 Pneumococcal Vaccine: 65+ Years (2 of 2 - PCV) 10/23/2016 10/23/2015 COVID-19 Vaccine (3 - season) 2024 06/25/2021, 05/25/2021 PHQ-2 ([facility] [place]) 08/29/2024 Influenza Adult Completed 06/14/2024, 05/30, 06/22/2020, [...] GI ENDOSCOPY,ALBERTOATN W GUIDE 08/28/2024 9:13 AM [employer] Gastroesophageal reflux disease Irritable bowel syndrome Special Needs IDDM diabeticLives an hour away so doesn't want to be too early UPPER GI ENDOSCOPY,BIOPSY 08/28/2024 9:13 AM [employer] Gastroesophageal reflux disease Irritable bowel syndrome Special Needs IDDM diabeticLives an hour away so doesn't want to be too early COLONOSCOPY FLX DX W/COLLJ SPEC WHEN PFRMD 08/28/2024 9:13 AM [employer] Gastroesophageal reflux disease Irritable bowel syndrome Special Needs IDDM diabeticLives an hour away so doesn't want to be too early POCT GLUCOSE - CARPIO DOCKED DEVICE Routine 08/28/2024 8:45 AM [employer] PATHOLOGY Routine 08/28/2024 12:00 AM [employer] from Last 3 Months Results * (ABNORMAL) POCT glucose (08/28/2024 8:45 AM [employer]) GLUCOSE POC 220(H) 70 - 99 MG/DL 08/28/2024 8:47 AM [employer] [facility] 08/28/2024 8:45 AM [employer] us Sean Gomez MD POCT ORDERABLES - DEVICE Fi nal Result [facility] [address] [place] [address], * Pathology (08/28/2024 12:00 AM [employer]) PATHOLOGY [facility] Department of Laboratory Medicine [address] [place] [address] , extension [phone] Pathology Report Surgical Pathology Report Name: JAZLYN WRIGHT Specimen #: [id number] Age: 11 1950 (Age: 74) Location: [facility] Sex: F Procedure Date: 08/28/2024 [facility] #: [id number] Date Received: 08/30/2024 Date Reported: 08/31/2024 Provider: [...] interpretation, and sign out were performed at [facility], [address] [place] [address]. Electronically Signed Out VAL YEPEZ MD [facility] TISSUE GASTRIC BIOPSY SPECIMEN / Unknown 08/28/2024 9:21 AM [employer] Tissue specimen (specimen) ESOPHAGEAL STRUCTURE / Unknown 08/28/2024 9:23 AM [employer] us Sean Gomez MD PATHOLOGY/CYTOLOGY ORDERABL ES Final Result [facility] [address] [place] [address], [phone] from Last 3 Months Insurance MEDICAID MEDICARE
--- OUTSIDE RECORDS SUMMARY | 2024-10-09 08:15 | XMS_ITS | Data Portability ---
Author Organization [facility] Milligan Address [address] [facility] [place] [address] Care Team Providers [employer] Laboratory Director Name Role Phone ADRIEN STEVENS Primary Care [...] available Lab lipid panel, serum 2023 024 [facility], [address] [place] [address], [address], 12/27/2023 05:36:50 BMP, serum or plasma 2023 024 [facility], [address], [address], 12/27/2023 05:36:51 hepati c functi on panel, serum 2023 024 [facility], [facility] [address], [address], 12/27/2023 05:36:51 CBC w/ auto diff 2023 024 [facility], [address], [place], [address], 12/27/2023 05:36:53 vitami n B12, serum 2023 024 [facility], [address], [place], [address], 12/27/2023 05:36:53 TSH + free T4, serum 2023 024 [facility], [address], [place], [address], 12/27/2023 05:36:49 cobala min and folate panel, serum 2024 025 [facility], [address], [place], [address], 09/25/2024 07:08:07 lipid panel, serum 2024 025 [facility], [address], [place], [address], 09/25/2024 07:08:03 CBC w/ auto diff 2024 025 [facility] [address], [place], [address], 09/25/2024 07:08:08 hepati c functi on panel, serum 2024 025 [facility], [address], [place], [address], 09/25/2024 07:08:04 BMP, serum or plasma 2024 025 [facility], [address], [place], [address], 09/25/2024 07:08:06 TSH + free T4, serum 2024 025 [facility] Osborne, [address], [place], [address], 09/25/2024 07:08:02 Referral None record ed. Procedures lexisc an cardio lite stress test (PROC) 2023 [facility] (Cardiology & Emg), [address], [place], [address], 06/07/2024 16:10:45 upper endosc opy proced ure (EGD) (PROC) - Patien t is in need a follow -up endosc opy proced ure 2023 024 mary Feng MD, [address], [address], [place], [address], 09/25/2024 12:24:37 colono scopy proced ure (PROC) 2023 024 mary Feng MD, [address], [address], [place], [address], 09/25/2024 12:24:36 Surgeries None record ed. Imaging MAMMO, screen ing, digita l, bilate ral 2023 024 [facility] (Mammography) , [address], [place], [address], 12/29/2023 12:55:36 CT, angiog venus, chest, w/ contra st 2023 024 [facility] (Cardiology & Emg), [address], [place], [address], 05/26/2024 08:59:01 CT, abdome n + pelvis , w/ contra st 2024 025 [facility] (Imaging), [address], [place], [address], 10/03/2024 16:48:49 MRI, brain, w/wo contra st [address] [facility] (Imaging), [address], [place], [address], 09/25/2024 13:04:09 Medication Orders estrad iol 0.01% (0.1 mg/gra m) vagina l cream 2023 024 [facility] #[id number], [address], [place], [place], [id number], 12/07/2023 13:16:44 levoth yroxin e 125 mcg tablet 2023 [email or web address] #18877, [address], [place], [place], [id number], 09/04/2024 11:43:19 amitri ptylin e 10 mg tablet 2023 [facility]24 [facility], [address], [place], [place], [id number], 05/08/2024 11:24:55 fluoci nonide 0.05 % topica l cream 2023 024 [facility] #84771, [address], [place], [place], [id number], 12/07/2023 13:07:49 Lomoti l 2.5 mg-0.0 25 mg tablet 2023 024 [facility] #55588, [address], [place], [place], [id number], 02/21/2024 17:42:47 amlodi pine 5 mg tablet 2023 024 [facility] #24582, [address], [place], [place], [id number], 02/21/2024 17:34:50 cyanoc obalam in (vit B-12) 1,000 mcg/mL inject ion soluti on 2023 024 Not available 02/21/2024 18:12:20 losart an 25 mg tablet 2023 024 [facility] #61863, [address] [facility], [place], [place], [id number], 05/27/2024 09:29:40 cyanoc obalam in (vit B-12) 1,000 mcg/mL inject ion soluti on 2023 024 [email or web address] Not available 06/14/2024 12:25:27 Amitiz a 24 mcg capsul e 2023 024 [facility] #62623, [address] [facility], [place], [place], [id number], 07/01/2024 22:53:37 omepra zole 40 mg capsul e,gerardo yed releas e 2024 025 [facility] #78278, [address] [place], [place], [id number], 09/04/2024 12:19:03 Patient TargetsNo targets recorded. Patient Instructions Encounter Date Encounter Id Patient Instructions Last Modified By Organization Details Last Modified Time 02/21/2024 [id number] A healthy lifestyle: care instructions Not available 02/21/2024 17:34:42 Reason for Referral None Reported. Results Created Date Observation Date Name Description Value Unit Range Abnormal Flag Note LastModifiedBy Organization Detail LastModifiedTime 12/26/19 24 12/27/2023 TSH+F REE T4 TSH 1.260 uIU/m L 0.450- 4.500 Not Available [facility] ([facility]) [address], [place], [address], 12/27/2023 05:36:49 12/26/19 24 12/27/2023 TSH+F REE T4 T4,free(dire ct) 1.43 NG/dL 0.82-1 .77 Not Available [facility] ([facility]) [address] [place], [address], 12/27/2023 05:36:49 12/26/19 24 12/27/2023 LIPID PANEL cholesterol, total 274 mg/dL 100-19 9 above high normal Not Available [facility] ([facility]) [address] [place], [address], 12/27/2023 05:36:50 12/26/19 24 12/27/2023 LIPID PANEL triglyceride s 319 mg/dL 0-149 above high normal Not Available [facility] ([facility]) [address] [place], [address], 12/27/2023 05:36:50 12/26/19 24 12/27/2023 LIPID PANEL HDL cholesterol 45 mg/dL >39 Not Available [facility] ([facility]) [address] [place], [address], 12/27/2023 05:36:50 12/26/19 24 12/27/2023 LIPID PANEL VLDL cholesterol cici 61 mg/dL 5-40 above high normal Not Available [facility] ([facility]) [address] [place], [address], 12/27/2023 05:36:50 12/26/19 24 12/27/2023 LIPID PANEL LDL chol calc ([facility]) 168 mg/dL 0-99 above high normal Not Available [facility] ([facility]) [address] [place], [address], 12/27/2023 05:36:50 12/26/19 24 12/27/2023 HEPAT IC FUNCT ION PANEL (7) protein, total 6.7 g/dL 6.0-8. 5 Not Available [facility] ([facility]) [address] [facility], [place], [address], 12/27/2023 05:36:50 12/26/19 24 12/27/2023 HEPAT IC FUNCT ION PANEL (7) albumin 4.0 g/dL 3.8-4. 8 Not Available [facility] ([facility]) [address] [facility], [place], [address], 12/27/2023 05:36:50 12/26/19 24 12/27/2023 HEPAT IC FUNCT ION PANEL (7) bilirubin, total 0.3 mg/dL 0.0-1. 2 Not Available [facility] ([facility]) [address] [facility], [place], [address], 12/27/2023 05:36:50 12/26/19 24 12/27/2023 HEPAT IC FUNCT ION PANEL (7) bilirubin, direct <0.10 mg/dL 0.00-0 .40 Not Available [facility] ([facility]) [address] [facility], [place], [address], 12/27/2023 05:36:50 12/26/19 24 12/27/2023 HEPAT IC FUNCT ION PANEL (7) alkaline phosphatase 71 IU/L 44-121 Not Available [facility] ([facility]) [address] [facility], [place], [address], 12/27/2023 05:36:50 12/26/19 24 12/27/2023 HEPAT IC FUNCT ION PANEL (7) AST (SGOT) 15 IU/L 0-40 Not Available [facility] ([facility]) [address] [facility] [place], [address], 12/27/2023 05:36:50 12/26/19 24 12/27/2023 HEPAT IC FUNCT ION PANEL (7) ALT (SGPT) 17 IU/L 0-32 Not Available [facility] ([facility]) [address] [facility], [place], [address], 12/27/2023 05:36:50 12/26/19 24 12/27/2023 BASIC METAB OLIC PANEL (8) glucose 176 mg/dL 70-99 above high normal Not Available [facility] ([facility]) [address] [place], [address], 12/27/2023 05:36:51 12/26/19 24 12/27/2023 BASIC METAB OLIC PANEL (8) BUN 17 mg/dL 8-27 Not Available [facility] ([facility]) [address] [place], [address], 12/27/2023 05:36:51 12/26/19 24 12/27/2023 BASIC METAB OLIC PANEL (8) creatinine 1.10 mg/dL 0.57-1 .00 above high normal Not Available [facility] ([facility]) [address] [place], [address], 12/27/2023 05:36:51 12/26/19 24 12/27/2023 BASIC METAB OLIC PANEL (8) eGFR 52 mL/mi n/1.7 3 >59 below low normal Not Available [facility] ([facility]) [address] [place], [address], 12/27/2023 05:36:51 12/26/19 24 12/27/2023 BASIC METAB OLIC PANEL (8) BUN/creatini ne ratio 15 12-28 Not Available [facility] ([facility]) [address] [place], [address], 12/27/2023 05:36:51 12/26/19 24 12/27/2023 BASIC METAB OLIC PANEL (8) sodium 140 mmol/ L 134-14 4 Not Available [facility] ([facility]) [address] [place], [address], 12/27/2023 05:36:51 12/26/19 24 12/27/2023 BASIC METAB OLIC PANEL (8) potassium 4.3 mmol/ L 3.5-5. 2 Not Available [facility] ([facility]) [address] [place], [address], 12/27/2023 05:36:51 12/26/19 24 12/27/2023 BASIC METAB OLIC PANEL (8) chloride 101 mmol/ L 96-106 Not Available [facility] ([facility]) [address] [place], [address], 12/27/2023 05:36:51 12/26/19 24 12/27/2023 BASIC METAB OLIC PANEL (8) carbon dioxide, total 27 mmol/ L Not Available [facility] ([facility]) [address] [place], [address], 12/27/2023 05:36:51 12/26/1912/27/2023 BASIC METAB OLIC PANEL (8) calcium 9.6 mg/dL 8.7-10 .3 Not Available [facility] ([facility]) [address] [place], [address], 12/27/2023 05:36:51 12/26/19 24 12/26/2023 AMBNOELLE ABBRE V BMP8 DEFAU LT ambig abbrev BMP8 default Commen t A hand- writt en panel /prof ile was recei heriberto from your offic e. In accor dance with the [facility] Ambnoelle uous Test Code Polic y dated February 2003, we have compl eted your order by using the close st curre ntly or forme rly recog nized AMA panel . We have assig jose Basic Metab olic Panel (8), Test Code #[address]. If this is not the testi ng you wishe d to recei ve on this speci men, pleas e conta ct the [facility] Clien t Inqui ry/Te chnic al Servi james Depar tment to pineda fy the test order . We appre ciate your busin ess. Not Available [facility] ([facility]) [address] [place], [address], 12/27/2023 05:36:52 12/26/1912/26/2023 AMBIG ABBRE V LP DEFAU LT ambig abbrev LP default Commen t A hand- writt en panel /prof ile was recei heriberto from your offic e. In accor dance with the [facility] Ambig uous Test Code [facility] y dated February 2003, we have compl [...] ciate your busin ess. Not Available [facility] ([facility]) [address] [place], [address], 12/27/2023 05:36:52 12/26/1912/26/2023 AMBIG ABBRE V HFP7 DEFAU LT ambig abbrev hfp7 default Commen t A hand- writt en panel /prof ile was recei heriberto from your offic e. In accor dance with the [facility] Ambig uous Test Code [facility] dated February 2003, we have compl eted [...] ciate your busin ess. Not Available [facility] ([facility]) [address] [place], [address], 12/27/2023 05:36:53 12/26/19 24 12/27/2023 VITAM IN B12 vitamin B12 412 pg/mL 232-12 45 Not Available [facility] ([facility]) [address] [facility], [place], [address], 12/27/2023 05:36:53 12/26/19 24 12/27/2023 CBC WITH DIFFE RENTI AL/PL ATELE T WBC 5.6 x10e3 /uL 3.4-10 .8 Not Available [facility] ([facility]) [address] [facility], [place], [address], 12/27/2023 05:36:53 12/26/19 24 12/27/2023 CBC WITH DIFFE RENTI AL/PL ATELE T RBC 5.08 x10e6 /uL 3.77-5 .28 Not Available [facility] ([facility]) [address] [facility], [place], [address], 12/27/2023 05:36:53 12/26/19 24 12/27/2023 CBC WITH DIFFE RENTI AL/PL ATELE T hemoglobin 14.8 g/dL 11.1-1 5.9 Not Available [facility] ([facility]) [address] [facility], [place], [address], 12/27/2023 05:36:53 12/26/19 24 12/27/2023 CBC WITH DIFFE RENTI AL/PL ATELE T hematocrit 44.9 % 34.0-4 6.6 Not Available [facility] ([facility]) [address] [facility], [place], [address], 12/27/2023 05:36:53 12/26/19 24 12/27/2023 CBC WITH DIFFE RENTI AL/PL ATELE T MCV 88 fL 79-97 Not Available [facility] ([facility]) [address] [facility], [place], [address], 12/27/2023 05:36:53 12/26/19 24 12/27/2023 CBC WITH DIFFE RENTI AL/PL ATELE T MCH 29.1 pg 26.6-3 3.0 Not Available [facility] ([facility]) [address] [facility], [place], [address], 12/27/2023 05:36:53 12/26/19 24 12/27/2023 CBC WITH DIFFE RENTI AL/PL ATELE T MCHC 33.0 g/dL 31.5-3 5.7 Not Available [facility] ([facility]) [address] [facility], [place], [address], 12/27/2023 05:36:53 12/26/19 24 12/27/2023 CBC WITH DIFFE RENTI AL/PL ATELE T RDW 13.2 % 11.7-1 5.4 Not Available [facility] ([facility]) [address] [facility], [place], [address], 12/27/2023 05:36:53 12/26/19 24 12/27/2023 CBC WITH DIFFE RENTI AL/PL ATELE T platelets 237 x10e3 /uL 150-45 0 Not Available [facility] ([facility]) [address] [facility], [place], [address], 12/27/2023 05:36:53 12/26/19 24 12/27/2023 CBC WITH DIFFE RENTI AL/PL ATELE T neutrophils 57 % notest ab. Not Available [facility] ([facility]) [address] [facility], [place], [address], 12/27/2023 05:36:53 12/26/19 24 12/27/2023 CBC WITH DIFFE RENTI AL/PL ATELE T lymphs 34 % notest ab. Not Available [facility] ([facility]) [address] [facility], [place], [address], 12/27/2023 05:36:53 12/26/19 24 12/27/2023 CBC WITH DIFFE RENTI AL/PL ATELE T monocytes 7 % notest ab. Not Available [facility] ([facility]) [address] [facility], [place], [address], 12/27/2023 05:36:53 12/26/19 24 12/27/2023 CBC WITH DIFFE RENTI AL/PL ATELE T eos 2 % notest ab. Not Available [facility] ([facility]) [address] [facility], [place], [address], 12/27/2023 05:36:53 12/26/19 24 12/27/2023 CBC WITH DIFFE RENTI AL/PL ATELE T basos 0 % notest ab. Not Available [facility] ([facility]) [address] [facility], [place], [address], 12/27/2023 05:36:53 12/26/19 24 12/27/2023 CBC WITH DIFFE RENTI AL/PL ATELE T neutrophils (absolute) 3.2 x10e3 /uL 1.4-7. 0 Not Available [facility] ([facility]) [address] [facility], [place], [address], 12/27/2023 05:36:53 12/26/19 24 12/27/2023 CBC WITH DIFFE RENTI AL/PL ATELE T lymphs (absolute) 1.9 x10e3 /uL 0.7-3. 1 Not Available [facility] ([facility]) [address] [facility], [place], [address], 12/27/2023 05:36:53 12/26/19 24 12/27/2023 CBC WITH DIFFE RENTI AL/PL ATELE T monocytes(ab solute) 0.4 x10e3 /uL 0.1-0. 9 Not Available [facility] ([facility]) [address] [facility], [place], [address], 12/27/2023 05:36:53 04/29/20 24 12/27/2023 CBC WITH DIFFE RENTI AL/PL ATELE T eos (absolute) 0.1 x10e3 /uL 0.0-0. 4 Not Available [facility] ([facility]) [address] [place], [address], 12/27/2023 05:36:53 12/26/19 24 12/27/2023 CBC WITH DIFFE RENTI AL/PL ATELE T baso (absolute) 0.0 x10e3 /uL 0.0-0. 2 Not Available [facility] ([facility]) [address] [place], [address], 12/27/2023 05:36:53 12/26/19 24 12/27/2023 CBC WITH DIFFE RENTI AL/PL ATELE T immature granulocytes 0 % notest ab. Not Available [facility] ([facility]) [address] [place], [address], 12/27/2023 05:36:53 12/26/19 24 12/27/2023 CBC WITH DIFFE RENTI AL/PL ATELE T immature grans (abs) 0.0 x10e3 /uL 0.0-0. 1 Not Available [facility] ([facility]) [address] [place], [address], 12/27/2023 05:36:53 09/24/1909/25/2024 TSH+F REE T4 TSH 3.150 uIU/m L 0.450- 4.500 Not Available [facility] ([facility]) [address] [place], [address], 09/25/2024 07:08:02 09/24/1909/25/2024 TSH+F REE T4 T4,free(dire ct) 1.68 NG/dL 0.82-1 .77 Not Available [facility] ([facility]) [address] [place], [address], 09/25/2024 07:08:02 09/24/19 25 09/25/2024 LIPID PANEL cholesterol, total 262 mg/dL 100-19 9 above high normal Not Available [facility] ([facility]) [address] [facility] [place], [address], 09/25/2024 07:08:03 09/24/19 25 09/25/2024 LIPID PANEL triglyceride s 205 mg/dL 0-149 above high normal Not Available [facility] ([facility]) [address] [facility] [place], [address], 09/25/2024 07:08:03 09/24/19 25 09/25/2024 LIPID PANEL HDL cholesterol 48 mg/dL >39 Not Available [facility] ([facility]) [address] [place], [address], 09/25/2024 07:08:03 09/24/19 25 09/25/2024 LIPID PANEL VLDL cholesterol cici 38 mg/dL 5-40 Not Available [facility] ([facility]) [address] [place], [address], 09/25/2024 07:08:03 09/24/19 25 09/25/2024 LIPID PANEL LDL chol calc ([facility]) 176 mg/dL 0-99 above high normal Not Available [facility] ([facility]) [address] [place], [address], 09/25/2024 07:08:03 09/24/19 25 09/25/2024 HEPAT IC FUNCT ION PANEL (7) protein, total 6.8 g/dL 6.0-8. 5 Not Available [facility] ([facility]) [address] [place], [address], 09/25/2024 07:08:04 09/24/19 25 09/25/2024 HEPAT IC FUNCT ION PANEL (7) albumin 3.9 g/dL 3.8-4. 8 Not Available [facility] ([facility]) [address] [facility] [place], [address], 09/25/2024 07:08:04 09/24/1909/25/2024 HEPAT IC FUNCT ION PANEL (7) bilirubin, total 0.4 mg/dL 0.0-1. 2 Not Available [facility] ([facility]) [address] [facility] [place], [address], 09/25/2024 07:08:04 09/24/19 25 09/25/2024 HEPAT IC FUNCT ION PANEL (7) bilirubin, direct 0.13 mg/dL 0.00-0 .40 Not Available [facility] ([facility]) [address] [facility] [place], [address], 09/25/2024 07:08:04 09/24/19 25 09/25/2024 HEPAT IC FUNCT ION PANEL (7) alkaline phosphatase 74 IU/L 44-121 Not Available [facility] ([facility]) [address] [facility] [place], [address], 09/25/2024 07:08:04 09/24/19 25 09/25/2024 HEPAT IC FUNCT ION PANEL (7) AST (SGOT) 15 IU/L 0-40 Not Available [facility] ([facility]) [address] [facility] [place], [address], 09/25/2024 07:08:04 09/24/19 25 09/25/2024 HEPAT IC FUNCT ION PANEL (7) ALT (SGPT) 16 IU/L 0-32 Not Available [facility] ([facility]) [address] [facility] [place], [address], 09/25/2024 07:08:04 09/24/19 25 09/25/2024 BMP7+ EGFR glucose 191 mg/dL 70-99 above high normal Not Available [facility] ([facility]) [address] [facility] [place], [address], 09/25/2024 07:08:05 09/24/19 25 09/25/2024 BMP7+ EGFR BUN 20 mg/dL 8-27 Not Available [facility] ([facility]) [address] [place], [address], 09/25/2024 07:08:05 09/24/19 25 09/25/2024 BMP7+ EGFR creatinine 1.02 mg/dL 0.57-1 .00 above high normal Not Available [facility] ([facility]) [address] [place], [address], 09/25/2024 07:08:05 09/24/19 25 09/25/2024 BMP7+ EGFR eGFR 57 mL/mi n/1.7 3 >59 below low normal Not Available [facility] ([facility]) [address] [place], [address], 09/25/2024 07:08:05 09/24/19 25 09/25/2024 BMP7+ EGFR sodium 139 mmol/ L 134-14 4 Not Available [facility] ([facility]) [address] [place], [address], 09/25/2024 07:08:05 09/24/19 25 09/25/2024 BMP7+ EGFR potassium 4.4 mmol/ L 3.5-5. 2 Not Available [facility] ([facility]) [address] [place], [address], 09/25/2024 07:08:05 09/24/19 25 09/25/2024 BMP7+ EGFR chloride 103 mmol/ L 96-106 Not Available [facility] ([facility]) [address] [place], [address], 09/25/2024 07:08:05 09/24/19 25 09/25/2024 BMP7+ EGFR carbon dioxide, total 22 mmol/ L 20-29 Not Available [facility] ([facility]) [address] [facility] [place], [address], 09/25/2024 07:08:05 09/24/1909/25/2024 VITAM IN B12 AND FOLAT E vitamin B12 499 pg/mL 232-12 45 Not Available [facility] ([facility]) [address] [facility], [place], [address], 09/25/2024 07:08:07 09/24/1909/25/2024 VITAM IN B12 AND FOLAT E folate (folic acid), serum 6.8 NG/mL >3.0 A serum folat e judith ntrat ion of less than 3.1 ng/mL is consi dered to repre sent clini cici defic iency . Not Available [facility] ([facility]) [address] [facility], [place], [address], 09/25/2024 07:08:07 09/24/1909/24/2024 CBC WITH DIFFE RENTI AL/PL ATELE T WBC 5.9 x10e3 /uL 3.4-10 .8 Not Available [facility] ([facility]) [address] [facility], [place], [address], 09/25/2024 07:08:08 09/24/19 25 09/24/2024 CBC WITH DIFFE RENTI AL/PL ATELE T RBC 5.23 x10e6 /uL 3.77-5 .28 Not Available [facility] ([facility]) [address] [facility], [place], [address], 09/25/2024 07:08:08 09/24/19 25 09/24/2024 CBC WITH DIFFE RENTI AL/PL ATELE T hemoglobin 14.8 g/dL 11.1-1 5.9 Not Available [facility] ([facility]) [address] [facility] [place], [address], 09/25/2024 07:08:08 09/24/19 25 09/24/2024 CBC WITH DIFFE RENTI AL/PL ATELE T hematocrit 45.1 % 34.0-4 6.6 Not Available [facility] ([facility]) [address] [place], [address], 09/25/2024 07:08:08 09/24/19 25 09/24/2024 CBC WITH DIFFE RENTI AL/PL ATELE T MCV 86 fL 79-97 Not Available [facility] ([facility]) [address] [facility] [place], [address], 09/25/2024 07:08:08 09/24/19 25 09/24/2024 CBC WITH DIFFE RENTI AL/PL ATELE T MCH 28.3 pg 26.6-3 3.0 Not Available [facility] ([facility]) [address] [facility] [place], [address], 09/25/2024 07:08:08 09/24/19 25 09/24/2024 CBC WITH DIFFE RENTI AL/PL ATELE T MCHC 32.8 g/dL 31.5-3 5.7 Not Available [facility] ([facility]) [address] [place], [address], 09/25/2024 07:08:08 09/24/19 25 09/24/2024 CBC WITH DIFFE RENTI AL/PL ATELE T RDW 12.9 % 11.7-1 5.4 Not Available [facility] ([facility]) [address] [place], [address], 09/25/2024 07:08:08 09/24/19 25 09/24/2024 CBC WITH DIFFE RENTI AL/PL ATELE T platelets 234 x10e3 /uL 150-45 0 Not Available [facility] ([facility]) [address] [place], [address], 09/25/2024 07:08:08 09/24/19 25 09/24/2024 CBC WITH DIFFE RENTI AL/PL ATELE T neutrophils 65 % notest ab. Not Available [facility] ([facility]) [address] [facility], [place], [address], 09/25/2024 07:08:08 09/24/19 25 09/24/2024 CBC WITH DIFFE RENTI AL/PL ATELE T lymphs 27 % notest ab. Not Available [facility] ([facility]) [address] [facility], [place], [address], 09/25/2024 07:08:08 09/24/19 25 09/24/2024 CBC WITH DIFFE RENTI AL/PL ATELE T monocytes 6 % notest ab. Not Available [facility] ([facility]) [address] [facility], [place], [address], 09/25/2024 07:08:08 09/24/19 25 09/24/2024 CBC WITH DIFFE RENTI AL/PL ATELE T eos 2 % notest ab. Not Available [facility] ([facility]) [address] [facility], [place], [address], 09/25/2024 07:08:08 09/24/1909/24/2024 CBC WITH DIFFE RENTI AL/PL ATELE T basos 0 % notest ab. Not Available [facility] ([facility]) [address] [facility], [place], [address], 09/25/2024 07:08:08 09/24/19 25 09/24/2024 CBC WITH DIFFE RENTI AL/PL ATELE T neutrophils (absolute) 3.8 x10e3 /uL 1.4-7. 0 Not Available [facility] ([facility]) [address] [facility], [place], [address], 09/25/2024 07:08:08 09/24/19 25 09/24/2024 CBC WITH DIFFE RENTI AL/PL ATELE T lymphs (absolute) 1.6 x10e3 /uL 0.7-3. 1 Not Available [facility] ([facility]) [address] [facility], [place], [address], 09/25/2024 07:08:08 09/24/19 25 09/24/2024 CBC WITH DIFFE RENTI AL/PL ATELE T monocytes(ab solute) 0.4 x10e3 /uL 0.1-0. 9 Not Available [facility] ([facility]) [address] [facility], [place], [address], 09/25/2024 07:08:08 09/24/19 25 09/24/2024 CBC WITH DIFFE RENTI AL/PL ATELE T eos (absolute) 0.1 x10e3 /uL 0.0-0. 4 Not Available [facility] ([facility]) [address] [facility], [place], [address], 09/25/2024 07:08:08 09/24/19 25 09/24/2024 CBC WITH DIFFE RENTI AL/PL ATELE T baso (absolute) 0.0 x10e3 /uL 0.0-0. 2 Not Available [facility] ([facility]) [address] [facility], [place], [address], 09/25/2024 07:08:08 09/24/19 25 09/24/2024 CBC WITH DIFFE RENTI AL/PL ATELE T immature granulocytes 0 % notest ab. Not Available [facility] ([facility]) [address] [facility], [place], [address], 09/25/2024 07:08:08 09/24/19 25 09/24/2024 CBC WITH DIFFE RENTI AL/PL ATELE T immature grans (abs) 0.0 x10e3 /uL 0.0-0. 1 Not Available [facility] ([facility]) [address] [facility], [place], [address], 09/25/2024 07:08:08 12/29/19 24 12/28/2023 MAMMO , scree sussy, digit al, bilat eral No observ ation [facility] [address] [address], [place], [address], 01/03/2024 11:53:02 05/26/20 24 05/25/2024 CT, angio gram, chest , w/ contr ast No observ ation record ed. [address] [address], [place], [address], 06/14/2024 12:05:30 06/07/20 24 06/07/2024 naz can cardi olite stres s test (PROC ) No observ ation record ed. [address] ([facility]iology [facility] Em[facility]) [address] [place] [address], [place], [address], 06/14/2024 12:05:29 06/22/20 24 06/07/2024 naz can cardi olite stres s test (PROC ) No observ ation record ed. [facility] (Cardiology & Em[facility]) [address] [place] [address], [address], 06/22/2024 14:57:16 09/05/19 25 08/31/2024 colon oscop y bijan hi (PROC ) No observ ation record ed. BARCODE Not Available 2024 09:16:32 10/03/19 25 10/03/2024 CT, abdom en + pelvi s, w/ contr ast No observ ation record ed. [address] [address], [place], [address], 10/05/2024 00:41:30 Result Notes None recorded. Problems Name Problem SNOMED Code Status Onset Date Resolution Date Notes Provider Name and Address Organization Details Recorded Time Atrophic vaginitis 37275377 Active 2023 CAPO Rasheed Attn: Nancy palacios,[address] [facility] [address] [address], [place], [address], [facility] 09:54:21 Diffuse spasm of esophagus 46624912 Active 2023 CAPO Rasheed Attn: Accountin g,[address] [place], [place], [address] [place] [address] 2, [place] [facility] 4 09:54:22 Bilateral dermatitis of external ear canals 3973560786191 104 Active 2023 CAPO Rasheed Attn: Accountin g,[address] [place], [place], [address] [place] [address], [place] [facility] 4 09:54:23 Vitamin B12 deficiency (non anemic) 12799668 Active 2023 CAPO Rasheed Attn: Accountin g,[address] [place], [place], [address] [place] [address], [place] [facility] 4 09:54:25 Hypertrigly ceridemia 960841982 Active 2023 CAPO Rasheed Attn: Accountin g,[address] [place], [place], [address] [place] [address], [place] [facility] 4 09:54:26 Gastroesoph ageal reflux disease without esophagitis 987322718 Active 2023 CAPO Rasheed Attn: Accountin g,[address] [place], [place], [address] [place] [address], [place] [facility] 4 09:54:28 Mixed anxiety and depressive disorder 435393834 Active 2023 CAPO Rasheed Attn: Accountin g,[address] [place], [place], [address] [place] [address], [place] [facility] 4 09:54:29 Hypothyroid ism 56435879 Active 2023 CAPO Rasheed Attn: Accountin g,[address] [place], [place], [address] [place] [address] 2, [place] [facility] 4 09:54:31 Long-term current use of insulin 488403126 Active 2023 CAPO Rasheed Attn: Accountin g,[address] [place], [address], [place] [facility] 4 09:54:32 Uncontrolle d type 2 diabetes mellitus 019406096 Active 2023 CAPO Rasheed Attn: Accountin g,[address] [facility], [place], [address], [place] [facility] 4 09:54:33 Obesity 043319994 Active 2023 CAPO Rasheed Attn: Accountin g,[address] [facility], [place], [address], [place] [facility] 4 11:17:24 Body mass index 30+ - obesity 598329403 Active 2023 CAPO Rasheed Attn: Accountin g,[address] [facility], [place], [address], [place] [facility] 4 11:17:25 Irritable bowel syndrome with diarrhea 786991074 Active 2023 CAPO Rasheed Attn: Accountin g,[address] [facility], [place], [address], [place] [facility] 4 11:17:27 Benign essential hypertensio n 2702788 Active 2023 CAPO Rasheed Attn: Accountin g,[address] [facility], [place], [address], [place] [facility] 4 11:17:31 Cobalamin deficiency 561109161 Active 2023 CAPO Rasheed Attn: Accountin g,[address] [facility], [place], [address], [place] [facility] 4 11:17:33 Long-term drug therapy Active 2023 CAPO Rasheed Attn: Accountin g,[address] [facility], [place], [address], [place] [facility] 4 11:17:51 Feeling stressed 086405686 Active 2023 CAPO Rasheed Attn: Nancy g,[address], [place], [address], [facility] 09:48:37 Acid reflux 920080138 Active 2023 CAPO Rasheed Attn: Nancy g,[address], [place], [address], [facility] 4 12:06:37 Irritable bowel syndrome characteriz ed by alternating bowel habit 337814555 Active 2023 CAPO Rasheed Attn: Accountranjeet g,[address], [place], [address], [facility] 12:06:39 Problem Notes None recorded. Procedures Surgical History Date Name Laterality Status Provider Name and Address Organization Details Recorded Time Appendectomy completed Leda Brian MA [facility] 12/07/2023 14:49:11 Cholecystectomy completed Leda Brian MA [facility] 12/07/2023 14:49:16 Eye Surgery completed Leda Brian MA [facility] 12/07/2023 14:49:22 Hernia Repair completed Lead Brian MA [facility] 12/07/2023 14:49:27 Tonsillectomy completed Leda Brian MA [facility] 12/07/2023 14:49:43 hysterectomy completed eLda Brian MA [facility] 12/07/2023 14:49:52 ligation of bilateral fallopian tubes completed Leda Brian MA [facility] 12/07/2023 14:50:06 Imaging Results Imaging Date Name Status LastModified by Organiz ation Details LastModified Time 12/28/2023 MAMMO, screening, digital, bilateral completed [address] [place] [address], [address], 01/03/2024 11:53:02 05/25/2024 CT, angiogram, chest, w/ contrast completed [address], [address], 06/14/2024 12:05:30 06/07/2024 lexiscan cardiolite stress test (PROC) completed [address] (Cardiology [facility] Emg) [address] [place] [address], [address], 06/14/2024 12:05:29 06/07/2024 lexiscan cardiolite stress test (PROC) completed [facility] ([facility]iology [facility]) [address] [place] [address], [address], 06/22/2024 14:57:16 08/31/2024 colonoscopy screening (PROC) completed BAR[facility] Information not available 09/05/2024 09:16:32 10/03/2024 CT, abdomen + pelvis, w/ contrast active [address], [address], 10/05/2024 00:41:30 Procedure Notes None recorded. Medical Equipment None Reported. Allergies Allergen ID Allergen Name Allergen Category Reaction Reaction Severity Criticality Documentation Date Start Date Code Code System Note Provider Name and Address Organization Details Recorded Time 438090 Substance with morphinan structure and opioid receptor agonist mechanism of action (substanc e) medicatio n Not available Not available Not available 12/07/2023 38110 0592 SNOMED Not Available Not Available Not Available [...] t Available amlodipin e 5 mg tablet TAKE 1 AND 1/2 TABLETS BY MOUTH EVERY DAY 2024 active Not Available Not Available Not Avai lable omeprazol e 40 mg capsule,d elayed release [...] 4 175.26 cm 20 /min 31.3 kg/m2 87329.8 7 g 96 % 96 % 80 /min 132 mm[Hg] 88 mm[Hg] Leda Brian MA [facility] 4 12:45:57 Date Recorded Systolic blood pressure Diastolic blood pressure Provider Name and Address Organization Details Last Updated DateTime 12/07/2023 140 mm[Hg] 84 mm[Hg] CAPO Rasheed Attn: Accounting,[address] [place], [address], [facility] 12/07/2023 13:14:16 Date Recorded Body height Body mass index (BMI) Body weight Respiratory rate Oxygen saturation Oxygen saturation in Arterial blood by Pulse oximetry Heart rate Systolic blood pressure Diastolic blood pressure Provider Name and Address Organization Details Last Updated DateTime 4 175.26 cm 32.1 kg/m2 20752.6 9 g 20 /min 96 % 96 % 82 /min 158 mm[Hg] 98 mm[Hg] Leda Brian MA [facility] 4 17:05:00 Date Recorded Systolic blood pressure Diastolic blood pressure Systolic blood pressure Diastolic blood pressure Provider Name and Address Organization Details Last Updated DateTime 02/21/2024 180 mm[Hg] 100 mm[Hg] 180 mm[Hg] 98 mm[Hg] CAPO Laboy Attn: Accounting ,[address] [place], [address] , [facility] 4 17:32:23 Date Recorded Body height Body mass index (BMI) Body weight Respiratory rate Oxygen saturation Oxygen saturation in Arterial blood by Pulse oximetry Heart rate Systolic blood pressure Diastolic blood pressure Provider Name and Address Organization Details Last Updated DateTime 4 175.26 cm 32.1 kg/m2 82026.6 9 g 20 /min 96 % 96 % 84 /min 160 mm[Hg] 100 mm[Hg] Leda Brian MA [facility] 4 11:27:27 Date Recorded Systolic blood pressure Diastolic blood pressure Systolic blood pressure Diastolic blood pressure Provider Name and Address Organization Details Last Updated DateTime 05/08/2024 160 mm[Hg] 100 mm[Hg] 140 mm[Hg] 92 mm[Hg] CAPO Laboy Attn: Accounting ,[address] [place], [address] , [facility] 12:02:07 Date Recorded Body height Body mass index (BMI) Body weight Heart rate Oxygen saturation Oxygen saturation in Arterial blood by Pulse oximetry Respiratory rate Systolic blood pressure Diastolic blood pressure Provider Name and Address Organization Details Last Updated DateTime 4 175.26 cm 31.9 kg/m2 05144.9 5 g 86 /min 95 % 95 % 18 /min 130 mm[Hg] 82 mm[Hg] Zee Powell MA [facility] 4 11:38:36 Date Recorded Systolic blood pressure Diastolic blood pressure Provider Name and Address Organization Details Last Updated DateTime 06/14/2024 130 mm[Hg] 72 mm[Hg] CAPO Rasheed Attn: Accounting,[address] [place], [address], [facility] 06/14/2024 12:06:31 Date Recorded Body height Body mass index (BMI) Body weight Oxygen saturation Oxygen saturation in Arterial blood by Pulse oximetry Heart rate Respiratory rate Systolic blood pressure Diastolic blood pressure Provider Name and Address Organization Details Last Updated DateTime 5 175.26 cm 31.6 kg/m2 38254.7 7 g 98 % 98 % 84 /min 18 /min 142 mm[Hg] 80 mm[Hg] Leda Brian MA [facility] 5 11:45:32 Date Recorded Systolic blood pressure Diastolic blood pressure Provider Name and Address Organization Details Last Updated DateTime 09/04/2024 140 mm[Hg] 80 mm[Hg] CAPO Rasheed Attn: Accounting,[address] [place], [address], [facility] 09/04/2024 12:18:44 Social History Question Answer Notes LastModified by Organizat ion Details LastModified Time Tobacco Smoking Status Former Smoker quit 40 years ago [facility]eda [facility] 12/07/2023 12:41:15 Do You Have [...] Response Coronary Artery Disease N Other N Atrial Fibrillation N High Blood Pressure N Kidney or Bladder Problems N Thyroid Problems Y GI Problems N Depression Y COPD N Blood Clots N Skin Problems Y Anemia N Heart Attack ([place]) N Anxiety Disorder Y Diabetes Y Muscle, [...] PF, 30 mcg/0.3 mL dose 1 [place] [facility] 06/13/2024 11:20:42 COVID-19, mRNA, LNP-S, PF, 30 mcg/0.3 mL dose 1 [place] [facility] 06/13/2024 11:20:42 influenza, unspecified formulation 2 [place] [facility] 06/13/2024 11:20:42 influenza, unspecified formulation 3 [place] [facility] 06/13/2024 11:20:42 Influenza, high-dose, trivalent, PF 6 [place] [facility] 06/13/2024 11:20:42 Influenza, high-dose, trivalent, PF 8 [place] [facility] 06/13/2024 11:20:42 Influenza, split virus, trivalent, preservative 4 [place] [facility] 06/13/2024 11:20:42 Influenza, high-dose, trivalent, PF 4 completed CAPO Rasheed Attn: Accounting,[address] [place], [address], [facility] 07/01/2024 12:35:29 Past Encounters Encounter ID Performer Location Encounter Start Date Encounter Closed Date Diagnosis/Indication Diagnosis SNOMED-CT Code Diagnosis ICD10 Code Diagnosis Note [id number] CAPO Rasheed [facility] [place] [address] [place] [address] 12/07/2023 12:24:44 12/07/2023 13:54:54 Hypothyroidism 01224544 E03.9 due for TFT panel. she says endocrine is only managing her diabetes and she needs refill on levothyrox ine 125mcg daily. Mixed anxi ety and depressive disorder 651857838 F41.8 stable at this time. no acute c/o. she takes alprazolam 1mg bid PRN. Uncontroll ed type 2 diabetes mellitus 045699436 E11.65 last a1c around 11% and ran in office from Endocrinol shaquille. on tresiba and fiasp therapy with them. labs per their office. Gastroesop hageal reflux disease without esophagitis 490250656 K21.9 stable on famotidine 20mg bid. Long-term drug therapy 524315607 Z79.899 routine bmp, lft and cbc due. Bilateral dermatitis of external ear canals 9400565765 351106 H60.93 rx for refill fluocinoni de 0.05% cream bid PRN Long-term current use of insulin 504760201 Z79.4 as above. Hypertriglyceridemia 302 603488 E78.2 on vascepa 1g 2 bid. due for fasting lipids. Screening mammography 24 629158 Z12.31 mammogram is due. Vitamin B1 2 deficiency (non anemic) 20163512 E53.8 screening b12 lab and then will decide b12 injection dosing schedule. Diffuse sp asm of esophagus 95306393 K22.4 refill on amitriptyl ine 10mg qhs. Atrophic vaginitis 23380 000 N95.2 refill on estradiol 0.01% cream [place] three times per week. [id number] CAPO Rasheed [facility] [place] [address] [place] [address] 02/21/2024 16:28:41 02/23/2024 16:15:58 Body mass index 30+ - obesity 957305765 Z68.32 BMI is 32.1 Obesity 363230956 E66.8 discussed healthy diet, exercise, controllin g carbohydra robert and added sugars in the diet Benign ess ential hypertension 0317055 I10 Start amlodipine 5 mg p.o. daily for elevated blood pressure in 180/98 range on multiple checks today. Encouraged patient to control sodium in her diet keeping it low, encouragin g some walking for exercise and weight loss to also help manage hypertensi on. Irritable bowel syndrome with diarrhea 603893821 K58.0 just needs refill on PRN infrequent use. Cobalamin deficiency 190 834460 E53.8 Refill on vitamin B12 solution for monthly injection. Long-term drug therapy 219773918 Z79.899 Labs are currently all up-to-date . Hypothyroidism 68516881 E03.9 Patient is stable on levothyrox ine 125mcg daily. She is up-to-date on labs and being managed by endocrinol shaquille. [id number] CAPO Rasheed [facility] [employer] [address] [place] [address] 05/08/2024 10:44:38 05/08/2024 12:49:37 Benign essential hypertension 8761614 I10 BP is 140/92, add losartan 25 mg daily to the regimen with amlodipine 7.5 mg daily to better control hypertensi on Long-term drug therapy 722006027 Z79.899 All labs are currently up-to-date Dyspnea on exertion 6084 5006 R06.09 Refer for Lexiscan cardiac stress testing and CT angiogram of the chest with contrast Feeling stressed 5755674 06 Z73.3 Related to her son living with her still. Patient does have alprazolam dosing that she uses on a p.r.n. basis. Have encouraged her to start titration down on this [id number] CAPO Rasheed [facility] [employer] [address] [place] [address] 06/14/2024 11:22:04 06/18/2024 14:58:01 Administration of influenza vaccine 19844335 Z23 Flu shot given today Vitamin B1 2 deficiency (non anemic) 96244835 E53.8 Refill on B12 solution Benign ess ential hypertension 4790602 I10 Blood pressure is improved and stable on amlodipine 7.5 mg daily Acid reflux 268518579 K2 1.9 needs updated EGD completed. Saw Dr. Fitzgerald in the past but he has retired. need alternate option that saw her in practice. pt will get back to us about the name of who to send it to. Irritable bowel syndrome characterized by alternating bowel habit 537810196 K58.9 pt will be due for colonoscop y. will prefer to get at same time as EGD as ordered above. Pt will notify us of the doctor to fax orders to. Trial of Amitiza 24 mcg twice daily Long-term drug therapy 792859740 Z79.899 All labs are currently up-to-date [id number] CAPO Rasheed [facility] [place] [facility] [address] [place] [address] 09/04/2024 11:31:43 09/04/2024 13:44:09 Gastroesophageal reflux disease without esophagitis 366086279 K21.9 Refill omeprazole 40 mg daily to be taken in the morning with reflux noted on her EGD this she is provided us notes a lot Headache 34542686 R51.9 Refer for MRI of the brain with and without contrast for more frequent almost daily headaches the last few weeks. Abdominal pain 50697369 R10.9 Generalize d abdominal pain that waxes and wanes we will send for CT scan abdomen and pelvis with contrast Tortuous colon 168769630 3 2107 K63.89 Patient also has a history of tortuous colon unable to have complete evaluation on her colonoscop y. Benign ess ential hypertension 0604466 I10 Blood pressure is improved and stable on amlodipine 7.5 mg daily Long-term drug therapy 449617767 Z79.899 Due for CBC, BMP and liver panel Cholesterol screening 27 8059445 Z13.220 Fasting lipids are due Hypothyroidism 73597809 E03.9 Patient is stable on levothyrox ine 125mcg daily. She is following with endocrinol shaquille and is due for an updated thyroid function panel Vitamin B1 2 deficiency (non anemic) 25434215 E53.8 Check vitamin B12 and folate labs Health Concerns Section Related Observation LastModified by Organization Detai ls LastModified Time None Recorded Concern Status LastModified by Organization Details LastModified Time None Recorded Advance Directives Directive N: Payers Encounter Date Sequence Insurance Name Policy Number Policy Street Covered Member ID Street Member ID Guarantor Name 12/07/2023 1 [place] Jazlyn Montgomery [id number] Jazlyn Montgomery 12/07/2023 2 [facility] (MEDICAID HMO) [id number] Jazlyn Montgomery [id number] Jazlyn Montgomery 02/21/2024 2 [place] WHEN MED[place]ARE OR MEDICARE REPLACEMENT PRIMARY) Jazlyn Montgomery [id number] Jazlyn Montgomery 02/21/2024 [place] [facility] Jazlyn Montgomery [id number] Jazlyn Montgomery 05/08/2024 1 [place] Jazlyn Montgomery [id number] Jazlyn Montgomery 05/08/2024 2 [place]IC[place]AC[place]) Jazlyn Montgomery [id number] Jazlyn Montgomery 06/14/2024 1 [place] Jazlyn Montgomery [id number] Jazlyn Montgomery 06/14/2024 2 [place]ACEMENT [place]) Jazlyn Montgomery [id number] Jazlyn Montgomery 09/04/2024 1 [place] Jazlyn Montgomery [id number] Jazlyn Montgomery 09/04/2024 2 [place]AC[place]IMARY) Jazlyn Montgomery [id number] Jazlyn Montgomery Notes Date Note Type Note [...] 125mcg daily. CAPO Rasheed Attn: Accounting, [address] [place], [address], [facility] 12/26/2023 09:54:50 02/21/20 24 text/ht ml DiabetesReported [...] helped her. CAPO Rasheed Attn: Accounting, [address] [place], [address], [facility] [place] [place] 03/04/2024 11:21:20 05/08/20 24 text/ht ml HypertensionReported [...] and go. CAPO Rasheed Attn: Accounting, [address] [place], [address], [facility] [place] 05/27/2024 09:49:15 06/14/20 24 text/ht ml Bowel [...] B12 refill CAPO Rasheed Attn: Accounting, [address] [place], [address], [facility] [place] [place] 07/01/2024 12:43:06 09/04/19 25 text/ht ml Bowel [...] hypothyroidism which is managed now by her hogshead mat inspector and she is on levothyroxine 125 mcg daily. Patient would like to have her B12 refill CAPO Rasheed Attn: Accounting, [address] [place], [address], [facility] 09/23/2024 23:16:35 OBGyn Episode No OBEpisode recorded.
--- OUTSIDE RECORDS SUMMARY | 2024-10-09 08:15 | XMS_ITS | Clinical Summary ---
Author Organization [facility] Address [address] [place] [address] Care Team Providers Care Feedmobile Driver Name Role Phone Naif Brownlee MD Primary Care Provider [phone] [facility],non-owned Affiliates and Associated Physician Practices is amultiple site organization consisting of ambulatory clinics and hospital sitesin [place], [place], [place] and [place]. This disclosure is being madepursuant to the Care Everywhere program and may not contain all information available regarding this patient. Last updated 18.[facility] milabent Social History Tobacco Use Types Packs/Day Years [...] age to complete this topic Care Teams Feedmobile Driver Relationship Specialty Start Date End Date Naif Brownlee MD [address] [place] [id number] PCP - General 02/10/18
--- OUTSIDE RECORDS SUMMARY | 2024-10-09 08:15 | XMS_ITS | Patient Health Summary ---
Author Organization [facility] Address [address] [place] [address] Care Team Providers Care Agent Licensing Clerk Name Role Phone Naif Brownlee MD Primary Care Provider [phone] Note from [facility],non-owned Affiliates and Associated Physician Practices is amultiple site organization consisting of ambulatory clinics and hospital sitesin [place], [place], [place] and [place]. This disclosure is being madepursuant to the Care Everywhere program and may not contain all information available regarding this patient. Last updated 18.[facility] Social History Tobacco Use Types Packs/Day Years Used Date Smoking Tobacco: Never Assessed Sex and Gender Information Value Date Recorded Sex Assigned at Not on file Gender Identity Not on file Sexual Orientation Not on file Care Teams Agent Licensing Clerk Relationship Specialty Start Date End Date Naif Brownlee MD [address] [place] [address] PCP - General 02/10/18
== END 2024-10-09 07:50 | disposition home or self-care (01) ==
PROVIDERS: PCP Physician Assistant; Visit Provider Physician Assistant
DX: M47.812 Spondylosis without myelopathy or radiculopathy, cervical region (principal); Z86.73 Personal history of transient ischemic attack (TIA), and cerebral infarction without residual deficits
CPT/HCPCS: 70553; 72141; A9577

== ENCOUNTER 2024-10-19 11:59 | Outpatient (CLI) | payer MEDICARE, MEDICAID, SELFPAY ==
--- NOTE | ~2024-10-19 | XR_ITS ---
EXAMINATION: XR knee LT 3V DATE: 10/19/2024 12:23 INDICATION: Left knee pain. TECHNIQUE: 3 views of left knee were obtained. COMPARISON: Left knee radiographs 08/08/2023 FINDINGS: Alignment is normal. No fracture. There is mild tricompartmental osteoarthritis. No knee itz int effusion. IMPRESSION: 1. Mild left knee osteoarthritis. Reviewed, dictated and finalized at location A. 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
--- OUTSIDE RECORDS SUMMARY | 2024-10-19 12:06 | XMS_ITS | Referral Summary ---
Author Organization [facility] Address [address] [place] [address] Care Team Providers Care Fermentation Operator Name Role Phone Naif Brownlee MD Primary Care Provider [phone] Source Comments [facility],non-owned Affiliates and Associated Physician Practices is amultiple site organization consisting of ambulatory clinics and hospital sitesin [place], [place], [place] and [place]. This disclosure is being madepursuant to the Care Everywhere program and may not contain all information available regarding this patient. Last updated 18.[facility] [place] Social History Tobacco Use Types Packs/Day Years Used Date Smoking Tobacco: Never Assessed Sex and Gender Information Value Date Recorded Sex Assigned at Not on file Gender Identity Not on file Sexual Orientation Not on file Plan of Treatment Not on file Care Teams Fermentation Operator Relationship Specialty Start Date End Date Naif Brownlee MD [address] [place] [id number] PCP - General 02/10/18
--- OUTSIDE RECORDS SUMMARY | 2024-10-19 12:06 | XMS_ITS | Clinical Summary ---
Author Organization [facility] Address [address] [place] [address] Care Team Providers Care Theoretical Physicist Name Role Phone Unavailable Primary Care Provider [...] Department Care Team Description 09/03/2024 Orders Only [facility] Medical [facility] General Surgery - [place] [address], [address] [place] [address] Sean Gomez MD 08/28/2024 9:15 AM [facility] Anesthesia Event [facility] OR [address] [place] [address] Lobo Lehman, Omar Banks MD 08/28/2024 9:06 AM MACHINIST 2ND SHIFT - 08/28/2024 9:45 AM MACHINIST 2ND SHIFT Surgery [facility] OR [address] [place] [address] Sean Gomez MD COLONOSCOPY 08/28/2024 7:43 AM MACHINIST 2ND SHIFT - 08/28/2024 11:10 AM [facility] Hospital Encounter [facility] OR [address] [place] [address] Sean Gomez MD Discharge Disposition: Home or [...] Comments Blood Pressure 133/80 08/28/2024 10:20 AM MACHINIST 2ND SHIFT Pulse 80 08/28/2024 8:29 AM MACHINIST 2ND SHIFT Temperature 36.6 C (97.8 F) 08/28/2024 9:55 AM MACHINIST 2ND SHIFT Respiratory Rate 18 08/28/2024 10:10 AM MACHINIST 2ND SHIFT Oxygen Saturation 96% 08/28/2024 10:20 AM MACHINIST 2ND SHIFT Inhaled Oxygen Concentration - - Weight 95.3 kg (210 lb) 08/28/2024 8:29 AM MACHINIST 2ND SHIFT Height 175.3 cm (5' 9 ) 08/28/2024 8:29 AM MACHINIST 2ND SHIFT Body Mass Index 31.01 08/28/2024 8:29 AM MACHINIST 2ND SHIFT Plan of Treatment Health Maintenance Due Date Last Done Comments PHQ-2 (Physician [place]) 1962 Hepatitis C 1966 DTaP, Tdap and Td Vaccines (1 - Tdap) 1967 Zoster Vaccines (1 of 2) 1998 Annual Medicare Wellness Visit 2013 Dexa Scan (General) 2013 Pneumococcal Vaccine: 65+ Years (2 of 2 - PCV) 10/23/2016 10/23/2015 COVID-19 Vaccine (3 - season) 2024 06/25/2021, 05/25/2021 PHQ-2 (Physician [place]) 08/29/2024 Influenza Adult Completed 06/14/2024, 05/30, 06/22/2020, [...] GI ENDOSCOPY,ALBERTOATN W GUIDE 08/28/2024 9:13 AM MACHINIST 2ND SHIFT Gastroesophageal reflux disease Irritable bowel syndrome Special Needs IDDM diabeticLives an hour away so doesn't want to be too early UPPER GI ENDOSCOPY,BIOPSY 08/28/2024 9:13 AM MACHINIST 2ND SHIFT Gastroesophageal reflux disease Irritable bowel syndrome Special Needs IDDM diabeticLives an hour away so doesn't want to be too early COLONOSCOPY FLX DX W/COLLJ SPEC WHEN PFRMD 08/28/2024 9:13 AM MACHINIST 2ND SHIFT Gastroesophageal reflux disease Irritable bowel syndrome Special Needs IDDM diabeticLives an hour away so doesn't want to be too early POCT GLUCOSE - CARPIO DOCKED DEVICE Routine 08/28/2024 8:45 AM MACHINIST 2ND SHIFT PATHOLOGY Routine 08/28/2024 12:00 AM MACHINIST 2ND SHIFT from Last 3 Months Results * (ABNORMAL) POCT glucose (08/28/2024 8:45 AM MACHINIST 2ND SHIFT) GLUCOSE POC 220(H) 70 - 99 MG/DL 08/28/2024 8:47 AM MACHINIST 2ND SHIFT [facility] 08/28/2024 8:45 AM MACHINIST 2ND SHIFT us Sean Gomez MD POCT ORDERABLES - DEVICE Fi nal Result [facility] [address] [place] [address], * Pathology (08/28/2024 12:00 AM MACHINIST 2ND SHIFT) PATHOLOGY [facility] Department of Laboratory Medicine [address] [place] [address] , extension [phone] Pathology Report Surgical Pathology Report Name: JAZLYN WRIGHT Specimen #: [id number] Age: 11 1950 (Age: 74) Location: [facility] Sex: F Procedure Date: 08/28/2024 [facility] #: [id number] Date Received: 08/30/2024 Date Reported: 08/31/2024 Provider: [...] interpretation, and sign out were performed at [facility], [address] [place] [address]. Electronically Signed Out VAL YEPEZ MD [facility] TISSUE GASTRIC BIOPSY SPECIMEN / Unknown 08/28/2024 9:21 AM MACHINIST 2ND SHIFT Tissue specimen (specimen) ESOPHAGEAL STRUCTURE / Unknown 08/28/2024 9:23 AM MACHINIST 2ND SHIFT us Sean Gomez MD PATHOLOGY/CYTOLOGY ORDERABL ES Final Result [facility] [address] [place] [address], [id number] from Last 3 Months Insurance [place] [address] MEDICARE
--- OUTSIDE RECORDS SUMMARY | 2024-10-19 12:06 | XMS_ITS | Clinical Summary ---
Author Organization [facility] Address [address] [place] [address] Care Team Providers Care Script Editor Name Role Phone Naif Brownlee MD Primary Care Provider [phone] Source Comments [facility],non-owned Affiliates and Associated Physician Practices is amultiple site organization consisting of ambulatory clinics and hospital sitesin [place], [place], [place] and [place]. This disclosure is being madepursuant to the Care Everywhere program and may not contain all information available regarding this patient. Last updated 18.[facility] [place]. [place] Social History Tobacco Use Types Packs/Day Years [...] age to complete this topic Care Teams Script Editor Relationship Specialty Start Date End Date Naif Brownlee MD [address] [place] [phone] PCP - General 02/10/18
--- OUTSIDE RECORDS SUMMARY | 2024-10-19 12:06 | XMS_ITS | Patient Health Summary ---
Author Organization [facility] Address [address] [place] [address] Care Team Providers Care Industrial Designer Name Role Phone Naif Brownlee MD Primary Care Provider [phone] [facility],non-owned Affiliates and Associated Physician Practices is amultiple site organization consisting of ambulatory clinics and hospital sitesin [place], [place], [place] and [place]. This disclosure is being madepursuant to the Care Everywhere program and may not contain all information available regarding this patient. Last updated 18.[facility] Social History Tobacco Use Types Packs/Day Years Used Date Smoking Tobacco: Never Assessed Sex and Gender Information Value Date Recorded Sex Assigned at Not on file Gender Identity Not on file Sexual Orientation Not on file Care Teams Industrial Designer Relationship Specialty Start Date End Date Naif Brownlee MD [address] [place] [phone] PCP - General 02/10/18
--- OUTSIDE RECORDS SUMMARY | 2024-10-19 12:06 | XMS_ITS | Data Portability ---
Author Organization [facility], Main Office Address [address] [place] [address] Care Team Providers Care Transfer Professor Name Role Phone BAMBIADRIEN BOSCH Primary Care Provider ADRIEN STEVENS Referring Provider Assessment No assessment recorded. Plan of Treatment Reminders Order Date Submit Date Provider Last Modified By Organization Details Last Modified Time Details Appointments None recorded. Lab urinalysis, complete 2022 023 [facility], [address], [place], [address], 3 21:12:08 culture, urine 2022 023 [facility], [address], [place], [address], 3 21:12:10 BMP, serum or plasma 2022 023 [facility], [address], [place], [address], 3 21:12:03 CBC w/ auto diff 2022 023 [facility], [address], [place], [address], 3 21:12:07 hepatic function panel, serum 2022 023 [facility] [facility], [address], [place], [address], 3 21:12:04 lipid panel, serum 2022 023 [facility], [address], [address], [place], [address], 3 21:12:03 microalbumi n/creatinin e, mass ratio, urine 2022 023 [facility], [address], [address], [place], [address], 3 21:12:02 C-reactive protein, quantitativ e, serum or plasma 2022 023 [facility]ONS [facility], [address], [address], [place], [address], 3 21:12:09 erythrocyte sedimentati on rate by westergren method 2022 023 ALLONS [facility], [address], [address], [place], [address], 3 21:12:06 TSH, serum or plasma 2022 023 ALLONS [facility], [address], [address], [place], [address], 3 21:12:05 T4, free, serum 2022 023 [facility], [address], [address], [place], [address], 3 21:12:06 vitamin B12, serum 2022 023 [facility], [address], [place], [address], 3 21:12:09 Referral None recorded. Procedures None recorded. Surgeries None recorded. Imaging XR, pelvis 2022 023 [email or web address] [facility], [address], [place], [address], 3 16:52:53 XR, hip, bilateral 2022 023 [facility] , [address], [address], [place], [address], 3 12:44:42 Medication Orders cyanocobala min (vit B-12) 1,000 mcg/mL injection solution [email or web address] [id number], [address] [place], [place], [id number], 3 17:13:03 cyanocobala min (vit B-12) 1,000 mcg/mL injection solution 2022 023 [id number], [address] [place], [place], [id number], 3 12:42:30 Patient TargetsNo targets recorded. Patient InstructionsNo instructions recorded. Reason for Referral None Reported. Results Created Date Observation Date Name Description Value Unit Range Abnormal Flag Note LastModifiedBy Organization Detail LastModifiedTime 03/18/2003/19/2023 ALBUM IN, RANDO M URINE W/CRE ATINI NE creatinine, random urine 104 mg/dL 20-275 normal Not Available [facility] [address] [place], [address], 03/19/2023 21:12:02 03/18/20 23 03/19/2023 ALBUM IN, RANDO M URINE W/CRE ATINI NE albumin, urine 0.3 mg/dL see note: normal Refer ence Range : Refer ence Range Not estab lishe d Not Available [facility] [address] [place], [address], 03/19/2023 21:12:02 03/18/20 23 03/19/2023 ALBUM IN, [...] a diagn ostic categ ory. Not Available [address], [address], 03/19/2023 21:12:02 03/18/20 23 03/19/2023 LIPID PANEL WITH RATIO S cholesterol, total 257 mg/dL <200 high Not Available [address] [place], [address], 03/19/2023 21:12:03 03/18/20 23 03/19/2023 LIPID PANEL WITH RATIO S HDL cholesterol 46 mg/dL > or = 50 low Not Available [address], [address], 03/19/2023 21:12:03 03/18/20 23 03/19/2023 LIPID PANEL [...] Not Available [facility] [address] [place], [address], 03/19/2023 21:12:03 03/18/20 23 03/19/2023 LIPID PANEL [...] 9): 2061- 2068 (http ://ed ucati on.Qu Computerlogy. com/f aq/FA Q164) Not Available [facility] [address] [place], [address], 03/19/2023 21:12:03 03/18/20 23 03/19/2023 LIPID PANEL WITH RATIO S chol/HDLC ratio 5.6 (calc ) <5.0 high Not Available [facility] [address] [address] [place], [address], 03/19/2023 21:12:03 03/18/20 23 03/19/2023 LIPID PANEL WITH RATIO S LDL/HDL ratio 3.7 (calc ) Below avera ge Risk: <2.34 Alleman ge Risk: 2.35- 4.12 Moder ate Risk: 4.13- 5.56 High Risk: >5.57 Not Available [facility] [address] , [place], [address], 03/19/2023 21:12:03 03/18/20 23 03/19/2023 LIPID PANEL WITH RATIO S non HDL cholesterol 211 mg/dL _(cici c) <130 high For patie nts with diabe robert plus 1 major ASCVD risk facto r, treat ing to a non-H DL-C goal of <100 mg/dL (LDL- C of <70 mg/dL ) is consi nakita a tessa stratton optio n. Not Available [facility] [address] [place], [address], 03/19/2023 21:12:03 03/18/20 23 03/19/2023 BASIC METAB OLIC PANEL glucose 160 mg/dL 65-99 high Fasti ng refer ence inter griffin For someo ne witho ut known diabe robert, a gluco se value >125 mg/dL indic ates that they may have diabe robert and this shoul d be confi rmed with a follo w-up test. Not Available [address], [address], 03/19/2023 21:12:03 03/18/20 23 03/19/2023 BASIC METAB OLIC PANEL urea nitrogen (BUN) 20 mg/dL 7-25 normal Not Available [address], [address], 03/19/2023 21:12:03 03/18/20 23 03/19/2023 BASIC METAB OLIC PANEL creatinine 1.11 mg/dL 0.60-1 .00 high Not Available [address], [address], 03/19/2023 21:12:03 03/18/20 23 03/19/2023 BASIC METAB [...] kdoqi /gfr% 5Fcal culat or Not Available [address], [address], 03/19/2023 21:12:03 03/18/20 23 03/19/2023 BASIC METAB OLIC PANEL BUN/creatini ne ratio 18 (calc ) 6-22 normal Not Available [address] [place], [address], 03/19/2023 21:12:03 03/18/20 23 03/19/2023 BASIC METAB OLIC PANEL sodium 138 mmol/ L 135-14 6 normal Not Available [address], [address], 03/19/2023 21:12:03 03/18/20 23 03/19/2023 BASIC METAB OLIC PANEL potassium 4.2 mmol/ L 3.5-5. 3 normal Not Available [address], [address], 03/19/2023 21:12:03 03/18/20 23 03/19/2023 BASIC METAB OLIC PANEL chloride 103 mmol/ L 98-110 normal Not Available [address], [address], 03/19/2023 21:12:03 03/18/20 23 03/19/2023 BASIC METAB OLIC PANEL carbon dioxide 28 mmol/ L 20-32 normal Not Available [address], [address], 03/19/2023 21:12:03 03/18/20 23 03/19/2023 BASIC METAB OLIC PANEL calcium 9.5 mg/dL 8.6-10 .4 normal Not Available [address], [address], 03/19/2023 21:12:03 03/18/20 23 03/19/2023 HEPAT IC FUNCT ION PANEL protein, total 6.7 g/dL 6.1-8. 1 normal Not Available [address], [address], 03/19/2023 21:12:04 03/18/20 23 03/19/2023 HEPAT IC FUNCT ION PANEL albumin 3.9 g/dL 3.6-5. 1 normal Not Available [address] [place], [address], 03/19/2023 21:12:04 03/18/20 23 03/19/2023 HEPAT IC FUNCT ION PANEL globulin 2.8 g/dL_ (calc ) 1.9-3. 7 normal Not Available [address] [address] [place], [address], 03/19/2023 21:12:04 03/18/20 23 03/19/2023 HEPAT IC FUNCT ION PANEL albumin/glob ulin ratio 1.4 (calc ) 1.0-2. 5 normal Not Available [address], [address], 03/19/2023 21:12:04 03/18/20 23 03/19/2023 HEPAT IC FUNCT ION PANEL bilirubin, total 0.6 mg/dL 0.2-1. 2 normal Not Available [address] [address] [place], [address], 03/19/2023 21:12:04 03/18/20 23 03/19/2023 HEPAT IC FUNCT ION PANEL bilirubin, direct 0.1 mg/dL < or = 0.2 normal Not Available [address] [address] [place], [address], 03/19/2023 21:12:04 03/18/20 23 03/19/2023 HEPAT IC FUNCT ION PANEL bilirubin, indirect 0.5 mg/dL _(cici c) 0.2-1. 2 normal Not Available [address] [address] [place], [address], 03/19/2023 21:12:04 03/18/20 23 03/19/2023 HEPAT IC FUNCT ION PANEL alkaline phosphatase 63 U/L 37-153 normal Not Available [address] [address] [place], [address], 03/19/2023 21:12:04 03/18/20 23 03/19/2023 HEPAT IC FUNCT ION PANEL AST 12 U/L 10-35 normal Not Available [address], [address], 03/19/2023 21:12:04 03/18/20 23 03/19/2023 HEPAT IC FUNCT ION PANEL ALT 16 U/L 6-29 normal Not Available [address], [address], 03/19/2023 21:12:04 03/18/20 23 03/19/2023 TSH TSH 1.13 mIU/L 0.40-4 .50 normal Not Available [address], [address], 03/19/2023 21:12:05 03/18/20 23 03/19/2023 T4, FREE T4, free 1.2 NG/dL 0.8-1. 8 normal Not Available [address], [address], 03/19/2023 21:12:06 03/18/20 23 03/19/2023 SED RATE BY MODIF IED WESTE RGREN sed rate by modified westergren 28 mm/h < or = 30 normal Not Available [address], [address], 03/19/2023 21:12:06 03/18/20 23 03/19/2023 CBC (INCL UDES DIFF/ PLT) white blood cell count 4.7 thous and/u L 3.8-10 .8 normal Not Available [address], [address], 03/19/2023 21:12:07 03/18/20 23 03/19/2023 CBC (INCL UDES DIFF/ PLT) red blood cell count 4.97 rosy on/uL 3.80-5 .10 normal Not Available [address] [place], [address], 03/19/2023 21:12:07 03/18/20 23 03/19/2023 CBC (INCL UDES DIFF/ PLT) hemoglobin 14.0 g/dL 11.7-1 5.5 normal Not Available [address], [address], 03/19/2023 21:12:07 03/18/20 23 03/19/2023 CBC (INCL UDES DIFF/ PLT) hematocrit 42.4 % 35.0-4 5.0 normal Not Available [address], [address], 03/19/2023 21:12:07 03/18/20 23 03/19/2023 CBC (INCL UDES DIFF/ PLT) MCV 85.3 fL 80.0-1 00.0 normal Not Available [address], [address], 03/19/2023 21:12:07 03/18/20 23 03/19/2023 CBC (INCL UDES DIFF/ PLT) MCH 28.2 pg 27.0-3 3.0 normal Not Available [address], [address], 03/19/2023 21:12:07 03/18/20 23 03/19/2023 CBC (INCL UDES DIFF/ PLT) MCHC 33.0 g/dL 32.0-3 6.0 normal Not Available [address], [address], 03/19/2023 21:12:07 03/18/20 23 03/19/2023 CBC (INCL UDES DIFF/ PLT) RDW 13.1 % 11.0-1 5.0 normal Not Available [address], [address], 03/19/2023 21:12:07 03/18/20 23 03/19/2023 CBC (INCL UDES DIFF/ PLT) platelet count 213 thous and/u L 140-40 0 normal Not Available [address], [address], 03/19/2023 21:12:07 03/18/20 23 03/19/2023 CBC (INCL UDES DIFF/ PLT) MPV 10.4 fL 7.5-12 .5 normal Not Available [address], [address], 03/19/2023 21:12:07 03/18/20 23 03/19/2023 CBC (INCL UDES DIFF/ PLT) absolute neutrophils 2515 cells /uL 1500-7 800 normal Not Available [address], [address], 03/19/2023 21:12:07 03/18/20 23 03/19/2023 CBC (INCL UDES DIFF/ PLT) absolute lymphocytes 1814 cells /uL 850-39 00 normal Not Available [address], [address], 03/19/2023 21:12:07 03/18/20 23 03/19/2023 CBC (INCL UDES DIFF/ PLT) absolute monocytes 301 cells /uL 200-95 0 normal Not Available [address], [address], 03/19/2023 21:12:07 03/18/20 23 03/19/2023 CBC (INCL UDES DIFF/ PLT) absolute eosinophils 71 cells /uL 15-500 normal Not Available [address], [address], 03/19/2023 21:12:07 03/18/20 23 03/19/2023 CBC (INCL UDES DIFF/ PLT) absolute basophils 0 cells /uL 0-200 normal Not Available [address], [address], 03/19/2023 21:12:07 03/18/20 23 03/19/2023 CBC (INCL UDES DIFF/ PLT) neutrophils 53.5 % normal Not Available [facility] [address], [address], 03/19/2023 21:12:07 03/18/20 23 03/19/2023 CBC (INCL UDES DIFF/ PLT) lymphocytes 38.6 % normal Not Available [facility] [address], [address], 03/19/2023 21:12:07 03/18/20 23 03/19/2023 CBC (INCL UDES DIFF/ PLT) monocytes 6.4 % normal Not Available [facility] [address], [address], 03/19/2023 21:12:07 03/18/20 23 03/19/2023 CBC (INCL UDES DIFF/ PLT) eosinophils 1.5 % normal Not Available [facility] [address], [address], 03/19/2023 21:12:07 03/18/20 23 03/19/2023 CBC (INCL UDES DIFF/ PLT) basophils 0.0 % normal Not Available [address], [address], 03/19/2023 21:12:07 03/18/20 23 03/19/2023 URINA LYSIS , COMPL ETE color YELLOW yellow normal Not Available [facility] [address], [address], 03/19/2023 21:12:08 03/18/20 23 03/19/2023 URINA LYSIS , COMPL ETE appearance CLEAR clear normal Not Available [facility] [address], [address], 03/19/2023 21:12:08 03/18/20 23 03/19/2023 URINA LYSIS , COMPL ETE specific gravity 1.015 1.001- 1.035 normal Not Available [address], [address], 03/19/2023 21:12:08 03/18/20 23 03/19/2023 URINA LYSIS , COMPL ETE pH < OR = 5.0 5.0-8. 0 normal Not Available [address], [address], 03/19/2023 21:12:08 03/18/20 23 03/19/2023 URINA LYSIS , COMPL ETE glucose NEGATI VE negati ve normal Not Available [address], [address], 03/19/2023 21:12:08 03/18/20 23 03/19/2023 URINA LYSIS , COMPL ETE bilirubin NEGATI VE negati ve normal Not Available [address], [address], 03/19/2023 21:12:08 03/18/20 23 03/19/2023 URINA LYSIS , COMPL ETE ketones NEGATI VE negati ve normal Not Available [address], [address], 03/19/2023 21:12:08 03/18/20 23 03/19/2023 URINA LYSIS , COMPL ETE occult blood NEGATI VE negati ve normal Not Available [facility] [address], [address], 03/19/2023 21:12:08 03/18/20 23 03/19/2023 URINA LYSIS , COMPL ETE protein NEGATI VE negati ve normal Not Available [address] [place], [address], 03/19/2023 21:12:08 03/18/20 23 03/19/2023 URINA LYSIS , COMPL ETE nitrite NEGATI VE negati ve normal Not Available [address], [address], 03/19/2023 21:12:08 03/18/20 23 03/19/2023 URINA LYSIS , COMPL ETE leukocyte esterase NEGATI VE negati ve normal Not Available [address], [address], 03/19/2023 21:12:08 03/18/20 23 03/19/2023 URINA LYSIS , COMPL ETE WBC NONE SEEN /hpf < or = 5 normal Not Available [address], [address], 03/19/2023 21:12:08 03/18/20 23 03/19/2023 URINA LYSIS , COMPL ETE RBC NONE SEEN /hpf < or = 2 normal Not Available [address], [address], 03/19/2023 21:12:08 03/18/20 23 03/19/2023 URINA LYSIS , COMPL ETE squamous epithelial cells 10-20 /hpf < or = 5 abnormal Not Available [address], [address], 03/19/2023 21:12:08 03/18/20 23 03/19/2023 URINA LYSIS , COMPL ETE bacteria NONE SEEN /hpf none seen normal Not Available [address], [address], 03/19/2023 21:12:08 03/18/20 23 03/19/2023 URINA LYSIS , COMPL ETE hyaline cast NONE SEEN /lpf none seen normal Not Available [address], [address], 03/19/2023 21:12:08 03/18/20 23 03/19/2023 VITAM IN B12 vitamin B12 >2000 pg/mL 200-11 00 high Not Available [facility] [address] [address] [place], [address], 03/19/2023 21:12:09 03/18/20 23 03/19/2023 C-JOANIE CTIVE PROTE IN C-reactive protein 4.3 mg/L <8.0 normal Not Available [facility] [address] [place], [address], 03/19/2023 21:12:09 03/18/20 23 03/19/2023 CULTU RE, URINE , ROUTI NE culture, urine, routine CULTU RE, URINE , ROUTI NE Micro Numbe r: [id number] Test Statu s: Final Speci men [...] Not Available [facility] [address] [address] , [place], [address], 03/19/2023 21:12:10 07/20/20 22 07/20/2022 XR, chest , 2 view No observ ation record ed. [id number] [facility] [address], [place], [address], 10/27/2022 01:16:06 09/06/19 23 08/11/2022 MRI, lumba r spine , w/wo contr ast No observ ation record ed. [id number] [facility] [address], [place], [address], 10/27/2022 01:16:06 03/18/20 23 03/18/2023 XR, hip, bilat eral No observ ation record ed. [email or web address] [facility] [address], [place], [address], 03/25/2023 10:35:06 Result Notes None recorded. Problems Name Problem SNOMED Code Status Onset Date Resolution Date Notes Provider Name and Address Organization Details Recorded Time Irritable bowel syndrome 45614951 Active Not Available [facility] 3 01:05:13 Chronic vaginitis 34050653 Active Not Available [facility] 3 01:05:13 Herpes labialis 2744492 Active Not Available [facility] 3 01:05:13 Constipati on 49433649 Active Not Available [facility] 3 01:05:13 Acute sinusitis 56090835 Active Not Available [facility] 3 01:05:13 Left flank pain 368965834 Active Not Available [facility] 3 01:05:13 Cobalamin deficiency 191612551 Active Not Available [facility] 3 01:05:13 Recurrent anxiety 201067418 Active Not Available [facility] 3 01:05:13 Gastroesop hageal reflux disease 232779949 Active Not Available [facility] 3 01:05:13 Screening mammograph y Active 2021 Not Available [facility] 3 01:05:13 Headache 21289691 Active Not Available [facility] 3 01:05:13 Long-term drug therapy Active 2021 Not Available [facility] 3 01:05:13 Mixed hyperlipid emia 593607245 Active 2021 Not Available [facility] 3 01:05:13 Low back pain 566901253 Active 2021 Not Available [facility] 3 01:05:13 Rib pain 076694988 Active Not Available [facility] 3 01:05:14 Right upper quadrant pain 045531396 Active Not Available [facility] 3 01:05:14 Otitis externa 5992255 Active Not Available [facility] 3 01:05:14 Sarcoidosi s 54082128 Active 1977 Not Available [facility] 3 01:05:14 Acute pharyngiti s 060833514 Active Not Available [facility] 3 01:05:14 Dizziness 874041839 Active 2021 Not Available [facility] 3 01:05:14 Hypothyroi dism 93987841 Active Not Available [facility] 3 01:05:14 Nausea 852608854 Active Not Available [facility] 3 01:05:14 Night sweats 63672314 Active Not Available [facility] 3 01:05:14 Acute urinary tract infection 913008046 Active 2022 Not Available [facility] 3 01:05:14 Streptococ cici sore throat 73145299 Active Not Available [facility] 3 01:05:14 Uncontroll ed type 2 diabetes mellitus 046713179 Active 2021 Not Available [facility] 3 01:05:14 Anxiety 54215632 Active Not Available [facility] 3 01:05:15 Dysuria 37015763 Active Not Available [facility] 3 01:05:15 Cough 14859631 Active Not Available [facility] 3 01:05:15 Stomach cramps 82565989 Active 2022 Not Available [facility] 3 01:05:15 Atrophic vaginitis 33202950 Active Not Available [facility] 3 01:05:15 Hyperlipid emia 04618229 Active 2021 Not Available [facility] 3 01:05:15 Essential hypertensi on 62795545 Active 2021 Not Available [facility] 3 01:05:15 Vitamin B12 deficiency (non anemic) 08485021 Active 2021 Not Available [facility] 3 01:05:15 Otitis media 60136646 Active Not Available [facility] 3 01:05:15 Posterior rhinorrhea 12582733 Active Not Available [facility] 3 01:05:16 Epigastric pain 89808964 Active Not Available [facility] 3 01:05:16 Diffuse spasm of esophagus 40547667 Active Not Available [facility] 3 01:05:16 COVID-19 545824624 Active 2021 Not Available [facility] 3 01:05:16 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 Active Not Available [facility] 3 01:05:16 Impaired glucose tolerance 9060132 Active Not Available [facility] 3 01:05:16 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 Not Available [facility] 3 01:05:16 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 Not Available [facility] 3 01:05:16 Pain in pelvis 03159031 Active 2022 CAPO Rasheed [address], [address], [place], [address] , [facility] 3 10:22:00 Bilateral hip joint pain 1114147325145 9100 Active 2022 CAPO Rasheed [address], [address], [place], [address] , [facility] 3 10:22:08 Multiple joint pain 39824325 Active 2022 CAPO Rasheed [address], [address], [place], [address] , [facility] 3 10:25:00 Lower urinary tract symptoms 265509210 Active 2022 CAPO Rasheed [address], [address], [place], [address] , [facility] 3 10:25:35 Gastroesop hageal reflux disease without esophagiti s 909682097 Active 2022 CAPO Rasheed [address], [address], [place], [address] , [facility] 3 15:51:34 Thoracic back pain 411941616 Active 2022 CAPO Rasheed [address], [place], [address] , [facility] 3 14:55:34 Problem Notes None recorded. Procedures Surgical History Date Name Laterality Status Provider Name and Address Organization Details Recorded Time 04/01/20 Date of Last Colonoscopy completed Not Available [facility] 10/27/2022 00:57:07 01/27/20 16 Most Recent Bone Density completed Not Available [facility] 10/27/2022 00:57:08 12/14/19 09 Colonoscopy completed Not Available [facility] 10/27/2022 00:57:11 cholecystectomy completed Not Available [facility] 10/27/2022 00:57:11 Removal of thyroid completed Not Available [facility] 10/27/2022 00:57:11 Tonsillectomy completed Not Available [facility] 10/27/2022 00:57:11 hysterectomy completed Not Available [facility] 10/27/2022 00:57:11 hernia repair completed Not Available [facility] 10/27/2022 00:57:11 Imaging Results Imaging Date Name Status LastModified by Organiz ation Details LastModified Time 08/11/2022 MRI, lumbar spine, w/wo contrast completed [id number] [facility] [address], [place], [address], 10/27/2022 01:16:06 07/20/2022 XR, chest, 2 view completed [id number] [address] [place] [address] [address], [place], [address], 10/27/2022 01:16:06 03/18/2023 XR, hip, bilateral completed [email or web address] [facility] [address], [place], [address], 03/25/2023 10:35:06 Procedure Notes None recorded. Medical Equipment None Reported. Allergies Allergen ID Allergen Name Allergen Category Reaction Reaction Severity Criticality Documentation Date Start Date Code Code System Note Provider Name and Address Organization Details Recorded Time 1774 Valium medicatio n Not available Not available Not available 10/27/2022 46977 2 RxNorm Not Available [facility] 3 01:15:26 1775 tetracycl ine medicatio n vomiting moderate Not available 10/27/2022 11361 RxNorm Not Available [facility] 3 01:15:26 1776 Pyridium medicatio n vomiting Not available Not available 10/27/2022 8998 RxNorm Not Available [facility] 3 01:15:27 1777 morphine medicatio n vomiting Not available Not available 10/27/2022 7052 RxNorm Not Available [facility] 3 01:15:27 1778 hydrocodo ne Not available vomiting Not available Not available 10/27/2022 5489 RxNorm Not Available [facility] 3 01:15:27 1779 codeine medicatio n vomiting Not available Not available 10/27/2022 2670 RxNorm Not Available [facility] 3 01:15:27 1780 Cipro medicatio n nausea Not available Not available 10/27/2022 30296 3 RxNorm Not Available [facility] 3 01:15:27 1781 cefdinir medicatio n rash Not available Not available 10/27/2022 18591 RxNorm head, neck, chest redne ss Not Available [facility] 3 01:15:27 1782 diazepam medicatio n dizziness Not available Not available 10/27/2022 3322 RxNorm error Not Available [facility] 3 01:15:27 1783 amitripty line medicatio n Not available Not available Not available 10/27/2022 704 RxNorm Not Available [facility] 3 01:15:27 Medications Name Sig [...] Available prednison e 10 mg tablet take 7j1sypc, 1o4nzht, 7c7vjzb, 1g8litz active Not Available Not Available No t [...] mL by injectio n route. 07/07 completed [facility]#: [id number] 93-28 Not Available Not Available Not Available [...] month by subcutan eous route. 2022 active [facility]# [id number] 44-00Tol erated well. Not Available Not Available [...] Available Not Available No t Available Fluvirin 0335-6082 45 mcg (15 mcg x 3)/0.5 mL [...] Not Available Not Available No t Available [facility] ODT 75 mg disintegr ating tablet [...] Recorded Body mass index (BMI) Body height Oxygen saturation Oxygen saturation in Arterial blood by Pulse oximetry Heart rate Body temperature Body weight Systolic blood pressure Diastolic blood pressure Provider Name and Address Organization Details Last Updated DateTime 3 32.1 kg/m2 167.64 cm 98 % 98 % 97 /min 97.2 [degF] 77334.8 8 g 122 mm[Hg] 78 mm[Hg] Not Available [facility] 01:00:35 Date Recorded Body height Body temperature Provider N jules and Address Organization Details Last Updated DateTime 06/15/2022 167.64 cm 98.2 [degF] Not Available [facility] 10/27/2022 01:00:44 Date Recorded Body height Oxygen saturation Oxygen saturation in Arterial blood by Pulse oximetry Heart rate Respiratory rate Body temperature Systolic blood pressure Diastolic blood pressure Provider Name and Address Organization Details Last Updated DateTime 3 167.64 cm 98 % 98 % 72 /min 16 /min 97 [degF] 122 mm[Hg] 78 mm[Hg] Not Available [facility] 3 01:00:35 Date Recorded Body height Body temperature Body mass index (BMI) Body weight Respiratory rate Oxygen saturation Oxygen saturation in Arterial blood by Pulse oximetry Heart rate Systolic blood pressure Diastolic blood pressure Provider Name and Address Organization Details Last Updated DateTime 3 167.64 cm 97.3 [degF] 34.6 kg/m2 23729.5 6 g 16 /min 96 % 96 % 81 /min 140 mm[Hg] 90 mm[Hg] MARIA D Jane [facility] 3 09:55:30 Date Recorded Body height Body temperature Body mass index (BMI) Body weight Respiratory rate Oxygen saturation Oxygen saturation in Arterial blood by Pulse oximetry Heart rate Systolic blood pressure Diastolic blood pressure Provider Name and Address Organization Details Last Updated DateTime 3 167.64 cm 96.5 [degF] 35.2 kg/m2 05158.1 4 g 16 /min 96 % 96 % 80 /min 138 mm[Hg] 80 mm[Hg] MARIA D Jane [employer] [facility] 3 14:28:10 Social History Question Answer Notes LastModified by Organizat ion Details LastModified Time Tobacco Smoking Status Former Smoker Not Available [facility] 10/27/2022 00:53:42 Do You Have An Advance Directive? Yes MIGRATION.[id number] Information not available 10/27/2022 What Is Your Level Of Alcohol Consumption? Occasional MIGRATION.843423 5402 Information not available 10/27/2022 Are You Blind Or Do You Have Difficulty Seeing? No MIGRATION.227953 7751 Information not available 10/27/2022 What Is Your Level Of Caffeine Consumption? Moderate MIGRATION.818946 5529 Information not available 10/27/2022 How Much Tobacco Do You Chew? None MIGRATION.523058 7091 Information not available 10/27/2022 In The 14 Days Before Symptom Onset, Have You Had Close Contact With A Laboratory-confir med COVID-19 While That Case Was Ill? No MIGRATION.725462 0467 Information not available 10/27/2022 In The 14 Days Before Symptom Onset, Have You Had Close Contact With A Person Who Is Under Investigation For COVID-19 While That Person Was Ill? No MIGRATION.922206 3797 Information not available 10/27/2022 Are You Currently Employed? No [email or web address] Information not available 03/17/2023 Are You Deaf Or Do You Have Serious Difficulty Hearing? No MIGRATION.416793 2978 Information not available 10/27/2022 What Type Of Diet Are You Following? REGULAR MIGRATION.643879 9422 Information not available 10/27/2022 Which Illicit Or Recreational Drugs Have You Used? None MIGRATION.621839 8537 Information not available 10/27/2022 Do You Or Have You Ever Used E-cigarettes Or Vape? Never Used Electronic Cigarettes MIGRATION.591304 6100 Information not available 10/27/2022 What Is Your Occupation? Retired MIGRATION.173974 6330 Information not available 10/27/2022 Have There Been Any Changes To Your Family Or Social Situation? No MIGRATION.239188 7931 Information not available 10/27/2022 Are There Any Guns Present In Your Home? Yes MIGRATION.970359 6896 Information not available 10/27/2022 Do You Use Insect Repellent Routinely? No [email or web address] Information not available 03/17/2023 Do You Have A Medical Power Of Radio Talk Show Host? No MIGRATION.839662 3640 Information not available 10/27/2022 What Was The Date Of Your Most Recent Tobacco Screening? 10/31/2020 MIGRATION.735312 3420 Information not available 10/27/2022 What Is Your Relationship Status? MIGRATION.374229 7417 Information not available 10/27/2022 Do You Use Your Seat Belt Or Car Seat Routinely? Yes MIGRATION.241520 6899 Information not available 10/27/2022 Do You Have Smoke And Carbon Monoxide Detectors In Your Home? Yes MIGRATION.673039 9191 Information not available 10/27/2022 At What Age Did You Start Smoking Tobacco? 28 MIGRATION.190895 6972 Information not available 10/27/2022 Do You Or Have You Ever Used Smokeless Tobacco? Never Used Smokeless Tobacco MIGRATION.099018 6282 Information not available 10/27/2022 How Much Tobacco Do You Smoke? 0.5 PPD MIGRATION.977060 8448 Information not available 10/27/2022 Do You Use Any Illicit Or Recreational Drugs? No MIGRATION.601250 2685 Information not available 10/27/2022 Do You Use Sunscreen Routinely? No MIGRATION.661403 6077 Information not available 10/27/2022 Have You Recently Traveled Abroad? No MIGRATION.442328 5587 Information not available 10/27/2022 Do You Have Any Dietary Restrictions? No MIGRATION.172398 8809 Information not available 10/27/2022 Do You Or Have You Ever Used Any Other Forms Of Tobacco Or Nicotine? No MIGRATION.354597 0699 Information not available 10/27/2022 Sex: Female Functional Status Question Answer Note LastModified by [employer] Details LastModified Time Do you have difficulty walking or climbing stairs? No MIGRATION.0311919 026 Information not available 10/27/2022 Do you have transportation difficulties? No MIGRATION.0634097 026 Information not available 10/27/2022 Are you able to walk? YESWOREST MIGRATION.0541487 026 Information not available 10/27/2022 Do you have difficulty doing errands alone? No MIGRATION.4442358 026 Information not available 10/27/2022 Are you able to care for yourself? Yes MIGRATION.9318472 026 Information not available 10/27/2022 Do you have difficulty dressing or bathing? No MIGRATION.1638297 026 Information not available 10/27/2022 What is your exercise level? None MIGRATION.9576529 026 Information not available 10/27/2022 Mental Status Question Answer Note LastModified by Organizat ion Details LastModified Time Do you have difficulty concentrating, remembering or making decisions? Yes MIGRATION.129657643 6 Information not available 10/27/2022 Family History Relationship Description Onset Age of this Age Resolved Age Notes LastModified by Organization Details LastModified Time Mother Diabetes mellitus MIGRATION.405 [id number] Not available 10/27/2022 00:57:14 Father Malignant tumor of stomach 83 MIGRATION.795 [id number] Not available 10/27/2022 00:57:14 Brother Malignant tumor of esophagus MIGRATION.654 0298128 Not available 10/27/2022 00:57:14 Son Mental disorder MIGRATION.193 [id number] Not available 10/27/2022 00:57:14 Medical History Condition Response BLINDNESS N NERVE DISEASE N RHEUMATIC FEVER N BLADDER PROBLEMS N KIDNEY STONES N OTHER # 1 N POLIO N [...] ARTERY DISEASE (CAD) N ADDICTION CONCERNS N ENDOMETRIOSIS N Impotence N USE OF BLOOD THINNERS N SKIN [...] APNEA N CHICKENPOX N INFECTIOUS DISEASE N HEART ARRHYTHMIA N PROSTATE N INSOMNIA N HIGH CHOLESTEROL / HYPERLIPIDEMIA N HYPERTHYROIDISM N EYE PROBLEMS N NEUROLOGICAL PROBLEMS N EDEMA N CHRONIC PAIN SYNDROME N HYPOTHYROIDISM N CAROTID BLOCKAGE N CONSTIPATION N BACK / NECK PROBLEMS Y HAVE YOU BEEN HOSPITALIZED OR SEEN IN [facility] IN THE PAST YEAR ? N [...] N ALZHEIMER'S DISEASE N Brain Problems N HERPES N DEMENTIA N HEADACHES/MIGRAINES N SEIZURES/EPILEPSY N VASCULAR DISEASE N PACEMAKER N Blood Disorder N DIZZINESS N HEART DISEASE/HEART PROBLEMS N KIDNEY DISEASE N MULTIPLE SCLEROSIS N CARDIAC ARRHYTHMIA N CANCER: SPECIFY Y ANESTHESIA COMPLICATIONS N ATRIAL FIBRILLATION N Gall Stones N PULMONARY EMBOLISM N AUTOIMMUNE DISEASE N Gynecological History Statement/Question Response Date of Last Pap 05/07/1997 Date of Last Mammogram 01/27/2016 Date of Last Colonoscopy 04/01/2020 Most Recent Bone Density 01/27/2016 Sexually Active? Y Obstetrics History GPAL:G 0 P 0 0 0 0 Immunizations Vaccine Type Date Status Note Provider Nam daina and Address Organization Details Recorded Time Novel Nweluimik-[id number], all formulations 6 completed Not Available [facility] 10/27/2022 01:15:16 influenza, unspecified formulation 6 completed Not Available [facility] 10/27/2022 01:15:16 COVID-19, mRNA, LNP-S, PF, 30 mcg/0.3 mL dose 1 completed Not Available [facility] 10/27/2022 01:15:16 COVID-19, mRNA, LNP-S, PF, 30 mcg/0.3 mL dose 1 completed Not Available [facility] 10/27/2022 01:15:16 Influenza, split virus, quadrivalent, preservative 8 completed Not Available [facility] 10/27/2022 01:15:16 influenza, unspecified formulation 4 completed Not Available [facility] 10/27/2022 01:15:16 Influenza, high-dose, trivalent, PF 7 completed Not Available [facility] 10/27/2022 01:15:16 pneumococcal polysaccharide PPV23 6 completed Not Available [facility] 10/27/2022 01:15:16 Influenza, split virus, quadrivalent, preservative 5 completed Not Available [facility] 10/27/2022 01:15:16 Past Encounters Encounter ID Performer Location Encounter Start Date Encounter Closed Date Diagnosis/Indication Diagnosis SNOMED-CT Code Diagnosis ICD10 Code Diagnosis Note [id number] [facility] [address] [place] [address] 10/31/2020 00:00:00 11/22/2020 20:55:14 [id number] [facility] [address] [place] [address] 01/20/2021 00:00:00 01/23/2021 17:41:58 [id number] [facility] [address] [place] [address] 03/25/2021 00:00:00 03/26/2021 00:43:21 [id number] [facility] [address] [place] [address] 05/05/2021 00:00:00 05/28/2021 20:25:19 [id number] [facility] [address] [place] [address] 06/30/2021 00:00:00 07/19/2021 21:24:40 [id number] [facility] [address] [place] [address] 07/01/2021 00:00:00 07/02/2021 15:06:48 [id number] [facility] [address] [place] [address] 09/25/2021 00:00:00 09/27/2021 11:22:11 [id number] [facility] [address] [place] [address] 11/30/2021 00:00:00 12/26/2021 10:03:24 [id number] [facility] [address] [place] [address] 12/29/2021 00:00:00 01/26/2022 23:04:19 [id number] [facility] [address] [place] [address] 01/05/2022 00:00:00 01/05/2022 18:00:20 [id number] [facility] [address] [place] [address] 04/20/2022 00:00:00 04/25/2022 09:13:56 [id number] [facility] [address] [place] [address] 05/18/2022 00:00:00 05/18/2022 17:53:51 [id number] [facility] [address] [place] [address] 06/15/2022 00:00:00 06/15/2022 18:35:44 [id number] [facility] [address] [place] [address] 09/15/2022 00:00:00 09/28/2022 20:36:03 [id number] [facility] Internal [facility] Kiersten Johnson [address] [facility] [place] [address] 10/25/2022 00:00:00 10/25/2022 19:30:46 [id number] CAPO Rasheed [facility] [address] [place] [address] 03/18/2023 09:48:00 03/18/2023 10:28:22 Bilateral hip joint pain 2785739433 5266802 M25.552 M25.551 check xrays of hip bilaterall y. Pain in pelvis 72468990 R10.2 check xray pelvis Cobalamin deficiency 190 176584 E53.8 refill b12 RX and check lab Hyperlipidemia 65977596 E78.5 fasting lipids are due Hypothyroidism 39911233 E03.9 on supplement and due for TFTs Multiple joint pain 3567 8005 M25.50 screening CRP and ESR with spike up in joint pain Long-term drug therapy 129626716 Z79.899 routine bmp, CBC and LFT due Lower urin estephania tract symptoms 386417838 R39.9 screening UA w/cx with long hx of UTIs and frequency noted Uncontroll ed type 2 diabetes mellitus 314446861 E11.65 managed by endo and A1c checked in that office. she is still due for albumin annual check [id number] CAPO Rasheed [facility] [place] [address] [facility] [place] [address] 07/20/2023 14:12:34 07/20/2023 15:02:26 Thoracic back pain 301137371 M54.6 right lateral flank pain episodes are reported by the patient today. she is not having pain currently. She will discuss this further with her pain management team and if P.T. can also be completed for this area while she is having her SI joint therapy. Vitamin B1 2 deficiency (non anemic) 33263064 E53.8 b12 injection given today. Health Concerns Section Related Observation LastModified by Organization Lemuel jimenes LastModified Time None Recorded Concern Status LastModified by Organization Details LastModified Time None Recorded Advance Directives Directive Y: Payers Encounter Date Sequence Insurance Name Policy Number Policy Street Covered Member ID Street Member ID Guarantor Name 03/18/2023 1 [place] Jazlyn Montgomery [id number] Jazlyn Montgomery 03/18/2023 2 [place] WHEN MEDICARE OR MEDICARE REPLACEMENT PRIMARY) Jazlyn Montgomery [id number] Jazlyn Montgomery 07/20/2023 1 [place] Jazlyn Montgomery [id number] Jazlyn Montgomery 07/20/2023 2 [place] OR MEDICARE REPLACEMENT [place]IMARY) Jazlyn Montgomery [id number] Jazlyn Montgomery Notes Date Note Type Note [...] sweats but unsure of fever Not Available [facility] [employer] 09/28/2022 20:36:03 023 text/ht ml Anxiety/DepressionReported bypatient.Severity:denies [...] skin changes; no hair changes Not Available [facility] [email or web address] [facility] 10/25/2022 19:30:46 023 text/ht ml FatigueReported bypatient.Quality:continuous [...] is all over her body. CAPO Rasheed [address], [facility] [address], [place], [address], [employer] [facility] [employer] [facility] 03/27/2023 12:34:43 023 text/ht ml Generic HPI TemplateReported bypatient.Notes:Pt is here for an e/r f/u from 07/05/23 for abd pain. They dx her w/gastritis. Records are in the room w/her. She says she had it for a couple more days after that but doing ok today. They didnt put her on anything. CAPO Rasheed [address], [facility] [address], [place], [address], [employer] [facility] [employer] [facility] 07/21/2023 11:29:18 OBGyn Episode No OBEpisode recorded.
--- OUTSIDE RECORDS SUMMARY | 2024-10-19 12:07 | XMS_ITS | Continuity of Care Document ---
Author Organization 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 Name Role Phone Joe Centeno Unavailable Unavailable Procedures Procedure Date Post-op Follow-up Visit Refraction Post-op Follow-up Visit Post-op Follow-up Visit Remove Cataract, Insert Lens Eye Exam & Treatment IOLMaster Advance Directives Directive Yes / No Effective Date File Name No Information Encounters Encounter Description Practice Location Reason(s) For Visit Diagnoses Date Provider Providers Copied on Encounter [facility], [address] [place] [address] [address], [place], [place], [id number], [place] tel:[phone] [facility] No Information Oct-2 5-200 9 Krishnasamy Joe. [address], [facility], [place]. tel:[phone] [facility], [address], [place], [place], [id number], [place] tel:[phone] [facility] No Information Mar-0 4-200 9 Krishnasamy Joe. [address] [facility] [address], [place], [address], [place]. tel:[phone] [facility], [address] [place] [address] [address], [place], [place], [address], tel:[phone] [facility] No Information b-2 0-200 9 Polanco OD Grzegorz. [address] [facility] [address], [place], [place], [facility], . tel:[phone] [facility], [address], [place], [place], [id number], tel:[phone] [facility] No Information Sep-1 9-200 9 Krishnasamy Joe. [facility] [address], [place], [facility], . tel:[phone] [facility], [address], [place], [place], [address], tel:[phone] [facility] No Information b-0 4-200 9 Krishnasamy Joe. [address] [place] [address], [facility], [place]. tel:[phone] Referring Provider: Joe vasquez, [address] [place] [address], [place], [facility]. tel:[phone] Family History Family Member Type Diagnosis Age At Onset No Information Payers Payer name Insurance type Covered libertarian ID Authoriza tion(s) No Information Social History [...]
--- OUTSIDE RECORDS SUMMARY | 2024-10-19 12:07 | XMS_ITS | Data Portability ---
Author Organization [facility] Address [address] [place] [address] Care Team Providers Care Dehorner Name Role Phone ADRIEN STEVENS Primary Care [...] Not available Not available Not available Lab cobala min and folate panel, serum 2024 025 [facility], [address], [address], [place], [address], 09/25/2024 07:08:07 lipid panel, serum 2024 025 [facility], [address], [place], [address], 09/25/2024 07:08:03 CBC w/ auto diff 2024 025 [facility], [address], [place], [address], 09/25/2024 07:08:08 hepati c functi on panel, serum 2024 025 [facility], [address], [place], [address], 09/25/2024 07:08:04 BMP, serum or plasma 2024 025 [facility], [address], [place], [address], 09/25/2024 07:08:06 TSH + free T4, serum 2024 025 [facility], [address], [place], [address], 09/25/2024 07:08:02 lipid panel, serum 2023 024 [facility], [address] [place] [address], [address], 12/27/2023 05:36:50 BMP, serum or plasma 2023 024 [facility], [address] [facility], [place], [address], 12/27/2023 05:36:51 hepati c functi on panel, serum 2023 024 [facility], [address] [facility], [place], [address], 12/27/2023 05:36:51 CBC w/ auto diff 2023 024 [facility], [address], [address], 12/27/2023 05:36:53 vitami n B12, serum 2023 024 [facility], [address], [address], 12/27/2023 05:36:53 TSH + free T4, serum 2023 024 [facility], [address], [place], [address], 12/27/2023 05:36:49 Referral None record ed. Procedures upper endosc opy proced ure (EGD) (PROC) - Patien t is in need a follow -up endosc opy proced ure 2023 024 mary Feng MD, [address], [address], [place], [address], 09/25/2024 12:24:37 colono scopy proced ure (PROC) 2023 024 mary Feng MD, [address], [address], [place], [address], 09/25/2024 12:24:36 lexisc an cardio lite stress test (PROC) 2023 024 [facility] (Cardiology [facility]), [address] [place] [address] [address], [place], [address], 06/07/2024 16:10:45 Surgeries None record ed. Imaging CT, abdome n + pelvis , w/ contra st 2024 025 [facility] (Imaging), [address], [place], [address], 10/03/2024 16:48:49 MRI, brain, w/wo contra st 2024 025 [facility] (Imaging), [address], [place], [address], 10/09/2024 11:46:09 CT, angiog venus, chest, w/ contra st 2023 024 [facility] (Cardiology [facility]), [address], [place], [address], 05/26/2024 08:59:01 MAMMO, screen ing, digita l, bilate ral 2023 024 [facility] (Mammography) , [address], [place], [address], 12/29/2023 12:55:36 Medication Orders omepra zole 40 mg capsul e,gerardo yed releas e 2024 025 [facility][id number], [address], [place], [place], [id number], 09/04/2024 12:19:03 cyanoc obalam in (vit B-12) 1,000 mcg/mL inject ion soluti on 2023 024 [email or web address] Not available 06/14/2024 12:25:27 Amitiz a 24 mcg capsul e 2023 024 [facility] #19716, [address], [place], [place], [id number], 07/01/2024 22:53:37 losart an 25 mg tablet 2023 024 [facility] #95376, [address], [place], [place], [id number], 05/27/2024 09:29:40 Lomoti l 2.5 mg-0.0 25 mg tablet 2023 024 [facility] #63617, [address], [place], [place], [id number], 02/21/2024 17:42:47 amlodi pine 5 mg tablet 2023 024 [facility] #45116, [address], [place], [place], [id number], 02/21/2024 17:34:50 cyanoc obalam in (vit B-12) 1,000 mcg/mL inject ion soluti on 2023 Not available 02/21/2024 18:12:20 estrad iol 0.01% (0.1 mg/gra m) vagina l cream 2023 [facility] #43602, [address], [place], [place], [id number], 12/07/2023 13:16:44 levoth yroxin e 125 mcg tablet 2023 [facility], [address] [facility], [place], [place], [id number], 09/04/2024 11:43:19 amitri ptylin e 10 mg tablet 2023 [facility] #80949, [address] [facility], [place], [place], [id number], 05/08/2024 11:24:55 fluoci nonide 0.05 % topica l cream 2023 024 [facility] #93617, [address] [facility], [place], [place], [id number], 12/07/2023 13:07:49 Patient TargetsNo targets recorded. Patient Instructions Encounter Date Encounter Id Patient Instructions Last Modified By Organization Details Last Modified Time 02/21/2024 [id number] A healthy lifestyle: care instructions Not available 02/21/2024 17:34:42 Reason for Referral None Reported. Results Created Date Observation Date Name Description Value Unit Range Abnormal Flag Note LastModifiedBy Organization Detail LastModifiedTime 12/26/19 24 12/27/2023 TSH+F REE T4 TSH 1.260 uIU/m L 0.450- 4.500 Not Available [facility] ([facility]) [address] [facility], [place], [address], 12/27/2023 05:36:49 12/26/19 24 12/27/2023 TSH+F REE T4 T4,free(dire ct) 1.43 NG/dL 0.82-1 .77 Not Available [facility] ([facility]) [address] [place], [address], 12/27/2023 05:36:49 12/26/19 24 12/27/2023 LIPID PANEL cholesterol, total 274 mg/dL 100-19 9 above high normal Not Available [facility] ([facility]) [address] [place], [address], 12/27/2023 05:36:50 12/26/19 24 12/27/2023 LIPID PANEL triglyceride s 319 mg/dL 0-149 above high normal Not Available [facility] ([facility]) [address] [place], [address], 12/27/2023 05:36:50 12/26/19 24 12/27/2023 LIPID PANEL HDL cholesterol 45 mg/dL >39 Not Available [facility]) [address] [place], [address], 12/27/2023 05:36:50 12/26/19 24 12/27/2023 LIPID PANEL VLDL cholesterol cici 61 mg/dL 5-40 above high normal Not Available [facility] ([facility]) [address] [place], [address], 12/27/2023 05:36:50 12/26/19 24 12/27/2023 LIPID PANEL LDL chol calc [facility]) 168 mg/dL 0-99 above high normal Not Available [facility] ([facility]) [address] [place], [address], 12/27/2023 05:36:50 12/26/19 24 12/27/2023 HEPAT IC FUNCT ION PANEL (7) protein, total 6.7 g/dL 6.0-8. 5 Not Available [facility] ([facility]) [address] [place], [address], 12/27/2023 05:36:50 12/26/19 24 12/27/2023 HEPAT IC FUNCT ION PANEL (7) albumin 4.0 g/dL 3.8-4. 8 Not Available [facility] ([facility]) [address] [facility], [place], [address], 12/27/2023 05:36:50 12/26/19 24 12/27/2023 HEPAT IC FUNCT ION PANEL (7) bilirubin, total 0.3 mg/dL 0.0-1. 2 Not Available [facility] ([facility]) [address] [facility], [place], [address], 12/27/2023 05:36:50 12/26/19 24 12/27/2023 HEPAT IC FUNCT ION PANEL (7) bilirubin, direct <0.10 mg/dL 0.00-0 .40 Not Available [facility] ([facility]) [address] [facility], [place], [address], 12/27/2023 05:36:50 12/26/19 24 12/27/2023 HEPAT IC FUNCT ION PANEL (7) alkaline phosphatase 71 IU/L 44-121 Not Available [facility]) [address] [facility], [place], [address], 12/27/2023 05:36:50 12/26/19 24 12/27/2023 HEPAT IC FUNCT ION PANEL (7) AST (SGOT) 15 IU/L 0-40 Not Available [facility] ([facility]) [address] [facility] [place], [address], 12/27/2023 05:36:50 12/26/19 24 12/27/2023 HEPAT IC FUNCT ION PANEL (7) ALT (SGPT) 17 IU/L 0-32 Not Available [facility] ([facility]) [address] [facility], [place], [address], 12/27/2023 05:36:50 12/26/19 24 12/27/2023 BASIC METAB OLIC PANEL (8) glucose 176 mg/dL 70-99 above high normal Not Available [facility] ([facility]) [address] [place], [address], 12/27/2023 05:36:51 12/26/19 24 12/27/2023 BASIC METAB OLIC PANEL (8) BUN 17 mg/dL 8-27 Not Available [facility] ([facility]) [address] [place], [address], 12/27/2023 05:36:51 12/26/19 24 12/27/2023 BASIC METAB OLIC PANEL (8) creatinine 1.10 mg/dL 0.57-1 .00 above high normal Not Available [facility] ([facility]) [address] [place], [address], 12/27/2023 05:36:51 12/26/19 24 12/27/2023 BASIC METAB OLIC PANEL (8) eGFR 52 mL/mi n/1.7 3 >59 below low normal Not Available [facility] ([facility]) [address] [place], [address], 12/27/2023 05:36:51 12/26/19 24 12/27/2023 BASIC METAB OLIC PANEL (8) BUN/creatini ne ratio 15 12-28 Not Available [facility] ([facility]) [address] [place], [address], 12/27/2023 05:36:51 12/26/19 24 12/27/2023 BASIC METAB OLIC PANEL (8) sodium 140 mmol/ L 134-14 4 Not Available [facility] ([facility]) [address] [place], [address], 12/27/2023 05:36:51 12/26/19 24 12/27/2023 BASIC METAB OLIC PANEL (8) potassium 4.3 mmol/ L 3.5-5. 2 Not Available [facility] ([facility]) [address] [facility], [place], [address], 12/27/2023 05:36:51 12/26/19 24 12/27/2023 BASIC METAB OLIC PANEL (8) chloride 101 mmol/ L 96-106 Not Available [facility] ([facility]) [address] [place], [address], 12/27/2023 05:36:51 12/26/19 24 12/27/2023 BASIC METAB OLIC PANEL (8) carbon dioxide, total 27 mmol/ L - Not Available [facility] ([facility]) [address] [facility], [place], [address], 12/27/2023 05:36:51 12/26/19 24 12/27/2023 BASIC METAB OLIC PANEL (8) calcium 9.6 mg/dL 8.7-10 .3 Not Available [facility] ([facility]) [address] [facility], [place], [address], 12/27/2023 05:36:51 12/26/19 24 12/26/2023 AMBIG ABBRE V BMP8 DEFAU LT ambig abbrev BMP8 default Commen t A hand- writt en panel /prof ile was recei heriberto from your offic e. In accor dance with the [facility] Ambloretta uous Test Code Polic y dated February [...] ciate your busin ess. Not Available [facility] ([facility]) [address] [place], [address], 12/27/2023 05:36:52 12/26/1912/26/2023 AMBIG ABBRE V LP DEFAU LT ambig abbrev LP default Commen t A hand- writt en panel /prof ile was recei heriberto from your offic e. In accor dance with the [facility] Ambig uous Test Code [facility] y dated February 2003, we have [...] appre ciate your busin ess. Not Available [facility] ([facility] [employer]) [address] [facility], [place], [address], 12/27/2023 05:36:52 12/26/1912/26/2023 AMBIG ABBRE V HFP7 DEFAU LT ambig abbrev hfp7 default Commen t A hand- writt en panel /prof ile was recei heriberto from your offic e. In accor dance with the [facility] Ambig uous Test Code [facility] y dated February 2003, we have [...] appre ciate your busin ess. Not Available [facility] ([facility] [employer]) [address] [place], [address], 12/27/2023 05:36:53 12/26/19 24 12/27/2023 VITAM IN B12 vitamin B12 412 pg/mL 232-12 45 Not Available [facility] ([facility]) [address] [facility], [place], [address], 12/27/2023 05:36:53 12/26/19 24 12/27/2023 CBC WITH DIFFE RENTI AL/PL ATELE T WBC 5.6 x10e3 /uL 3.4-10 .8 Not Available [facility] ([facility]) [address] [facility], [place], [address], 12/27/2023 05:36:53 12/26/19 24 12/27/2023 CBC WITH DIFFE RENTI AL/PL ATELE T RBC 5.08 x10e6 /uL 3.77-5 .28 Not Available [facility] ([facility]) [address] [facility], [place], [address], 12/27/2023 05:36:53 12/26/19 24 12/27/2023 CBC WITH DIFFE RENTI AL/PL ATELE T hemoglobin 14.8 g/dL 11.1-1 5.9 Not Available [facility] ([facility]) [address] [facility], [place], [address], 12/27/2023 05:36:53 12/26/19 24 12/27/2023 CBC WITH DIFFE RENTI AL/PL ATELE T hematocrit 44.9 % 34.0-4 6.6 Not Available [facility] ([facility]) [address] [facility], [place], [address], 12/27/2023 05:36:53 12/26/19 24 12/27/2023 CBC WITH DIFFE RENTI AL/PL ATELE T MCV 88 fL 79-97 Not Available [facility] ([facility]) [address] [place], [address], 12/27/2023 05:36:53 12/26/19 24 12/27/2023 CBC WITH DIFFE RENTI AL/PL ATELE T MCH 29.1 pg 26.6-3 3.0 Not Available [facility] ([facility]) [address] [facility], [place], [address], 12/27/2023 05:36:53 12/26/19 24 12/27/2023 CBC WITH DIFFE RENTI AL/PL ATELE T MCHC 33.0 g/dL 31.5-3 5.7 Not Available [facility] ([facility]) [address] [facility], [place], [address], 12/27/2023 05:36:53 12/26/19 24 12/27/2023 CBC WITH DIFFE RENTI AL/PL ATELE T RDW 13.2 % 11.7-1 5.4 Not Available [facility] ([facility]) [address] [facility], [place], [address], 12/27/2023 05:36:53 12/26/19 24 12/27/2023 CBC WITH DIFFE RENTI AL/PL ATELE T platelets 237 x10e3 /uL 150-45 0 Not Available [facility] ([facility]) [address] [facility], [place], [address], 12/27/2023 05:36:53 12/26/19 24 12/27/2023 CBC WITH DIFFE RENTI AL/PL ATELE T neutrophils 57 % notest ab. Not Available [facility] ([facility]) [address] [facility], [place], [address], 12/27/2023 05:36:53 12/26/19 24 12/27/2023 CBC WITH DIFFE RENTI AL/PL ATELE T lymphs 34 % notest ab. Not Available [facility] ([facility]) [address] [facility], [place], [address], 12/27/2023 05:36:53 12/26/19 24 12/27/2023 CBC WITH DIFFE RENTI AL/PL ATELE T monocytes 7 % notest ab. Not Available [facility] ([facility]) [address] [facility], [place], [address], 12/27/2023 05:36:53 12/26/19 24 12/27/2023 CBC WITH DIFFE RENTI AL/PL ATELE T eos 2 % notest ab. Not Available [facility] ([facility]) [address] [facility], [place], [address], 12/27/2023 05:36:53 12/26/19 24 12/27/2023 CBC WITH DIFFE RENTI AL/PL ATELE T basos 0 % notest ab. Not Available [facility] ([facility]) [address] [facility], [place], [address], 12/27/2023 05:36:53 12/26/19 24 12/27/2023 CBC WITH DIFFE RENTI AL/PL ATELE T neutrophils (absolute) 3.2 x10e3 /uL 1.4-7. 0 Not Available [facility] ([facility]) [address] [facility], [place], [address], 12/27/2023 05:36:53 12/26/19 24 12/27/2023 CBC WITH DIFFE RENTI AL/PL ATELE T lymphs (absolute) 1.9 x10e3 /uL 0.7-3. 1 Not Available [facility] ([facility]) [address] [facility], [place], [address], 12/27/2023 05:36:53 12/26/19 24 12/27/2023 CBC WITH DIFFE RENTI AL/PL ATELE T monocytes(ab solute) 0.4 x10e3 /uL 0.1-0. 9 Not Available [facility] ([facility]) [address] [facility], [place], [address], 12/27/2023 05:36:53 12/26/19 24 12/27/2023 CBC WITH DIFFE RENTI AL/PL ATELE T eos (absolute) 0.1 x10e3 /uL 0.0-0. 4 Not Available [facility] ([facility]) [address] [place], [address], 12/27/2023 05:36:53 12/26/19 24 12/27/2023 CBC WITH DIFFE RENTI AL/PL ATELE T baso (absolute) 0.0 x10e3 /uL 0.0-0. 2 Not Available [facility] ([facility]) [address] [place], [address], 12/27/2023 05:36:53 12/26/19 24 12/27/2023 CBC WITH DIFFE RENTI AL/PL ATELE T immature granulocytes 0 % notest ab. Not Available [facility] ([facility]) [address] [place], [address], 12/27/2023 05:36:53 12/26/19 24 12/27/2023 CBC WITH DIFFE RENTI AL/PL ATELE T immature grans (abs) 0.0 x10e3 /uL 0.0-0. 1 Not Available [facility] ([facility]) [address] [place], [address], 12/27/2023 05:36:53 09/24/1909/25/2024 TSH+F REE T4 TSH 3.150 uIU/m L 0.450- 4.500 Not Available [facility] ([facility]) [address] [place], [address], 09/25/2024 07:08:02 09/24/1909/25/2024 TSH+F REE T4 T4,free(dire ct) 1.68 NG/dL 0.82-1 .77 Not Available [facility] ([facility]) [address] [place], [address], 09/25/2024 07:08:02 09/24/19 25 09/25/2024 LIPID PANEL cholesterol, total 262 mg/dL 100-19 9 above high normal Not Available [facility] ([facility]) [address] [place], [address], 09/25/2024 07:08:03 09/24/19 25 09/25/2024 LIPID PANEL triglyceride s 205 mg/dL 0-149 above high normal Not Available [facility] ([facility]) [address] [place], [address], 09/25/2024 07:08:03 09/24/19 25 09/25/2024 LIPID PANEL HDL cholesterol 48 mg/dL >39 Not Available [facility] ([facility]) [address] [place], [address], 09/25/2024 07:08:03 09/24/19 25 09/25/2024 LIPID PANEL VLDL cholesterol cici 38 mg/dL 5-40 Not Available [facility] ([facility]) [address] [place], [address], 09/25/2024 07:08:03 09/24/19 25 09/25/2024 LIPID PANEL LDL chol calc [facility]) 176 mg/dL 0-99 above high normal Not Available [facility] ([facility]) [address] [place], [address], 09/25/2024 07:08:03 09/24/19 25 09/25/2024 HEPAT IC FUNCT ION PANEL (7) protein, total 6.8 g/dL 6.0-8. 5 Not Available [facility] ([facility]) [address] [place], [address], 09/25/2024 07:08:04 09/24/19 25 09/25/2024 HEPAT IC FUNCT ION PANEL (7) albumin 3.9 g/dL 3.8-4. 8 Not Available [facility] ([facility]) [address] [facility] [place], [address], 09/25/2024 07:08:04 09/24/19 25 09/25/2024 HEPAT IC FUNCT ION PANEL (7) bilirubin, total 0.4 mg/dL 0.0-1. 2 Not Available [facility] ([facility]) [address] [facility] [place], [address], 09/25/2024 07:08:04 09/24/19 25 09/25/2024 HEPAT IC FUNCT ION PANEL (7) bilirubin, direct 0.13 mg/dL 0.00-0 .40 Not Available [facility] ([facility]) [address] [facility], [address], 09/25/2024 07:08:04 09/24/19 25 09/25/2024 HEPAT IC FUNCT ION PANEL (7) alkaline phosphatase 74 IU/L 44-121 Not Available [facility] ([facility]) [address] [facility] [place], [address], 09/25/2024 07:08:04 09/24/19 25 09/25/2024 HEPAT IC FUNCT ION PANEL (7) AST (SGOT) 15 IU/L 0-40 Not Available [facility] ([facility]) [address] [facility] [place], [address], 09/25/2024 07:08:04 09/24/19 25 09/25/2024 HEPAT IC FUNCT ION PANEL (7) ALT (SGPT) 16 IU/L 0-32 Not Available [facility] ([facility]) [address] [facility], [address], 09/25/2024 07:08:04 09/24/19 25 09/25/2024 BMP7+ EGFR glucose 191 mg/dL 70-99 above high normal Not Available [facility] ([facility]) [address] [place], [address], 09/25/2024 07:08:05 09/24/19 25 09/25/2024 BMP7+ EGFR BUN 20 mg/dL 8-27 Not Available [facility] ([facility]) [address] [facility], [place], [address], 09/25/2024 07:08:05 09/24/19 25 09/25/2024 BMP7+ EGFR creatinine 1.02 mg/dL 0.57-1 .00 above high normal Not Available [facility] ([facility]) [address] [facility], [place], [address], 09/25/2024 07:08:05 09/24/19 25 09/25/2024 BMP7+ EGFR eGFR 57 mL/mi n/1.7 3 >59 below low normal Not Available [facility] ([facility]) [address] [facility], [place], [address], 09/25/2024 07:08:05 09/24/19 25 09/25/2024 BMP7+ EGFR sodium 139 mmol/ L 134-14 4 Not Available [facility] ([facility]) [address] [place], [address], 09/25/2024 07:08:05 09/24/19 25 09/25/2024 BMP7+ EGFR potassium 4.4 mmol/ L 3.5-5. 2 Not Available [facility] ([facility]) [address] [place], [address], 09/25/2024 07:08:05 09/24/19 25 09/25/2024 BMP7+ EGFR chloride 103 mmol/ L 96-106 Not Available [facility] ([facility]) [address] [place], [address], 09/25/2024 07:08:05 09/24/19 25 09/25/2024 BMP7+ EGFR carbon dioxide, total 22 mmol/ L 20-29 Not Available [facility] ([facility]) [address] [place], [address], 09/25/2024 07:08:05 09/24/19 25 09/25/2024 VITAM IN B12 AND FOLAT E vitamin B12 499 pg/mL 232-12 45 Not Available [facility] ([facility]) [address] [facility], [place], [address], 09/25/2024 07:08:07 09/24/19 25 09/25/2024 VITAM IN B12 AND FOLAT E folate (folic acid), serum 6.8 NG/mL >3.0 A serum folat e judith ntrat ion of less than 3.1 ng/mL is consi dered to repre sent clini cici defic iency . Not Available [facility] ([facility]) [address] [facility], [place], [address], 09/25/2024 07:08:07 09/24/19 25 09/24/2024 CBC WITH DIFFE RENTI AL/PL ATELE T WBC 5.9 x10e3 /uL 3.4-10 .8 Not Available [facility] ([facility]) [address] [facility], [place], [address], 09/25/2024 07:08:08 09/24/19 25 09/24/2024 CBC WITH DIFFE RENTI AL/PL ATELE T RBC 5.23 x10e6 /uL 3.77-5 .28 Not Available [facility] ([facility]) [address] [facility], [place], [address], 09/25/2024 07:08:08 09/24/19 25 09/24/2024 CBC WITH DIFFE RENTI AL/PL ATELE T hemoglobin 14.8 g/dL 11.1-1 5.9 Not Available [facility] ([facility]) [address] [facility], [place], [address], 09/25/2024 07:08:08 09/24/19 25 09/24/2024 CBC WITH DIFFE RENTI AL/PL ATELE T hematocrit 45.1 % 34.0-4 6.6 Not Available [facility] ([facility]) [address] [facility], [place], [address], 09/25/2024 07:08:08 09/24/19 25 09/24/2024 CBC WITH DIFFE RENTI AL/PL ATELE T MCV 86 fL 79-97 Not Available [facility] ([facility]) [address] [facility], [place], [address], 09/25/2024 07:08:08 09/24/19 25 09/24/2024 CBC WITH DIFFE RENTI AL/PL ATELE T MCH 28.3 pg 26.6-3 3.0 Not Available [facility] ([facility]) [address] [facility], [place], [address], 09/25/2024 07:08:08 09/24/19 25 09/24/2024 CBC WITH DIFFE RENTI AL/PL ATELE T MCHC 32.8 g/dL 31.5-3 5.7 Not Available [facility] ([facility]) [address] [facility], [place], [address], 09/25/2024 07:08:08 09/24/19 25 09/24/2024 CBC WITH DIFFE RENTI AL/PL ATELE T RDW 12.9 % 11.7-1 5.4 Not Available [facility] ([facility]) [address] [facility], [place], [address], 09/25/2024 07:08:08 09/24/19 25 09/24/2024 CBC WITH DIFFE RENTI AL/PL ATELE T platelets 234 x10e3 /uL 150-45 0 Not Available [facility] ([facility]) [address] [facility], [place], [address], 09/25/2024 07:08:08 09/24/19 25 09/24/2024 CBC WITH DIFFE RENTI AL/PL ATELE T neutrophils 65 % notest ab. Not Available [facility] ([facility]) [address] [facility], [place], [address], 09/25/2024 07:08:08 09/24/19 25 09/24/2024 CBC WITH DIFFE RENTI AL/PL ATELE T lymphs 27 % notest ab. Not Available [facility] ([facility]) [address] [facility], [place], [address], 09/25/2024 07:08:08 09/24/19 25 09/24/2024 CBC WITH DIFFE RENTI AL/PL ATELE T monocytes 6 % notest ab. Not Available [facility] ([facility]) [address] [facility], [place], [address], 09/25/2024 07:08:08 09/24/19 25 09/24/2024 CBC WITH DIFFE RENTI AL/PL ATELE T eos 2 % notest ab. Not Available [facility] ([facility]) [address] [facility], [place], [address], 09/25/2024 07:08:08 09/24/19 25 09/24/2024 CBC WITH DIFFE RENTI AL/PL ATELE T basos 0 % notest ab. Not Available [facility] ([facility]) [address] [facility], [place], [address], 09/25/2024 07:08:08 09/24/19 25 09/24/2024 CBC WITH DIFFE RENTI AL/PL ATELE T neutrophils (absolute) 3.8 x10e3 /uL 1.4-7. 0 Not Available [facility] ([facility]) [address] [place], [address], 09/25/2024 07:08:08 09/24/19 25 09/24/2024 CBC WITH DIFFE RENTI AL/PL ATELE T lymphs (absolute) 1.6 x10e3 /uL 0.7-3. 1 Not Available [facility] ([facility]) [address] [facility], [place], [address], 09/25/2024 07:08:08 09/24/19 25 09/24/2024 CBC WITH DIFFE RENTI AL/PL ATELE T monocytes(ab solute) 0.4 x10e3 /uL 0.1-0. 9 Not Available [facility] ([facility]) [address] [facility], [place], [address], 09/25/2024 07:08:08 09/24/19 25 09/24/2024 CBC WITH DIFFE RENTI AL/PL ATELE T eos (absolute) 0.1 x10e3 /uL 0.0-0. 4 Not Available [facility] ([facility]) [address] [facility], [place], [address], 09/25/2024 07:08:08 09/24/19 25 09/24/2024 CBC WITH DIFFE RENTI AL/PL ATELE T baso (absolute) 0.0 x10e3 /uL 0.0-0. 2 Not Available [facility] ([facility]) [address] [facility], [place], [address], 09/25/2024 07:08:08 09/24/19 25 09/24/2024 CBC WITH DIFFE RENTI AL/PL ATELE T immature granulocytes 0 % notest ab. Not Available [facility] ([facility]) [address] [facility], [place], [address], 09/25/2024 07:08:08 09/24/19 25 09/24/2024 CBC WITH DIFFE RENTI AL/PL ATELE T immature grans (abs) 0.0 x10e3 /uL 0.0-0. 1 Not Available [facility] ([facility]) [address] [facility], [place], [address], 09/25/2024 07:08:08 12/29/19 24 12/28/2023 MAMMO , scree sussy, digit al, bilat eral No observ ation record ed. [address] [address], [place], [address], 01/03/2024 11:53:02 05/26/20 24 05/25/2024 CT, angio gram, chest , w/ contr ast No observ ation record ed. [address] [address], [place], [address], 06/14/2024 12:05:30 06/07/20 24 06/07/2024 naz can cardi olite stres s test (PROC ) No observ ation record ed. [address] ([facility]) [address] [place] [address], [place], [address], 06/14/2024 12:05:29 06/22/20 24 06/07/2024 naz can cardi olite stres s test (PROC ) No observ ation record ed. [facility] ([facility]iology [facility]) [address] [place] [address], [place], [address], 06/22/2024 14:57:16 09/05/19 25 08/31/2024 colon oscop y scree sussy (PROC ) No observ ation record ed. [facility] Not Available 2024 09:16:32 10/03/19 25 10/03/2024 CT, abdom en + pelvi s, w/ contr ast No observ ation record ed. [address] [address], [place], [address], 10/15/2024 12:44:29 10/09/19 25 10/09/2024 MRI, cervi cici spine , w/o contr ast No observ ation record ed. [address] [address], [place], [address], 10/10/2024 11:12:41 10/09/19 25 10/09/2024 MRI, brain , w/wo contr ast No observ ation record ed. [id number], [place], [address], 10/11/2024 13:01:05 Result Notes None recorded. Problems Name Problem SNOMED Code Status Onset Date Resolution Date Notes Provider Name and Address Organization Details Recorded Time Atrophic vaginitis 81708802 Active 2023 CAPO Rasheed Attn: Nancy palacios,[address] [place], [address], [place] - [facility] 4 09:54:21 Diffuse spasm of esophagus 29854678 Active 2023 CAPO Rasheed Attn: Nancy g,[address] [place], [place], [address] [place] [address], [place] [facility] 4 09:54:22 Bilateral dermatitis of external ear canals 4355825565612 104 Active 2023 CAPO Rasheed Attn: Nancy g,[address] [place], [place], [address] [place] [address], [place] [facility] 4 09:54:23 Vitamin B12 deficiency (non anemic) 84253660 Active 2023 CAPO Rasheed Attn: Nancy g,[address] [place], [address], [place] [facility] 4 09:54:25 Hypertrigly ceridemia 872631674 Active 2023 CAPO Rasheed Attn: Jaleesain g,[address] [place], [address], [place] [facility] 4 09:54:26 Gastroesoph ageal reflux disease without esophagitis 843811416 Active 2023 CAPO Rasheed Attn: Nancy g,[address] [place], [address], [place] [facility] 4 09:54:28 Mixed anxiety and depressive disorder 017383043 Active 2023 CAPO Rasheed Attn: Jaleesain g,[address] [facility] [place], [address], [place] [facility] 4 09:54:29 Hypothyroid ism 53446493 Active 2023 CAPO Rasheed Attn: Accountranjeet g,[address] [facility], [place], [address], [place] [facility] 4 09:54:31 Long-term current use of insulin 594435569 Active 2023 CAPO Rasheed Attn: Accountin g,[address] [facility], [place], [address], [place] [facility] 4 09:54:32 Uncontrolle d type 2 diabetes mellitus 004056664 Active 2023 CAPO Rasheed Attn: Accountin g,[address] [facility], [place], [address], [place] [facility] 4 09:54:33 Obesity 782109865 Active 2023 CAPO Rasheed Attn: Accountin g,[address] [facility], [place], [address], [place] [facility] 4 11:17:24 Body mass index 30+ - obesity 473720805 Active 2023 CAPO Rasheed Attn: Accountin g,[address] [facility], [place], [address], [place] [facility] 4 11:17:25 Irritable bowel syndrome with diarrhea 871572009 Active 2023 CAPO Rasheed Attn: Accountin g,[address] [facility], [place], [address], [place] [facility] 4 11:17:27 Benign essential hypertensio n 8570119 Active 2023 CAPO Rasheed Attn: Accountin g,[address] [facility], [place], [address], [place] [facility] 4 11:17:31 Cobalamin deficiency 817118823 Active 2023 CAPO Rasheed Attn: Accountin g,[address] [facility], [place], [address], [facility] - [facility] 4 11:17:33 Long-term drug therapy Active 2023 CAPO Rasheed Attn: Accountranjeet g,[address] [facility], [place], [address], [facility] - [facility] 4 11:17:51 Feeling stressed 230930988 Active 2023 CAPO Rasheed Attn: Accountin g,[address] [facility], [place], [address], [facility] - [facility] 4 09:48:37 Acid reflux 556398087 Active 2023 CAPO Rasheed Attn: Accountin g,[address] [facility], [place], [address], [facility] - [facility] 4 12:06:37 Irritable bowel syndrome characteriz ed by alternating bowel habit 721998069 Active 2023 CAPO Rasheed Attn: Accountranjeet g,[address] [facility], [place], [address], [facility] - [facility] 4 12:06:39 Problem Notes None recorded. Procedures Surgical History Date Name Laterality Status Provider Name and Address Organization Details Recorded Time Appendectomy completed HAROON Khanna [facility] 12/07/2023 14:49:11 Cholecystectomy completed HAROON Khanna [facility] 12/07/2023 14:49:16 Eye Surgery completed HAROON Khanna [facility] 12/07/2023 14:49:22 Hernia Repair completed HAROON Khanna [facility] 12/07/2023 14:49:27 Tonsillectomy completed HAROON Khanna [facility] 12/07/2023 14:49:43 hysterectomy completed HAROON Khanna [facility] 12/07/2023 14:49:52 ligation of bilateral fallopian tubes completed Leda Brian [place] - [facility] 12/07/2023 14:50:06 Imaging Results Imaging Date Name Status LastModified by Organiz ation Details LastModified Time 12/28/2023 MAMMO, screening, digital, bilateral completed [address] [address], [place], [address], 01/03/2024 11:53:02 05/25/2024 CT, angiogram, chest, w/ contrast completed [address] [address], [place], [address], 06/14/2024 12:05:30 06/07/2024 lexiscan cardiolite stress test (PROC) completed [address] ([facility]iology [facility] Em[facility]) [address] [place] [address], [address], 06/14/2024 12:05:29 06/07/2024 lexiscan cardiolite stress test (PROC) completed [facility] ([facility]iology [facility]) [address] [place] [address], [address], 06/22/2024 14:57:16 08/31/2024 colonoscopy screening (PROC) completed [facility] Information not available 09/05/2024 09:16:32 10/03/2024 CT, abdomen + pelvis, w/ contrast completed [address], [address], 10/15/2024 12:44:29 10/09/2024 MRI, cervical spine, w/o contrast completed [address], [address], 10/10/2024 11:12:41 10/09/2024 MRI, brain, w/wo contrast completed [address], [address], 10/11/2024 13:01:05 Procedure Notes None recorded. Medical Equipment None Reported. Allergies Allergen ID Allergen Name Allergen Category Reaction Reaction Severity Criticality Documentation Date Start Date Code Code System Note Provider Name and Address Organization Details Recorded Time 748278 Substance with morphinan structure and opioid receptor agonist mechanism of action (substanc e) medicatio n Not available Not available Not available 12/07/2023 19081 9000 SNOMED Not Available Not Available Not Available [...] 4 175.26 cm 20 /min 31.3 kg/m2 66991.8 7 g 96 % 96 % 80 /min 132 mm[Hg] 88 mm[Hg] Leda Brian MA [facility] 12:45:57 Date Recorded Systolic blood pressure Diastolic blood pressure Provider Name and Address Organization Details Last Updated DateTime 12/07/2023 140 mm[Hg] 84 mm[Hg] CAPO Rasheed Attn: Accounting,[address] [place], [address], [facility] 12/07/2023 13:14:16 Date Recorded Body height Body mass index (BMI) Body weight Respiratory rate Oxygen saturation Oxygen saturation in Arterial blood by Pulse oximetry Heart rate Systolic blood pressure Diastolic blood pressure Provider Name and Address Organization Details Last Updated DateTime 4 175.26 cm 32.1 kg/m2 94728.6 9 g 20 /min 96 % 96 % 82 /min 158 mm[Hg] 98 mm[Hg] Leda Brian MA [facility] 4 17:05:00 Date Recorded Systolic blood pressure Diastolic blood pressure Systolic blood pressure Diastolic blood pressure Provider Name and Address Organization Details Last Updated DateTime 02/21/2024 180 mm[Hg] 100 mm[Hg] 180 mm[Hg] 98 mm[Hg] CAPO Laboy Attn: Accounting ,[address] [place], [address] , [facility] 4 17:32:23 Date Recorded Body height Body mass index (BMI) Body weight Respiratory rate Oxygen saturation Oxygen saturation in Arterial blood by Pulse oximetry Heart rate Systolic blood pressure Diastolic blood pressure Provider Name and Address Organization Details Last Updated DateTime 4 175.26 cm 32.1 kg/m2 89506.6 9 g 20 /min 96 % 96 % 84 /min 160 mm[Hg] 100 mm[Hg] Leda Brian MA [facility] 4 11:27:27 Date Recorded Systolic blood pressure Diastolic blood pressure Systolic blood pressure Diastolic blood pressure Provider Name and Address Organization Details Last Updated DateTime 05/08/2024 160 mm[Hg] 100 mm[Hg] 140 mm[Hg] 92 mm[Hg] CAPO Laboy Attn: Accounting ,[address] [place], [address] , [facility] 4 12:02:07 Date Recorded Body height Body mass index (BMI) Body weight Heart rate Oxygen saturation Oxygen saturation in Arterial blood by Pulse oximetry Respiratory rate Systolic blood pressure Diastolic blood pressure Provider Name and Address Organization Details Last Updated DateTime 4 175.26 cm 31.9 kg/m2 62512.9 5 g 86 /min 95 % 95 % 18 /min 130 mm[Hg] 82 mm[Hg] Zee Powell MA [facility] 4 11:38:36 Date Recorded Systolic blood pressure Diastolic blood pressure Provider Name and Address Organization Details Last Updated DateTime 06/14/2024 130 mm[Hg] 72 mm[Hg] CAPO Rasheed Attn: Accounting,[address] [place], [address], [facility] 06/14/2024 12:06:31 Date Recorded Body height Body mass index (BMI) Body weight Oxygen saturation Oxygen saturation in Arterial blood by Pulse oximetry Heart rate Respiratory rate Systolic blood pressure Diastolic blood pressure Provider Name and Address Organization Details Last Updated DateTime 175.26 cm 31.6 kg/m2 14882.7 7 g 98 % 98 % 84 /min 18 /min 142 mm[Hg] 80 mm[Hg] Leda Brian MA [facility] 11:45:32 Date Recorded Systolic blood pressure Diastolic blood pressure Provider Name and Address Organization Details Last Updated DateTime 09/04/2024 140 mm[Hg] 80 mm[Hg] CAPO Rasheed Attn: Accounting,[address] [place], [address], [facility] 09/04/2024 12:18:44 Social History Question Answer Notes LastModified by Organizat ion Details LastModified Time Tobacco Smoking Status Former Smoker quit 40 years ago Leda Brian MA [facility], [facility] 12/07/2023 12:41:15 Do You Have An Advance [...] Skin Problems Y Anemia N Heart Attack (NH) N Anxiety Disorder Y Diabetes Y Muscle, [...] 06/13/2024 11:20:42 influenza, unspecified formulation 3 completed Leda Brian [place], [place] [facility] 06/13/2024 11:20:42 Influenza, high-dose, trivalent, PF 6 completed Leda [place] [facility] 06/13/2024 11:20:42 Influenza, high-dose, trivalent, PF 8 completed Leda [place] [facility] 06/13/2024 11:20:42 Influenza, split virus, trivalent, preservative 10/15/201 4 completed Leda Brian MA null, [place] - [facility] 06/13/2024 11:20:42 Influenza, high-dose, trivalent, PF 4 completed CAPO Rasheed Attn: Accounting,[address], [place], [address], [facility] - [facility] 07/01/2024 12:35:29 Past Encounters Encounter ID Performer Location Encounter Start Date Encounter Closed Date Diagnosis/Indication Diagnosis SNOMED-CT Code Diagnosis ICD10 Code Diagnosis Note [id number] CAPO Rasheed [facility] - Kiersten Johnson [address] [place] [address] 12/07/2023 12:24:44 12/07/2023 13:54:54 Hypothyroidism 08981644 E03.9 due for TFT panel. she says endocrine is only managing her diabetes and she needs refill on levothyrox ine 125mcg daily. Mixed anxi ety and depressive disorder 352127315 F41.8 stable at this time. no acute c/o. she takes alprazolam 1mg bid PRN. Uncontroll ed type 2 diabetes mellitus 982948740 E11.65 last a1c around 11% and ran in office from Endocrinol ogpedro. on tresiba and fiasp therapy with them. labs per their office. Gastroesop hageal reflux disease without esophagitis 635822763 K21.9 stable on famotidine 20mg bid. Long-term drug therapy 464137563 Z79.899 routine bmp, lft and cbc due. Bilateral dermatitis of external ear canals 1212179862 384357 H60.93 rx for refill fluocinoni de 0.05% cream bid PRN Long-term current use of insulin 838616723 Z79.4 as above. Hypertriglyceridemia 302 019625 E78.2 on vascepa 1g 2 bid. due for fasting lipids. Screening mammography 24 306576 Z12.31 mammogram is due. Vitamin B1 2 deficiency (non anemic) 49317832 E53.8 screening b12 lab and then will decide b12 injection dosing schedule. Diffuse sp asm of esophagus 34324417 K22.4 refill on amitriptyl ine 10mg qhs. Atrophic vaginitis 59497 000 N95.2 refill on estradiol 0.01% cream SD three times per week. [id number] CAPO Rasheed [facility] [address] [place] [address] 02/21/2024 16:28:41 02/23/2024 16:15:58 Body mass index 30+ - obesity 239029131 Z68.32 BMI is 32.1 Obesity 242089052 E66.8 discussed healthy diet, exercise, controllin g carbohydra robert and added sugars in the diet Benign ess ential hypertension 6248645 I10 Start amlodipine 5 mg p.o. daily for elevated blood pressure in 180/98 range on multiple checks today. Encouraged patient to control sodium in her diet keeping it low, encouragin g some walking for exercise and weight loss to also help manage hypertensi on. Irritable bowel syndrome with diarrhea 364403460 K58.0 just needs refill on PRN infrequent use. Cobalamin deficiency 190 015975 E53.8 Refill on vitamin B12 solution for monthly injection. Long-term drug therapy 877456500 Z79.899 Labs are currently all up-to-date . Hypothyroidism 44168091 E03.9 Patient is stable on levothyrox ine 125mcg daily. She is up-to-date on labs and being managed by endocrinol shaquille. [id number] CAPO Rasheed [facility] [address] [place] [address] 05/08/2024 10:44:38 05/08/2024 12:49:37 Benign essential hypertension 9122850 I10 BP is 140/92, add losartan 25 mg daily to the regimen with amlodipine 7.5 mg daily to better control hypertensi on Long-term drug therapy 638299852 Z79.899 All labs are currently up-to-date Dyspnea on exertion 6084 5006 R06.09 Refer for Lexiscan cardiac stress testing and CT angiogram of the chest with contrast Feeling stressed 5482481 06 Z73.3 Related to her son living with her still. Patient does have alprazolam dosing that she uses on a p.r.n. basis. Have encouraged her to start titration down on this [id number] CAPO Rasheed [facility] [address] [place] [address] 06/14/2024 11:22:04 06/18/2024 14:58:01 Administration of influenza vaccine 70030776 Z23 Flu shot given today Vitamin B1 2 deficiency (non anemic) 41533019 E53.8 Refill on B12 solution Benign ess ential hypertension 2450230 I10 Blood pressure is improved and stable on amlodipine 7.5 mg daily Acid reflux 167417388 K2 1.9 needs updated EGD completed. Saw Dr. Fitzgerald in the past but he has retired. need alternate option that saw her in practice. pt will get back to us about the name of who to send it to. Irritable bowel syndrome characterized by alternating bowel habit 309929924 K58.9 pt will be due for colonoscop y. will prefer to get at same time as EGD as ordered above. Pt will notify us of the doctor to fax orders to. Trial of Amitiza 24 mcg twice daily Long-term drug therapy 444353326 Z79.899 All labs are currently up-to-date [id number] CAPO Rasheed [facility] [address] [place] [address] 09/04/2024 11:31:43 09/04/2024 13:44:09 Gastroesophageal reflux disease without esophagitis 244403992 K21.9 Refill omeprazole 40 mg daily to be taken in the morning with reflux noted on her EGD this she is provided us notes a lot Headache 78770072 R51.9 Refer for MRI of the brain with and without contrast for more frequent almost daily headaches the last few weeks. Abdominal pain 11224730 R10.9 Generalize d abdominal pain that waxes and wanes we will send for CT scan abdomen and pelvis with contrast Tortuous colon 653730051 3 2107 K63.89 Patient also has a history of tortuous colon unable to have complete evaluation on her colonoscop y. Benign ess ential hypertension 1025920 I10 Blood pressure is improved and stable on amlodipine 7.5 mg daily Long-term drug therapy 333517258 Z79.899 Due for CBC, BMP and liver panel Cholesterol screening 27 9569003 Z13.220 Fasting lipids are due Hypothyroidism 86717235 E03.9 Patient is stable on levothyrox ine 125mcg daily. She is following with endocrinol shaquille and is due for an updated thyroid function panel Vitamin B1 2 deficiency (non anemic) 17892537 E53.8 Check vitamin B12 and folate labs Health Concerns Section Related Observation LastModified by Organization Detai ls LastModified Time None Recorded Concern Status LastModified by Organization Details LastModified Time None Recorded Advance Directives Directive N: Payers Encounter Date Sequence Insurance Name Policy Number Policy Street Covered Member ID Street Member ID Guarantor Name 12/07/2023 1 [place] Jazlyn Nielsenon [id number] Jazlyn Montgomery 12/07/2023 2 [facility] (MEDICAID HMO) [id number] Jazlyn Montgomery [id number] Jazlyn Montgomery 02/21/2024 2 [place] OR MEDICARE REPLACEMENT PRIMARY) Jazlyn Montgomery [id number] Jazlyn Montgomery 02/21/2024 [place] [facility] Jazlyn Montgomery [id number] Jazlyn Valentina 05/08/2024 1 [place] Jazlyn Montgomery [id number] Jazlyn Valentina 05/08/2024 2 [place]IC[place]PLACEMENT [place]) Jazlyn Montgomery [id number] Jazlyn Valentina 06/14/2024 1 [place] Jazlyn Valentina [id number] Jazlyn Valentina 06/14/2024 2 [place]IC[place]PLACEMENT [place]IMARY) Jazlyn Montgomery [id number] Jazlyn Montgomery 09/04/2024 1 [place] Jazlyn Montgomery [id number] Jazlyn Valentina 09/04/2024 2 [place]IC[place]ACEMENT [place]IMARY) Jazlyn Montgomery [id number] Jazlyn Montgomery Notes Date Note Type Note [...] 125mcg daily. CAPO Rasheed Attn: Accounting, [address] [facility], [place], [address], [facility] 12/26/2023 09:54:50 02/21/20 24 text/ht ml DiabetesReported [...] helped her. CAPO Rasheed Attn: Accounting, [address] [facility], [place], [address], [facility] 03/04/2024 11:21:20 05/08/20 24 text/ht ml HypertensionReported [...] and go. CAPO Rasheed Attn: Accounting, [address] [facility], [place], [address], [facility] 05/27/2024 09:49:15 06/14/20 24 text/ht ml Bowel [...] B12 refill CAPO Rasheed Attn: Accounting, [address] [facility], [place], [address], [facility] 07/01/2024 12:43:06 09/04/19 25 text/ht ml Bowel [...] hypothyroidism which is managed now by her ocular care technician and she is on levothyroxine 125 mcg daily. Patient would like to have her B12 refill CAPO Rasheed Attn: Accounting, [address] [facility], [place], [address], [facility] 09/23/2024 23:16:35 OBGyn Episode No OBEpisode recorded.
== END 2024-10-19 12:00 | disposition home or self-care (01) ==
PROVIDERS: PCP Physician Assistant; Visit Provider Pain Medicine Pain Medicine
DX: M17.12 Unilateral primary osteoarthritis, left knee (principal)
CPT/HCPCS: 73562

== ENCOUNTER 2024-11-23 08:27 | Emergency (ER) | payer MEDICARE, OTHER, SELFPAY ==
[2024-11-23 08:50] VITALS: BP 135/79; PULSE 78; RESP 16; TEMP 36.6; O2SAT 97
--- NOTE | 2024-11-23 08:51 | ED.SKABFB ---
HPI - Skin/Abscess/Foreign Bdy General Chief complaint: Skin/Abscess/Foreign Body Stated complaint: RASH Time Seen by Provider: 11/23/24 08:51 Source: patient Mode of arrival: ambulatory Limitations: no limitations History of Present Illness HPI narrative: 74-year-old female presents with complaint of burning pain to right side for approximately 3 days. Yesterday noticed rash. Patient concerned she has shingles. Reports she had shingles vaccine about 5 years ago. All systems reviewed and negative except as noted above. Related Data Home Medications ?Medication ?Instructions ?Recorded ?Confirmed ?Last Taken ?Type Al hyd-Mg tr-alg ac-sod bicarb 80 2 tablet PO QID PRN Indigestion 03/21/20 11/23/24 03/31/20 History mg-14.2 mg chewable tablet (Gaviscon) alprazolam 1 mg tablet (Xanax) 1 mg PO DAILY 03/21/20 11/23/24 03/31/20 History amitriptyline 10 mg tablet 20 mg PO HS 08/08/23 11/23/24 Unknown History promethazine 25 mg tablet 25 mg PO TID PRN nausea and 08/08/23 11/23/24 Unknown History vomiting amlodipine 5 mg tablet 5 mg PO DAILY 05/28/24 11/23/24 Unknown History omeprazole 20 mg capsule,delayed 20 mg PO DAILY 10/02/24 11/23/24 Unknown History release levothyroxine 125 mcg tablet 125 mcg PO DAILY 11/12/24 11/23/24 Unknown History (Levoxyl) Allergies Allergy/AdvReac Type Severity Reaction Status Date / Time fentanyl Allergy Intermediate Nausea and Verified 11/23/24 08:48 Vomiting propoxyphene Allergy Mild VOMITTING Verified 11/23/24 08:48 albuterol Allergy Unknown ANXIETY. Verified 11/23/24 08:48 CAN'T STAND IT dicyclomine Allergy Unknown Nausea and Verified 11/23/24 08:48 Vomiting hydrocodone Allergy Unknown severe Verified 11/23/24 08:48 vomiting metoclopramide Allergy Unknown anxiety Verified 11/23/24 08:48 ondansetron (From Zofran) Allergy Other Verified 11/23/24 08:48 adhesive AdvReac Severe SKIN Verified 11/23/24 08:48 BLISTERS erythromycin base AdvReac Intermediate ABDOMINAL Verified 11/23/24 08:48 PAIN/VOMITING codeine AdvReac Mild NAUSEA Verified 11/23/24 08:48 morphine AdvReac Mild NAUSEA Verified 11/23/24 08:48 glimepiride AdvReac Unknown unknown Verified 11/23/24 08:48 phenazopyridine AdvReac Unknown NAUSEA Verified 11/23/24 08:48 diazepam AdvReac Vomiting Verified 11/23/24 08:48 Review of Systems Review of Systems: CONSTITUTIONAL: Denies fever, chills, or sweats. EYES: Denies visual changes, redness, or discharge. ENT: Denies rhinorrhea, congestion, sore throat, or otalgia. CARDIOVASCULAR: Denies chest pain, palpitations, or edema. RESPIRATORY: Denies cough or dyspnea. GASTROINTESTINAL: Denies abdominal pain, nausea, vomiting, or diarrhea. GENITOURINARY: Denies dysuria or hematuria. SKIN: Reports painful rash. MUSCULOSKELETAL: Denies back pain, joint pain, or myalgia. NEUROLOGIC: Denies headache, numbness, or weakness. PSYCHIATRIC: Denies anxiety or depression. All other systems reviewed are negative, except as documented in HPI. [facility] Past Medical History Medical History Liver disease Uterine cancer Trochanteric bursitis of right hip Primary osteoarthritis of right knee Tibia fracture Effusion, right knee Complex tear of lateral meniscus of right knee as current injury Body mass index (BMI) 35 or more (06/13/17) Type 2 diabetes mellitus with hyperglycemia Nontoxic multinodular goiter Irritable bowel syndrome with diarrhea DVT prophylaxis Alcohol use Chronic kidney disease, stage 3 Baseline creatinine between 1.1 and 1.20. Polycythemia Elevated lipase Degenerative disc disease PTSD (post-traumatic stress disorder) Anxiety Depression Osteoarthritis Gastroesophageal reflux disease Sarcoidosis In remission for over 40 years. Hypothyroidism Surgical History Surgical History History of cardiac catheterization No evidence of coronary artery disease. History of cystoscopy For evaluation of microscopic hematuria reportedly unremarkable History of partial thyroidectomy (~2007) Pathology revealed a benign nodule. History of appendectomy (~1997) Incidental appendectomy at the time of her hysterectomy. History of hysterectomy (~1997) History of tonsillectomy History of bilateral cataract extraction History of cholecystectomy (~2007) Family History Family History Father Family history of malignant neoplasm of stomach Sibling Family history of malignant neoplasm of esophagus Mother Family history of osteoarthritis Family history of elevated blood lipids Family history of thyroid disease Family history of cataracts Family history of arthritis Family history of diabetes mellitus in first degree relative Grandparent Diabetes mellitus Other Family history of kidney disease Family history of malignant neoplasm Social History Social History Social History: Jazlyn is very confident filling out medical forms. Smoking status: Former smoker Tobacco type: cigarettes Additional smoking assessment comments: did not smoke often Alcohol intake: former Alcohol use details: quit end of 2021 Substance use: current Substance use type: marijuana Other substance usage details: occasional Lack of Transportation: No Lack of Food: Sometimes True Current Housing: I Have Housing Concerned About Future Housing: No Difficulty Paying Gas/Electric Bills: YES Difficulty Paying for Meds: YES Currently Unemployed: No Education: High School Diploma/GED Difficulty w/ Childcare or Family Care: No Living arrangements: with family Gender identity (if verbalized by the patient): Female Sexual Orientation (if Verbalized by the Patient): Straight or Heterosexual Spiritual care concerns: No Agree to blood products: Yes Comments At time of signature, agree with nursing past medical, surgical, social and family history. There is no relevant family history pertinent to the presenting complaint. Exam Narrative: GENERAL: This is a well-nourished, well-developed patient, in no apparent distress. HEAD: normocephalic, atraumatic. EYES: PERRL. Sclera clear/white. Vision is grossly intact. EARS: External ears normal NOSE: External nose normal NECK: Neck supple, non-tender without lymphadenopathy, masses or thyromegaly. CARDIOVASCULAR: Regular rate and rhythm without murmurs, gallops, or rubs. RESPIRATORY: Clear to auscultation. Breath sounds equal bilaterally. No wheezes, rales, or rhonchi. SKIN: warm, Dry, intact , good texture and turgor. Erythematous vesicular rash to right lateral torso approx. 6x4 cm NEURO: awake, alert, and oriented to person, place and time. There were no obvious focal neurologic abnormalities. EXTREMITIES: No joint tenderness, effusion, or edema noted. Course Course Level of Care: Express Care Visit Vital Signs Vital signs: Vital Signs Temperature 36.6 C 11/23/24 08:50 Pulse Rate 78 11/23/24 08:50 Respiratory Rate 16 11/23/24 08:50 Blood Pressure 135/79 11/23/24 08:50 Pulse Oximetry 97 11/23/24 08:50 Temperature 36.6 C 11/23/24 08:50 Pulse Rate 78 11/23/24 08:50 Respiratory Rate 16 11/23/24 08:50 Blood Pressure 135/79 11/23/24 08:50 Pulse Oximetry 97 11/23/24 08:50 Reviewed MDM - Skin/Abscess/Foreign Bdy MDM Narrative Medical decision making narrative: Patient well-appearing, nontoxic. Will prescribe antiviral today for shingles rest. Recommend follow-up with primary care physician if rash and pain not improving. Please be advised this is a medical document. It is intended for [id number] communication. It is written in medical language and may contain unfamiliar abbreviations or verbiage. Medical documents are intended to carry relevant information, facts as evident, and the clinical opinion of the practitioner at the time of the encounter. This report may have been done utilizing a voice recognition system. Attempts have been made to correct errors. However, there may be uncorrected grammatical, spelling, and recognition errors present. The file time of this note does not necessarily represent the time of service. Discharge Plan Discharge Clinical Impression: Shingles Qualifiers: Herpes zoster complications: without complications Qualified Code(s): B02.9 - Zoster without complications Patient Disposition: Home, Self-Care Condition: Stable Instructions: Shingles (ED) Additional Instructions: Take antiviral as prescribed. Apply lidocaine ointment to painful rash. Take Tylenol every 6-8 hours as needed for pain. Follow-up with your doctor if symptoms are not improving. Patient Language: Slovenian Prescriptions: New lidocaine 5 % ointment 1 applic topical QID PRN (Reason: pain) Qty: 30 0RF Rx Instructions: Apply sparingly to affected area valacyclovir 1 gram tablet 1,000 mg PO TID 7 Days Qty: 21 0RF No Action promethazine 25 mg tablet 25 mg PO TID PRN (Reason: nausea and vomiting) amlodipine 5 mg tablet 5 mg PO DAILY omeprazole 20 mg capsule,delayed release(DR/EC) 20 mg PO DAILY insulin degludec [Tresiba FlexTouch U-200] 200 unit/mL (3 mL) insulin pen 40 unit subcut QHS 90 Days Qty: 18 3RF levothyroxine [Levoxyl] 125 mcg tablet 125 mcg PO DAILY Gvoke HypoPen 2-Pack 1 mg/0.2 mL auto-injector 1 mg subcut ONCE Qty: 0.4 4RF Rx Instructions: may repeat once after 15 minutes if no response acetaminophen 500 mg tablet 500 mg PO .q8 PRN (Reason: pain) Qty: 20 0RF alprazolam [Xanax] 1 mg Tablet 1 mg PO DAILY Rx Instructions: take 1mg PO QAM AND 2 MG PO QHS Gaviscon 80-14.2 mg Tablet,Chewable 2 tablet PO QID PRN (Reason: Indigestion) amitriptyline 10 mg tablet 20 mg PO HS (DME) blood-glucose meter [OneTouch Verio Reflect Start] Kit See Rx Instructions .Route Qty: 1 0RF Rx Instructions: As directed to check blood sugars twice daily (DME) lancets [OneTouch Delica Plus Lancet] 30 gauge misc See Rx Instructions .Route Qty: 200 2RF Rx Instructions: As directed (DME) OneTouch Verio test strips Strip See Rx Instructions .Route Qty: 100 3RF Rx Instructions: As directed to check blood sugars twice daily insulin lispro 100 unit/mL insulin pen 5 unit subcut TIDWMEAL MDD 33 Qty: 30 2RF Rx Instructions: take 5 units premeal + SSI 150-200: 1 unit 201-250: 2 units 251-300: 3 units 301-350: 4 units 351-400: 5 units >401: 6 units (DME) pen needle, diabetic [BD Ultra-Fine Hui Pen Needle] 32 gauge x 5/32 needle See Rx Instructions .Route Qty: 100 3RF Rx Instructions: use once daily Follow-up/Referrals: Nicol,DAVID Sladivar [Primary Care Provider] - Time of Disposition: 09:01
== END 2024-11-23 09:04 | disposition home or self-care (01) ==
PROVIDERS: Emergency Provider Nurse Practitioner Family; PCP Physician Assistant
DX: B02.9 Zoster without complications (principal); Z87.891 Personal history of nicotine dependence; F12.90 Cannabis use, unspecified, uncomplicated; E11.22 Type 2 diabetes mellitus with diabetic chronic kidney disease; N18.30 Chronic kidney disease, stage 3 unspecified; Z79.4 Long term (current) use of insulin; E03.9 Hypothyroidism, unspecified; K21.9 Gastro-esophageal reflux disease without esophagitis; M17.11 Unilateral primary osteoarthritis, right knee; E04.2 Nontoxic multinodular goiter; F41.9 Anxiety disorder, unspecified; F32.A Depression, unspecified; K76.9 Liver disease, unspecified; Z85.42 Personal history of malignant neoplasm of other parts of uterus; Z90.89 Acquired absence of other organs; Z98.42 Cataract extraction status, left eye; Z98.41 Cataract extraction status, right eye
CPT/HCPCS: 99213; G0463

== ENCOUNTER 2024-12-12 09:33 | Emergency (ER) | payer MEDICARE, OTHER, SELFPAY ==
[2024-12-12 09:43] VITALS: BP 145/92; PULSE 93; RESP 16; TEMP 36.8; O2SAT 99
--- NOTE | 2024-12-12 09:52 | ED.SKABFB ---
HPI - Skin/Abscess/Foreign Bdy General Chief complaint: Skin/Abscess/Foreign Body Stated complaint: RASH ON ANKLE Source: patient Mode of arrival: ambulatory Limitations: no limitations History of Present Illness HPI narrative: Jazlyn is a 74-year-old female patient presenting to the clinic today with complaints a rash to her right lower leg that developed over the last 2 days. She reports the rash is very itchy has been scratching it. Recently has had shingles and completed the medications. Rash appears to be red without any localized swelling. No fevers, chills, body aches. No other concerns. Related Data Home Medications ?Medication ?Instructions ?Recorded ?Confirmed ?Last Taken ?Type Al hyd-Mg tr-alg ac-sod bicarb 80 2 tablet PO QID PRN Indigestion 03/21/20 11/23/24 03/31/20 History mg-14.2 mg chewable tablet (Gaviscon) alprazolam 1 mg tablet (Xanax) 1 mg PO DAILY 03/21/20 11/23/24 03/31/20 History amitriptyline 10 mg tablet 20 mg PO HS 08/08/23 11/23/24 Unknown History promethazine 25 mg tablet 25 mg PO TID PRN nausea and 08/08/23 11/23/24 Unknown History vomiting amlodipine 5 mg tablet 5 mg PO DAILY 05/28/24 11/23/24 Unknown History omeprazole 20 mg capsule,delayed 20 mg PO DAILY 10/02/24 11/23/24 Unknown History release levothyroxine 125 mcg tablet 125 mcg PO DAILY 11/12/24 11/23/24 Unknown History (Levoxyl) Allergies Allergy/AdvReac Type Severity Reaction Status Date / Time fentanyl Allergy Intermediate Nausea and Verified 12/12/24 09:56 Vomiting propoxyphene Allergy Mild VOMITTING Verified 12/12/24 09:56 albuterol Allergy Unknown ANXIETY. Verified 12/12/24 09:56 CAN'T STAND IT dicyclomine Allergy Unknown Nausea and Verified 12/12/24 09:56 Vomiting hydrocodone Allergy Unknown severe Verified 12/12/24 09:56 vomiting metoclopramide Allergy Unknown anxiety Verified 12/12/24 09:56 ondansetron (From Zofran) Allergy Other Verified 12/12/24 09:56 adhesive AdvReac Severe SKIN Verified 12/12/24 09:56 BLISTERS erythromycin base AdvReac Intermediate ABDOMINAL Verified 12/12/24 09:56 PAIN/VOMITING codeine AdvReac Mild NAUSEA Verified 12/12/24 09:56 morphine AdvReac Mild NAUSEA Verified 12/12/24 09:56 glimepiride AdvReac Unknown unknown Verified 12/12/24 09:56 phenazopyridine AdvReac Unknown NAUSEA Verified 12/12/24 09:56 diazepam AdvReac Vomiting Verified 12/12/24 09:56 Review of Systems Review of Systems: Pertinent positives per HPI. Patient denies any fever, chills, headache, visual changes, dizziness, cough, runny nose, sore throat, shortness of breath, chest pain, palpitations, nausea, vomiting, diarrhea, constipation, abdominal pain, or any urinary issues. [facility] Past Medical History Medical History Liver disease Uterine cancer Trochanteric bursitis of right hip Primary osteoarthritis of right knee Tibia fracture Effusion, right knee Complex tear of lateral meniscus of right knee as current injury Body mass index (BMI) 35 or more (06/13/17) Type 2 diabetes mellitus with hyperglycemia Nontoxic multinodular goiter Irritable bowel syndrome with diarrhea DVT prophylaxis Alcohol use Chronic kidney disease, stage 3 Baseline creatinine between 1.1 and 1.20. Polycythemia Elevated lipase Degenerative disc disease PTSD (post-traumatic stress disorder) Anxiety Depression Osteoarthritis Gastroesophageal reflux disease Sarcoidosis In remission for over 40 years. Hypothyroidism Surgical History Surgical History History of cardiac catheterization No evidence of coronary artery disease. History of cystoscopy For evaluation of microscopic hematuria reportedly unremarkable History of partial thyroidectomy (~2007) Pathology revealed a benign nodule. History of appendectomy (~1997) Incidental appendectomy at the time of her hysterectomy. History of hysterectomy (~1997) History of tonsillectomy History of bilateral cataract extraction History of cholecystectomy (~2007) Family History Family History Father Family history of malignant neoplasm of stomach Sibling Family history of malignant neoplasm of esophagus Mother Family history of osteoarthritis Family history of elevated blood lipids Family history of thyroid disease Family history of cataracts Family history of arthritis Family history of diabetes mellitus in first degree relative Grandparent Diabetes mellitus Other Family history of kidney disease Family history of malignant neoplasm Social History Social History Social History: Jazlyn is very confident filling out medical forms. Smoking status: Former smoker Tobacco type: cigarettes Additional smoking assessment comments: did not smoke often Alcohol intake: former Alcohol use details: quit end 2021 Substance use: current Substance use type: marijuana Other substance usage details: occasional Lack of Transportation: No Lack of Food: Sometimes True Current Housing: I Have Housing Concerned About Future Housing: No Difficulty Paying Gas/Electric Bills: YES Difficulty Paying for Meds: YES Currently Unemployed: No Education: High School Diploma/GED Difficulty w/ Childcare or Family Care: No Living arrangements: with family Gender identity (if verbalized by the patient): Female Sexual Orientation (if Verbalized by the Patient): Straight or Heterosexual Spiritual care concerns: No Agree to blood products: Yes Comments At the time of my signature, I reviewed and agree with the nursing past medical, surgical, social, and family history. There is no relevant family history pertinent to the patient complaint. Exam Narrative: General: Well-developed, well nourished, in no apparent distress Head: Normocephalic, atraumatic. Cardio: Regular rate and rhythm, s1 and s2 normal, no murmur appreciated. Resp: Clear to auscultation bilaterally, no rhonchi, rales, wheezing or rubs. Integumentary: Sylvia, warm, and dry, red, itchy, scaly rash to the anterior right lower ankle and to the posterior right lower ankle-red rubor splotchy flat rash to the anterior lateral ankle, rash is not completely circumferential, no erythema, nontender to palpation, no edema Course Course Emergency Course: Portions of this record may have been created with voice recognition software. Level of Care: Express Care Visit Vital Signs Vital signs: Vital Signs Temperature 36.8 C 12/12/24 09:43 Pulse Rate 93 12/12/24 09:43 Respiratory Rate 16 12/12/24 09:43 Blood Pressure 145/92 H 12/12/24 09:43 Pulse Oximetry 99 12/12/24 09:43 Temperature 36.8 C 12/12/24 09:43 Pulse Rate 93 12/12/24 09:43 Respiratory Rate 16 12/12/24 09:43 Blood Pressure 145/92 H 12/12/24 09:43 Pulse Oximetry 99 12/12/24 09:43 Vital signs reviewed MDM - Skin/Abscess/Foreign Bdy MDM Narrative Medical decision making narrative: At the time of visit patient is resting comfortably on the exam table. Patient appears to be nontoxic. Plan: I suspect patient has a dermatitis rash to the right anterior and posterior ankle however is some of the rash appears to be possibly early vasculitis. Will place patient on doxycycline and triamcinolone cream and discuss if her rash worsens she needs to go the emergency room she voiced understanding. Doxycycline chosen as patient is diabetic and she has been scratching and I want to cover for secondary infection. Supportive measures were discussed with the patient and they voiced understanding discharge instructions and agrees to treatment plan. Return precautions reviewed Differential Diagnosis Differential diagnosis: Likely abscess of skin or subcutaneous tissue, viral exanthem, dermatophytosis, urticaria, herpes zoster, allergic reaction to drug, cellulitis, eczema, insect bites, impetigo, contact dermatitis and other (Vasculitis) Discharge Plan Discharge Clinical Impression: Dermatitis Patient Disposition: Home Condition: Stable Instructions: Antibiotic Form, Dermatitis (ED) Additional Instructions: Dermatitis with possible early vasculitis Take doxycycline and triamcinolone cream is prescribed Avoid hot showers Avoid scratching as this can cause a secondary infection May take benadryl 25-50mg every 6 hours as needed for itching. Follow up with your PCP in 3-5 days if symptoms persist or sooner if they worsen Go to the Emergency Room if symptoms worsen- fever, rash spreading with treatment, shortness of breath, tongue swelling, drooling, or chest pain Patient Language: Setswana Prescriptions: New triamcinolone acetonide 0.1 % cream 1 applic topical BID 7 Days Qty: 30 0RF doxycycline monohydrate 100 mg capsule 100 mg PO BID 7 Days Qty: 14 0RF No Action lidocaine 5 % ointment 1 applic topical QID PRN (Reason: pain) Qty: 30 0RF Rx Instructions: Apply sparingly to affected area valacyclovir 1 gram tablet 1,000 mg PO TID 7 Days Qty: 21 0RF promethazine 25 mg tablet 25 mg PO TID PRN (Reason: nausea and vomiting) amlodipine 5 mg tablet 5 mg PO DAILY omeprazole 20 mg capsule,delayed release(DR/EC) 20 mg PO DAILY insulin degludec [Tresiba FlexTouch U-200] 200 unit/mL (3 mL) insulin pen 40 unit subcut QHS 90 Days Qty: 18 3RF levothyroxine [Levoxyl] 125 mcg tablet 125 mcg PO DAILY Gvoke HypoPen 2-Pack 1 mg/0.2 mL auto-injector 1 mg subcut ONCE Qty: 0.4 4RF Rx Instructions: may repeat once after 15 minutes if no response acetaminophen 500 mg tablet 500 mg PO .q8 PRN (Reason: pain) Qty: 20 0RF alprazolam [Xanax] 1 mg Tablet 1 mg PO DAILY Rx Instructions: take 1mg PO QAM AND 2 MG PO QHS Gaviscon 80-14.2 mg Tablet,Chewable 2 tablet PO QID PRN (Reason: Indigestion) amitriptyline 10 mg tablet 20 mg PO HS (DME) blood-glucose meter [OneTouch Verio Reflect Start] Kit See Rx Instructions .Route Qty: 1 0RF Rx Instructions: As directed to check blood sugars twice daily (DME) lancets [OneTouch Delica Plus Lancet] 30 gauge misc See Rx Instructions .Route Qty: 200 2RF Rx Instructions: As directed (DME) OneTouch Verio test strips Strip See Rx Instructions .Route Qty: 100 3RF Rx Instructions: As directed to check blood sugars twice daily insulin lispro 100 unit/mL insulin pen 5 unit subcut TIDWMEAL MDD 33 Qty: 30 2RF Rx Instructions: take 5 units premeal + SSI 150-200: 1 unit 201-250: 2 units 251-300: 3 units 301-350: 4 units 351-400: 5 units >401: 6 units (DME) pen needle, diabetic [BD Ultra-Fine Hui Pen Needle] 32 gauge x 5/32 needle See Rx Instructions .Route Qty: 100 3RF Rx Instructions: use once daily Follow-up/Referrals: Nicol,DAVID Saldivar [Primary Care Provider] - Time of Disposition: 09:54 Quality NIHSS Nursing Documentation ED NIHSS nursing documentation: reviewed/agree
== END 2024-12-12 10:04 | disposition home or self-care (01) ==
PROVIDERS: Emergency Provider Nurse Practitioner Family; PCP Physician Assistant
DX: L30.9 Dermatitis, unspecified (principal); Z87.891 Personal history of nicotine dependence; F12.90 Cannabis use, unspecified, uncomplicated; E11.22 Type 2 diabetes mellitus with diabetic chronic kidney disease; N18.30 Chronic kidney disease, stage 3 unspecified; Z79.4 Long term (current) use of insulin; E03.9 Hypothyroidism, unspecified; K21.9 Gastro-esophageal reflux disease without esophagitis; M17.11 Unilateral primary osteoarthritis, right knee; K76.9 Liver disease, unspecified; Z98.42 Cataract extraction status, left eye; Z98.41 Cataract extraction status, right eye; F41.9 Anxiety disorder, unspecified; F32.A Depression, unspecified; Z90.89 Acquired absence of other organs
CPT/HCPCS: 99213; G0463

== ENCOUNTER 2024-12-20 06:29 | Emergency (ER) | payer MEDICARE, MEDICAID, SELFPAY ==
--- OUTSIDE RECORDS SUMMARY | 2024-12-20 06:32 | XMS_ITS | Data Portability ---
Author Organization [facility] Address [address] [facility] [place] [address] Care Team Providers Care Dispatcher Maintenance Service Name Role Phone ADRIEN STEVENS Primary Care Provider Unavailab le Assessment No assessment recorded. Plan of Treatment Reminders Order Date Submit Date Provider Last Modified By Organization Details Last Modified Time Details Appointments ANY 15 2024 10:30A M CAPO Rasheed Not available Not available Not available Lab cobalamin and folate panel, serum 2024 025 CALVIN Osborne, [address], [address], [place], [address], 09/25/2024 07:08:07 lipid panel, serum 2024 025 CALVIN Osborne, [address]man, [address], [place], [address], 09/25/2024 07:08:03 CBC w/ auto diff 2024 025 CALVIN Osborne, [address], [address], [place], [address], 09/25/2024 07:08:08 hepatic function panel, serum 2024 025 CALVIN Osborne, [address]22 Sar[address]man, [address], [place], [address], 09/25/2024 07:08:04 BMP, serum or plasma 2024 025 CALVIN Osborne, 2022 Sar[address]man, [address], [place], [address], 09/25/2024 07:08:06 TSH + free T4, serum 2024 025 [facility] [facility], [address] Almean, [address], [place], [address], 09/25/2024 07:08:02 Referral None recorded. Procedures upper endoscopy procedure (EGD) (PROC) - Patient is in need a follow-up endoscopy procedure 2023 024 mary Feng MD, [address], [address], [place], [address], 09/25/2024 12:24:37 colonosco py procedure (PROC) 2023 024 mary Feng MD, [address], [address], [place], [address], 09/25/2024 12:24:36 lexiscan cardiolit e stress test (PROC) 2023 024 [facility] (Cardiology & Emg), [facility] [address] [place] [address], [address], 06/07/2024 16:10:45 Surgeries None recorded. Imaging CT, abdomen + pelvis, w/ contrast 2024 025 [facility] (Imaging), [facility]0 [facility] [address], [place], [address], 10/03/2024 16:48:49 MRI, brain, w/wo contrast 2024 025 [facility] (Imaging), [address] [facility] [address], [place], [address], 10/09/2024 11:46:09 CT, angiogram , chest, w/ contrast 2023 024 [facility] (Cardiology & Emg), [facility] [address], [place], [address], 05/26/2024 08:59:01 Medication Orders omeprazol e 40 mg capsule,d elayed release 2024 025 [facility][id number], [address], [place], [place], [id number], 09/04/2024 12:19:03 cyanocoba mark nathony (vit B-12) 1,000 mcg/mL injection solution 2023 024 tcarterma Not available 12/04/2024 11:36:51 Amitiza 24 mcg capsule 2023 024 [facility] #[id number], [address] [facility], [place], [place], [id number], 07/01/2024 22:53:37 losartan 25 mg tablet 2023 024 [facility] [employer] [facility] #25955, [address] [facility], [place], [id number], 05/27/2024 09:29:40 Patient TargetsNo targets recorded. Patient InstructionsNo instructions recorded. Reason for Referral None Reported. Results Created Date Observation Date Name Description Value Unit Range Abnormal Flag Note LastModifiedBy Organization Detail LastModifiedTime 08/28/20 24 08/28/2024 Gluco se [Mass /volu me] in Blood by Autom ated test strip glucose [mass/volume ] in blood by automated test strip 220 text: 70 - 99 mg/dL high GLUCO SE POC 220 (H) 70 - 99 MG/DL 08/28 8:47 AM [employer] [facility] Not Available Not Available 11/02/2024 15:32:16 08/28/20 24 08/28/2024 Gluco se [Mass /volu me] in Blood by Autom ated test strip interpretati on and review of laboratory results Abnorm al Not Available Not Available 15:32:16 08/28/20 24 08/31/2024 Patho logy study pathology study [facility] [address] [place] [address] Teleph one: [phone], extens ion [id number] Pathol ogy Report Surgic al Pathol ogy Report Name: FOUZIA MONTGOMERY Specim en #: [id number] Age: [birth year] (Age: 74) Locati on: [facility] Sex: F Proced ure Date: 2023 Hospit al #: [id number] Date Receiv ed: 08/30/19 25 Date Report ed: 08/31/19 25 Provid er: GIUSEP CULLEN BRADLEY MD Source : A: Antrum , biopsi es B: GE juncti on, biopsi es Clinic al Histor y: GERD and irrita ble bowel syndro me. Postop erativ e Diagno sis: Rule out H. pylori . FINAL DIAGNO SIS: A. Stomac h, antrum , biopsy : -Antra l mucosa with minima l chroni c inacti ve gastri tis. -Helic obacte r pylori organi sms are not identi fied. B. Gastro esopha geal juncti on, biopsy : -Squam ocolum faustino juncti on mucosa with mild reflux associ ated change s. -No eviden ce of intest inal metapl meghan or malign abelino. Gross Descri ption: A. Receiv ed in formal in, labele d with a patien t label and as biops ies of antrum are 2 pieces of watson tissue , each 0.2 cm. The specim en is entire ly submit sarina in casset te A1. B. Receiv ed in formal in, labele d with a patien t label and as biops ies of GE juncti on are 5 pieces of white- watson tissue rangin g from less than 0.1 to 0.2 cm. The specim en is entire ly submit sarina in casset te B1. Gross examin ation (when applic able), interp retati on, and sign out were perfor med at [facility], [address] [place] [address]. Elec tronic ally Signed Out ONSI W KISHANEL MD PATHO LOGY [facility] t[facility] Labor atory Medic ine [address] [place] [address] Telep aysha: , exten suki [id number] Patho logy Repor t Surgi cici Patho logy Repor t Name: FOUZIA HART Speci men #: [id number] Age: [birth year] (Age: 74) Locat ion: [facility] Sex: F Proce dure Date: 08/28 Hospi emily #: [id number] Date Recei heriberto: 025 Date Repor sarina: 025 Provi santiago: GIUSE PPE CAROLYNPE [facility] e: A: Antru m, biops ies B: GE junct ion, biops ies Clini cici Histo ry: GERD and irrit able bowel syndr ome. Posto perat gregory Diagn osis: Rule out H. pylor i. FINAL DIAGN OSIS: A. Stoma ch, antru m, biops y: -Antr al mucos a with minim al chron ic inact gregory gastr itis. -Cynthia cobac ter pylor i organ isms are not ident ified . B. Gastr oesop hagea l junct ion, biops y: -Squa mocol umnar junct ion mucos a with mild reflu x assoc iated balderas es. -No evide nce of intes tinal metap lasia or malig deepa . Gross Descr iptio n: A. Recei heriberto in forma luz, label ed with a patie nt label and as biop sies of antru m are 2 piece s of watson tissu e, each 0.2 cm. The speci men is entir bj submi tted in casse tte A1. B. Recei heriberto in forma luz, label ed with a patie nt label and as biop sies of GE junct ion are 5 piece s of white -watson tissu e rangi ng from less than 0.1 to 0.2 cm. The speci men is entir bj submi tted in casse tte B1. Gross exami natio n (when appli cable ), inter preta tion, and sign out were perfo rmed at [facility], [address] [facility], [facility] [place] [address] . Saritha ctron icall y Sasha d Out VAL YEPEZ MD [facility] Not Available Not Available 11/02/2024 15:32:16 09/24/1909/25/2024 TSH+F REE T4 TSH 3.150 uIU/m L 0.450- 4.500 Not Available [facility] ([facility]) [address] [place], [address], 09/25/2024 07:08:02 09/24/1909/25/2024 TSH+F REE T4 T4,free(dire ct) 1.68 NG/dL 0.82-1 .77 Not Available [facility] ([facility]) [address] [place], [address], 09/25/2024 07:08:02 09/24/19 25 09/25/2024 LIPID PANEL cholesterol, total 262 mg/dL 100-19 9 above high normal Not Available [facility] ([facility]) [address] [place], [address], 09/25/2024 07:08:03 09/24/1909/25/2024 LIPID PANEL triglyceride s 205 mg/dL 0-149 above high normal Not Available [facility] ([facility]) [address] [place], [address], 09/25/2024 07:08:03 09/24/19 25 09/25/2024 LIPID PANEL HDL cholesterol 48 mg/dL >39 Not Available [facility] ([facility]) [address] [place], [address], 09/25/2024 07:08:03 09/24/19 25 09/25/2024 LIPID PANEL VLDL cholesterol cici 38 mg/dL 5-40 Not Available [facility] ([facility]) [address] [facility] [place], [address], 09/25/2024 07:08:03 09/24/19 25 09/25/2024 LIPID PANEL LDL chol calc ([facility]) 176 mg/dL 0-99 above high normal Not Available [facility] ([facility]) [address] [facility] [place], [address], 09/25/2024 07:08:03 09/24/19 25 09/25/2024 HEPAT IC FUNCT ION PANEL (7) protein, total 6.8 g/dL 6.0-8. 5 Not Available [facility] ([facility]) [address] [facility] [place], [address], 09/25/2024 07:08:04 09/24/1909/25/2024 HEPAT IC FUNCT ION PANEL (7) albumin 3.9 g/dL 3.8-4. 8 Not Available [facility] ([facility]) [address] [facility] [place], [address], 09/25/2024 07:08:04 09/24/1909/25/2024 HEPAT IC FUNCT ION PANEL (7) bilirubin, total 0.4 mg/dL 0.0-1. 2 Not Available [facility] ([facility]) [address] [place], [address], 09/25/2024 07:08:04 09/24/1909/25/2024 HEPAT IC FUNCT ION PANEL (7) bilirubin, direct 0.13 mg/dL 0.00-0 .40 Not Available [facility] ([facility]) [address] [place], [address], 09/25/2024 07:08:04 09/24/19 25 09/25/2024 HEPAT IC FUNCT ION PANEL (7) alkaline phosphatase 74 IU/L 44-121 Not Available [facility] ([facility]) [address] [facility], [place], [address], 09/25/2024 07:08:04 09/24/19 25 09/25/2024 HEPAT IC FUNCT ION PANEL (7) AST (SGOT) 15 IU/L 0-40 Not Available [facility] ([facility]) [address] [facility] [place], [address], 09/25/2024 07:08:04 09/24/19 25 09/25/2024 HEPAT IC FUNCT ION PANEL (7) ALT (SGPT) 16 IU/L 0-32 Not Available [facility] ([facility]) [address] [facility] [place], [address], 09/25/2024 07:08:04 09/24/19 25 09/25/2024 BMP7+ EGFR glucose 191 mg/dL 70-99 above high normal Not Available [facility] ([facility]) [address] [facility] [place], [address], 09/25/2024 07:08:05 09/24/19 25 09/25/2024 BMP7+ EGFR BUN 20 mg/dL 8-27 Not Available [facility] ([facility]) [address] [facility] [place], [address], 09/25/2024 07:08:05 09/24/19 25 09/25/2024 BMP7+ EGFR creatinine 1.02 mg/dL 0.57-1 .00 above high normal Not Available [facility] ([facility]) [address] [facility] [place], [address], 09/25/2024 07:08:05 09/24/19 25 09/25/2024 BMP7+ EGFR eGFR 57 mL/mi n/1.7 3 >59 below low normal Not Available [facility] ([facility]) [address] [facility] [place], [address], 09/25/2024 07:08:05 09/24/19 25 09/25/2024 BMP7+ EGFR sodium 139 mmol/ L 134-14 4 Not Available [facility] ([facility]) [address] [facility], [place], [address], 09/25/2024 07:08:05 09/24/19 25 09/25/2024 BMP7+ EGFR potassium 4.4 mmol/ L 3.5-5. 2 Not Available [facility] ([facility]) [address] [facility], [place], [address], 09/25/2024 07:08:05 09/24/19 25 09/25/2024 BMP7+ EGFR chloride 103 mmol/ L 96-106 Not Available [facility] ([facility]) [address] [facility], [place], [address], 09/25/2024 07:08:05 09/24/19 25 09/25/2024 BMP7+ EGFR carbon dioxide, total 22 mmol/ L 20-29 Not Available [facility] ([facility]) [address] [facility], [place], [address], 09/25/2024 07:08:05 09/24/19 25 09/25/2024 VITAM IN B12 AND FOLAT E vitamin B12 499 pg/mL 232-12 45 Not Available [facility] ([facility]) [address] [facility], [place], [address], 09/25/2024 07:08:07 09/24/19 25 09/25/2024 VITAM IN B12 AND FOLAT E folate (folic acid), serum 6.8 NG/mL >3.0 A serum folat e judith ntrat ion of less than 3.1 ng/mL is consi dered to repre sent clini cici defic iency . Not Available [facility] ([facility]) [address] [facility], [place], [address], 09/25/2024 07:08:07 09/24/19 25 09/24/2024 CBC WITH DIFFE RENTI AL/PL ATELE T WBC 5.9 x10e3 /uL 3.4-10 .8 Not Available [facility] ([facility]) [address] [facility], [place], [address], 09/25/2024 07:08:08 09/24/19 25 09/24/2024 CBC WITH DIFFE RENTI AL/PL ATELE T RBC 5.23 x10e6 /uL 3.77-5 .28 Not Available [facility] ([facility]) [address] [facility], [place], [address], 09/25/2024 07:08:08 09/24/1909/24/2024 CBC WITH DIFFE RENTI AL/PL ATELE T hemoglobin 14.8 g/dL 11.1-1 5.9 Not Available [facility] ([facility]) [address] [facility], [place], [address], 09/25/2024 07:08:08 09/24/19 25 09/24/2024 CBC WITH DIFFE RENTI AL/PL ATELE T hematocrit 45.1 % 34.0-4 6.6 Not Available [facility] ([facility]) [address] [place], [address], 09/25/2024 07:08:08 09/24/19 25 09/24/2024 CBC WITH DIFFE RENTI AL/PL ATELE T MCV 86 fL 79-97 Not Available [facility] ([facility]) [address] [place], [address], 09/25/2024 07:08:08 09/24/19 25 09/24/2024 CBC WITH DIFFE RENTI AL/PL ATELE T MCH 28.3 pg 26.6-3 3.0 Not Available [facility] ([facility]) [address] [place], [address], 09/25/2024 07:08:08 09/24/19 25 09/24/2024 CBC WITH DIFFE RENTI AL/PL ATELE T MCHC 32.8 g/dL 31.5-3 5.7 Not Available [facility] ([facility]) [address] [facility], [place], [address], 09/25/2024 07:08:08 09/24/19 25 09/24/2024 CBC WITH DIFFE RENTI AL/PL ATELE T RDW 12.9 % 11.7-1 5.4 Not Available [facility] ([facility]) [address] [facility], [place], [address], 09/25/2024 07:08:08 09/24/19 25 09/24/2024 CBC WITH DIFFE RENTI AL/PL ATELE T platelets 234 x10e3 /uL 150-45 0 Not Available [facility] ([facility]) [address] [facility], [place], [address], 09/25/2024 07:08:08 09/24/19 25 09/24/2024 CBC WITH DIFFE RENTI AL/PL ATELE T neutrophils 65 % notest ab. Not Available [facility] ([facility]) [address] [facility], [place], [address], 09/25/2024 07:08:08 09/24/19 25 09/24/2024 CBC WITH DIFFE RENTI AL/PL ATELE T lymphs 27 % notest ab. Not Available [facility] ([facility]) [address] [facility], [place], [address], 09/25/2024 07:08:08 09/24/19 25 09/24/2024 CBC WITH DIFFE RENTI AL/PL ATELE T monocytes 6 % notest ab. Not Available [facility] ([facility]) [address] [facility], [place], [address], 09/25/2024 07:08:08 09/24/19 25 09/24/2024 CBC WITH DIFFE RENTI AL/PL ATELE T eos 2 % notest ab. Not Available [facility] ([facility]) [address] [facility], [place], [address], 09/25/2024 07:08:08 09/24/19 25 09/24/2024 CBC WITH DIFFE RENTI AL/PL ATELE T basos 0 % notest ab. Not Available [facility] ([facility]) [address] [facility], [place], [address], 09/25/2024 07:08:08 09/24/19 25 09/24/2024 CBC WITH DIFFE RENTI AL/PL ATELE T neutrophils (absolute) 3.8 x10e3 /uL 1.4-7. 0 Not Available [facility] ([facility]) [address] [facility], [place], [address], 09/25/2024 07:08:08 09/24/19 25 09/24/2024 CBC WITH DIFFE RENTI AL/PL ATELE T lymphs (absolute) 1.6 x10e3 /uL 0.7-3. 1 Not Available [facility] ([facility]) [address] [facility], [place], [address], 09/25/2024 07:08:08 09/24/19 25 09/24/2024 CBC WITH DIFFE RENTI AL/PL ATELE T monocytes(ab solute) 0.4 x10e3 /uL 0.1-0. 9 Not Available [facility] ([facility]) [address] [facility], [place], [address], 09/25/2024 07:08:08 09/24/19 25 09/24/2024 CBC WITH DIFFE RENTI AL/PL ATELE T eos (absolute) 0.1 x10e3 /uL 0.0-0. 4 Not Available [facility] ([facility]) [address] [facility], [place], [address], 09/25/2024 07:08:08 09/24/19 25 09/24/2024 CBC WITH DIFFE RENTI AL/PL ATELE T baso (absolute) 0.0 x10e3 /uL 0.0-0. 2 Not Available [facility] ([facility]) [address] [facility], [place], [address], 09/25/2024 07:08:08 09/24/19 25 09/24/2024 CBC WITH DIFFE RENTI AL/PL ATELE T immature granulocytes 0 % notest ab. Not Available [facility] ([facility]) [address] [facility], [place], [address], 09/25/2024 07:08:08 09/24/19 25 09/24/2024 CBC WITH DIFFE RENTI AL/PL ATELE T immature grans (abs) 0.0 x10e3 /uL 0.0-0. 1 Not Available [facility] ([facility]) [address] [facility], [place], [address], 09/25/2024 07:08:08 05/26/20 24 05/25/2024 CT, angio gram, chest , w/ contr ast No observ ation record ed. [address], [address], 06/14/2024 12:05:30 06/07/20 24 06/07/2024 naz can cardi olite stres s test (PROC ) No observ ation record ed. [address] (Cardiology & Emg) [address] [place] [address], [address], 06/14/2024 12:05:29 06/22/20 24 06/07/2024 naz can cardi olite stres s test (PROC ) No observ ation record ed. [facility] (Cardiology & [facility]) [address] [place] [address], [phone], 06/22/2024 14:57:16 09/05/19 25 08/31/2024 colon oscop y scree sussy (PROC ) No observ ation record ed. [facility] Not Available 2024 09:16:32 10/03/19 25 10/03/2024 CT, abdom en + pelvi s, w/ contr ast No observ ation record ed. [address], [place], [address], 12/04/2024 11:58:46 10/09/19 25 10/09/2024 MRI, cervi cici spine , w/o contr ast No observ ation record ed. [address], [place], [address], 10/10/2024 11:12:41 10/09/19 25 10/09/2024 MRI, brain , w/wo contr ast No observ ation record ed. [address], [place], [address], 10/11/2024 13:01:05 10/19/19 25 10/19/2024 XR, knee No observ ation record ed. [address], [place], [address], 10/20/2024 21:57:16 Result Notes None recorded. Problems Name Problem SNOMED Code Status Onset Date Resolution Date Notes Provider Name and Address Organization Details Recorded Time Atrophic vaginitis 24680540 Active 2023 CAPO Rasheed Attn: Nancy palacios,[address] [facility], [place], [address], [facility] 4 09:54:21 Diffuse spasm of esophagus 09724330 Active 2023 CAPO Rasheed Attn: Nancy palacios,[address] [facility], [place], [address], [facility] 4 09:54:22 Bilateral dermatitis of external ear canals 9486560310479 104 Active 2023 CAPO Rasheed Attn: Nancy palacios,[address] [facility], [place], [address], [facility] 4 09:54:23 Vitamin B12 deficiency (non anemic) 30068681 Active 2023 CAPO Rasheed Attn: Nancy palacios,[address] [place], [place], [address] [place] [address] 2, [place] [facility] 4 09:54:25 Hypertrigly ceridemia 857841696 Active 2023 CAPO Rasheed Attn: Nancy g,[address] [place], [place], [address] [place] [address] 2, [place] [facility] 4 09:54:26 Gastroesoph ageal reflux disease without esophagitis 409422125 Active 2023 CAPO Rasheed Attn: Nancy palacios,[address] [place], [address], [place] [facility] 4 09:54:28 Mixed anxiety and depressive disorder 388691213 Active 2023 CAPO Rasheed Attn: Nancy palacios,[address] [place], [place], [address] [place] [address] 2, [place] [facility] 4 09:54:29 Hypothyroid ism 09401993 Active 2023 CAPO Rasheed Attn: Nancy palacios,[address] [place], [address], [place] [facility] 4 09:54:31 Long-term current use of insulin 622133699 Active 2023 CAPO Rasheed Attn: Nancy g,[address] [place], [address], [place] [facility] 4 09:54:32 Uncontrolle d type 2 diabetes mellitus 655449506 Active 2023 CAPO Rasheed Attn: Nancy palacios,[address] [place], [address], [place] [facility] 4 09:54:33 Obesity 679832933 Active 2023 CAPO Rasheed Attn: Accountin g,[address] [facility], [place], [address], [place] [facility] 4 11:17:24 Body mass index 30+ - obesity 846623108 Active 2023 CAPO Rasheed Attn: Accountin g,[address] [facility], [place], [address], [place] [facility] 4 11:17:25 Irritable bowel syndrome with diarrhea 984709262 Active 2023 CAPO Rasheed Attn: Accountin g,[address] [facility], [place], [address], [place] [facility] 4 11:17:27 Benign essential hypertensio n 0255368 Active 2023 CAPO Rasheed Attn: Accountin g,[address] [facility], [place], [address], [place] [facility] 4 11:17:31 Cobalamin deficiency 349287721 Active 2023 CAPO Rasehed Attn: Accountin g,[address] [place], [address], [place] [facility] 4 11:17:33 Long-term drug therapy Active 2023 CAPO Rasheed Attn: Accountin g,[address] [place], [address], [place] [facility] 4 11:17:51 Feeling stressed 178677049 Active 2023 CAPO Rasheed Attn: Accountin g,[address] [place], [address], [place] [facility] 4 09:48:37 Acid reflux 406157354 Active 2023 CAPO Rasheed Attn: Accountin g,[address] [place], [address], [place] [facility] 4 12:06:37 Irritable bowel syndrome characteriz ed by alternating bowel habit 256336330 Active 2023 CAPO Rasheed Attn: Nancy palacois,[address], [place], [address], [facility] 12:06:39 Problem Notes None recorded. Procedures Surgical History Date Name Laterality Status Provider Name and Address Organization Details Recorded Time Appendectomy completed Leda Brian MA [facility] 12/07/2023 14:49:11 Cholecystectomy completed Leda Brian MA [facility] 12/07/2023 14:49:16 Eye Surgery completed Leda Brian MA [facility] 12/07/2023 14:49:22 Hernia Repair completed Leda Brian MA [facility] 12/07/2023 14:49:27 Tonsillectomy completed Leda Brian MA [facility] 12/07/2023 14:49:43 hysterectomy completed Leda Brian MA [facility] 12/07/2023 14:49:52 ligation of bilateral fallopian tubes completed Leda Brian MA [facility] 12/07/2023 14:50:06 Imaging Results Imaging Date Name Status LastModified by Organiz ation Details LastModified Time 05/25/2024 CT, angiogram, chest, w/ contrast completed [address], [address], 06/14/2024 12:05:30 06/07/2024 lexiscan cardiolite stress test (PROC) completed [address] ([facility]) [address] [place] [address], [address], 06/14/2024 12:05:29 06/07/2024 lexiscan cardiolite stress test (PROC) completed [facility] ([facility]) [address] [place] [address], [address], 06/22/2024 14:57:16 08/31/2024 colonoscopy screening (PROC) completed [facility] Information not available 09/05/2024 09:16:32 10/03/2024 CT, abdomen + pelvis, w/ contrast completed [address], [address], 12/04/2024 11:58:46 10/09/2024 MRI, cervical spine, w/o contrast completed [address], [address], 10/10/2024 11:12:41 10/09/2024 MRI, brain, w/wo contrast completed [address], [address], 10/11/2024 13:01:05 10/19/2024 XR, knee completed [address], [address], 10/20/2024 21:57:16 Procedure Notes None recorded. Medical Equipment None Reported. Allergies Allergen ID Allergen Name Allergen Category Reaction Reaction Severity Criticality Documentation Date Start Date Code Code System Note Provider Name and Address Organization Details Recorded Time 879698 Substance with morphinan structure and opioid receptor agonist mechanism of action (substanc e) medicatio n Not available Not available Not available 12/07/2023 21589 9000 SNOMED Not Available Not Available Not Available Medications Name Sig Start Date Stop Date Status Note LastModified by Organization Details LastModified Time neomycin-po lymyxin-hyd rocort 3.5 mg/mL-10,00 0 unit/mL-1 % ear solution 12/06 completed Not Available Not Available Not Available azithromyci n 250 mg tablet 12/06 completed Not Available Not Available Not Available alprazolam 1 mg tablet TAKE 1 TABLET BY MOUTH TWICE DAILY NEEDED 2024 active Not Available Not Available Not Avai lable valacyclovi r 1 gram tablet TAKE 1 TABLET BY MOUTH THREE TIMES DAILY FOR 7 DAYS active Not Available Not Available No t Available hydrocortis one 1 % topical ointment APPLY TOPICALLY TWICE DAILY NEEDED 12/06 completed Not Available Not Available Not Available prednisone 20 mg tablet TAKE 2 TABLETS BY MOUTH DAILY FOR 5 DAYS 12/06 completed Not Available Not Available Not Available diphenoxyla te-atropine 2.5 mg-0.025 mg tablet TAKE 1 TABLET BY MOUTH EVERY 4 TO 6 HOURS NEEDED 12/04 completed Not Available Not Available Not Available amlodipine 5 mg tablet TAKE 1 AND 1/2 TABLETS BY MOUTH EVERY DAY 2024 active Not Available Not Available Not Avai lable omeprazole 40 mg capsule,del ayed release TAKE 1 CAPSULE BY MOUTH EVERY DAY IN THE MORNING active Not Available Not Available No t Available glimepiride 2 mg tablet 12/06 completed Not Available Not Available Not Available amoxicillin 875 mg tablet TAKE 1 TABLET BY MOUTH EVERY 12 HOURS FOR 7 DAYS 12/06 completed Not Available Not Available Not Available famotidine 20 mg tablet TAKE 1 TABLET BY MOUTH TWICE DAILY NEEDED 12/04 completed Not Available Not Available Not Available OneTouch Ultra Test strips USE TO CHECK BLOOD SUGAR TWICE DAILY active Not Available Not Available No t Available amitriptyli ne 10 mg tablet Take 1 tablet every day by oral route for 90 days. active Not Available Not Available No t Available cyanocobala min (vit B-12) 1,000 mcg/mL injection solution Inject 1 mL every month by subcutane ous route. 2024 active Not Available Not Available Not Avai lable levothyroxi ne 125 mcg tablet TAKE 1 TABLET BY MOUTH EVERY DAY active Not Available Not Available No t Available losartan 25 mg tablet Take 1 tablet every day by oral route. 05/15 completed Not Available Not Available Not Available mupirocin 2 % topical ointment APPLY A SMALL AMOUNT TO THE AFFECTED AREA of the RLE BY TOPICAL ROUTE 2 TIMES PER DAY 2024 active Not Available Not Available Not Avai lable ergocalcife rol (vitamin D2) 1,250 mcg (50,000 unit) capsule TAKE 1 CAPSULE BY MOUTH WEEKLY FOR 14 WEEKS active Not Available Not Available No t Available estradiol 0.01% (0.1 mg/gram) vaginal cream USE 1 GRAM VAGINALLY 3 TIMES EVERY WEEK DIRECTED active Not Available Not Available No t Available methylpredn isolone 4 mg tablets in a dose pack FOLLOW PACKAGE DIRECTION S 12/06 completed Not Available Not Available Not Available fluocinonid e 0.05 % topical cream APPLY TOPICALLY TO AFFECTED AREAS OF EAR CANAL TWICE DAILY active Not Available Not Available No t Available fluticasone propionate 50 mcg/actuati on nasal spray,suspe nsion SHAKE LIQUID AND USE 1 SPRAY IN EACH NOSTRIL TWICE DAILY 12/06 completed Not Available Not Available Not Available insulin lispro (U-100) 100 unit/mL subcutaneou s pen INJECT 5 UNITS UNDER SKIN THREE TIMES DAILY WITH MEALS PER SLIDING SCALE. MAX DAILY DOSE OF 33 UNITS. SEE ATTACHED FOR SCALE active Not Available Not Available No t Available nitrofurant oin monohydrate /macrocryst als 100 mg capsule TAKE 1 CAPSULE BY MOUTH EVERY 12 HOURS 12/06 completed Not Available Not Available Not Available Amitiza 24 mcg capsule Take 1 capsule twice a day by oral route. 07/01 completed Not Available Not Available Not Available Lantus Solostar U-100 Insulin 100 unit/mL (3 mL) subcutaneou s pen ADMINISTE R 30 UNITS UNDER THE SKIN EVERY MORNING 12/06 completed Not Available Not Available Not Available lidocaine 5 % topical ointment APPLY SPARINGLY TOPICALLY TO THE AFFECTED AREA FOUR TIMES DAILY NEEDED FOR PAIN active Not Available Not Available No t Available Linzess 145 mcg capsule TAKE 1 CAPSULE BY MOUTH EVERY DAY 12/04 completed Not Available Not Available Not Available [...] FlexTouch U-200 insulin 200 unit/mL (3 mL) subcutaneou s pen Inject 30 units every day by sub-q route for 112 days. active Not Available Not Available No t Available Fiasp FlexTouch U-100 Insulin 100 unit/mL (3 mL) subcutaneou s pen INJECT 5 UNITS UNDER SKIN THREE TIMES DAILY WITH MEALS DIRECTED. MAX DAILY DOSE OF 33 UNITS PER 24 HOURS. SEE ATTACHED PAPER FOR SLIDING SCALE 12/04 completed Not Available Not Available Not Available OneTouch Delica Plus Lancet 30 gauge USE TO TEST BLOOD SUGAR TWICE DAILY active Not Available Not Available No t Available Gvoke HypoPen 2-Pack 1 mg/0.2 mL subcutaneou s auto-inject or active Not Available Not Available Not Available Vitals Date Recorded Body height Body mass index (BMI) Body weight Respiratory rate Oxygen saturation Oxygen saturation in Arterial blood by Pulse oximetry Heart rate Systolic blood pressure Diastolic blood pressure Provider Name and Address Organization Details Last Updated DateTime 4 175.26 cm 32.1 kg/m2 12741.6 9 g 20 /min 96 % 96 % 84 /min 160 mm[Hg] 100 mm[Hg] Leda Brian MA [facility] 4 11:27:27 Date Recorded Systolic blood pressure Diastolic blood pressure Systolic blood pressure Diastolic blood pressure Provider Name and Address Organization Details Last Updated DateTime 05/08/2024 160 mm[Hg] 100 mm[Hg] 140 mm[Hg] 92 mm[Hg] CAPO Laboy Attn: Accounting ,[address] [place], [address] , [facility] 4 12:02:07 Date Recorded Body height Body mass index (BMI) Body weight Heart rate Oxygen saturation Oxygen saturation in Arterial blood by Pulse oximetry Respiratory rate Systolic blood pressure Diastolic blood pressure Provider Name and Address Organization Details Last Updated DateTime 4 175.26 cm 31.9 kg/m2 34099.9 5 g 86 /min 95 % 95 % 18 /min 130 mm[Hg] 82 mm[Hg] Zee Powell MA [facility] 4 11:38:36 Date Recorded Systolic blood pressure Diastolic blood pressure Provider Name and Address Organization Details Last Updated DateTime 06/14/2024 130 mm[Hg] 72 mm[Hg] CAPO Rasheed Attn: Accounting, [place], [address], [facility] 06/14/2024 12:06:31 Date Recorded Body height Body mass index (BMI) Body weight Oxygen saturation Oxygen saturation in Arterial blood by Pulse oximetry Heart rate Respiratory rate Systolic blood pressure Diastolic blood pressure Provider Name and Address Organization Details Last Updated DateTime 5 175.26 cm 31.6 kg/m2 90984.7 7 g 98 % 98 % 84 /min 18 /min 142 mm[Hg] 80 mm[Hg] Leda Brian MA [facility] 11:45:32 Date Recorded Systolic blood pressure Diastolic blood pressure Provider Name and Address Organization Details Last Updated DateTime 09/04/2024 140 mm[Hg] 80 mm[Hg] CAPO Rasheed Attn: Accounting, [place], [address], [facility] 09/04/2024 12:18:44 Date Recorded Body height Body mass index (BMI) Body weight Oxygen saturation Oxygen saturation in Arterial blood by Pulse oximetry Heart rate Systolic blood pressure Diastolic blood pressure Provider Name and Address Organization Details Last Updated DateTime 175.26 cm 31.2 kg/m2 25751.9 9 g 98 % 98 % 83 /min 140 mm[Hg] 80 mm[Hg] Leda Brian MA [facility] 12:26:55 Date Recorded Respiratory rate Systolic blood pressure Diastolic blood pressure Provider Name and Address Organization Details Last Updated DateTime 12/04/2024 18 /min 138 mm[Hg] 80 mm[Hg] CAPO Rasheed Attn: Accounting, [address] [place], [address], [facility] 12/04/2024 12:12:58 Date Recorded Body height Body mass index (BMI) Body weight Oxygen saturation Oxygen saturation in Arterial blood by Pulse oximetry Heart rate Systolic blood pressure Diastolic blood pressure Provider Name and Address Organization Details Last Updated DateTime 175.26 cm 31.2 kg/m2 24757.9 9 g 97 % 97 % 85 /min 128 mm[Hg] 82 mm[Hg] Leda Brian MA [facility] 15:01:10 Social History Question Answer Notes LastModified by Organizat ion Details LastModified Time Tobacco Smoking Status Former Smoker quit 40 years ago Leda Brian MA null, [facility] 12/07/2023 12:41:15 Do You Have An Advance [...] Date Of Your Most Recent Tobacco Screening? 12/13/2024 Information not available 12/13/2024 What Is Your Current Pack Years? 10packyears [...] What Date Was Tobacco Cessation Counseling Provided? 12/13/2024 Information not available 12/13/2024 Do You Or Have You Ever Used [...] Atrial Fibrillation N High Blood Pressure N Thyroid Problems Y Kidney or Bladder Problems N Depression Y COPD N Blood Clots N GI Problems N Skin Problems Y Anemia N Heart Attack (MD) N Diabetes Y Anxiety Disorder Y Muscle, Joint, or Bone Problems N Seizures/Epilepsy N Acid Reflux (GERD) N Cancer Y Stroke N Allergies Y Asthma N High Cholesterol N Hepatitis N Liver Disease N Headaches N Osteoporosis N Heart Failure N Gynecological History Statement/Question Response Menses Monthly [...] 4 completed CAPO Rasheed Attn: Accounting,[address] [facility], [place], [address], [facility] 07/01/2024 12:35:29 Past Encounters Encounter ID Performer Location Encounter Start Date Encounter Closed Date Diagnosis/Indication Diagnosis SNOMED-CT Code Diagnosis ICD10 Code Diagnosis Note [id number] CAP[facility] Rasheed [facility], located [facility] - [place] [address] [place] [address] 12/07/2023 12:24:44 12/07/2023 13:54:54 Hypothyroidism 50041119 E03.9 due for TFT panel. she says endocrine is only managing her diabetes and she needs refill on levothyrox ine 125mcg daily. Mixed anxi ety and depressive disorder 028744254 F41.8 stable at this time. no acute c/o. she takes alprazolam 1mg bid PRN. Uncontroll ed type 2 diabetes mellitus 075949764 E11.65 last a1c around 11% and ran in office from Endocrinol ogpedro. on tresiba and fiasp therapy with them. labs per their office. Gastroesop hageal reflux disease without esophagitis 707199137 K21.9 stable on famotidine 20mg bid. Long-term drug therapy 080116175 Z79.899 routine bmp, lft and cbc due. Bilateral dermatitis of external ear canals 3161385052 187529 H60.93 rx for refill fluocinoni de 0.05% cream bid PRN Long-term current use of insulin 449557323 Z79.4 as above. Hypertriglyceridemia 302 162771 E78.2 on vascepa 1g 2 bid. due for fasting lipids. Screening mammography 24 040878 Z12.31 mammogram is due. Vitamin B1 2 deficiency (non anemic) 29545076 E53.8 screening b12 lab and then will decide b12 injection dosing schedule. Diffuse sp asm of esophagus 93508429 K22.4 refill on amitriptyl ine 10mg qhs. Atrophic vaginitis 27685 000 N95.2 refill on estradiol 0.01% cream ME three times per week. [id number] CAPO Rasheed [facility] [place] [address] [place] [address] 02/21/2024 16:28:41 02/23/2024 16:15:58 Body mass index 30+ - obesity 330302075 Z68.32 BMI is 32.1 Obesity 624668536 E66.8 discussed healthy diet, exercise, controllin g carbohydra robert and added sugars in the diet Benign ess ential hypertension 5014368 I10 Start amlodipine 5 mg p.o. daily for elevated blood pressure in 180/98 range on multiple checks today. Encouraged patient to control sodium in her diet keeping it low, encouragin g some walking for exercise and weight loss to also help manage hypertensi on. Irritable bowel syndrome with diarrhea 297605603 K58.0 just needs refill on PRN infrequent use. Cobalamin deficiency 190 351282 E53.8 Refill on vitamin B12 solution for monthly injection. Long-term drug therapy 416234245 Z79.899 Labs are currently all up-to-date . Hypothyroidism 19343945 E03.9 Patient is stable on levothyrox ine 125mcg daily. She is up-to-date on labs and being managed by endocrinol ogpedro. [id number] CAPO Rasheed [facility] [employer] [address] [place] [address] 05/08/2024 10:44:38 05/08/2024 12:49:37 Benign essential hypertension 5049996 I10 BP is 140/92, add losartan 25 mg daily to the regimen with amlodipine 7.5 mg daily to better control hypertensi on Long-term drug therapy 129707319 Z79.899 All labs are currently up-to-date Dyspnea on exertion 6084 5006 R06.09 Refer for Lexiscan cardiac stress testing and CT angiogram of the chest with contrast Feeling stressed 8033875 06 Z73.3 Related to her son living with her still. Patient does have alprazolam dosing that she uses on a p.r.n. basis. Have encouraged her to start titration down on this [id number] CAPO Rasheed [facility] [employer] [address] [place] [address] 06/14/2024 11:22:04 06/18/2024 14:58:01 Administration of influenza vaccine 23306888 Z23 Flu shot given today Vitamin B1 2 deficiency (non anemic) 55863779 E53.8 Refill on B12 solution Benign ess ential hypertension 0795979 I10 Blood pressure is improved and stable on amlodipine 7.5 mg daily Acid reflux 900226514 K2 1.9 needs updated EGD completed. Saw Dr. Fitzgerald in the past but he has retired. need alternate option that saw her in practice. pt will get back to us about the name of who to send it to. Irritable bowel syndrome characterized by alternating bowel habit 504036223 K58.9 pt will be due for colonoscop y. will prefer to get at same time as EGD as ordered above. Pt will notify us of the doctor to fax orders to. Trial of Amitiza 24 mcg twice daily Long-term drug therapy 916224676 Z79.899 All labs are currently up-to-date [id number] CAPO Rasheed [facility] [employer] [address] [place] [address] 09/04/2024 11:31:43 09/04/2024 13:44:09 Gastroesophageal reflux disease without esophagitis 174335843 K21.9 Refill omeprazole 40 mg daily to be taken in the morning with reflux noted on her EGD this she is provided us notes a lot Headache 84708221 R51.9 Refer for MRI of the brain with and without contrast for more frequent almost daily headaches the last few weeks. Abdominal pain 09810449 R10.9 Generalize d abdominal pain that waxes and wanes we will send for CT scan abdomen and pelvis with contrast Tortuous colon 477985848 3 2107 K63.89 Patient also has a history of tortuous colon unable to have complete evaluation on her colonoscop y. Benign ess ential hypertension 6265266 I10 Blood pressure is improved and stable on amlodipine 7.5 mg daily Long-term drug therapy 747929124 Z79.899 Due for CBC, BMP and liver panel Cholesterol screening 27 3397927 Z13.220 Fasting lipids are due Hypothyroidism 32182109 E03.9 Patient is stable on levothyrox ine 125mcg daily. She is following with endocrinol shaquille and is due for an updated thyroid function panel Vitamin B1 2 deficiency (non anemic) 49323812 E53.8 Check vitamin B12 and folate labs [id number] CAPO Rasheed [facility] [address] [place] [address] 12/04/2024 11:09:38 12/04/2024 12:46:21 Benign essential hypertension 0947211 I10 Blood pressure is improved and stable on amlodipine 7.5 mg daily Body mass index 30+ - obesity 571904907 Z68.32 BMI is 32.1 Obesity 802873217 E66.9 Gastroesop hageal reflux disease without esophagitis 535582927 K21.9 Long-term drug therapy 852180589 Z79.899 Hypothyroidism 57644965 E03.9 Patient is stable on levothyrox ine 125mcg daily. She is following with endocrinol shaquille and is due for an updated thyroid function panel Vitamin B1 2 deficiency (non anemic) 24292721 E53.8 Mixed hyperlipidemia 267 046977 E78.2 unable to tolerate statins Vitamin D deficiency 347 47244 E55.9 Positive s creening for depression on PHQ-9 (Patient Health Questionnaire 9) 0423841453 83924 Z13.31 [id number] CAPO Rasheed [facility] [employer] [facility] [address] [place] [address] 12/13/2024 14:35:08 12/13/2024 15:49:04 Stasis dermatitis 93980031 I87.2 Health Concerns Section Related Observation LastModified by Organization Detai ls LastModified Time None Recorded Concern Status LastModified by Organization Details LastModified Time None Recorded Advance Directives Directive N: Payers Encounter Date Sequence Insurance Name Policy Number Policy Street Covered Member ID Street Member ID Guarantor Name 05/08/2024 1 [place] Fouzia Montgomery [id number] Fouzia Montgomery 05/08/2024 2 [place] WHEN MED[place]ARE OR MEDICARE REPLACEMENT PRIMARY) Fouzia Montgomery [id number] Fouzia Montgomery 06/14/2024 1 [place] Fouzia [place] [id number] Fouzia Montgomery 06/14/2024 2 [place] OR [place]PLACEMENT [place]IMARY) Fouzia Montgomery [id number] Fouzia Montgomery 09/04/2024 1 [place] Fouzia [place] [id number] Fouzia Montgomery 09/04/2024 2 [place] OR MEDIC[place]PLACEMENT [place]) Fouzia Montgomery [id number] Fouzia Montgomery Notes Date Note Type Note Provider Name and Address Organization Details Recorded Time 05/08/20 24 text/ht ml HypertensionReported bypatient.Notes:Patient has [...] and go. CAPO Rasheed Attn: Accounting, [address] [place], [address], [facility] 05/27/2024 09:49:15 10/17/20 24 text/ht ml Bowel Complaints/Fecal IncontinenceReported bypatient.Notes:Patient [...] Rasheed Attn: Accounting, [address] [facility], [place], [address], [facility] 07/01/2024 12:43:06 09/04/19 25 text/ht ml Bowel [...] hypothyroidism which is managed now by her sales and support center agent and she is on levothyroxine 125 mcg daily. Patient would like to have her B12 refill CAPO Rasheed Attn: Accounting, [address] [facility], [place], [address], [facility] 09/23/2024 23:16:35 OBGyn Episode No OBEpisode recorded.
--- OUTSIDE RECORDS SUMMARY | 2024-12-20 06:32 | XMS_ITS | Continuity of Care Document ---
Author Organization 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 Name Role Phone Joe Centeno Unavailable Unavailable Procedures Procedure Date Post-op Follow-up Visit Refraction Post-op Follow-up Visit Post-op Follow-up Visit Remove Cataract, Insert Lens Eye Exam & Treatment IOLMaster Advance Directives Directive Yes / No Effective Date File Name No Information Encounters Encounter Description Practice Location Reason(s) For Visit Diagnoses Date Provider Providers Copied on Encounter [facility], [address] [place] [address] [address], [place], [place], [id number], [place] tel:[phone] [facility] No Information Oct-2 5-200 9 Krishnasamy Joe. [address], [facility] [place][note 2], [place]. tel:[phone] [facility], [address], [place], [place], [id number], [place] tel:[phone] [facility] No Information Mar-0 4-200 9 Krishnasamy Jeo. [address] [facility] [address], [place], [address], [place]. tel:[phone] [facility], [address] [place] [address] [address], [place], [place], [id number], tel:[phone] [facility] No Information b-2 0-200 9 Polanco OD Grzegorz. [address], [place], [place], [facility][note 2], . tel:[phone] [facility], [address], [place], [place], [id number], tel:[phone] [facility] No Information Sep-1 9-200 9 Krishnasamy Joe. [facility] [address], [place], [facility] [place][note 2], . tel:[phone] [facility], [address], [place], [place], [id number], tel:[phone] [facility] No Information b-0 4-200 9 Krishnasamy Joe. [address] [place] [address], [facility] [place][note 2], [place]. tel:[phone] Referring Provider: Joe vasquez, [address] [place] [address], [place], [facility] [place][note 2]. tel:[phone] Family History Family Member Type Diagnosis Age [...]
--- OUTSIDE RECORDS SUMMARY | 2024-12-20 06:32 | XMS_ITS | Data Portability ---
Author Organization [facility] [place], Main Office Address [address] [place] [address] Care Team Providers Care Dashboard Developer Name Role Phone BAMBIADRIEN BOSCH Primary Care Provider ADRIEN STEVENS Referring Provider Assessment No assessment recorded. Plan of Treatment Reminders Order Date Submit Date Provider Last Modified By Organization Details Last Modified Time Details Appointments None recorded. Lab urinalysis, complete 2022 023 [facility], [address], [place], [address], 3 21:12:08 culture, urine 2022 023 [facility], [address], [place], [address], 3 21:12:10 BMP, serum or plasma 2022 023 [facility], [address], [place], [address], 3 21:12:03 CBC w/ auto diff 2022 023 [facility], [address], [place], [address], 3 21:12:07 hepatic function panel, serum 2022 023 [facility], [address], [place], [address], 3 21:12:04 lipid panel, serum 2022 023 [place] [facility], [address], [address], [place], [address], 3 21:12:03 microalbumi n/creatinin e, mass ratio, urine 2022 023 [facility], [address], [address], [place], [address], 3 21:12:02 C-reactive protein, quantitativ e, serum or plasma 2022 023 [place] [facility], [address], [address], [place], [address], 3 21:12:09 erythrocyte sedimentati on rate by westergren method 2022 023 [place] [facility], [address], [address], [place], [address], 3 21:12:06 TSH, serum or plasma 2022 023 [place] [facility], [address], [address], [place], [address], 3 21:12:05 T4, free, serum 2022 023 [facility], [address], [address], [place], [address], 3 21:12:06 vitamin B12, serum 2022 023 [facility], [address], [place], [address], 3 21:12:09 Referral None recorded. Procedures None recorded. Surgeries None recorded. Imaging XR, pelvis 2022 023 [email or web address] [facility], [address], [place], [address], 3 16:52:53 XR, hip, bilateral 2022 023 [facility] , [address], [address], [place], [address], 3 12:44:42 Medication Orders cyanocobala min (vit B-12) 1,000 mcg/mL injection solution [email or web address] [facility] [address] [id number], [address] [place], [place], [id number], 3 17:13:03 cyanocobala min (vit B-12) 1,000 mcg/mL injection solution 2022 023 [facility] [facility] [address] [id number], [address] [place], [place], [id number], 3 12:42:30 Patient TargetsNo targets recorded. Patient InstructionsNo instructions recorded. Reason for Referral None Reported. Results Created Date Observation Date Name Description Value Unit Range Abnormal Flag Note LastModifiedBy Organization Detail LastModifiedTime 03/18/2003/19/2023 ALBUM IN, RANDO M URINE W/CRE ATINI NE creatinine, random urine 104 mg/dL 20-275 normal Not Available [facility] [address] [place], [address], 03/19/2023 21:12:02 03/18/20 23 03/19/2023 ALBUM IN, RANDO M URINE W/CRE ATINI NE albumin, urine 0.3 mg/dL see note: normal Refer ence Range : Refer ence Range Not estab lishe d Not Available [facility] [employer] [address] [place], [address], 03/19/2023 21:12:02 03/18/20 23 03/19/2023 ALBUM IN, [...] a diagn ostic categ ory. Not Available [address], [address], 03/19/2023 21:12:02 03/18/20 23 03/19/2023 LIPID PANEL WITH RATIO S cholesterol, total 257 mg/dL <200 high Not Available [address] [place], [address], 03/19/2023 21:12:03 03/18/20 23 03/19/2023 LIPID PANEL WITH RATIO S HDL cholesterol 46 mg/dL > or = 50 low Not Available [address], [address], 03/19/2023 21:12:03 03/18/20 23 03/19/2023 LIPID PANEL WITH RATIO S triglyceride s 218 mg/dL <150 high If a non-f astin g speci men was colle cted, consi santiago repea t trigl yceri de testi ng on a fasti ng speci men if clini magali indic ated. Zac wells et al. J. of Clin. Lipid ol. 2015; 9:129 -169. Not Available [facility] [address] [place], [address], 03/19/2023 21:12:03 03/18/20 23 03/19/2023 LIPID PANEL [...] 9): 2061- 2068 (http ://ed ucati on.Qu [employer]. com/f aq/FA Q164) Not Available [facility] [address] [place], [address], 03/19/2023 21:12:03 03/18/20 23 03/19/2023 LIPID PANEL WITH RATIO S chol/HDLC ratio 5.6 (calc ) <5.0 high Not Available [facility] [address] [address] [place], [address], 03/19/2023 21:12:03 03/18/20 23 03/19/2023 LIPID PANEL WITH RATIO S LDL/HDL ratio 3.7 (calc ) Below avera ge Risk: <2.34 [place] ge Risk: 2.35- 4.12 Moder ate Risk: 4.13- 5.56 High Risk: >5.57 Not Available [facility] [address] , [place], [address], 03/19/2023 21:12:03 03/18/20 23 03/19/2023 LIPID PANEL WITH RATIO S non HDL cholesterol 211 mg/dL _(cici c) <130 high For patie nts with diabe robert plus 1 major ASCVD risk facto r, treat ing to a non-H DL-C goal of <100 mg/dL (LDL- C of <70 mg/dL ) is consi nakita a tessa stratton optio n. Not Available [facility] [address] [place], [address], 03/19/2023 21:12:03 03/18/20 23 03/19/2023 BASIC METAB OLIC PANEL glucose 160 mg/dL 65-99 high Fasti ng refer ence inter griffin For someo ne witho ut known diabe robert, a gluco se value >125 mg/dL indic ates that they may have diabe robert and this shoul d be confi rmed with a follo w-up test. Not Available [address], [address], 03/19/2023 21:12:03 03/18/20 23 03/19/2023 BASIC METAB OLIC PANEL urea nitrogen (BUN) 20 mg/dL 7-25 normal Not Available [address], [address], 03/19/2023 21:12:03 03/18/20 23 03/19/2023 BASIC METAB OLIC PANEL creatinine 1.11 mg/dL 0.60-1 .00 high Not Available [address], [address], 03/19/2023 21:12:03 03/18/20 23 03/19/2023 BASIC METAB [...] kdoqi /gfr% 5Fcal culat or Not Available [address], [address], 03/19/2023 21:12:03 03/18/20 23 03/19/2023 BASIC METAB OLIC PANEL BUN/creatini ne ratio 18 (calc ) 6-22 normal Not Available [address] [place], [address], 03/19/2023 21:12:03 03/18/20 23 03/19/2023 BASIC METAB OLIC PANEL sodium 138 mmol/ L 135-14 6 normal Not Available [address], [address], 03/19/2023 21:12:03 03/18/20 23 03/19/2023 BASIC METAB OLIC PANEL potassium 4.2 mmol/ L 3.5-5. 3 normal Not Available [address], [address], 03/19/2023 21:12:03 03/18/20 23 03/19/2023 BASIC METAB OLIC PANEL chloride 103 mmol/ L 98-110 normal Not Available [address], [address], 03/19/2023 21:12:03 03/18/20 23 03/19/2023 BASIC METAB OLIC PANEL carbon dioxide 28 mmol/ L 20-32 normal Not Available [address], [address], 03/19/2023 21:12:03 03/18/20 23 03/19/2023 BASIC METAB OLIC PANEL calcium 9.5 mg/dL 8.6-10 .4 normal Not Available [address], [address], 03/19/2023 21:12:03 03/18/20 23 03/19/2023 HEPAT IC FUNCT ION PANEL protein, total 6.7 g/dL 6.1-8. 1 normal Not Available [address], [address], 03/19/2023 21:12:04 03/18/20 23 03/19/2023 HEPAT IC FUNCT ION PANEL albumin 3.9 g/dL 3.6-5. 1 normal Not Available [address] [place], [address], 03/19/2023 21:12:04 03/18/20 23 03/19/2023 HEPAT IC FUNCT ION PANEL globulin 2.8 g/dL_ (calc ) 1.9-3. 7 normal Not Available [address] [address] [place], [address], 03/19/2023 21:12:04 03/18/20 23 03/19/2023 HEPAT IC FUNCT ION PANEL albumin/glob ulin ratio 1.4 (calc ) 1.0-2. 5 normal Not Available [address], [address], 03/19/2023 21:12:04 03/18/20 23 03/19/2023 HEPAT IC FUNCT ION PANEL bilirubin, total 0.6 mg/dL 0.2-1. 2 normal Not Available [address] [address] [place], [address], 03/19/2023 21:12:04 03/18/20 23 03/19/2023 HEPAT IC FUNCT ION PANEL bilirubin, direct 0.1 mg/dL < or = 0.2 normal Not Available [address] [address] [place], [address], 03/19/2023 21:12:04 03/18/20 23 03/19/2023 HEPAT IC FUNCT ION PANEL bilirubin, indirect 0.5 mg/dL _(cici c) 0.2-1. 2 normal Not Available [address] [address] [place], [address], 03/19/2023 21:12:04 03/18/20 23 03/19/2023 HEPAT IC FUNCT ION PANEL alkaline phosphatase 63 U/L 37-153 normal Not Available [address] [address] [place], [address], 03/19/2023 21:12:04 03/18/20 23 03/19/2023 HEPAT IC FUNCT ION PANEL AST 12 U/L 10-35 normal Not Available [address], [address], 03/19/2023 21:12:04 03/18/20 23 03/19/2023 HEPAT IC FUNCT ION PANEL ALT 16 U/L 6-29 normal Not Available [address], [address], 03/19/2023 21:12:04 03/18/20 23 03/19/2023 TSH TSH 1.13 mIU/L 0.40-4 .50 normal Not Available [address], [address], 03/19/2023 21:12:05 03/18/20 23 03/19/2023 T4, FREE T4, free 1.2 NG/dL 0.8-1. 8 normal Not Available [address], [address], 03/19/2023 21:12:06 03/18/20 23 03/19/2023 SED RATE BY MODIF IED WESTE RGREN sed rate by modified westergren 28 mm/h < or = 30 normal Not Available [address], [address], 03/19/2023 21:12:06 03/18/20 23 03/19/2023 CBC (INCL UDES DIFF/ PLT) white blood cell count 4.7 thous and/u L 3.8-10 .8 normal Not Available [address], [address], 03/19/2023 21:12:07 03/18/20 23 03/19/2023 CBC (INCL UDES DIFF/ PLT) red blood cell count 4.97 rosy on/uL 3.80-5 .10 normal Not Available [address] [place], [address], 03/19/2023 21:12:07 03/18/20 23 03/19/2023 CBC (INCL UDES DIFF/ PLT) hemoglobin 14.0 g/dL 11.7-1 5.5 normal Not Available [address], [address], 03/19/2023 21:12:07 03/18/20 23 03/19/2023 CBC (INCL UDES DIFF/ PLT) hematocrit 42.4 % 35.0-4 5.0 normal Not Available [address], [address], 03/19/2023 21:12:07 03/18/20 23 03/19/2023 CBC (INCL UDES DIFF/ PLT) MCV 85.3 fL 80.0-1 00.0 normal Not Available [address], [address], 03/19/2023 21:12:07 03/18/20 23 03/19/2023 CBC (INCL UDES DIFF/ PLT) MCH 28.2 pg 27.0-3 3.0 normal Not Available [address], [address], 03/19/2023 21:12:07 03/18/20 23 03/19/2023 CBC (INCL UDES DIFF/ PLT) MCHC 33.0 g/dL 32.0-3 6.0 normal Not Available [address], [address], 03/19/2023 21:12:07 03/18/20 23 03/19/2023 CBC (INCL UDES DIFF/ PLT) RDW 13.1 % 11.0-1 5.0 normal Not Available [address], [address], 03/19/2023 21:12:07 03/18/20 23 03/19/2023 CBC (INCL UDES DIFF/ PLT) platelet count 213 thous and/u L 140-40 0 normal Not Available [address], [address], 03/19/2023 21:12:07 03/18/20 23 03/19/2023 CBC (INCL UDES DIFF/ PLT) MPV 10.4 fL 7.5-12 .5 normal Not Available [address], [address], 03/19/2023 21:12:07 03/18/20 23 03/19/2023 CBC (INCL UDES DIFF/ PLT) absolute neutrophils 2515 cells /uL 1500-7 800 normal Not Available [address], [address], 03/19/2023 21:12:07 03/18/20 23 03/19/2023 CBC (INCL UDES DIFF/ PLT) absolute lymphocytes 1814 cells /uL 850-39 00 normal Not Available [address], [address], 03/19/2023 21:12:07 03/18/20 23 03/19/2023 CBC (INCL UDES DIFF/ PLT) absolute monocytes 301 cells /uL 200-95 0 normal Not Available [address], [address], 03/19/2023 21:12:07 03/18/20 23 03/19/2023 CBC (INCL UDES DIFF/ PLT) absolute eosinophils 71 cells /uL 15-500 normal Not Available [address], [address], 03/19/2023 21:12:07 03/18/20 23 03/19/2023 CBC (INCL UDES DIFF/ PLT) absolute basophils 0 cells /uL 0-200 normal Not Available [address], [address], 03/19/2023 21:12:07 03/18/20 23 03/19/2023 CBC (INCL UDES DIFF/ PLT) neutrophils 53.5 % normal Not Available [facility] [address], [address], 03/19/2023 21:12:07 03/18/20 23 03/19/2023 CBC (INCL UDES DIFF/ PLT) lymphocytes 38.6 % normal Not Available [facility] [address], [address], 03/19/2023 21:12:07 03/18/20 23 03/19/2023 CBC (INCL UDES DIFF/ PLT) monocytes 6.4 % normal Not Available [facility] [address], [address], 03/19/2023 21:12:07 03/18/20 23 03/19/2023 CBC (INCL UDES DIFF/ PLT) eosinophils 1.5 % normal Not Available [facility] [address], [address], 03/19/2023 21:12:07 03/18/20 23 03/19/2023 CBC (INCL UDES DIFF/ PLT) basophils 0.0 % normal Not Available [address], [address], 03/19/2023 21:12:07 03/18/20 23 03/19/2023 URINA LYSIS , COMPL ETE color YELLOW yellow normal Not Available [facility] [address], [address], 03/19/2023 21:12:08 03/18/20 23 03/19/2023 URINA LYSIS , COMPL ETE appearance CLEAR clear normal Not Available [facility] [address], [address], 03/19/2023 21:12:08 03/18/20 23 03/19/2023 URINA LYSIS , COMPL ETE specific gravity 1.015 1.001- 1.035 normal Not Available [address], [address], 03/19/2023 21:12:08 03/18/20 23 03/19/2023 URINA LYSIS , COMPL ETE pH < OR = 5.0 5.0-8. 0 normal Not Available [address], [address], 03/19/2023 21:12:08 03/18/20 23 03/19/2023 URINA LYSIS , COMPL ETE glucose NEGATI VE negati ve normal Not Available [address], [address], 03/19/2023 21:12:08 03/18/20 23 03/19/2023 URINA LYSIS , COMPL ETE bilirubin NEGATI VE negati ve normal Not Available [address], [address], 03/19/2023 21:12:08 03/18/20 23 03/19/2023 URINA LYSIS , COMPL ETE ketones NEGATI VE negati ve normal Not Available [address], [address], 03/19/2023 21:12:08 03/18/20 23 03/19/2023 URINA LYSIS , COMPL ETE occult blood NEGATI VE negati ve normal Not Available [facility] [address], [address], 03/19/2023 21:12:08 03/18/20 23 03/19/2023 URINA LYSIS , COMPL ETE protein NEGATI VE negati ve normal Not Available [address] [place], [address], 03/19/2023 21:12:08 03/18/20 23 03/19/2023 URINA LYSIS , COMPL ETE nitrite NEGATI VE negati ve normal Not Available [address], [address], 03/19/2023 21:12:08 03/18/20 23 03/19/2023 URINA LYSIS , COMPL ETE leukocyte esterase NEGATI VE negati ve normal Not Available [address], [address], 03/19/2023 21:12:08 03/18/20 23 03/19/2023 URINA LYSIS , COMPL ETE WBC NONE SEEN /hpf < or = 5 normal Not Available [address], [address], 03/19/2023 21:12:08 03/18/20 23 03/19/2023 URINA LYSIS , COMPL ETE RBC NONE SEEN /hpf < or = 2 normal Not Available [address], [address], 03/19/2023 21:12:08 03/18/20 23 03/19/2023 URINA LYSIS , COMPL ETE squamous epithelial cells 10-20 /hpf < or = 5 abnormal Not Available [address], [address], 03/19/2023 21:12:08 03/18/20 23 03/19/2023 URINA LYSIS , COMPL ETE bacteria NONE SEEN /hpf none seen normal Not Available [address], [address], 03/19/2023 21:12:08 03/18/20 23 03/19/2023 URINA LYSIS , COMPL ETE hyaline cast NONE SEEN /lpf none seen normal Not Available [address], [address], 03/19/2023 21:12:08 03/18/20 23 03/19/2023 VITAM IN B12 vitamin B12 >2000 pg/mL 200-11 00 high Not Available [facility] [address] [address] [place], [address], 03/19/2023 21:12:09 03/18/20 23 03/19/2023 C-JOANIE CTIVE PROTE IN C-reactive protein 4.3 mg/L <8.0 normal Not Available [facility] [address] [place], [address], 03/19/2023 21:12:09 03/18/20 23 03/19/2023 CULTU RE, URINE , ROUTI NE culture, urine, routine CULTU RE, URINE , ROUTI NE Micro Numbe r: [id number] Test Statu s: Final Speci men Sourc e: Urine , clean catch Speci men Quali ty: Adequ ate Resul t: Mixed genit al luz maria isola sarina. These super ficia l bacte reese are not indic ative of a urina ry tract infec tion. No furth er organ ism ident ifica tion is warra nted on this speci men. If clini maagli indic ated, recol lect clean -catc h, mid-s tream urine and trans elsie immed iatel y to Urine Cultu re Trans port Tube. Not Available [facility] [address] , [place], [address], 03/19/2023 21:12:10 07/20/20 22 07/20/2022 XR, chest , 2 view No observ ation record ed. [id number] [facility] [address], [place], [address], 10/27/2022 01:16:06 09/06/19 23 08/11/2022 MRI, lumba r spine , w/wo contr ast No observ ation record ed. [id number] [facility] [address], [place], [address], 10/27/2022 01:16:06 03/18/20 23 03/18/2023 XR, hip, bilat eral No observ ation record ed. [email or web address] [facility] [address], [place], [address], 03/25/2023 10:35:06 Result Notes None recorded. Problems Name Problem SNOMED Code Status Onset Date Resolution Date Notes Provider Name and Address Organization Details Recorded Time Irritable bowel syndrome 38032838 Active Not Available [facility] 3 01:05:13 Chronic vaginitis 76982492 Active Not Available [facility] 3 01:05:13 Herpes labialis 9802071 Active Not Available [facility] 3 01:05:13 Constipati on 33307507 Active Not Available [facility] 3 01:05:13 Acute sinusitis 60681188 Active Not Available [facility] 3 01:05:13 Left flank pain 840296415 Active Not Available [facility] 3 01:05:13 Cobalamin deficiency 470496565 Active Not Available [facility] 3 01:05:13 Recurrent anxiety 581932790 Active Not Available [facility] 3 01:05:13 Gastroesop hageal reflux disease 013964019 Active Not Available [facility] 3 01:05:13 Screening mammograph y Active 2021 Not Available [facility] 3 01:05:13 Headache 08509239 Active Not Available [facility] 3 01:05:13 Long-term drug therapy Active 2021 Not Available [facility] 3 01:05:13 Mixed hyperlipid emia 466316788 Active 2021 Not Available [facility] 3 01:05:13 Low back pain 033484106 Active 2021 Not Available [facility] 3 01:05:13 Rib pain 720683589 Active Not Available [facility] 3 01:05:14 Right upper quadrant pain 312778423 Active Not Available [facility] 3 01:05:14 Otitis externa 3234889 Active Not Available [facility] 3 01:05:14 Sarcoidosi s 32851158 Active 1977 Not Available [facility] 3 01:05:14 Acute pharyngiti s 531493289 Active Not Available [facility] 3 01:05:14 Dizziness 700041163 Active 2021 Not Available [facility] 3 01:05:14 Hypothyroi dism 55253041 Active Not Available [facility] 3 01:05:14 Nausea 080566747 Active Not Available [facility] 3 01:05:14 Night sweats 19517033 Active Not Available [facility] 3 01:05:14 Acute urinary tract infection 407851914 Active 2022 Not Available [facility] 3 01:05:14 Streptococ cici sore throat 65608859 Active Not Available [facility] 3 01:05:14 Uncontroll ed type 2 diabetes mellitus 553782740 Active 2021 Not Available [facility] 3 01:05:14 Anxiety 89420251 Active Not Available [facility] 3 01:05:15 Dysuria 15346441 Active Not Available [facility] 3 01:05:15 Cough 33990515 Active Not Available [facility] 3 01:05:15 Stomach cramps 36003171 Active 2022 Not Available [facility] 3 01:05:15 Atrophic vaginitis 82905444 Active Not Available [facility] 3 01:05:15 Hyperlipid emia 26509344 Active 2021 Not Available [facility] 3 01:05:15 Essential hypertensi on 14190289 Active 2021 Not Available [facility] 3 01:05:15 Vitamin B12 deficiency (non anemic) 36124031 Active 2021 Not Available [facility] 3 01:05:15 Otitis media 77498188 Active Not Available [facility] 3 01:05:15 Posterior rhinorrhea 02077217 Active Not Available [facility] 3 01:05:16 Epigastric pain 59469071 Active Not Available [facility] 3 01:05:16 Diffuse spasm of esophagus 11168835 Active Not Available [facility] 3 01:05:16 COVID-19 935056363 Active 2021 Not Available [facility] 3 01:05:16 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 Active Not Available [facility] 3 01:05:16 Impaired glucose tolerance 6367618 Active Not Available [facility] 3 01:05:16 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 2021 Not Available [facility] 3 01:05:16 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 Not Available [facility] 3 01:05:16 Pain in pelvis 87542180 Active 2022 CAPO Rasheed [address], [address], [place], [address] , [facility] 3 10:22:00 Bilateral hip joint pain 6395164292168 9100 Active 2022 CAPO Rasheed [address], [address], [place], [address] , [facility] 3 10:22:08 Multiple joint pain 86042089 Active 2022 CAPO Rasheed [address], [address], [place], [address] , [facility] 3 10:25:00 Lower urinary tract symptoms 700743564 Active 2022 CAPO Rasheed [address], [address], [place], [address] , [facility] 3 10:25:35 Gastroesop hageal reflux disease without esophagiti s 045310961 Active 2022 CAPO Rasheed [address], [address], [place], [address] , [facility] [employer] [facility] [facility] 3 15:51:34 Thoracic back pain 332373944 Active 2022 CAPO Rasheed [address], [place], [address] , [facility] [employer] [facility] [facility] 3 14:55:34 Problem Notes None recorded. Procedures Surgical History Date Name Laterality Status Provider Name and Address Organization Details Recorded Time 04/01/20 Date of Last Colonoscopy completed Not Available [facility] 10/27/2022 00:57:07 01/27/20 16 Most Recent Bone Density completed Not Available [facility] 10/27/2022 00:57:08 12/14/19 09 Colonoscopy completed Not Available [facility] 10/27/2022 00:57:11 cholecystectomy completed Not Available [facility] 10/27/2022 00:57:11 Removal of thyroid completed Not Available [facility] 10/27/2022 00:57:11 Tonsillectomy completed Not Available [facility] 10/27/2022 00:57:11 hysterectomy completed Not Available [facility] 10/27/2022 00:57:11 hernia repair completed Not Available [facility] 10/27/2022 00:57:11 Imaging Results Imaging Date Name Status LastModified by Organiz ation Details LastModified Time 08/11/2022 MRI, lumbar spine, w/wo contrast completed [id number] [facility] [address], [place], [address], 10/27/2022 01:16:06 07/20/2022 XR, chest, 2 view completed [id number] [address] [place] [address] [address], [place], [address], 10/27/2022 01:16:06 03/18/2023 XR, hip, bilateral completed [email or web address] [facility] [address], [place], [address], 03/25/2023 10:35:06 Procedure Notes None recorded. Medical Equipment None Reported. Allergies Allergen ID Allergen Name Allergen Category Reaction Reaction Severity Criticality Documentation Date Start Date Code Code System Note Provider Name and Address Organization Details Recorded Time 1774 Valium medicatio n Not available Not available Not available 10/27/2022 76718 2 RxNorm Not Available [facility] 3 01:15:26 1775 tetracycl ine medicatio n vomiting moderate Not available 10/27/2022 75243 RxNorm Not Available [facility] 3 01:15:26 1776 Pyridium medicatio n vomiting Not available Not available 10/27/2022 8998 RxNorm Not Available [facility] 3 01:15:27 1777 morphine medicatio n vomiting Not available Not available 10/27/2022 7052 RxNorm Not Available [facility] 3 01:15:27 1778 hydrocodo ne Not available vomiting Not available Not available 10/27/2022 5489 RxNorm Not Available [facility] 3 01:15:27 1779 codeine medicatio n vomiting Not available Not available 10/27/2022 2670 RxNorm Not Available [facility] 3 01:15:27 1780 Cipro medicatio n nausea Not available Not available 10/27/2022 90024 3 RxNorm Not Available [facility] 3 01:15:27 1781 cefdinir medicatio n rash Not available Not available 10/27/2022 80601 RxNorm head, neck, chest redne ss Not Available [facility] 3 01:15:27 1782 diazepam medicatio n dizziness Not available Not available 10/27/2022 3322 RxNorm error Not Available [facility] 3 01:15:27 1783 amitripty line medicatio n Not available Not available Not available 10/27/2022 704 RxNorm Not Available [facility] 3 01:15:27 Medications Name Sig [...] Available prednison e 10 mg tablet take 0s4xotc, 0u0qrhr, 9w2zuul, 2f5qpyf active Not Available Not Available No t [...] mL by injectio n route. 07/07 completed [facility][NOTE 3]#: [id number] 93-28 Not Available Not Available Not Available [...] month by subcutan eous route. 2022 active [facility][NOTE 3]# [id number] 44-00Tol erated well. Not Available Not Available [...] Available Not Available No t Available Fluvirin 3035-0860 45 mcg (15 mcg x 3)/0.5 mL [...] Not Available Not Available No t Available [facility] ODT 75 mg disintegr ating tablet take [...] % 98 % 97 /min 97.2 [degF] 87883.8 8 g 122 mm[Hg] 78 mm[Hg] Not Available [facility] 01:00:35 Date Recorded Body height Body temperature Provider N jules and Address Organization Details Last Updated DateTime 06/15/2022 167.64 cm 98.2 [degF] Not Available [facility] 10/27/2022 01:00:44 Date Recorded Body height Oxygen saturation Oxygen saturation in Arterial blood by Pulse oximetry Heart rate Respiratory rate Body temperature Systolic blood pressure Diastolic blood pressure Provider Name and Address Organization Details Last Updated DateTime 3 167.64 cm 98 % 98 % 72 /min 16 /min 97 [degF] 122 mm[Hg] 78 mm[Hg] Not Available [facility] 3 01:00:35 Date Recorded Body height Body temperature Body mass index (BMI) Body weight Respiratory rate Oxygen saturation Oxygen saturation in Arterial blood by Pulse oximetry Heart rate Systolic blood pressure Diastolic blood pressure Provider Name and Address Organization Details Last Updated DateTime 3 167.64 cm 97.3 [degF] 34.6 kg/m2 10523.5 6 g 16 /min 96 % 96 % 81 /min 140 mm[Hg] 90 mm[Hg] MARIA D Jane [email or web address] 3 09:55:30 Date Recorded Body height Body temperature Body mass index (BMI) Body weight Respiratory rate Oxygen saturation Oxygen saturation in Arterial blood by Pulse oximetry Heart rate Systolic blood pressure Diastolic blood pressure Provider Name and Address Organization Details Last Updated DateTime 3 167.64 cm 96.5 [degF] 35.2 kg/m2 72863.1 4 g 16 /min 96 % 96 % 80 /min 138 mm[Hg] 80 mm[Hg] MARIA D Jane [employer] [facility] 3 14:28:10 Social History Question Answer Notes LastModified by Organizat ion Details LastModified Time Tobacco Smoking Status Former Smoker Not Available [facility] 10/27/2022 00:53:42 Do You Have An Advance Directive? Yes MIGRATION.453749 2278 Information not available 10/27/2022 What Is Your Level Of Alcohol Consumption? Occasional MIGRATION.438514 3673 Information not available 10/27/2022 Are You Blind Or Do You Have Difficulty Seeing? No MIGRATION.416521 6206 Information not available 10/27/2022 What Is Your Level Of Caffeine Consumption? Moderate MIGRATION.217380 4556 Information not available 10/27/2022 How Much Tobacco Do You Chew? None MIGRATION.730390 5534 Information not available 10/27/2022 In The 14 Days Before Symptom Onset, Have You Had Close Contact With A Laboratory-confir med COVID-19 While That Case Was Ill? No MIGRATION.227338 1914 Information not available 10/27/2022 In The 14 Days Before Symptom Onset, Have You Had Close Contact With A Person Who Is Under Investigation For COVID-19 While That Person Was Ill? No MIGRATION.746583 6554 Information not available 10/27/2022 Are You Currently Employed? No [email or web address] Information not available 03/17/2023 Are You Deaf Or Do You Have Serious Difficulty Hearing? No MIGRATION.897413 1203 Information not available 10/27/2022 What Type Of Diet Are You Following? REGULAR MIGRATION.716445 1994 Information not available 10/27/2022 Which Illicit Or Recreational Drugs Have You Used? None MIGRATION.665706 2268 Information not available 10/27/2022 Do You Or Have You Ever Used E-cigarettes Or Vape? Never Used Electronic Cigarettes MIGRATION.928464 0611 Information not available 10/27/2022 What Is Your Occupation? Retired MIGRATION.944230 0079 Information not available 10/27/2022 Have There Been Any Changes To Your Family Or Social Situation? No MIGRATION.914237 2251 Information not available 10/27/2022 Are There Any Guns Present In Your Home? Yes MIGRATION.740154 1705 Information not available 10/27/2022 Do You Use Insect Repellent Routinely? No [email or web address] Information not available 03/17/2023 Do You Have A Medical Power Of Tank Refinisher? No MIGRATION.918558 4405 Information not available 10/27/2022 What Was The Date Of Your Most Recent Tobacco Screening? 10/31/2020 MIGRATION.979365 2390 Information not available 10/27/2022 What Is Your Relationship Status? MIGRATION.061505 4922 Information not available 10/27/2022 Do You Use Your Seat Belt Or Car Seat Routinely? Yes MIGRATION.496510 5295 Information not available 10/27/2022 Do You Have Smoke And Carbon Monoxide Detectors In Your Home? Yes MIGRATION.708635 1539 Information not available 10/27/2022 At What Age Did You Start Smoking Tobacco? 28 MIGRATION.872260 1585 Information not available 10/27/2022 Do You Or Have You Ever Used Smokeless Tobacco? Never Used Smokeless Tobacco MIGRATION.680225 1379 Information not available 10/27/2022 How Much Tobacco Do You Smoke? 0.5 PPD MIGRATION.214122 7289 Information not available 10/27/2022 Do You Use Any Illicit Or Recreational Drugs? No MIGRATION.987258 1099 Information not available 10/27/2022 Do You Use Sunscreen Routinely? No MIGRATION.956668 1638 Information not available 10/27/2022 Have You Recently Traveled Abroad? No MIGRATION.474641 8172 Information not available 10/27/2022 Do You Have Any Dietary Restrictions? No MIGRATION.660333 4272 Information not available 10/27/2022 Do You Or Have You Ever Used Any Other Forms Of Tobacco Or Nicotine? No MIGRATION.647792 0477 Information not available 10/27/2022 Sex: Female Functional Status Question Answer Note LastModified by Bandwidth Details LastModified Time Do you have difficulty walking or climbing stairs? No MIGRATION.9183813 026 Information not available 10/27/2022 Do you have transportation difficulties? No MIGRATION.1003996 026 Information not available 10/27/2022 Are you able to walk? YESWOREST MIGRATION.5456995 026 Information not available 10/27/2022 Do you have difficulty doing errands alone? No MIGRATION.8598266 026 Information not available 10/27/2022 Are you able to care for yourself? Yes MIGRATION.7600998 026 Information not available 10/27/2022 Do you have difficulty dressing or bathing? No MIGRATION.7312753 026 Information not available 10/27/2022 What is your exercise level? None MIGRATION.8494875 026 Information not available 10/27/2022 Mental Status Question Answer Note LastModified by Organizat ion Details LastModified Time Do you have difficulty concentrating, remembering or making decisions? Yes MIGRATION.726763401 6 Information not available 10/27/2022 Family History Relationship Description Onset Age of this Age Resolved Age Notes LastModified by Organization Details LastModified Time Mother Diabetes mellitus MIGRATION.655 [id number] Not available 10/27/2022 00:57:14 Father Malignant tumor of stomach 83 MIGRATION.772 3520559 Not available 10/27/2022 00:57:14 Brother Malignant tumor of esophagus MIGRATION.026 3509441 Not available 10/27/2022 00:57:14 Son Mental disorder MIGRATION.595 4714889 Not available 10/27/2022 00:57:14 Medical History Condition [...] HAVE YOU BEEN HOSPITALIZED OR SEEN IN [facility] IN THE PAST YEAR ? N [...] and Address Organization Details Recorded Time Novel Ujzhsumas-O4O2-85, all formulations 6 completed Not Available [facility] 10/27/2022 01:15:16 influenza, unspecified formulation 6 completed Not Available [facility] 10/27/2022 01:15:16 COVID-19, mRNA, LNP-S, PF, 30 mcg/0.3 mL dose 1 completed Not Available [facility] 10/27/2022 01:15:16 COVID-19, mRNA, LNP-S, PF, 30 mcg/0.3 mL dose 1 completed Not Available [facility] 10/27/2022 01:15:16 Influenza, split virus, quadrivalent, preservative 8 completed Not Available [facility] 10/27/2022 01:15:16 influenza, unspecified formulation 4 completed Not Available [facility] 10/27/2022 01:15:16 Influenza, high-dose, trivalent, PF 7 completed Not Available [facility] 10/27/2022 01:15:16 pneumococcal polysaccharide PPV23 6 completed Not Available [facility] 10/27/2022 01:15:16 Influenza, split virus, quadrivalent, preservative 5 completed Not Available [facility] 10/27/2022 01:15:16 Past Encounters Encounter ID Performer Location Encounter Start Date Encounter Closed Date Diagnosis/Indication Diagnosis SNOMED-CT Code Diagnosis ICD10 Code Diagnosis Note [id number] [facility] [address] [place] [address] 10/31/2020 00:00:00 11/22/2020 20:55:14 [id number] [facility] [address] [place] [address] 01/20/2021 00:00:00 01/23/2021 17:41:58 [id number] [facility] [address] [place] [address] 03/25/2021 00:00:00 03/26/2021 00:43:21 [id number] [facility] [address] [place] [address] 05/05/2021 00:00:00 05/28/2021 20:25:19 [id number] [facility] [address] [place] [address] 06/30/2021 00:00:00 07/19/2021 21:24:40 [id number] [facility] [address] [place] [address] 07/01/2021 00:00:00 07/02/2021 15:06:48 [id number] [facility] [address] [place] [address] 09/25/2021 00:00:00 09/27/2021 11:22:11 [id number] [facility] [address] [place] [address] 11/30/2021 00:00:00 12/26/2021 10:03:24 [id number] [facility] [address] [place] [address] 12/29/2021 00:00:00 01/26/2022 23:04:19 [id number] [facility] [address] [place] [address] 01/05/2022 00:00:00 01/05/2022 18:00:20 [id number] [facility] [address] [place] [address] 04/20/2022 00:00:00 04/25/2022 09:13:56 [id number] [facility] [address] [place] [address] 05/18/2022 00:00:00 05/18/2022 17:53:51 [id number] [facility] [address] [place] [address] 06/15/2022 00:00:00 06/15/2022 18:35:44 [id number] [facility] [address] [place] [address] 09/15/2022 00:00:00 09/28/2022 20:36:03 [id number] [facility] [address] [facility] [place] [address] 10/25/2022 00:00:00 10/25/2022 19:30:46 [id number] CAPO Rasheed [facility] [address] [place] [address] 03/18/2023 09:48:00 03/18/2023 10:28:22 Bilateral hip joint pain 2930054950 8158570 M25.552 M25.551 check xrays of hip bilaterall y. Pain in pelvis 66999948 R10.2 check xray pelvis Cobalamin deficiency 190 318224 E53.8 refill b12 RX and check lab Hyperlipidemia 03468260 E78.5 fasting lipids are due Hypothyroidism 69497028 E03.9 on supplement and due for TFTs Multiple joint pain 3567 8005 M25.50 screening CRP and ESR with spike up in joint pain Long-term drug therapy 333796402 Z79.899 routine bmp, CBC and LFT due Lower urin estephania tract symptoms 737406371 R39.9 screening UA w/cx with long hx of UTIs and frequency noted Uncontroll ed type 2 diabetes mellitus 389381295 E11.65 managed by endo and A1c checked in that office. she is still due for albumin annual check [id number] CAPO Rasheed [facility] [address] [facility] [place] [address] 07/20/2023 14:12:34 07/20/2023 15:02:26 Thoracic back pain 431945722 M54.6 right lateral flank pain episodes are reported by the patient today. she is not having pain currently. She will discuss this further with her pain management team and if P.T. can also be completed for this area while she is having her SI joint therapy. Vitamin B1 2 deficiency (non anemic) 40143210 E53.8 b12 injection given today. Health Concerns Section Related Observation LastModified by Organization Lemuel jimenes LastModified Time None Recorded Concern Status LastModified by Organization Details LastModified Time None Recorded Advance Directives Directive Y: Payers Encounter Date Sequence Insurance Name Policy Number Policy Srteet Covered Member ID Street Member ID Guarantor Name 03/18/2023 1 [place] Jazlyn Montgomery [id number] Jazlyn Montgomery 03/18/2023 2 [place] WHEN [place]ARE OR MEDICARE REPLACEMENT PRIMARY) Jazlyn Montgomery [id number] Jazlyn Montgomery 07/20/2023 1 [place] Jazlyn Montgomery [id number] Jazlyn Montgomery 07/20/2023 2 [place] OR MEDICARE REPLACEMENT PRIMARY) Jazlyn Montgomery [id number] Jazlyn Montgomery Notes Date Note Type Note [...] sweats but unsure of fever Not Available [facility] 09/28/2022 20:36:03 023 text/ht ml Anxiety/DepressionReported bypatient.Severity:denies [...] skin changes; no hair changes Not Available [facility] 10/25/2022 19:30:46 023 text/ht ml [...] her body. CAPO Rasheed [address], [facility] [address], [place], [address], Robin [facility] 03/27/2023 12:34:43 023 text/ht ml Generic HPI TemplateReported bypatient.Notes:Pt is here for an e/r f/u from 07/05/23 for abd pain. They dx her w/gastritis. Records are in the room w/her. She says she had it for a couple more days after that but doing ok today. They didnt put her on anything. CAPO Rasheed [address], [facility] [address], [place], [address], Robin [employer] 07/21/2023 11:29:18 OBGyn Episode No OBEpisode recorded.
--- OUTSIDE RECORDS SUMMARY | 2024-12-20 06:32 | XMS_ITS | Clinical Summary ---
Author Organization [facility] Address [address] [facility] [place] [address] Care Team Providers Care Terminal Manager Name Role Phone Naif Brownlee MD Primary Care Provider [phone] Source Comments [facility],non-owned Affiliates and Associated Physician Practices is amultiple site organization consisting of ambulatory clinics and hospital sitesin [place], [place], [place] and [place]. This disclosure is being madepursuant to the Care Everywhere program and may not contain all information available regarding this patient. Last updated 18.[facility] Social History Tobacco Use Types Packs/Day Years Used Date Smoking Tobacco: Never Assessed Comments Unknown Sex and Gender Information Value Date Recorded Sex Assigned at Not on file Legal Sex Female 11:46 AM CDT Gender Identity Not on file Sexual Orientation Not on file Plan of Treatment Health Maintenance Due Date Last Done Comments BONE DENSITY TESTING 1950 HEPATITIS C SCREENING 07/01/1966 DTAP/TDAP/TD VACCINES (1 - Tdap) 1967 PNEUMOCOCCAL VACCINE 50+ (1 of 1 - PCV) 1998 ZOSTER VACCINE (1 of 2) 1998 Respiratory Syncytial Virus (RSV) Vaccine Pt: or over 60 yrs (1 - 1-dose 75+ series) 2023 COVID-19 VACCINE ( - 2023-2 5 season) 2024 DEPRESSION SCREENING 08/29/2024 INFLUENZA VACCINE (Season Ended) 2025 HEPATITIS B VACCINE Aged Out No longe r eligible based on patient's age to complete this topic HIB VACCINE Aged Out No longer eligi ble based on patient's age to complete this topic HPV VACCINE Aged Out No longer eligi ble based on patient's age to complete this topic MENINGOCOCCAL (Group B) VACC INE SHARED DECISION-MAKING Aged Out No longer eligibl e based on patient's age to complete this topic MENINGOCOCCAL GROUPS A/C/Y/W VACCINE Aged Out No longer eligible b ased on patient's age to complete this topic Insurance MEDICAID - OUT OF STATE MEDICARE Care Teams Terminal Manager Relationship Specialty Start Date End Date Naif Brownlee MD [address] [place] [phone] PCP - General 02/10/18
--- OUTSIDE RECORDS SUMMARY | 2024-12-20 06:33 | XMS_ITS | Clinical Summary ---
Author Organization [facility] Address [address] [place] [address] Care Team Providers Care Service Provider Name Role Phone Unavailable Primary Care Provider [...] UNDER THE SKIN EVERY NIGHT AT BEDTIME Active insulin lispro, 1 Unit Dial, (HUMALOG) 100 UNIT/ML injection (PEN) INJECT 5 UNITS UNDER SKIN THREE TIMES DAILY WITH MEALS PER SLIDING SCALE. MAX DAILY DOSE OF 33 UNITS. SEE ATTACHED FOR SCALE 4 Active Active Problems Problem Noted Date Diagnosed Date Gastroesophageal reflux disease 06/15/2024 Irritable bowel syndrome 06/15/2024 Family History Medical History Relation Comments Cancer [...] Comments Blood Pressure 133/80 08/28/2024 10:20 AM LATEX FOAM WORKER Pulse 80 08/28/2024 8:29 AM LATEX FOAM WORKER Temperature 36.6 C (97.8 F) 08/28/2024 9:55 AM LATEX FOAM WORKER Respiratory Rate 18 08/28/2024 10:10 AM LATEX FOAM WORKER Oxygen Saturation 96% 08/28/2024 10:20 AM LATEX FOAM WORKER Inhaled Oxygen Concentration - - Weight 95.3 kg (210 lb) 08/28/2024 8:29 AM LATEX FOAM WORKER Height 175.3 cm (5' 9 ) 08/28/2024 8:29 AM LATEX FOAM WORKER Body Mass Index 31.01 08/28/2024 8:29 AM LATEX FOAM WORKER Plan of Treatment Health Maintenance Due Date Last Done Comments Hepatitis C 1966 DTaP, Tdap and Td Vaccines ( 1 - Tdap) 1967 Zoster Vaccines (1 of 2) 1998 Annual Medicare Wellness Visit 2013 Dexa Scan (General) 2013 Pneumococcal Vaccine: 50+ Years (2 of 2 - PCV) 10/23/2016 10/23/2015 COVID-19 Vaccine (3 - 2023-2 5 season) 2024 06/25/2021, 05/25/2021 PHQ-2 (Physician [place]) 08/29/2024 RSV Immunization or 60+ Years Completed 07/09/2024 [...] age to complete this topic Insurance MEDICAID MEDICARE
[2024-12-20 06:40] VITALS: BP 179/97; PULSE 87; RESP 16; TEMP 36.5; O2SAT 99
--- OUTSIDE RECORDS SUMMARY | 2024-12-20 07:18 | XMS_ITS | Clinical Summary ---
Author Organization [facility] Address [address] [facility] [place] [address] Care Team Providers Care Precision Grinder Name Role Phone Naif Brownlee MD Primary Care Provider [phone] Source Comments [facility],non-owned Affiliates and Associated Physician Practices is amultiple site organization consisting of ambulatory clinics and hospital sitesin [place], [place], [place] and [place]. This disclosure is being madepursuant to the Care Everywhere program and may not contain all information available regarding this patient. Last updated 18.[facility] [employer] Social History Tobacco Use Types Packs/Day Years [...] - OUT OF STATE MEDICARE Care Teams Precision Grinder Relationship Specialty Start Date End Date Naif Brownlee MD [address] [place] [phone] PCP - General 02/10/18
--- OUTSIDE RECORDS SUMMARY | 2024-12-20 07:19 | XMS_ITS | Continuity of Care Document ---
Author Organization [facility] Address [address] [place] [address] Phone Care Team Providers Care Gas Mask Inspector Name Role Phone Joe Centeno Unavailable Unavailable Procedures Procedure Date Post-op Follow-up Visit Refraction Post-op Follow-up Visit Post-op Follow-up Visit Remove Cataract, Insert Lens Eye Exam & Treatment IOLMaster Advance Directives Directive Yes / No Effective Date File Name No Information Encounters Encounter Description Practice Location Reason(s) For Visit Diagnoses Date Provider Providers Copied on Encounter [facility], [address] [place] [address] [address], [place], [place], [id number], [place] tel:[phone] [facility] No Information Oct-2 5-200 9 Krishnasamy Joe. [address], [facility], [place]. tel:[phone] [facility], [address], [place], [place], [id number], [place] tel:[phone] [facility] No Information Mar-0 4-200 9 Krishnasamy Joe. [address] [facility] [address], [place], [address], [place]. tel:[phone] [facility], [address] [place] [address] [address], [place], [place], [id number], tel:[phone] [facility] No Information b-2 0-200 9 Polanco OD Grzegorz. [address], [place], [place], [facility], . tel:[phone] [facility], [address], [place], [place], [id number], tel:[phone] [facility] No Information Sep-1 9-200 9 Krishnasamy Joe. [facility] [address], [place], [facility], . tel:[phone] [facility], [address], [place], [place], [id number], tel:[phone] [facility] No Information b-0 4-200 9 Krishnasamy Joe. [address] [place] [address], [facility], [place]. tel:[phone] Referring Provider: Joe vasquez, [address] [place] [address], [place], [facility]. tel:[phone] Family History Family Member Type Diagnosis Age [...]
--- OUTSIDE RECORDS SUMMARY | 2024-12-20 07:19 | XMS_ITS | Clinical Summary ---
Author Organization [facility] Address [address] [place] [address] Care Team Providers Care Neuropsychiatrist Name Role Phone Unavailable Primary Care Provider [...] Comments Blood Pressure 133/80 08/28/2024 10:20 AM HORSE AND WAGON DRIVER Pulse 80 08/28/2024 8:29 AM HORSE AND WAGON DRIVER Temperature 36.6 C (97.8 F) 08/28/2024 9:55 AM HORSE AND WAGON DRIVER Respiratory Rate 18 08/28/2024 10:10 AM HORSE AND WAGON DRIVER Oxygen Saturation 96% 08/28/2024 10:20 AM HORSE AND WAGON DRIVER Inhaled Oxygen Concentration - - Weight 95.3 kg (210 lb) 08/28/2024 8:29 AM HORSE AND WAGON DRIVER Height 175.3 cm (5' 9 ) 08/28/2024 8:29 AM HORSE AND WAGON DRIVER Body Mass Index 31.01 08/28/2024 8:29 AM HORSE AND WAGON DRIVER Plan of Treatment Health Maintenance Due Date Last Done Comments Hepatitis C 1966 DTaP, Tdap and Td Vaccines ( 1 - Tdap) 1967 Zoster Vaccines (1 of 2) 1998 Annual Medicare Wellness Visit 2013 Dexa Scan (General) 2013 Pneumococcal Vaccine: 50+ Years (2 of 2 - PCV) 10/23/2016 10/23/2015 COVID-19 Vaccine (3 - 2023-2 5 season) 2024 06/25/2021, 05/25/2021 PHQ-2 (Physician [place]) 08/29/2024 RSV Immunization or 60+ Years Completed [...]
--- NOTE | 2024-12-20 07:26 | ED.GENADULT ---
HPI - General Adult General Chief complaint: Skin/Abscess/Foreign Body Stated complaint: bumps under breast, sweating all night, chills Time Seen by Provider: 12/20/24 07:01 Source: patient Mode of arrival: ambulatory History of Present Illness HPI narrative: 74 years old white female complaining of itching rash under right breast and right lower leg started 1 month ago. Was seen at urgent care, steroid, no improvement, the scheduled to see a tower cleaner at noon today. Patient ran out of [employer] (formerly [employer]) over the last 3 days, could not sleep, shaking, restless., drove herself to the emergency room. Related Data Home Medications ?Medication ?Instructions ?Recorded ?Confirmed ?Last Taken ?Type Al hyd-Mg tr-alg ac-sod bicarb 80 2 tablet PO QID PRN Indigestion 03/21/20 11/23/24 03/31/20 History mg-14.2 mg chewable tablet (Gaviscon) alprazolam 1 mg tablet (Xanax) 1 mg PO DAILY 03/21/20 11/23/24 03/31/20 History amitriptyline 10 mg tablet 20 mg PO HS 08/08/23 11/23/24 Unknown History promethazine 25 mg tablet 25 mg PO TID PRN nausea and 08/08/23 11/23/24 Unknown History vomiting amlodipine 5 mg tablet 5 mg PO DAILY 05/28/24 11/23/24 Unknown History omeprazole 20 mg capsule,delayed 20 mg PO DAILY 10/02/24 11/23/24 Unknown History release levothyroxine 125 mcg tablet 125 mcg PO DAILY 11/12/24 11/23/24 Unknown History (Levoxyl) Allergies Allergy/AdvReac Type Severity Reaction Status Date / Time fentanyl Allergy Intermediate Nausea and Verified 12/20/24 06:42 Vomiting propoxyphene Allergy Mild VOMITTING Verified 12/20/24 06:42 albuterol Allergy Unknown ANXIETY. Verified 12/20/24 06:42 CAN'T STAND IT dicyclomine Allergy Unknown Nausea and Verified 12/20/24 06:42 Vomiting hydrocodone Allergy Unknown severe Verified 12/20/24 06:42 vomiting metoclopramide Allergy Unknown anxiety Verified 12/20/24 06:42 ondansetron (From Zofran) Allergy Other Verified 12/20/24 06:42 adhesive AdvReac Severe SKIN Verified 12/20/24 06:42 BLISTERS erythromycin base AdvReac Intermediate ABDOMINAL Verified 12/20/24 06:42 PAIN/VOMITING codeine AdvReac Mild NAUSEA Verified 12/20/24 06:42 morphine AdvReac Mild NAUSEA Verified 12/20/24 06:42 glimepiride AdvReac Unknown unknown Verified 12/20/24 06:42 phenazopyridine AdvReac Unknown NAUSEA Verified 12/20/24 06:42 diazepam AdvReac Vomiting Verified 12/20/24 06:42 Review of Systems Review of Systems: All systems reviewed & are unremarkable except as noted in HPI and below PMFSH Past Medical History Medical History Liver disease Uterine cancer Trochanteric bursitis of right hip Primary osteoarthritis of right knee Tibia fracture Effusion, right knee Complex tear of lateral meniscus of right knee as current injury Body mass index (BMI) 35 or more (06/13/17) Type 2 diabetes mellitus with hyperglycemia Nontoxic multinodular goiter Irritable bowel syndrome with diarrhea DVT prophylaxis Alcohol use Chronic kidney disease, stage 3 Baseline creatinine between 1.1 and 1.20. Polycythemia Elevated lipase Degenerative disc disease PTSD (post-traumatic stress disorder) Anxiety Depression Osteoarthritis Gastroesophageal reflux disease Sarcoidosis In remission for over 40 years. Hypothyroidism Surgical History Surgical History History of cardiac catheterization No evidence of coronary artery disease. History of cystoscopy For evaluation of microscopic hematuria reportedly unremarkable History of partial thyroidectomy (~2007) Pathology revealed a benign nodule. History of appendectomy (~1997) Incidental appendectomy at the time of her hysterectomy. History of hysterectomy (~1997) History of tonsillectomy History of bilateral cataract extraction History of cholecystectomy (~2007) Family History Family History Father Family history of malignant neoplasm of stomach Sibling Family history of malignant neoplasm of esophagus Mother Family history of osteoarthritis Family history of elevated blood lipids Family history of thyroid disease Family history of cataracts Family history of arthritis Family history of diabetes mellitus in first degree relative Grandparent Diabetes mellitus Other Family history of kidney disease Family history of malignant neoplasm Social History Social History Social History: Jazlyn is very confident filling out medical forms. Smoking status: Former smoker Tobacco type: cigarettes Additional smoking assessment comments: did not smoke often Alcohol intake: former Alcohol use details: quit end of 2021 Substance use: current Substance use type: marijuana Other substance usage details: occasional Lack of Transportation: No Lack of Food: Sometimes True Current Housing: I Have Housing Concerned About Future Housing: No Difficulty Paying Gas/Electric Bills: YES Difficulty Paying for Meds: YES Currently Unemployed: No Education: High School Diploma/GED Difficulty w/ Childcare or Family Care: No Living arrangements: with family Gender identity (if verbalized by the patient): Female Sexual Orientation (if Verbalized by the Patient): Straight or Heterosexual Spiritual care concerns: No Agree to blood products: Yes Exam Narrative: General appearance: Well-developed, well-nourished Skin: Normal color 3 healing bumps under the right breast, no blisters, right lower leg showed finding consistent with ring warm. Head: Normocephalic, nontraumatic Eyes: Clear conjunctiva ENT: Oropharynx normal, ears normal, nose normal Neck: Supple, nontender Chest and respiratory: Airway patent, no respiratory distress, no accessory muscle use Heart: Regular rate/rhythm Abdomen: Soft, nontender, no organomegaly, quiet bowel sounds Vascular: Normal peripheral pulses, normal capillary refill. Musculoskeletal: Normal range of motion, nontender back Neurologic: Alert and oriented ?3, [employer]OUNT IDENTIFICATION CLERK is normal as tested, no gross motor deficit Course Vital Signs Vital signs: Vital Signs Temperature 36.5 C 12/20/24 06:40 Pulse Rate 87 12/20/24 06:40 Respiratory Rate 16 12/20/24 06:40 Blood Pressure 179/97 H 12/20/24 06:40 Pulse Oximetry 99 12/20/24 06:40 Temperature 36.5 C 12/20/24 06:40 Pulse Rate 87 12/20/24 06:40 Respiratory Rate 16 12/20/24 06:40 Blood Pressure 179/97 H 12/20/24 06:40 Pulse Oximetry 99 12/20/24 06:40 Medical Decision Making MDM Narrative Medical decision making narrative: Patient drove herself to the emergency room, run out of [employer] (formerly [employer]), could not receive any benzodiazepine in the ED prior going home Because nobody available to drive her home.. Patient is scheduled to see her tower cleaner in 4 hours. Patient was advised to call her family physician for benzodiazepine refill and to see her tower cleaner today. Vital Signs Vital Signs: Vital Signs Temperature 36.5 C 12/20/24 06:40 Pulse Rate 87 12/20/24 06:40 Respiratory Rate 16 12/20/24 06:40 Blood Pressure 179/97 H 12/20/24 06:40 Pulse Oximetry 99 12/20/24 06:40 Temperature 36.5 C 12/20/24 06:40 Pulse Rate 87 12/20/24 06:40 Respiratory Rate 16 12/20/24 06:40 Blood Pressure 179/97 H 12/20/24 06:40 Pulse Oximetry 99 12/20/24 06:40 Critical Care Time Critical Care Time Critical Care Time: No Discharge Plan Discharge Clinical Impression: Dermatitis, Anxiety Patient Disposition: Home Condition: Stable Instructions: Anxiety (ED), Dermatitis (ED) Additional Instructions: Return if symptoms are worsening , call your family physician for appointment to refill your Xanax prescription, see your tower cleaner at noon today, take Tylenol as as needed for aches and pain, continue home medications. Patient Language: Iraqi Prescriptions: No Action triamcinolone acetonide 0.1 % cream 1 applic topical BID 7 Days Qty: 30 0RF doxycycline monohydrate 100 mg capsule 100 mg PO BID 7 Days Qty: 14 0RF lidocaine 5 % ointment 1 applic topical QID PRN (Reason: pain) Qty: 30 0RF Rx Instructions: Apply sparingly to affected area valacyclovir 1 gram tablet 1,000 mg PO TID 7 Days Qty: 21 0RF promethazine 25 mg tablet 25 mg PO TID PRN (Reason: nausea and vomiting) amlodipine 5 mg tablet 5 mg PO DAILY omeprazole 20 mg capsule,delayed release(DR/EC) 20 mg PO DAILY insulin degludec [Tresiba FlexTouch U-200] 200 unit/mL (3 mL) insulin pen 40 unit subcut QHS 90 Days Qty: 18 3RF levothyroxine [Levoxyl] 125 mcg tablet 125 mcg PO DAILY Gvoke HypoPen 2-Pack 1 mg/0.2 mL auto-injector 1 mg subcut ONCE Qty: 0.4 4RF Rx Instructions: may repeat once after 15 minutes if no response acetaminophen 500 mg tablet 500 mg PO .q8 PRN (Reason: pain) Qty: 20 0RF alprazolam [Xanax] 1 mg Tablet 1 mg PO DAILY Rx Instructions: take 1mg PO QAM AND 2 MG PO QHS Gaviscon 80-14.2 mg Tablet,Chewable 2 tablet PO QID PRN (Reason: Indigestion) amitriptyline 10 mg tablet 20 mg PO HS (DME) blood-glucose meter [OneTouch Verio Reflect Start] Kit See Rx Instructions .Route Qty: 1 0RF Rx Instructions: As directed to check blood sugars twice daily (DME) lancets [OneTouch Delica Plus Lancet] 30 gauge misc See Rx Instructions .Route Qty: 200 2RF Rx Instructions: As directed (DME) OneTouch Verio test strips Strip See Rx Instructions .Route Qty: 100 3RF Rx Instructions: As directed to check blood sugars twice daily insulin lispro 100 unit/mL insulin pen 5 unit subcut TIDWMEAL MDD 33 Qty: 30 2RF Rx Instructions: take 5 units premeal + SSI 150-200: 1 unit 201-250: 2 units 251-300: 3 units 301-350: 4 units 351-400: 5 units >401: 6 units (DME) pen needle, diabetic [BD Ultra-Fine Hui Pen Needle] 32 gauge x 5/32 needle See Rx Instructions .Route Qty: 100 3RF Rx Instructions: use once daily Follow-up/Referrals: Nicol,DAVID Saldivar [Primary Care Provider] -
== END 2024-12-20 07:48 | disposition home or self-care (01) ==
PROVIDERS: Emergency Provider Emergency Medicine; PCP Physician Assistant
DX: L30.9 Dermatitis, unspecified (principal); F41.9 Anxiety disorder, unspecified; Z79.01 Long term (current) use of anticoagulants; Z85.42 Personal history of malignant neoplasm of other parts of uterus; E11.22 Type 2 diabetes mellitus with diabetic chronic kidney disease; N18.30 Chronic kidney disease, stage 3 unspecified; F41.8 Other specified anxiety disorders; K21.9 Gastro-esophageal reflux disease without esophagitis; E03.9 Hypothyroidism, unspecified; Z87.891 Personal history of nicotine dependence
CPT/HCPCS: 99281

== ENCOUNTER 2025-02-01 10:47 | Outpatient (CLI) | payer MEDICARE, MEDICAID, SELFPAY ==
--- NOTE | ~2025-02-01 | US_ITS ---
Thyroid ultrasound. Clinical History: Nontoxic multinodular goiter Findings: Real-time sonography of the thyroid gland was performed. Status post prior right hemithyro idectomy. The left lobe measures 5.0 x 2.2 x 2.2 cm. The isthmus is 3 mm in AP diameter. There is a 1.4 x 1.1 x 1.2 cm isoechoic predominantly solid nodule with small cystic components as we ll. There is an additional 1.7 x 1.2 x 1.6 cm isoechoic solid nodule at the posterior aspect of the l eft midpole. Impression: 2 left thyroid lobe nodules which are TR-3 nodules. Annual follow-up advised.. Reviewed, dictated and finalized at location M. Impression: 2 left thyroid lobe nodules which are TR-3 nodules. Annual follow-up advised..
--- OUTSIDE RECORDS SUMMARY | 2025-02-01 10:52 | XMS_ITS | Data Portability ---
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 Plan of Treatment Reminders Order Date Submit Date Provider Last Modified By Organization Details Last Modified Time Details Appointments None recorded. Lab urinalysis, complete 2022 023 [employer] [facility], [address], [place], [address], 3 21:12:08 culture, urine 2022 023 [employer] [facility], [address], [place], [address], 3 21:12:10 BMP, serum or plasma 2022 023 [employer] [facility], [address], [place], [address], 3 21:12:03 CBC w/ auto diff 2022 023 [employer] [facility], [address], [place], [address], 3 21:12:07 hepatic function panel, serum 2022 023 [employer] [facility], [address], [place], [address], 3 21:12:04 lipid panel, serum 2022 023 [place] [facility], [address], [address], [place], [address], 3 21:12:03 microalbumi n/creatinin e, mass ratio, urine 2022 023 [facility], [address], [address], [place], [address], 3 21:12:02 C-reactive protein, quantitativ e, serum or plasma 2022 023 [employer] [facility], [address], [address], [place], [address], 3 21:12:09 erythrocyte sedimentati on rate by westergren method 2022 023 [employer] [facility], [address], [address], [place], [address], 3 21:12:06 TSH, serum or plasma 2022 023 [employer] [facility], [address], [address], [place], [address], 3 21:12:05 T4, free, serum 2022 023 [facility], [address], [address], [place], [address], 3 21:12:06 vitamin B12, serum 2022 023 [facility], [address], [place], [address], 3 21:12:09 Referral None recorded. Procedures None recorded. Surgeries None recorded. Imaging XR, pelvis 2022 023 [email or web address] [facility], [address], [address], [place], [address], 3 16:52:53 XR, hip, bilateral 2022 023 [facility] , [address], [address], [place], [address], 3 12:44:42 Medication Orders cyanocobala min (vit B-12) 1,000 mcg/mL injection solution [email or web address] [facility] [address] [id number], [address] [place], [place], [id number], 3 17:13:03 cyanocobala min (vit B-12) 1,000 mcg/mL injection solution 2022 [address] [facility] [email or web address] [facility] [address] [id number], [address] [place], [place], [id number], 3 12:42:30 Patient TargetsNo targets recorded. Patient InstructionsNo instructions recorded. Reason for Referral None Reported. Results Created Date Observation Date Name Description Value Unit Range Abnormal Flag Note LastModifiedBy Organization Detail LastModifiedTime 03/18/2003/19/2023 ALBUM IN, RANDO M URINE W/CRE ATINI NE creatinine, random urine 104 mg/dL 20-275 normal Not Available [facility] [email or web address] [facility] [address] [place], [address], 03/19/2023 21:12:02 03/18/20 23 03/19/2023 ALBUM IN, RANDO M URINE W/CRE ATINI NE albumin, urine 0.3 mg/dL see note: normal Refer ence Range : Refer ence Range Not estab lishe d Not Available [facility] [employer] [facility] [address] [place], [address], 03/19/2023 21:12:02 03/18/20 23 03/19/2023 ALBUM IN, [...] a diagn ostic categ ory. Not Available [address], [address], 03/19/2023 21:12:02 03/18/20 23 03/19/2023 LIPID PANEL WITH RATIO S cholesterol, total 257 mg/dL <200 high Not Available [address] [place], [address], 03/19/2023 21:12:03 03/18/20 23 03/19/2023 LIPID PANEL WITH RATIO S HDL cholesterol 46 mg/dL > or = 50 low Not Available [address], [address], 03/19/2023 21:12:03 03/18/20 23 03/19/2023 LIPID PANEL WITH RATIO S triglyceride s 218 mg/dL <150 high If a non-f astin g speci men was colle cted, consi santiago repea t trigl yceri de testi ng on a fasti ng speci men if clini amgali indic ated. Zac wells et al. J. of Clin. Lipid ol. 2015; 9:129 -169. Not Available [facility] [address] [place], [address], 03/19/2023 21:12:03 03/18/20 23 03/19/2023 LIPID PANEL [...] 9): 2061- 2068 (http ://ed ucati on.Qu Buzz Referrals. com/f aq/FA Q164) Not Available [facility] [address] [place], [address], 03/19/2023 21:12:03 03/18/20 23 03/19/2023 LIPID PANEL WITH RATIO S chol/HDLC ratio 5.6 (calc ) <5.0 high Not Available [facility] [address] [address] [place], [address], 03/19/2023 21:12:03 03/18/20 23 03/19/2023 LIPID PANEL WITH RATIO S LDL/HDL ratio 3.7 (calc ) Below avera ge Risk: <2.34 [place] ge Risk: 2.35- 4.12 Moder ate Risk: 4.13- 5.56 High Risk: >5.57 Not Available [facility] [address] , [place], [address], 03/19/2023 21:12:03 03/18/20 23 03/19/2023 LIPID PANEL WITH RATIO S non HDL cholesterol 211 mg/dL _(cici c) <130 high For patie nts with diabe robert plus 1 major ASCVD risk facto r, treat ing to a non-H DL-C goal of <100 mg/dL (LDL- C of <70 mg/dL ) is consi nakita a tessa stratton optio n. Not Available [facility] [address] [place], [address], 03/19/2023 21:12:03 03/18/20 23 03/19/2023 BASIC METAB OLIC PANEL glucose 160 mg/dL 65-99 high Fasti ng refer ence inter griffin For someo ne witho ut known diabe robert, a gluco se value >125 mg/dL indic ates that they may have diabe robert and this shoul d be confi rmed with a follo w-up test. Not Available [address], [address], 03/19/2023 21:12:03 03/18/20 23 03/19/2023 BASIC METAB OLIC PANEL urea nitrogen (BUN) 20 mg/dL 7-25 normal Not Available [address], [address], 03/19/2023 21:12:03 03/18/20 23 03/19/2023 BASIC METAB OLIC PANEL creatinine 1.11 mg/dL 0.60-1 .00 high Not Available [address], [address], 03/19/2023 21:12:03 03/18/20 23 03/19/2023 BASIC METAB [...] kdoqi /gfr% 5Fcal culat or Not Available [address], [address], 03/19/2023 21:12:03 03/18/20 23 03/19/2023 BASIC METAB OLIC PANEL BUN/creatini ne ratio 18 (calc ) 6-22 normal Not Available [address] [place], [address], 03/19/2023 21:12:03 03/18/20 23 03/19/2023 BASIC METAB OLIC PANEL sodium 138 mmol/ L 135-14 6 normal Not Available [address], [address], 03/19/2023 21:12:03 03/18/20 23 03/19/2023 BASIC METAB OLIC PANEL potassium 4.2 mmol/ L 3.5-5. 3 normal Not Available [address], [address], 03/19/2023 21:12:03 03/18/20 23 03/19/2023 BASIC METAB OLIC PANEL chloride 103 mmol/ L 98-110 normal Not Available [address], [address], 03/19/2023 21:12:03 03/18/20 23 03/19/2023 BASIC METAB OLIC PANEL carbon dioxide 28 mmol/ L 20-32 normal Not Available [address], [address], 03/19/2023 21:12:03 03/18/20 23 03/19/2023 BASIC METAB OLIC PANEL calcium 9.5 mg/dL 8.6-10 .4 normal Not Available [address], [address], 03/19/2023 21:12:03 03/18/20 23 03/19/2023 HEPAT IC FUNCT ION PANEL protein, total 6.7 g/dL 6.1-8. 1 normal Not Available [address], [address], 03/19/2023 21:12:04 03/18/20 23 03/19/2023 HEPAT IC FUNCT ION PANEL albumin 3.9 g/dL 3.6-5. 1 normal Not Available [address] [place], [address], 03/19/2023 21:12:04 03/18/20 23 03/19/2023 HEPAT IC FUNCT ION PANEL globulin 2.8 g/dL_ (calc ) 1.9-3. 7 normal Not Available [address] [address] [place], [address], 03/19/2023 21:12:04 03/18/20 23 03/19/2023 HEPAT IC FUNCT ION PANEL albumin/glob ulin ratio 1.4 (calc ) 1.0-2. 5 normal Not Available [address], [address], 03/19/2023 21:12:04 03/18/20 23 03/19/2023 HEPAT IC FUNCT ION PANEL bilirubin, total 0.6 mg/dL 0.2-1. 2 normal Not Available [address] [address] [place], [address], 03/19/2023 21:12:04 03/18/20 23 03/19/2023 HEPAT IC FUNCT ION PANEL bilirubin, direct 0.1 mg/dL < or = 0.2 normal Not Available [address] [address] [place], [address], 03/19/2023 21:12:04 03/18/20 23 03/19/2023 HEPAT IC FUNCT ION PANEL bilirubin, indirect 0.5 mg/dL _(cici c) 0.2-1. 2 normal Not Available [address] [address] [place], [address], 03/19/2023 21:12:04 03/18/20 23 03/19/2023 HEPAT IC FUNCT ION PANEL alkaline phosphatase 63 U/L 37-153 normal Not Available [address] [address] [place], [address], 03/19/2023 21:12:04 03/18/20 23 03/19/2023 HEPAT IC FUNCT ION PANEL AST 12 U/L 10-35 normal Not Available [address], [address], 03/19/2023 21:12:04 03/18/20 23 03/19/2023 HEPAT IC FUNCT ION PANEL ALT 16 U/L 6-29 normal Not Available [address], [address], 03/19/2023 21:12:04 03/18/20 23 03/19/2023 TSH TSH 1.13 mIU/L 0.40-4 .50 normal Not Available [address], [address], 03/19/2023 21:12:05 03/18/20 23 03/19/2023 T4, FREE T4, free 1.2 NG/dL 0.8-1. 8 normal Not Available [address], [address], 03/19/2023 21:12:06 03/18/20 23 03/19/2023 SED RATE BY MODIF IED WESTE RGREN sed rate by modified westergren 28 mm/h < or = 30 normal Not Available [address], [address], 03/19/2023 21:12:06 03/18/20 23 03/19/2023 CBC (INCL UDES DIFF/ PLT) white blood cell count 4.7 thous and/u L 3.8-10 .8 normal Not Available [address], [address], 03/19/2023 21:12:07 03/18/20 23 03/19/2023 CBC (INCL UDES DIFF/ PLT) red blood cell count 4.97 rosy on/uL 3.80-5 .10 normal Not Available [address] [place], [address], 03/19/2023 21:12:07 03/18/20 23 03/19/2023 CBC (INCL UDES DIFF/ PLT) hemoglobin 14.0 g/dL 11.7-1 5.5 normal Not Available [address], [address], 03/19/2023 21:12:07 03/18/20 23 03/19/2023 CBC (INCL UDES DIFF/ PLT) hematocrit 42.4 % 35.0-4 5.0 normal Not Available [address], [address], 03/19/2023 21:12:07 03/18/20 23 03/19/2023 CBC (INCL UDES DIFF/ PLT) MCV 85.3 fL 80.0-1 00.0 normal Not Available [address], [address], 03/19/2023 21:12:07 03/18/20 23 03/19/2023 CBC (INCL UDES DIFF/ PLT) MCH 28.2 pg 27.0-3 3.0 normal Not Available [address], [address], 03/19/2023 21:12:07 03/18/20 23 03/19/2023 CBC (INCL UDES DIFF/ PLT) MCHC 33.0 g/dL 32.0-3 6.0 normal Not Available [address], [address], 03/19/2023 21:12:07 03/18/20 23 03/19/2023 CBC (INCL UDES DIFF/ PLT) RDW 13.1 % 11.0-1 5.0 normal Not Available [address], [address], 03/19/2023 21:12:07 03/18/20 23 03/19/2023 CBC (INCL UDES DIFF/ PLT) platelet count 213 thous and/u L 140-40 0 normal Not Available [address], [address], 03/19/2023 21:12:07 03/18/20 23 03/19/2023 CBC (INCL UDES DIFF/ PLT) MPV 10.4 fL 7.5-12 .5 normal Not Available [address], [address], 03/19/2023 21:12:07 03/18/20 23 03/19/2023 CBC (INCL UDES DIFF/ PLT) absolute neutrophils 2515 cells /uL 1500-7 800 normal Not Available [address], [address], 03/19/2023 21:12:07 03/18/20 23 03/19/2023 CBC (INCL UDES DIFF/ PLT) absolute lymphocytes 1814 cells /uL 850-39 00 normal Not Available [address], [address], 03/19/2023 21:12:07 03/18/20 23 03/19/2023 CBC (INCL UDES DIFF/ PLT) absolute monocytes 301 cells /uL 200-95 0 normal Not Available [address], [address], 03/19/2023 21:12:07 03/18/20 23 03/19/2023 CBC (INCL UDES DIFF/ PLT) absolute eosinophils 71 cells /uL 15-500 normal Not Available [address], [address], 03/19/2023 21:12:07 03/18/20 23 03/19/2023 CBC (INCL UDES DIFF/ PLT) absolute basophils 0 cells /uL 0-200 normal Not Available [address], [address], 03/19/2023 21:12:07 03/18/20 23 03/19/2023 CBC (INCL UDES DIFF/ PLT) neutrophils 53.5 % normal Not Available [facility] [address], [address], 03/19/2023 21:12:07 03/18/20 23 03/19/2023 CBC (INCL UDES DIFF/ PLT) lymphocytes 38.6 % normal Not Available [facility] [address], [address], 03/19/2023 21:12:07 03/18/20 23 03/19/2023 CBC (INCL UDES DIFF/ PLT) monocytes 6.4 % normal Not Available [facility] [address], [address], 03/19/2023 21:12:07 03/18/20 23 03/19/2023 CBC (INCL UDES DIFF/ PLT) eosinophils 1.5 % normal Not Available [facility] [address], [address], 03/19/2023 21:12:07 03/18/20 23 03/19/2023 CBC (INCL UDES DIFF/ PLT) basophils 0.0 % normal Not Available [address], [address], 03/19/2023 21:12:07 03/18/20 23 03/19/2023 URINA LYSIS , COMPL ETE color YELLOW yellow normal Not Available [facility] [address], [address], 03/19/2023 21:12:08 03/18/20 23 03/19/2023 URINA LYSIS , COMPL ETE appearance CLEAR clear normal Not Available [facility] [address], [address], 03/19/2023 21:12:08 03/18/20 23 03/19/2023 URINA LYSIS , COMPL ETE specific gravity 1.015 1.001- 1.035 normal Not Available [address], [address], 03/19/2023 21:12:08 03/18/20 23 03/19/2023 URINA LYSIS , COMPL ETE pH < OR = 5.0 5.0-8. 0 normal Not Available [address], [address], 03/19/2023 21:12:08 03/18/20 23 03/19/2023 URINA LYSIS , COMPL ETE glucose NEGATI VE negati ve normal Not Available [address], [address], 03/19/2023 21:12:08 03/18/20 23 03/19/2023 URINA LYSIS , COMPL ETE bilirubin NEGATI VE negati ve normal Not Available [address], [address], 03/19/2023 21:12:08 03/18/20 23 03/19/2023 URINA LYSIS , COMPL ETE ketones NEGATI VE negati ve normal Not Available [address], [address], 03/19/2023 21:12:08 03/18/20 23 03/19/2023 URINA LYSIS , COMPL ETE occult blood NEGATI VE negati ve normal Not Available [facility] [address], [address], 03/19/2023 21:12:08 03/18/20 23 03/19/2023 URINA LYSIS , COMPL ETE protein NEGATI VE negati ve normal Not Available [address] [place], [address], 03/19/2023 21:12:08 03/18/20 23 03/19/2023 URINA LYSIS , COMPL ETE nitrite NEGATI VE negati ve normal Not Available [address], [address], 03/19/2023 21:12:08 03/18/20 23 03/19/2023 URINA LYSIS , COMPL ETE leukocyte esterase NEGATI VE negati ve normal Not Available [address], [address], 03/19/2023 21:12:08 03/18/20 23 03/19/2023 URINA LYSIS , COMPL ETE WBC NONE SEEN /hpf < or = 5 normal Not Available [address], [address], 03/19/2023 21:12:08 03/18/20 23 03/19/2023 URINA LYSIS , COMPL ETE RBC NONE SEEN /hpf < or = 2 normal Not Available [address], [address], 03/19/2023 21:12:08 03/18/20 23 03/19/2023 URINA LYSIS , COMPL ETE squamous epithelial cells 10-20 /hpf < or = 5 abnormal Not Available [address], [address], 03/19/2023 21:12:08 03/18/20 23 03/19/2023 URINA LYSIS , COMPL ETE bacteria NONE SEEN /hpf none seen normal Not Available [address], [address], 03/19/2023 21:12:08 03/18/20 23 03/19/2023 URINA LYSIS , COMPL ETE hyaline cast NONE SEEN /lpf none seen normal Not Available [address], [address], 03/19/2023 21:12:08 03/18/20 23 03/19/2023 VITAM IN B12 vitamin B12 >2000 pg/mL 200-11 00 high Not Available [facility] [address] [address] [place], [address], 03/19/2023 21:12:09 03/18/20 23 03/19/2023 C-JOANIE CTIVE PROTE IN C-reactive protein 4.3 mg/L <8.0 normal Not Available [facility] [address] [place], [address], 03/19/2023 21:12:09 03/18/20 23 03/19/2023 CULTU RE, URINE , ROUTI NE culture, urine, routine CULTU RE, URINE , ROUTI NE Micro Numbe r: [id number] Test Statu s: Final Speci men [...] Cultu re Trans port Tube. Not Available [facility] [address] [address] , [place], [address], 03/19/2023 21:12:10 07/20/20 22 07/20/2022 XR, chest , 2 view No observ ation record ed. [id number] [facility] [address], [place], [address], 10/27/2022 01:16:06 09/06/19 23 08/11/2022 MRI, lumba r spine , w/wo contr ast No observ ation record ed. [id number] [facility] [address], [place], [address], 10/27/2022 01:16:06 03/18/20 23 03/18/2023 XR, hip, bilat eral No observ ation record ed. [email or web address] [facility] [address], [place], [address], 03/25/2023 10:35:06 Result Notes None recorded. Problems Name Problem SNOMED Code Status Onset Date Resolution Date Notes Provider Name and Address Organization Details Recorded Time Irritable bowel syndrome 23558153 Active Not Available [facility] 3 01:05:13 Chronic vaginitis 66418797 Active Not Available [facility] 3 01:05:13 Herpes labialis 7939193 Active Not Available [facility] 3 01:05:13 Constipati on 36600354 Active Not Available [facility] 3 01:05:13 Acute sinusitis 77890184 Active Not Available [facility] 3 01:05:13 Left flank pain 338330003 Active Not Available [facility] 3 01:05:13 Cobalamin deficiency 156658484 Active Not Available [facility] 3 01:05:13 Recurrent anxiety 052712780 Active Not Available [facility] 3 01:05:13 Gastroesop hageal reflux disease 058172352 Active Not Available [facility] 3 01:05:13 Screening mammograph y Active 2021 Not Available [facility] 3 01:05:13 Headache 39975883 Active Not Available [facility] 3 01:05:13 Long-term drug therapy Active 2021 Not Available [facility] 3 01:05:13 Mixed hyperlipid emia 654333151 Active 2021 Not Available [facility] 3 01:05:13 Low back pain 949174079 Active 2021 Not Available [facility] 3 01:05:13 Rib pain 711460358 Active Not Available [facility] 3 01:05:14 Right upper quadrant pain 607433763 Active Not Available [facility] 3 01:05:14 Otitis externa 2605927 Active Not Available [facility] 3 01:05:14 Sarcoidosi s 61391346 Active 1977 Not Available [facility] 3 01:05:14 Acute pharyngiti s 046109147 Active Not Available [facility] 3 01:05:14 Dizziness 218172570 Active 2021 Not Available [facility] 3 01:05:14 Hypothyroi dism 83793717 Active Not Available [facility] 3 01:05:14 Nausea 876429141 Active Not Available [facility] 3 01:05:14 Night sweats 44722943 Active Not Available [facility] 3 01:05:14 Acute urinary tract infection 745796300 Active 2022 Not Available [facility] 3 01:05:14 Streptococ cici sore throat 42043335 Active Not Available [facility] 3 01:05:14 Uncontroll ed type 2 diabetes mellitus 727966864 Active 2021 Not Available [facility] 3 01:05:14 Anxiety 22728044 Active Not Available [facility] 3 01:05:15 Dysuria 06140072 Active Not Available [facility] 3 01:05:15 Cough 79002109 Active Not Available [facility] 3 01:05:15 Stomach cramps 75816271 Active 2022 Not Available [facility] 3 01:05:15 Atrophic vaginitis 93610447 Active Not Available [facility] 3 01:05:15 Hyperlipid emia 42026137 Active 2021 Not Available [facility] 3 01:05:15 Essential hypertensi on 31737906 Active 2021 Not Available [facility] 3 01:05:15 Vitamin B12 deficiency (non anemic) 07088119 Active 2021 Not Available [facility] 3 01:05:15 Otitis media 03083695 Active Not Available [facility] 3 01:05:15 Posterior rhinorrhea 82119294 Active Not Available [facility] 3 01:05:16 Epigastric pain 34350315 Active Not Available [facility] 3 01:05:16 Diffuse spasm of esophagus 87779455 Active Not Available [facility] 3 01:05:16 COVID-19 292760646 Active 2021 Not Available [facility] 3 01:05:16 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 3 10:22:00 Pain of bilateral hip joints 9090085633858 9100 Active 2022 CAPO Rasheed [address], [address], [place], [address] , [facility] 3 10:22:08 Pain of multiple joints 49063934 Active 2022 CAPO Rasheed [address], [address], [place], [address] , [facility] 3 10:25:00 Lower urinary tract symptoms 762468168 Active 2022 CAPO Rasheed [address], [address], [place], [address] , [facility] 3 10:25:35 Gastroesop hageal reflux disease without esophagiti s 276474593 Active 2022 CAPO Rasheed [address], [address], [place], [address] , [facility] 3 15:51:34 Thoracic back pain 211195201 Active 2022 CAPO Rasheed [address], [address], [place], [address] , [facility] 3 14:55:34 Problem Notes None recorded. Procedures Surgical History Date Name Laterality Status Provider Name and Address Organization Details Recorded Time 04/01/20 20 Date of Last Colonoscopy completed Not Available [facility] 10/27/2022 00:57:07 01/27/20 16 Most Recent Bone Density completed Not Available [facility] 10/27/2022 00:57:08 12/14/19 09 Colonoscopy completed Not Available [facility] 10/27/2022 00:57:11 cholecystectomy completed Not Available [facility] 10/27/2022 00:57:11 Removal of thyroid completed Not Available [facility] 10/27/2022 00:57:11 Tonsillectomy completed Not Available [facility] 10/27/2022 00:57:11 hysterectomy completed Not Available [facility] 10/27/2022 00:57:11 hernia repair completed Not Available [facility] 10/27/2022 00:57:11 Imaging Results None recorded. Procedure Notes None recorded. Medical Equipment None Reported. Allergies Allergen ID Allergen Name Allergen Category Reaction Reaction Severity Criticality Documentation Date Start Date Code Code System Note Provider Name and Address Organization Details Recorded Time 1774 Valium medicatio n Not available Not available Not available 10/27/202288857 2 RxNorm Not Available [facility] 3 01:15:26 1775 tetracycl ine medicatio n vomiting moderate Not available 10/27/2022 78784 RxNorm Not Available [facility] 3 01:15:26 1776 Pyridium medicatio n vomiting Not available Not available 10/27/2022 8998 RxNorm Not Available [facility] 3 01:15:27 1777 morphine medicatio n vomiting Not available Not available 10/27/2022 7052 RxNorm Not Available [facility] 3 01:15:27 1778 hydrocodo ne Not available vomiting Not available Not available 10/27/2022 5489 RxNorm Not Available [facility] 3 01:15:27 1779 codeine medicatio n vomiting Not available Not available 10/27/2022 2670 RxNorm Not Available [facility] 3 01:15:27 1780 Cipro medicatio n nausea Not available Not available 10/27/2022 42672 3 RxNorm Not Available [facility] 3 01:15:27 1781 cefdinir medicatio n rash Not available Not available 10/27/2022 16433 RxNorm head, neck, chest redne ss Not Available [facility] 3 01:15:27 1782 diazepam medicatio n dizziness Not available Not available 10/27/2022 3322 RxNorm error Not Available [facility] 3 01:15:27 1783 amitripty line medicatio n Not available Not available Not available 10/27/2022 704 RxNorm Not Available [facility] 3 01:15:27 Medications Name Sig Start Date [...] Available prednison e 10 mg tablet take 3v8jizs, 8v2lknr, 1i2ldbx, 9y7dgxa active Not Available Not Available No t [...] mL by injectio n route. 07/07 completed [facility]#: [id number] [id number] Not Available Not Available Not Available [...] month by subcutan eous route. 2022 active [facility]# [id number] erated well. Not Available Not Available [...] Available Not Available No t Available Fluvirin 2277-1506 45 mcg (15 mcg x 3)/0.5 mL intramusc ular suspensio n active Not Available Not Available Not Available Jardiance 10 mg tablet TAKE 1 TABLET BY MOUTH DAILY active Not Available Not Available No t Available Fluzone High-Dose 8872-5003 (PF) 180 mcg/0.5 mL intramusc ular syringe ADM 0.5ML IM UTD active Not Available Not Available No t Available OneTouch Ultra Blue Test Strip USE TO CHECK BLOOD SUGAR TWICE DAILY active Not Available Not Available No t Available Fluzone High-Dose 5636-6758 (PF) 180 mcg/0.5 mL intramusc ular syringe ADM 0.5ML IM UTD 07/10 completed Not Available Not Available Not Available BD Hui 2nd Gen Pen Needle 32 gauge x 32 USE ONCE DAILY active Not Available Not Available No t Available OneTouch Ultra2 Meter USE DIRECTED TO CHECK BLOOD SUGARS TWICE DAILY active Not Available Not Available No t Available OneTouch Delica Plus Lancet 30 gauge USE TO TEST BLOOD SUGAR TWICE DAILY active Not Available Not Available No t Available Nurtec ODT 75 mg disintegr ating tablet take [...] Not Available Vitals Date Recorded Body height Oxygen saturation Oxygen saturation in Arterial blood by Pulse oximetry Heart rate Respiratory rate Body temperature Systolic blood pressure Diastolic blood pressure Provider Name and Address Organization Details Last Updated DateTime 3 167.64 cm 98 % 98 % 72 /min 16 /min 97 [degF] 122 mm[Hg] 78 mm[Hg] Not Available [facility] 3 01:00:35 Date Recorded Body mass index (BMI) Body height Oxygen saturation Oxygen saturation in Arterial blood by Pulse oximetry Heart rate Body temperature Body weight Systolic blood pressure Diastolic blood pressure Provider Name and Address Organization Details Last Updated DateTime 3 32.1 kg/m2 167.64 cm 98 % 98 % 97 /min 97.2 [degF] 37592.8 8 g 122 mm[Hg] 78 mm[Hg] Not Available [facility] 3 01:00:35 Date Recorded Body height Body temperature Body mass index (BMI) Body weight Respiratory rate Oxygen saturation Oxygen saturation in Arterial blood by Pulse oximetry Heart rate Systolic blood pressure Diastolic blood pressure Provider Name and Address Organization Details Last Updated DateTime 3 167.64 cm 97.3 [degF] 34.6 kg/m2 70804.5 6 g 16 /min 96 % 96 % 81 /min 140 mm[Hg] 90 mm[Hg] MARIA D Jane CA - [facility] [place] [employer] [facility] 3 09:55:30 Date Recorded Body height Body temperature Provider N jules and Address Organization Details Last Updated DateTime 06/15/2022 167.64 cm 98.2 [degF] Not Available [facility] 10/27/2022 01:00:44 Date Recorded Body height Body temperature Body mass index (BMI) Body weight Respiratory rate Oxygen saturation Oxygen saturation in Arterial blood by Pulse oximetry Heart rate Systolic blood pressure Diastolic blood pressure Provider Name and Address Organization Details Last Updated DateTime 3 167.64 cm 96.5 [degF] 35.2 kg/m2 04456.1 4 g 16 /min 96 % 96 % 80 /min 138 mm[Hg] 80 mm[Hg] MARIA D Jane CA - [facility] [employer] [facility] 3 14:28:10 Social History Question Answer Notes LastModified by Organizat ion Details LastModified Time Tobacco Smoking Status Former Smoker Not Available [facility] 10/27/2022 00:53:42 Do You Have An Advance Directive? Yes MIGRATION.[id number] 2524 Information not available 10/27/2022 Are You Blind Or Do You Have Difficulty Seeing? No MIGRATION.286387 8802 Information not available 10/27/2022 What Is Your Level Of Caffeine Consumption? Moderate MIGRATION.002443 1877 Information not available 10/27/2022 How Much Tobacco Do You Chew? None MIGRATION.475576 8608 Information not available 10/27/2022 In The 14 Days Before Symptom Onset, Have You Had Close Contact With A Laboratory-confirm ed COVID-19 While That Case Was Ill? No MIGRATION.031607 8822 Information not available 10/27/2022 In The 14 Days Before Symptom Onset, Have You Had Close Contact With A Person Who Is Under Investigation For COVID-19 While That Person Was Ill? No MIGRATION.734690 4120 Information not available 10/27/2022 Are You Deaf Or Do You Have Serious Difficulty Hearing? No MIGRATION.341556 5434 Information not available 10/27/2022 What Type Of Diet Are You Following? REGULAR MIGRATION.270658 8947 Information not available 10/27/2022 Which Illicit Or Recreational Drugs Have You Used? None MIGRATION.821492 6416 Information not available 10/27/2022 Have There Been Any Changes To Your Family Or Social Situation? No MIGRATION.244881 0606 Information not available 10/27/2022 Are There Any Guns Present In Your Home? Yes MIGRATION.851013 7363 Information not available 10/27/2022 Do You Use Insect Repellent Routinely? No [email or web address] Information not available 03/17/2023 Do You Have A Medical Power Of Inventory Control Planner? No MIGRATION.152178 7601 Information not available 10/27/2022 What Was The Date Of Your Most Recent Tobacco Screening? 10/31/2020 MIGRATION.511983 7257 Information not available 10/27/2022 What Is Your Relationship Status? MIGRATION.866781 4709 Information not available 10/27/2022 Do You Use Your Seat Belt Or Car Seat Routinely? Yes MIGRATION.713809 1523 Information not available 10/27/2022 Do You Have Smoke And Carbon Monoxide Detectors In Your Home? Yes MIGRATION.159319 3755 Information not available 10/27/2022 At What Age Did You Start Smoking Tobacco? 28 MIGRATION.092288 5951 Information not available 10/27/2022 How Much Tobacco Do You Smoke? 0.5 PPD MIGRATION.163586 7428 Information not available 10/27/2022 Do You Use Sunscreen Routinely? No MIGRATION.037620 9998 Information not available 10/27/2022 Have You Recently Traveled Abroad? No MIGRATION.981867 8327 Information not available 10/27/2022 Do You Have Difficulty Walking Or Climbing Stairs? No MIGRATION.281720 7296 Information not available 10/27/2022 Do You Have Any Dietary Restrictions? No MIGRATION.141419 9266 Information not available 10/27/2022 Sex: Female Functional Status Question Answer Note LastModified by Organizat ion Details LastModified Time Do you or have you ever used smokeless tobacco? Never used smokeless tobacco MIGRATION.584787 9761 Information not available 10/27/2022 Are you currently employed? No Information not available 03/17/2023 Do you have transportation difficulties? No MIGRATION.623373 7678 Information not available 10/27/2022 Are you able to care for yourself? Yes MIGRATION.559462 7094 Information not available 10/27/2022 Do you have difficulty dressing or bathing? No MIGRATION.561909 8512 Information not available 10/27/2022 Do you or have you ever used e-cigarettes or vape? Never used electronic cigarettes MIGRATION.412029 8233 Information not available 10/27/2022 What is your exercise level? None MIGRATION.442281 4360 Information not available 10/27/2022 Do you use any illicit or recreational drugs? No MIGRATION.305143 4344 Information not available 10/27/2022 Do you or have you ever used any other forms of tobacco or nicotine? No MIGRATION.996202 9563 Information not available 10/27/2022 What is your level of alcohol consumption? Occasional MIGRATION.241504 6477 Information not available 10/27/2022 Are you able to walk? YESWOREST MIGRATION.085228 4020 Information not available 10/27/2022 Do you have difficulty doing errands alone? No MIGRATION.626966 5664 Information not available 10/27/2022 What is your occupation? Retired MIGRATION.129292 1933 Information not available 10/27/2022 Mental Status Question Answer Note LastModified by Organizat ion Details LastModified Time Do you have difficulty concentrating, remembering or making decisions? Yes MIGRATION.[id number] 6 Information not available 10/27/2022 Family History Relationship Description Onset Age of this Age Resolved Age Notes LastModified by Organization Details LastModified Time Mother Diabetes mellitus MIGRATION.617 [id number] Not available 10/27/2022 00:57:14 Father Malignant tumor of stomach 83 MIGRATION.112 [id number] Not available 10/27/2022 00:57:14 Brother Malignant tumor of esophagus MIGRATION.427 1243808 Not available 10/27/2022 00:57:14 Son Mental disorder MIGRATION.250 [id number] Not available 10/27/2022 00:57:14 Medical History Condition [...] HAVE YOU BEEN HOSPITALIZED OR SEEN IN [facility] IN THE PAST YEAR ? N ATHEROSCLEROSIS [...] and Address Organization Details Recorded Time Novel Zzysvnrrc-C0E1-13, all formulations 6 completed Not Available [facility] 10/27/2022 01:15:16 influenza, unspecified formulation 6 completed Not Available [facility] 10/27/2022 01:15:16 COVID-19, mRNA, LNP-S, PF, 30 mcg/0.3 mL dose 1 completed Not Available [facility] 10/27/2022 01:15:16 COVID-19, mRNA, LNP-S, PF, 30 mcg/0.3 mL dose 1 completed Not Available [facility] 10/27/2022 01:15:16 Influenza, split virus, quadrivalent, preservative 8 completed Not Available [facility] 10/27/2022 01:15:16 influenza, unspecified formulation 4 completed Not Available [facility] 10/27/2022 01:15:16 Influenza, high-dose, trivalent, PF 7 completed Not Available [facility] 10/27/2022 01:15:16 pneumococcal polysaccharide PPV23 6 completed Not Available [facility] 10/27/2022 01:15:16 Influenza, split virus, quadrivalent, preservative 5 completed Not Available [facility] 10/27/2022 01:15:16 Past Encounters Encounter ID Performer Location Encounter Start Date Encounter Closed Date Diagnosis/Indication Diagnosis SNOMED-CT Code Diagnosis ICD10 Code Diagnosis Note [id number] CAPO Rasheed [facility] [place] [address] [place] [address] 10/31/2020 00:00:00 11/22/2020 20:55:14 [id number] CAPO Rasheed [facility] [place] [address] [place] [address] 01/20/2021 00:00:00 01/23/2021 17:41:58 [id number] CAPO Rasheed [facility] [place] [address] [place] [address] 03/25/2021 00:00:00 03/26/2021 00:43:21 [id number] CAPO Rasheed [facility] [place] [address] [place] [address] 05/05/2021 00:00:00 05/28/2021 20:25:19 [id number] CAPO Rasheed [facility] [place] [address] [place] [address] 06/30/2021 00:00:00 07/19/2021 21:24:40 [id number] CAPO Rasheed [facility] [place] [address] [place] [address] 07/01/2021 00:00:00 07/02/2021 15:06:48 [id number] CAPO Rasheed [facility] [place] [address] [place] [address] 09/25/2021 00:00:00 09/27/2021 11:22:11 [id number] CAPO Rasheed [facility] [place] [address] [place] [address] 11/30/2021 00:00:00 12/26/2021 10:03:24 [id number] Shankar Hoffmann MD [facility] [place] [address] [place] [address] 12/29/2021 00:00:00 01/26/2022 23:04:19 [id number] Shankar Hoffmann MD [facility] [place] [address] [place] [address] 01/05/2022 00:00:00 01/05/2022 18:00:20 [id number] Shankar Hoffmann MD [facility] [place] [address] [place] [address] 04/20/2022 00:00:00 04/25/2022 09:13:56 [id number] CAPO Rasheed [facility] [place] [address] [place] [address] 05/18/2022 00:00:00 05/18/2022 17:53:51 [id number] CAPO Rasheed [facility] [place] [address] [place] [address] 06/15/2022 00:00:00 06/15/2022 18:35:44 [id number] CAPO Rasheed [facility] [place] [address] [place] [address] 09/15/2022 00:00:00 09/28/2022 20:36:03 [id number] CAPO Rasheed [facility] [place] [address] [place] [address] 10/25/2022 00:00:00 10/25/2022 19:30:46 [id number] CAPO Rasheed [facility] [place] [address] [place] [address] 03/18/2023 09:48:00 03/18/2023 10:28:22 Pain of bilateral hip joints 4017215966 3321309 M25.552 M25.551 check xrays of hip bilaterall y. Pain in pelvis 53672539 R10.2 check xray pelvis Cobalamin deficiency 190 104458 E53.8 refill b12 RX and check lab Hyperlipidemia 68148164 E78.5 fasting lipids are due Hypothyroidism 88112166 E03.9 on supplement and due for TFTs Pain of mu ltiple joints 21370789 M25.50 screening CRP and ESR with spike up in joint pain Long-term drug therapy 956544360 Z79.899 routine bmp, CBC and LFT due Lower urin estephania tract symptoms 870892696 R39.9 screening UA w/cx with long hx of UTIs and frequency noted Uncontroll ed type 2 diabetes mellitus 407186668 E11.65 managed by endo and A1c checked in that office. she is still due for albumin annual check [id number] CAPO Rasheed [facility] [place] [address] [place] [address] 07/20/2023 14:12:34 07/20/2023 15:02:26 Thoracic back pain 832539431 M54.6 right lateral flank pain episodes are reported by the patient today. she is not having pain currently. She will discuss this further with her pain management team and if P.T. can also be completed for this area while she is having her SI joint therapy. Vitamin B1 2 deficiency (non anemic) 24362426 E53.8 b12 injection given today. Health Concerns Section Related Observation LastModified by Organization Detai ls LastModified Time None Recorded Concern Status LastModified by Organization Details LastModified Time None Recorded Advance Directives Directive Y: Payers Encounter Date Sequence Insurance Name Policy Number Policy Street Covered Member ID Street Member ID Guarantor Name 03/18/2023 1 [place] Jazlyn Montgomery [id number] Jazlyn Montgomery 03/18/2023 2 [place] WHEN MEDICARE OR MEDICARE REPLACEMENT PRIMARY) Jazlyn Montgomery [id number] Jazlyn Montgomery 07/20/2023 1 [place] Jazlyn Montgomery [id number] Jazlyn Montgomery 07/20/2023 2 [place] WHEN [place]ARE OR MEDICARE REPLACEMENT PRIMARY) Jazlyn Montgomery [id number] Jazlyn Montgomery Notes Date Note Type Note [...] no muscle weakness; no nutrient deficiency;abdominal pain;excess gas(but cant get rid of it);diarrhea;fatigue;weakness; chills and sweats but unsure of fever Not Available [facility] [employer] [facility] 09/28/2022 20:36:03 023 text/ht ml Anxiety/DepressionReported [...] skin changes; no hair changes Not Available [facility] [employer] [facility] 10/25/2022 19:30:46 023 text/ht ml FatigueReported [...] is all over her body. CAPO Rasheed [address] [place] [address], [address], [address], [facility] [employer] [facility] 03/27/2023 12:34:43 023 text/ht ml Generic HPI TemplateReported bypatient.Notes:Pt is here for an e/r f/u from 07/05/23 for abd pain. They dx her w/gastritis. Records are in the room w/her. She says she had it for a couple more days after that but doing ok today. They didnt put her on anything. CAPO Rasheed [address] [facility], [place], [address], [facility] [employer] [facility] 07/21/2023 11:29:18 OBGyn Episode No OBEpisode recorded.
--- OUTSIDE RECORDS SUMMARY | 2025-02-01 10:52 | XMS_ITS | Data Portability ---
Author Organization [facility] Address [address] [place] [address] Care Team Providers Care Sailing Master Name Role Phone ADRIEN STEVENS Primary Care Provider Unavailab le Assessment No assessment recorded. Plan of Treatment Reminders Order Date Submit Date Provider Last Modified By Organization Details Last Modified Time Details Appointments ANY 2024 01:00P M CAPO Rasheed Not available Not available Not available ANY 2024 10:30A M CAPO Rasheed Not available Not available Not available Lab cobalamin and folate panel, serum 2024 025 [facility], [address], [address], [place], [address], 12/04/2024 12:10:32 lipid panel, serum 2024 025 [facility], [address], [address], [place], [address], 12/04/2024 12:10:32 vitamin D, 25-hydrox y, total, serum 2024 025 [facility], [address], [address], [place], [address], 12/04/2024 12:10:32 CBC w/ auto diff 2024 025 [facility], [address], [address], [place], [address], 12/04/2024 12:10:32 hepatic function panel, serum 2024 025 [facility], [address], [address], [place], [address], 12/04/2024 12:10:32 BMP, serum or plasma 2024 025 [facility] [address], [address], [place], [address], 12/04/2024 12:10:32 TSH + free T4, serum 2024 025 [facility], [address], [address], [place], [address], 12/04/2024 12:10:32 cobalamin and folate panel, serum 2024 025 CALVIN Osborne, [address], [address], [place], [address], 09/25/2024 07:08:07 lipid panel, serum 2024 025 [facility] Osborne, [address], [address], [place], [address], 09/25/2024 07:08:03 CBC w/ auto diff 2024 025 [facility] Osborne, [address], [address], [place], [address], 09/25/2024 07:08:08 hepatic function panel, serum 2024 025 [facility] Osborne, [address], [address], [place], [address], 09/25/2024 07:08:04 BMP, serum or plasma 2024 025 CALVIN Osborne, [address], [address], [place], [address], 09/25/2024 07:08:06 TSH + free T4, serum 2024 025 [facility], [address], [address], [place], [address], 09/25/2024 07:08:02 Referral None recorded. Procedures upper endoscopy procedure (EGD) (PROC) - Patient is in need a follow-up endoscopy procedure 2023 024 mary Feng MD, [address], [address], [place], [address], 09/25/2024 12:24:37 colonosco py procedure (PROC) 2023 024 mary Feng MD, [address], [address], [place], [address], 09/25/2024 12:24:36 lexiscan cardiolit e stress test (PROC) 2023 024 [facility] ([facility]), [address], [place], [address], 06/07/2024 16:10:45 Surgeries None recorded. Imaging CT, abdomen + pelvis, w/ contrast 2024 025 [facility] (Imaging), [address], [place], [address], 10/03/2024 16:48:49 MRI, brain, w/wo contrast 2024 025 [facility] (Imaging), [address], [place], [address], 10/09/2024 11:46:09 CT, angiogram , chest, w/ contrast 2023 024 [facility] ([facility]), [address], [place], [address], 05/26/2024 08:59:01 Medication Orders mupirocin 2 % topical ointment 2024 025 [id number], [address] [place], [place], [id number], 12/13/2024 15:43:24 cyanocoba mark anthony (vit B-12) 1,000 mcg/mL injection solution 2024 025 Not available 12/28/2024 20:23:30 omeprazol e 40 mg capsule,d elayed release 2024 025 [facility], [address] [place], [place], [id number], 09/04/2024 12:19:03 cyanocoba mark anthony (vit B-12) 1,000 mcg/mL injection solution 2023 024 tcarterma Not available 12/04/2024 11:36:51 Amitiza 24 mcg capsule 2023 024 [facility], [address] [place], [place], [id number], 07/01/2024 22:53:37 losartan 25 mg tablet 2023 024 [facility] [employer] [facility] #21696, [address] [place], [place], [id number], 05/27/2024 09:29:40 Patient TargetsNo targets recorded. Patient Instructions Encounter Date Encounter Id Patient Instructions Last Modified By Organization Details Last Modified Time 12/04/2024 [id number] A healthy lifestyle: care instructions Not available 12/04/2024 12:10:32 Reason for Referral None Reported. 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 Not Available Not Available 11/02/2024 15:32:16 08/28/20 24 08/28/2024 Gluco se [Mass /volu me] in Blood by Autom ated test strip interpretati on and review of laboratory results Abnorm al Not Available Not Available 15:32:16 08/28/20 24 08/31/2024 Patho logy study pathology study [facility] Medic[facility] ne [address] [place] [address] Teleph one: [phone], extens ion [id number] [phone] Pathol ogy Report Surgic al Pathol ogy Report Name: FOUZIA MONTGOMERY Alia en #: [id number] Age: [birth year] (Age: 74) Locati on: [facility] Sex: F Proced ure Date: 2023 Hospit al #: [id number] Date Receiv ed: 08/30/19 Date Report ed: 08/31/19 25 Provid er: [...] and sign out were perfor med at [facility] al, [address] [place] [address]. Elec tronic ally Signed Out VAL YEPEZ MD PATHO LOGY [facility] emily Depar tment of Labor atory Medic ine [address] [facility] [address] [facility], [place] [address] Telep aysha: , exten suki 07 Patho logy Repor t Surgi cici Patho logy Repor t Name: FOUZIA HART Speci men #: [id number] Age: [id number] (Age: 74) Locat ion: [facility] Sex: F Proce dure Date: 08/28 Hospi emily #: [id number] Date Recei heriberto: 025 Date Repor sarina: 025 Provi santiago: GIUSE PPE DASH PEDRO MD [facility] e: A: Antru m, biops ies [...] and sign out were perfo rmed at [facility], [address] [facility], [place] [address] . Saritha ctron icall y Sasha d Out VAL YEPEZ MD [facility] Not Available Not Available 11/02/2024 15:32:16 09/24/19 25 09/25/2024 TSH+F REE T4 TSH 3.150 uIU/m L 0.450- 4.500 Not Available [facility] ([facility]) [address] [place], [address], 09/25/2024 07:08:02 09/24/19 25 09/25/2024 TSH+F REE T4 T4,free(dire ct) 1.68 NG/dL 0.82-1 .77 Not Available [facility] ([facility]) [address] [place], [address], 09/25/2024 07:08:02 09/24/19 25 09/25/2024 LIPID PANEL cholesterol, total 262 mg/dL 100-19 9 above high normal Not Available [facility] ([facility]) [address] [place], [address], 09/25/2024 07:08:03 01/27/09/25/2024 LIPID PANEL triglyceride s 205 mg/dL 0-149 above high normal Not Available [facility] ([facility]) [address] [place], [address], 09/25/2024 07:08:03 09/24/19 25 09/25/2024 LIPID PANEL HDL cholesterol 48 mg/dL >39 Not Available [facility]) [address] [place], [address], 09/25/2024 07:08:03 09/24/1909/25/2024 LIPID PANEL VLDL cholesterol cici 38 mg/dL 5-40 Not Available [facility] ([facility]) [address] [place], [address], 09/25/2024 07:08:03 09/24/1909/25/2024 LIPID PANEL LDL chol calc ([facility]) 176 mg/dL 0-99 above high normal Not Available [facility] ([facility]) [address] [place], [address], 09/25/2024 07:08:03 09/24/1909/25/2024 HEPAT IC FUNCT ION PANEL (7) protein, total 6.8 g/dL 6.0-8. 5 Not Available [facility] ([facility]) [address] [place], [address], 09/25/2024 07:08:04 09/24/1909/25/2024 HEPAT IC FUNCT ION PANEL (7) albumin 3.9 g/dL 3.8-4. 8 Not Available [facility] ([facility]) [address] [place], [address], 09/25/2024 07:08:04 09/24/1909/25/2024 HEPAT IC FUNCT ION PANEL (7) bilirubin, total 0.4 mg/dL 0.0-1. 2 Not Available [facility] ([facility]) [address] [place], [address], 09/25/2024 07:08:04 09/24/19 25 09/25/2024 HEPAT IC FUNCT ION PANEL (7) bilirubin, direct 0.13 mg/dL 0.00-0 .40 Not Available [facility] ([facility]) [address] [facility] [place], [address], 09/25/2024 07:08:04 09/24/19 25 09/25/2024 HEPAT IC FUNCT ION PANEL (7) alkaline phosphatase 74 IU/L 44-121 Not Available [facility]) [address] [facility] [place], [address], 09/25/2024 07:08:04 09/24/19 25 09/25/2024 HEPAT IC FUNCT ION PANEL (7) AST (SGOT) 15 IU/L 0-40 Not Available [facility] ([facility]) [address] [place], [address], 09/25/2024 07:08:04 09/24/19 25 09/25/2024 HEPAT IC FUNCT ION PANEL (7) ALT (SGPT) 16 IU/L 0-32 Not Available [facility] ([facility]) [address] [place], [address], 09/25/2024 07:08:04 09/24/19 25 09/25/2024 BMP7+ EGFR glucose 191 mg/dL 70-99 above high normal Not Available [facility] ([facility]) [address] [place], [address], 09/25/2024 07:08:05 09/24/19 25 09/25/2024 BMP7+ EGFR BUN 20 mg/dL 8-27 Not Available [facility] ([facility]) [address] [place], [address], 09/25/2024 07:08:05 09/24/19 25 09/25/2024 BMP7+ EGFR creatinine 1.02 mg/dL 0.57-1 .00 above high normal Not Available [facility] ([facility]) [address] [facility] [place], [address], 09/25/2024 07:08:05 09/24/19 25 09/25/2024 BMP7+ EGFR eGFR 57 mL/mi n/1.7 3 >59 below low normal Not Available [facility] ([facility]) [address] [facility] [place], [address], 09/25/2024 07:08:05 09/24/19 25 09/25/2024 BMP7+ EGFR sodium 139 mmol/ L 134-14 4 Not Available [facility] ([facility]) [address] [facility] [place], [address], 09/25/2024 07:08:05 09/24/19 25 09/25/2024 BMP7+ EGFR potassium 4.4 mmol/ L 3.5-5. 2 Not Available [facility] ([facility]) [address] [facility] [place], [address], 09/25/2024 07:08:05 09/24/19 25 09/25/2024 BMP7+ EGFR chloride 103 mmol/ L 96-106 Not Available [facility] ([facility]) [address] [facility] [place], [address], 09/25/2024 07:08:05 09/24/19 25 09/25/2024 BMP7+ EGFR carbon dioxide, total 22 mmol/ L 20-29 Not Available [facility] ([facility]) [address] [facility] [place], [address], 09/25/2024 07:08:05 09/24/19 25 09/25/2024 VITAM IN B12 AND FOLAT E vitamin B12 499 pg/mL 232-12 45 Not Available [facility] ([facility]) [address] [facility] [place], [address], 09/25/2024 07:08:07 09/24/1909/25/2024 VITAM IN B12 AND FOLAT E folate (folic acid), serum 6.8 NG/mL >3.0 A serum folat e judith ntrat ion of less than 3.1 ng/mL is consi dered to repre sent clini cici defic iency . Not Available [facility] ([facility]) [address] [facility], [place], [address], 09/25/2024 07:08:07 09/24/19 25 09/24/2024 CBC WITH DIFFE RENTI AL/PL ATELE T WBC 5.9 x10e3 /uL 3.4-10 .8 Not Available [facility] ([facility]) [address] [facility], [place], [address], 09/25/2024 07:08:08 09/24/1909/24/2024 CBC WITH DIFFE RENTI AL/PL ATELE T RBC 5.23 x10e6 /uL 3.77-5 .28 Not Available [facility] ([facility]) [address] [facility], [place], [address], 09/25/2024 07:08:08 09/24/19 25 09/24/2024 CBC WITH DIFFE RENTI AL/PL ATELE T hemoglobin 14.8 g/dL 11.1-1 5.9 Not Available [facility] ([facility]) [address] [facility], [place], [address], 09/25/2024 07:08:08 09/24/19 25 09/24/2024 CBC WITH DIFFE RENTI AL/PL ATELE T hematocrit 45.1 % 34.0-4 6.6 Not Available [facility] ([facility]) [address] [facility], [place], [address], 09/25/2024 07:08:08 09/24/19 25 09/24/2024 CBC WITH DIFFE RENTI AL/PL ATELE T MCV 86 fL 79-97 Not Available [facility] ([facility]) [address] [facility], [place], [address], 09/25/2024 07:08:08 09/24/19 25 09/24/2024 CBC WITH DIFFE RENTI AL/PL ATELE T MCH 28.3 pg 26.6-3 3.0 Not Available [facility] ([facility]) [address] [facility], [place], [address], 09/25/2024 07:08:08 09/24/19 25 09/24/2024 CBC WITH DIFFE RENTI AL/PL ATELE T MCHC 32.8 g/dL 31.5-3 5.7 Not Available [facility] ([facility]) [address] [facility], [place], [address], 09/25/2024 07:08:08 09/24/19 25 09/24/2024 CBC WITH DIFFE RENTI AL/PL ATELE T RDW 12.9 % 11.7-1 5.4 Not Available [facility] ([facility]) [address] [facility], [place], [address], 09/25/2024 07:08:08 09/24/19 25 09/24/2024 CBC WITH DIFFE RENTI AL/PL ATELE T platelets 234 x10e3 /uL 150-45 0 Not Available [facility] ([facility]) [address] [facility], [place], [address], 09/25/2024 07:08:08 09/24/19 25 09/24/2024 CBC WITH DIFFE RENTI AL/PL ATELE T neutrophils 65 % notest ab. Not Available [facility] ([facility]) [address] [place], [address], 09/25/2024 07:08:08 09/24/19 25 09/24/2024 CBC WITH DIFFE RENTI AL/PL ATELE T lymphs 27 % notest ab. Not Available [facility] ([facility]) [address] [facility], [place], [address], 09/25/2024 07:08:08 09/24/19 25 09/24/2024 CBC WITH DIFFE RENTI AL/PL ATELE T monocytes 6 % notest ab. Not Available [facility] ([facility]) [address] [facility], [place], [address], 09/25/2024 07:08:08 09/24/19 25 09/24/2024 CBC WITH DIFFE RENTI AL/PL ATELE T eos 2 % notest ab. Not Available [facility] ([facility]) [address] [facility], [place], [address], 09/25/2024 07:08:08 09/24/19 25 09/24/2024 CBC WITH DIFFE RENTI AL/PL ATELE T basos 0 % notest ab. Not Available [facility] ([facility]) [address] [facility], [place], [address], 09/25/2024 07:08:08 09/24/19 25 09/24/2024 CBC WITH DIFFE RENTI AL/PL ATELE T neutrophils (absolute) 3.8 x10e3 /uL 1.4-7. 0 Not Available [facility] ([facility]) [address] [facility], [place], [address], 09/25/2024 07:08:08 09/24/1909/24/2024 CBC WITH DIFFE RENTI AL/PL ATELE T lymphs (absolute) 1.6 x10e3 /uL 0.7-3. 1 Not Available [facility] ([facility]) [address] [facility], [place], [address], 09/25/2024 07:08:08 09/24/19 25 09/24/2024 CBC WITH DIFFE RENTI AL/PL ATELE T monocytes(ab solute) 0.4 x10e3 /uL 0.1-0. 9 Not Available [facility] ([facility]) [address] [facility], [place], [address], 09/25/2024 07:08:08 09/24/19 25 09/24/2024 CBC WITH DIFFE RENTI AL/PL ATELE T eos (absolute) 0.1 x10e3 /uL 0.0-0. 4 Not Available [facility] ([facility]) [address] [facility], [place], [address], 09/25/2024 07:08:08 09/24/19 25 09/24/2024 CBC WITH DIFFE RENTI AL/PL ATELE T baso (absolute) 0.0 x10e3 /uL 0.0-0. 2 Not Available [facility] ([facility]) [address] [facility], [place], [address], 09/25/2024 07:08:08 09/24/19 25 09/24/2024 CBC WITH DIFFE RENTI AL/PL ATELE T immature granulocytes 0 % notest ab. Not Available [facility] ([facility]) [address] [facility], [place], [address], 09/25/2024 07:08:08 09/24/19 25 09/24/2024 CBC WITH DIFFE RENTI AL/PL ATELE T immature grans (abs) 0.0 x10e3 /uL 0.0-0. 1 Not Available [facility] ([facility]) [address] [facility], [place], [address], 09/25/2024 07:08:08 05/26/20 24 05/25/2024 CT, angio gram, chest , w/ contr ast No observ ation record ed. [address], [place], [address], 06/14/2024 12:05:30 06/07/20 24 06/07/2024 naz can cardi olite stres s test (PROC ) No observ ation record ed. [address] (Cardiology [facility] Emg) [address] [place], [place] [address] [facility], [place], [address], 06/14/2024 12:05:29 06/22/20 24 06/07/2024 naz can cardi olite stres s test (PROC ) No observ ation record ed. [facility] ([facility]) [address] [place], [place] [address] [facility], [place], [address], 06/22/2024 14:57:16 09/05/19 25 08/31/2024 colon oscop y scree sussy (PROC ) No observ ation record ed. [facility] Not Available 2024 09:16:32 10/03/19 25 10/03/2024 CT, abdom en + pelvi s, w/ contr ast No observ ation record ed. [address] [address], [place], [address], 12/04/2024 11:58:46 10/09/19 25 10/09/2024 MRI, cervi cici spine , w/o contr ast No observ ation record ed. [address] [address], [place], [address], 10/10/2024 11:12:41 10/09/19 25 10/09/2024 MRI, brain , w/wo contr ast No observ ation record ed. [address], [place], [address], 10/11/2024 13:01:05 10/19/19 25 10/19/2024 XR, knee No observ ation record ed. [address] [address], [place], [address], 10/20/2024 21:57:16 Result Notes None recorded. Problems Name Problem SNOMED Code Status Onset Date Resolution Date Notes Provider Name and Address Organization Details Recorded Time Atrophic vaginitis 94383536 Active 2023 CAPO Rasheed Attn: Nancy palacios,[address] [facility], [place], [address], [place] - [facility] 4 09:54:21 Diffuse spasm of esophagus 98274154 Active 2023 CAPO Rasheed Attn: Accountranjeet g,[address] [facility], [place], [address], [place] [facility] 4 09:54:22 Bilateral dermatitis of external ear canals 1594346298008 104 Active 2023 CAPO Rasheed Attn: Accountin g,[address] [place], [address], [place] [facility] 4 09:54:23 Vitamin B12 deficiency (non anemic) 02578721 Active 2023 CAPO Rasheed Attn: Jaleesain g,[address] [place], [address], [place] [facility] 4 09:54:25 Hypertrigly ceridemia 550259958 Active 2023 CAPO Rasheed Attn: Jaleesain g,[address] [place], [address], [place] [facility] 4 09:54:26 Gastroesoph ageal reflux disease without esophagitis 905455387 Active 2023 CAPO Rasheed Attn: Accountin g,[address] [place], [address], [place] [facility] 4 09:54:28 Mixed anxiety and depressive disorder 620396581 Active 2023 CAPO Rasheed Attn: Accountin g,[address] [place], [address], [place] [facility] 4 09:54:29 Hypothyroid ism 27094018 Active 2023 CAPO Rasheed Attn: Accountin g,[address] [place], [address], [place] [facility] 4 09:54:31 Long-term current use of insulin 304593930 Active 2023 CAPO Rasheed Attn: Accountin g,[address] [facility], [place], [address], [place] [facility] 4 09:54:32 Uncontrolle d type 2 diabetes mellitus 165277572 Active 2023 CAPO Rasheed Attn: Accountin g,[address] [facility], [place], [address], [place] [facility] 4 09:54:33 Obesity 734512710 Active 2023 CAPO Rasheed Attn: Accountin g,[address] [facility], [place], [address], [place] [facility] 4 11:17:24 Body mass index 30+ - obesity 987465142 Active 2023 CAPO Rasheed Attn: Accountin g,[address] [facility], [place], [address], [place] [facility] 4 11:17:25 Irritable bowel syndrome with diarrhea 072152260 Active 2023 CAPO Rasheed Attn: Accountin g,[address] [facility], [place], [address], [place] [facility] 4 11:17:27 Benign essential hypertensio n 3401051 Active 2023 CAPO Rasheed Attn: Accountin g,[address] [facility], [place], [address], [place] [facility] 4 11:17:31 Cobalamin deficiency 307495796 Active 2023 CAPO Rasheed Attn: Accountin g,[address] [place], [address], [place] [facility] 4 11:17:33 Long-term drug therapy Active 2023 CAPO Rasheed Attn: Accountin g,[address] [place], [address], [place] [facility] 4 11:17:51 Feeling stressed 585074551 Active 2023 CAPO Rasheed Attn: Nancy palacios,[address] [facility], [place], [address], [place] [facility] 4 09:48:37 Acid reflux 511789497 Active 2023 CAPO Rasheed Attn: Nancy palacios,[address] [facility], [place], [address], [place] [facility] 4 12:06:37 Irritable bowel syndrome characteriz ed by alternating bowel habit 480063659 Active 2023 CAPO Rasheed Attn: Nancy palacios,[address] [facility], [place], [address], [place] [facility] 4 12:06:39 Vitamin D deficiency 59441040 Active 2024 CAPO Rasheed Attn: Nancy palacios,[address] [facility], [place], [address], [place] [facility] 5 20:22:50 Positive screening for depression on PHQ-9 (Patient Health Questionnai re 9) 2037059457963 00 Active 2024 CAPO Rasheed Attn: Nancy palacios,[address] [facility], [place], [address], [place] - [facility] 5 20:23:27 Problem Notes None recorded. Procedures Surgical History Date Name Laterality Status Provider Name and Address Organization Details Recorded Time Appendectomy completed HAROON Khanna - [facility] 12/07/2023 14:49:11 Cholecystectomy completed HAROON Khanna [facility] 12/07/2023 14:49:16 Eye Surgery completed HAROON Khanna [facility] 12/07/2023 14:49:22 Hernia Repair completed HAROON Khanna [facility] 12/07/2023 14:49:27 Tonsillectomy completed HAROON Khanna [facility] 12/07/2023 14:49:43 hysterectomy completed Leda Brian MA [facility] 12/07/2023 14:49:52 ligation of bilateral fallopian tubes completed Leda Brian MA [facility] 12/07/2023 14:50:06 Imaging Results None recorded. Procedure Notes None recorded. Medical Equipment None Reported. Allergies Allergen ID Allergen Name Allergen Category Reaction Reaction Severity Criticality Documentation Date Start Date Code Code System Note Provider Name and Address Organization Details Recorded Time 359457 Substance with morphinan structure and opioid receptor agonist mechanism of action (substan e) medicatio n Not available Not available Not available 12/07/2023 89847 9000 SNOMED Leda Brian MA null, [facility] 14:48:33 Medications Name Sig Start Date Stop Date [...] Not Available Not Available No t Available valacyclovi r 1 gram tablet TAKE 1 [...] Not Available Not Available No t Available triamcinolo ne acetonide 0.1 % topical cream APPLY TOPICALLY TO THE AFFECTED AREA TWICE DAILY FOR 7 DAYS active Not Available [...] Not Available Not Available No t Available doxycycline monohydrate 100 mg capsule TAKE 1 CAPSULE BY MOUTH TWICE DAILY FOR 7 DAYS active Not Available Not Available No t Available cyanocobala min (vit B-12) 1,000 mcg/mL injection solution Inject 1 mL every month by subcutane ous route. 2024 active Not Available Not Available Not Avai lable levothyroxi ne 125 mcg tablet TAKE 1 TABLET BY MOUTH EVERY DAY active Not Available Not Available No t Available lidocaine 5 % topical patch APPLY 1 PATCH TO THE AFFECTED AREA EVERY DAY AND LEAVE ON FOR 12 HOURS AND OFF FOR 12 HOURS active Not Available Not Available No t Available losartan 25 mg tablet Take 1 tablet every day by oral route. 05/15 completed Not Available Not Available Not Available mupirocin 2 % topical ointment APPLY A SMALL AMOUNT TOPICALLY TO AFFECTED AREA OF RIGHT LOWER EXTREMITY TWICE DAILY active Not Available Not Available No t Available ergocalcife rol (vitamin D2) 1,250 mcg (50,000 [...] Not Available Not Available Vitals Date Recorded Systolic blood pressure Diastolic blood pressure Provider Name and Address Organization Details Last Updated DateTime 09/04/2024 140 mm[Hg] 80 mm[Hg] CAPO Rasheed Attn: Accounting,[address] [place], [address], [place] - [place] 09/04/2024 12:18:44 Date Recorded Body height Body mass index (BMI) Body weight Oxygen saturation Oxygen saturation in Arterial blood by Pulse oximetry Heart rate Respiratory rate Systolic blood pressure Diastolic blood pressure Provider Name and Address Organization Details Last Updated DateTime 175.26 cm 31.6 kg/m2 80250.7 7 g 98 % 98 % 84 /min 18 /min 142 mm[Hg] 80 mm[Hg] Leda Brian MA [place] - [facility] 11:45:32 Date Recorded Respiratory rate Systolic blood pressure Diastolic blood pressure Provider Name and Address Organization Details Last Updated DateTime 12/04/2024 18 /min 138 mm[Hg] 80 mm[Hg] CAPO Rasheed Attn: Accounting, [address] [place], [address], [facility] 12/04/2024 12:12:58 Date Recorded Body height Body mass index (BMI) Body weight Oxygen saturation Oxygen saturation in Arterial blood by Pulse oximetry Heart rate Systolic blood pressure Diastolic blood pressure Provider Name and Address Organization Details Last Updated DateTime 175.26 cm 31.2 kg/m2 43884.9 9 g 98 % 98 % 83 /min 140 mm[Hg] 80 mm[Hg] Leda Brian [place] 12:26:55 Date Recorded Respiratory rate Provider Name a ga Address Organization Details Last Updated DateTime 12/13/2024 16 /min CAPO Rasheed Attn: Accounting,[address] [place], [address], [place] [facility] [place] 12/30/2024 19:08:38 Date Recorded Body height Body mass index (BMI) Body weight Oxygen saturation Oxygen saturation in Arterial blood by Pulse oximetry Heart rate Systolic blood pressure Diastolic blood pressure Provider Name and Address Organization Details Last Updated DateTime 175.26 cm 31.2 kg/m2 72307.9 9 g 97 % 97 % 85 /min 128 mm[Hg] 82 mm[Hg] Leda Brian MA [facility] 5 15:01:10 Date Recorded Systolic blood pressure Diastolic blood pressure Systolic blood pressure Diastolic blood pressure Provider Name and Address Organization Details Last Updated DateTime 05/08/2024 160 mm[Hg] 100 mm[Hg] 140 mm[Hg] 92 mm[Hg] CAPO Laboy Attn: Accounting ,[address] [place], [address] , [facility] 4 12:02:07 Date Recorded Body height Body mass index (BMI) Body weight Respiratory rate Oxygen saturation Oxygen saturation in Arterial blood by Pulse oximetry Heart rate Systolic blood pressure Diastolic blood pressure Provider Name and Address Organization Details Last Updated DateTime 4 175.26 cm 32.1 kg/m2 02831.6 9 g 20 /min 96 % 96 % 84 /min 160 mm[Hg] 100 mm[Hg] Leda Brian MA [facility] 4 11:27:27 Date Recorded Systolic blood pressure Diastolic blood pressure Provider Name and Address Organization Details Last Updated DateTime 06/14/2024 130 mm[Hg] 72 mm[Hg] CAPO Rasheed Attn: Accounting, [place], [address], [facility] 06/14/2024 12:06:31 Date Recorded Body height Body mass index (BMI) Body weight Heart rate Oxygen saturation Oxygen saturation in Arterial blood by Pulse oximetry Respiratory rate Systolic blood pressure Diastolic blood pressure Provider Name and Address Organization Details Last Updated DateTime 4 175.26 cm 31.9 kg/m2 87276.9 5 g 86 /min 95 % 95 % 18 /min 130 mm[Hg] 82 mm[Hg] Zee Powell MA [facility] 4 11:38:36 Social History Question Answer Notes LastModified by Organizat ion Details LastModified Time Tobacco Smoking Status Former Smoker quit 40 years ago Leda Brian MA null, [facility] 12/07/2023 12:41:15 Do You Have An Advance Directive? No Information not available 12/07/2023 Are You Blind [...] No Information not available 12/07/2023 Are You Deaf Or Do You Have [...] Counseling Provided? 12/13/2024 Information not available 12/13/2024 Sex: Female Functional Status Question Answer Note LastModified by Organizat ion Details LastModified Time Do you use any illicit or recreational drugs? No Information not available 12/07/2023 Do you or have you ever used any other forms of tobacco or nicotine? No Information not available 12/07/2023 What is your level of alcohol consumption? Occasional beer Information not available 12/07/2023 Are you currently employed? No Information not available 05/08/2024 Are you able to care for yourself? Yes Information n ot available 12/07/2023 What is your exercise level? [...] Skin Problems Y Anemia N Heart Attack ([place]) N Anxiety Disorder Y Diabetes Y Muscle, [...] 4 completed CAPO Rasheed Attn: Accounting,[address] [facility], [place], [address], [place] [facility] 07/01/2024 12:35:29 Past Encounters Encounter ID Performer Location Encounter Start Date Encounter Closed Date Diagnosis/Indication Diagnosis SNOMED-CT Code Diagnosis ICD10 Code Diagnosis Note [id number] Shankar Hoffmann MD formerly [facility] [place] [address] [place] [address] 12/07/2023 12:24:44 12/07/2023 13:54:54 Hypothyroidism 48308750 E03.9 due for TFT panel. she says endocrine is only managing her diabetes and she needs refill on levothyrox ine 125mcg daily. Mixed anxi ety and depressive disorder 884026309 F41.8 stable at this time. no acute c/o. she takes alprazolam 1mg bid PRN. Uncontroll ed type 2 diabetes mellitus 908446089 E11.65 last a1c around 11% and ran in office from Endocrinol ogpedro. on tresiba and fiasp therapy with them. labs per their office. Gastroesop hageal reflux disease without esophagitis 361211995 K21.9 stable on famotidine 20mg bid. Long-term drug therapy 459046897 Z79.899 routine bmp, lft and cbc due. Bilateral dermatitis of external ear canals 0636179419 863763 H60.93 rx for refill fluocinoni de 0.05% cream bid PRN Long-term current use of insulin 848937033 Z79.4 as above. Hypertriglyceridemia 302 059666 E78.2 on vascepa 1g 2 bid. due for fasting lipids. Screening mammography 24 275112 Z12.31 mammogram is due. Vitamin B1 2 deficiency (non anemic) 21715885 E53.8 screening b12 lab and then will decide b12 injection dosing schedule. Diffuse sp asm of esophagus 57505977 K22.4 refill on amitriptyl ine 10mg qhs. Atrophic vaginitis 35212 000 N95.2 refill on estradiol 0.01% cream WA three times per week. [id number] Shankar Hoffmann MD [facility] [place] [address] [place] [address] 02/21/2024 16:28:41 02/23/2024 16:15:58 Body mass index 30+ - obesity 946512016 Z68.32 BMI is 32.1 Obesity 289658373 E66.8 discussed healthy diet, exercise, controllin g carbohydra robert and added sugars in the diet Benign ess ential hypertension 6511637 I10 Start amlodipine 5 mg p.o. daily for elevated blood pressure in 180/98 range on multiple checks today. Encouraged patient to control sodium in her diet keeping it low, encouragin g some walking for exercise and weight loss to also help manage hypertensi on. Irritable bowel syndrome with diarrhea 807262041 K58.0 just needs refill on PRN infrequent use. Cobalamin deficiency 190 654760 E53.8 Refill on vitamin B12 solution for monthly injection. Long-term drug therapy 349744173 Z79.899 Labs are currently all up-to-date . Hypothyroidism 56935567 E03.9 Patient is stable on levothyrox ine 125mcg daily. She is up-to-date on labs and being managed by endocrinol ogy. [id number] Shankar Hoffmann MD [facility] [address] [place] [address] 05/08/2024 10:44:38 05/08/2024 12:49:37 Benign essential hypertension 2940183 I10 BP is 140/92, add losartan 25 mg daily to the regimen with amlodipine 7.5 mg daily to better control hypertensi on Long-term drug therapy 013694087 Z79.899 All labs are currently up-to-date Dyspnea on exertion 6084 5006 R06.09 Refer for Lexiscan cardiac stress testing and CT angiogram of the chest with contrast Feeling stressed 6902361 06 Z73.3 Related to her son living with her still. Patient does have alprazolam dosing that she uses on a p.r.n. basis. Have encouraged her to start titration down on this [id number] Shankar Hoffmann MD [facility] [address] [place] [address] 06/14/2024 11:22:04 06/18/2024 14:58:01 Administration of influenza vaccine 53821230 Z23 Flu shot given today Vitamin B1 2 deficiency (non anemic) 93032297 E53.8 Refill on B12 solution Benign ess ential hypertension 6788248 I10 Blood pressure is improved and stable on amlodipine 7.5 mg daily Acid reflux 072719438 K2 1.9 needs updated EGD completed. Saw Dr. Fitzgerald in the past but he has retired. need alternate option that saw her in practice. pt will get back to us about the name of who to send it to. Irritable bowel syndrome characterized by alternating bowel habit 720149623 K58.9 pt will be due for colonoscop y. will prefer to get at same time as EGD as ordered above. Pt will notify us of the doctor to fax orders to. Trial of Amitiza 24 mcg twice daily Long-term drug therapy 434725720 Z79.899 All labs are currently up-to-date [id number] Shankar Hoffmann MD [facility] [address] [place] [address] 09/04/2024 11:31:43 09/04/2024 13:44:09 Gastroesophageal reflux disease without esophagitis 786545869 K21.9 Refill omeprazole 40 mg daily to be taken in the morning with reflux noted on her EGD this she is provided us notes a lot Headache 77677329 R51.9 Refer for MRI of the brain with and without contrast for more frequent almost daily headaches the last few weeks. Abdominal pain 87297595 R10.9 Generalize d abdominal pain that waxes and wanes we will send for CT scan abdomen and pelvis with contrast Tortuous colon 627830567 3 2107 K63.89 Patient also has a history of tortuous colon unable to have complete evaluation on her colonoscop y. Benign ess ential hypertension 6434901 I10 Blood pressure is improved and stable on amlodipine 7.5 mg daily Long-term drug therapy 317838383 Z79.899 Due for CBC, BMP and liver panel Cholesterol screening 27 6276948 Z13.220 Fasting lipids are due Hypothyroidism 44860780 E03.9 Patient is stable on levothyrox ine 125mcg daily. She is following with endocrinol shaquille and is due for an updated thyroid function panel Vitamin B1 2 deficiency (non anemic) 02745333 E53.8 Check vitamin B12 and folate labs [id number] Shankar Hoffmann MD [facility] [address] [place] [address] 12/04/2024 11:09:38 12/04/2024 12:46:21 Benign essential hypertension 2864971 I10 Blood pressure is improved and stable on amlodipine 7.5 mg daily Body mass index 30+ - obesity 722389943 Z68.32 BMI 31.2 Obesity 890247184 E66.9 discussed healthy diet, exercise, controllin g carbohydra robert and added sugars in the diet Gastroesop hageal reflux disease without esophagitis 734072185 K21.9 Stable on omeprazole 40 mg daily Long-term drug therapy 135552826 Z79.899 Routine CBC, liver function and BMP due in April Hypothyroidism 73711285 E03.9 Patient is stable on levothyrox ine 125mcg daily. She is following with endocrinol shaquille and is due for an updated thyroid function panel Vitamin B1 2 deficiency (non anemic) 08116686 E53.8 Patient will get 1 cc vitamin B12 injection today and updated labs were ordered for April Mixed hyperlipidemia 267 569650 E78.2 unable to tolerate statins. We will be due again for fasting lipids in April. She is on Vascepa 2 g twice daily. Vitamin D deficiency 347 96049 E55.9 Patient has a history of being on high-dose vitamin-D supplement and currently is still taking supplement . Due for an updated vitamin-D lab Positive s creening for depression on PHQ-9 (Patient Health Questionnaire 9) 2399462655 12939 Z13.31 Patient is positive on her screening today. She is overall feeling stable with her anxiety and depression with no complaints or concerns [id number] Shankar Hoffmann MD [facility] [address] [place] [address] 12/13/2024 14:35:08 12/13/2024 15:49:04 Stasis dermatitis 28158900 I87.2 For stasis dermatitis primarily on the right lower extremity we are going to start mupirocin topical ointment to apply twice daily to the area. She can still use over-the-c ounter steroid cream that she has available as well. Health Concerns Section Related Observation LastModified by Organization Detai ls LastModified Time None Recorded Concern Status LastModified by Organization Details LastModified Time None Recorded Advance Directives Directive N: Payers Encounter Date Sequence Insurance Name Policy Number Policy Street Covered Member ID Street Member ID Guarantor Name 05/08/2024 1 [place] Fouzia Padilla [place] [id number] Fouzia [place] 05/08/2024 2 [place] WHEN [place]ARE OR MEDICARE REPLACEMENT PRIMARY) Fouzia [place] [id number] Fouzia [place] 06/14/2024 1 [place] Fouzia Padilla Valentina [id number] Fouzia [place] 06/14/2024 2 [place] OR MEDIC[place] REPLACEMENT [place]) Fouzia [place] [id number] Fouzia [place] 09/04/2024 1 [place] Fouzia Padilla [place] [id number] Fouzia [place] 09/04/2024 2 [place] OR [place]IC[place]PLACEMENT [place]) Fouzia Montgomery [id number] Fouzia [place] 12/04/2024 1 [place] Fouzia [place] [id number] Fouzia [place] 12/04/2024 2 [place] OR MEDIC[place]PLACEMENT [place]) Fouzia Montgomery [id number] Fouzia Montgomery 12/13/2024 1 [place] Fouzia [place] [id number] Fouzia Montgomery 12/13/2024 2 [place] OR MEDIC[place] REPLACEMENT [place]) Fouzia Montgomery [id number] Fouzia Montgomery Notes Date Note Type Note [...] and go. 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 Patient would like to have her B12 refill CAPO Rasheed Attn: Accounting, [address] [place], [address], [facility] 09/23/2024 23:16:35 12/05/19 25 text/ht ml DiabetesReported bypatient.Notes:endocrine following. a1c down to 7.4% now. eating NO carbs. Tresiba 40 units daily. and lispro sliding scale.HypertensionReported bypatient.Notes:Blood pressure is much better and well-controlled on medication. Currently she is taking amlodipine 7.5 mg dailyReflux/GERDReported bypatient.Notes:Patient is now on omeprazole 40 mg daily as famotidine was not effective in managing refluxThyroidReported bypatient.Notes:Patient has underlying hypothyroidism which is managed now by her dairy farm operator and she is on levothyroxine 125 mcg daily. CAPO Rasheed Attn: Accounting, [address] [place], [address], [facility] 12/28/2024 20:24:11 12/14/19 25 text/ht ml Skin LesionReported bypatient.Location:leg Quality:tender Severity:mild Duration:days Timing:gradual Context:no known trigger Alleviating Factors:none Associated Symptoms:no fever; no lesions spreading; no chills Prior Treatments:OTC topical treatment CAPO Rasheed Attn: Accounting, [address] [place], [address], [place] [facility] 12/30/2024 19:08:55 OBGyn Episode No OBEpisode recorded.
--- OUTSIDE RECORDS SUMMARY | 2025-02-01 10:53 | XMS_ITS | Continuity of Care Document ---
Author Organization [facility] Address [address] [place] [address] Phone Care Team Providers Care Floor Worker Transfer [place] Name Role Phone Joe Centeno Unavailable Unavailable Procedures Procedure Date Post-op Follow-up Visit Refraction Post-op Follow-up Visit Post-op Follow-up Visit Remove Cataract, Insert Lens Eye Exam & Treatment IOLMaster Advance Directives Directive Yes / No Effective Date File Name No Information Encounters Encounter Description Practice Location Reason(s) For Visit Diagnoses Date Provider Providers Copied on Encounter [facility], [address] [place] [address] [address], [place], [place], [id number], [place] tel:[phone] [facility] No Information Oct-2 5-200 9 Krishnasamy Joe. [address], [facility], [place]. tel:[phone] [facility], [address], [place], [place], [address], [place] tel:[phone] [facility] No Information Mar-0 4-200 9 Krishnasamy Joe. [address] [facility] [address], [place], [address], [place]. tel:[phone] [facility], [address] [place] [address] [address], [place], [place], [id number], tel:[phone] [facility] No Information b-2 0-200 9 Polanco OD Grzegorz. [address], [place], [place], [facility], . tel:[phone] [facility], [address], [place], [place], [address], tel:[phone] [facility] No Information Sep-1 9-200 9 Krishnasamy Joe. [facility] [address], [place], [facility], . tel:[phone] [facility], [address], [place], [place], [address], tel:[phone] [facility] No Information b-0 4-200 9 Krishnasamy Joe. [address] [place] [address], [facility], [place]. tel:[phone] Referring Provider: Joe vasquez, [address] [place] [address], [place], [facility]. tel:[phone] Family History Family Member Type Diagnosis Age [...]
--- OUTSIDE RECORDS SUMMARY | 2025-02-01 10:53 | XMS_ITS | Clinical Summary ---
Author Organization [facility] Address [address] [place] [address] Care Team Providers Care Yard Clerk Name Role Phone Naif Brownlee MD Primary Care Provider [phone] Source Comments [facility],non-owned Affiliates and Associated Physician Practices is amultiple site organization consisting of ambulatory clinics and hospital sitesin [place], [place], [place] and [place]. This disclosure is being madepursuant to the Care Everywhere program and may not contain all information available regarding this patient. Last updated 18.[facility] [employer] Social History Tobacco Use Types Packs/Day Years [...] - OUT OF STATE MEDICARE Care Teams Yard Clerk Relationship Specialty Start Date End Date Naif Brownlee MD [address] [place] [id number] PCP - General 02/10/18
== END 2025-02-01 10:48 | disposition home or self-care (01) ==
PROVIDERS: PCP Physician Assistant; Visit Provider Nurse Practitioner Family
DX: E04.2 Nontoxic multinodular goiter (principal); E03.9 Hypothyroidism, unspecified; E11.65 Type 2 diabetes mellitus with hyperglycemia; E55.9 Vitamin D deficiency, unspecified; R13.10 Dysphagia, unspecified
CPT/HCPCS: 76536

== ENCOUNTER 2025-06-17 08:51 | Emergency (ER) | payer MEDICARE, MEDICAID, SELFPAY ==
--- NOTE | ~2025-06-17 | CT_ITS ---
EXAMINATION: CT abdomen pelvis w con DATE: 06/17/2025 10:04 INDICATION: Left lower quadrant pain, weakness and diarrhea TECHNIQUE: Computed tomography (CT) of the abdomen and pelvis was performed with 100 cc Omnipaque 350 intravenous contrast. The dose-length product was 1023.11 mGy-cm. Automated exposure control and iterative reconstruction technique were employed. COMPARISON: CT dated 10/03/2024. FINDINGS: There is dependent atelectasis. Heart size normal. No significant pleural or pericardial effusion. Status post cholecystectomy. Status post ventral abdominal wall hernia repair with mesh. Fatty infiltration of the liver. The spleen, pancreas, adrenal glands and right kidney are unremarkable. No hydronephrosis. There is a intermediate density left renal mass measuring 1.9 cm with density measurement of 25 Hounsfield units. There is mild stranding of the mesenteric fat, nonspecific. There are cholecystectomy clips. There is mild colonic diverticulosis at the junction of the descending and sigmoid colon without evidence for perforation or abscess. No obstruction. No free air or free fluid. Severe lumbar spondylosis. There is a lytic defect L4 suspicious for metastatic disease versus myeloma. IMPRESSION: 1. Acute uncomplicated diverticulitis of the colon at the junction of the descending and sigmoid colon. No evidence for perforation. 2: Lytic defect of L4, suspicious for metastatic disease or myeloma. Correlate for history of malignancy. Reviewed, dictated and finalized at location O. IMPRESSION: 1. Acute uncomplicated diverticulitis of the colon at the junction of the desce nding and sigmoid colon. No evidence for perforation. 2: Lytic defect of L4, suspicious for metastatic disease or myeloma. Correlate for history of malignancy.
[2025-06-17 09:00] VITALS: BP 161/87; PULSE 83; RESP 16; TEMP 36.7; O2SAT 99
--- NOTE | 2025-06-17 09:34 | ED.WEAKNESS ---
HPI - Weakness General Chief complaint: Weakness Stated complaint: diarrhea x 5-6 days, abdmominal pain Time Seen by Provider: 06/17/25 09:02 Source: patient Mode of arrival: ambulatory Limitations: no limitations History of Present Illness HPI Narrative: Patient is a 74 y/o female, with PMH HTN, IDDM, hypothyroidism, who presents to the ED with c/o diarrhea, weakness. Patient reports she has had persistent diarrhea for the past 5 days. Has had multiple episodes of stool per day. Denies significant rectal bleeding or melena. Reports having pain throughout her lower abdomen, worse on the left side. Reports mild nausea, weakness, lightheadedness. Denies vomiting. Denies fevers. Related Data Home Medications ?Medication ?Instructions ?Recorded ?Confirmed ?Last Taken ?Type Al hyd-Mg tr-alg ac-sod bicarb 80 2 tablet PO QID PRN Indigestion 03/21/20 05/08/25 03/31/20 History mg-14.2 mg chewable tablet (Gaviscon) alprazolam 1 mg tablet (Xanax) 1 mg PO DAILY 03/21/20 05/08/25 03/31/20 History amitriptyline 10 mg tablet 20 mg PO HS 08/08/23 05/08/25 Unknown History promethazine 25 mg tablet 25 mg PO TID PRN nausea and 08/08/23 05/08/25 Unknown History vomiting amlodipine 5 mg tablet 5 mg PO DAILY 05/28/24 05/08/25 Unknown History levothyroxine 125 mcg tablet 125 mcg PO DAILY 11/12/24 05/08/25 Unknown History (Levoxyl) Allergies Allergy/AdvReac Type Severity Reaction Status Date / Time fentanyl Allergy Intermediate Nausea and Verified 06/17/25 08:54 Vomiting propoxyphene Allergy Mild VOMITTING Verified 06/17/25 08:54 albuterol Allergy Unknown ANXIETY. Verified 06/17/25 08:54 CAN'T STAND IT dicyclomine Allergy Unknown Nausea and Verified 06/17/25 08:54 Vomiting hydrocodone Allergy Unknown severe Verified 06/13/25 13:36 vomiting metoclopramide Allergy Unknown anxiety Verified 06/17/25 08:54 ondansetron (From Zofran) Allergy Other Verified 06/17/25 08:54 adhesive AdvReac Severe SKIN Verified 06/17/25 08:54 BLISTERS erythromycin base AdvReac Intermediate ABDOMINAL Verified 06/17/25 08:54 PAIN/VOMITING codeine AdvReac Mild NAUSEA Verified 06/17/25 08:54 morphine AdvReac Mild NAUSEA Verified 06/17/25 08:54 glimepiride AdvReac Unknown unknown Verified 06/17/25 08:54 phenazopyridine AdvReac Unknown NAUSEA Verified 06/17/25 08:54 diazepam AdvReac Vomiting Verified 06/17/25 08:54 Review of Systems Review of Systems: All systems reviewed & are unremarkable except as noted in HPI. All systems reviewed & are unremarkable except as noted in HPI and below PMFSH Past Medical History Medical History Liver disease Uterine cancer Trochanteric bursitis of right hip Primary osteoarthritis of right knee Tibia fracture Effusion, right knee Complex tear of lateral meniscus of right knee as current injury Body mass index (BMI) 35 or more (06/13/17) Type 2 diabetes mellitus with hyperglycemia Nontoxic multinodular goiter Irritable bowel syndrome with diarrhea DVT prophylaxis Alcohol use Chronic kidney disease, stage 3 Baseline creatinine between 1.1 and 1.20. Polycythemia Elevated lipase Degenerative disc disease PTSD (post-traumatic stress disorder) Anxiety Depression Osteoarthritis Gastroesophageal reflux disease Sarcoidosis In remission for over 40 years. Hypothyroidism Surgical History Surgical History History of cardiac catheterization No evidence of coronary artery disease. History of cystoscopy For evaluation of microscopic hematuria reportedly unremarkable History of partial thyroidectomy (~2007) Pathology revealed a benign nodule. History of appendectomy (~1997) Incidental appendectomy at the time of her hysterectomy. History of hysterectomy (~1997) History of tonsillectomy History of bilateral cataract extraction History of cholecystectomy (~2007) Family History Family History Father Family history of malignant neoplasm of stomach Sibling Family history of malignant neoplasm of esophagus Mother Family history of osteoarthritis Family history of elevated blood lipids Family history of thyroid disease Family history of cataracts Family history of arthritis Family history of diabetes mellitus in first degree relative Grandparent Diabetes mellitus Other Family history of kidney disease Family history of malignant neoplasm Social History Social History Social History: Jazlyn is very confident filling out medical forms. Smoking status: Former smoker Tobacco type: cigarettes Additional smoking assessment comments: did not smoke often Alcohol intake: former Alcohol use details: quit end of 2021 Substance use: current Substance use type: marijuana Other substance usage details: occasional Lack of Transportation: No Lack of Food: Sometimes True Current Housing: I Have Housing Concerned About Future Housing: No Difficulty Paying Gas/Electric Bills: YES Difficulty Paying for Meds: YES Currently Unemployed: No Education: High School Diploma/GED Difficulty w/ Childcare or Family Care: No Living arrangements: with family Gender identity (if verbalized by the patient): Female Sexual Orientation (if Verbalized by the Patient): Straight or Heterosexual Spiritual care concerns: No Agree to blood products: Yes Exam Narrative: GENERAL: Well appearing, obese with BMI of 32.1, non-toxic, in no acute distress. HEAD: Normocephalic, atraumatic. RESPIRATORY: Airway patent, respirations nonlabored. Clear to auscultation bilaterally, no rales, rhonchi, wheezing. CARDIOVASCULAR: Regular rate and rhythm without murmurs, rubs, or gallops. ABDOMINAL: Soft, mild TTP in LLQ, suprapubic region, nondistended. Normoactive BS. MUSCULOSKELETAL: Moves all extremities. No gross deformities. SKIN: Warm, dry, normal color. NEURO: A&O X3. Speech clear. Cranial nerves II-XII grossly intact. Steady gait. No ataxic movements. Lightheadedness elicited with sitting upright in bed. PSYCHIATRIC: Appropriate mood and affect. Normal interaction. Course Vital Signs Vital signs: Vital Signs Temperature 98.0 F 06/17/25 09:00 Pulse Rate 83 06/17/25 09:00 Respiratory Rate 16 06/17/25 09:00 Blood Pressure 161/87 H 06/17/25 09:00 Pulse Oximetry 99 06/17/25 09:00 Oxygen Delivery Room Air 06/17/25 09:00 Temperature 98.0 F 06/17/25 09:00 Pulse Rate 71 06/17/25 10:26 Respiratory Rate 20 06/17/25 10:26 Blood Pressure 143/80 H 06/17/25 10:26 Pulse Oximetry 98 06/17/25 10:26 Oxygen Delivery Room Air 06/17/25 09:00 MDM - Weakness MDM Narrative Medical decision making narrative: Patient presented to ED with 5 day history of diarrhea, lower abdominal pain, weakness. Vital signs are stable upon arrival. Patient is afebrile. In no acute distress. Laboratory studies without leukocytosis or anemia. Possible mild hemoconcentration. Fluids are ongoing. CMP unremarkable. Normal kidney function, consistent with previous records. Lactic acid 0.9. UA w/o evidence of infection. CT scan of abdomen/pelvis was obtained-showing acute uncomplicated diverticulitis. No perforation or abscess. Consistent with clinical picture. Also showing lytic defect of L4 concerning for malignancy. Per records, this did not appear on CT imaging in September of this year. Made patient aware of this. Discussed management of diverticulitis, patient started on Flagyl and Cipro. Given 1st doses in the ED. She did also request a dose of promethazine. This was given. Patient advised to follow-up closely with PCP for further evaluation and discussion of lytic lesion. Patient in agreement with plan. Given return precautions. Discharged in stable condition. Medical Records Attestation: I reviewed the patient's medical records. Lab Data Attestation: I reviewed the patient's lab results. 06/17/25 09:20 06/17/25 09:20 Labs: Lab Results 06/17/25 06/17/25 Range/Units 09:20 10:24 WBC 7.5 (4.5-10.0) K/mm3 RBC 5.22 (4.2-5.4) M/mm3 Hgb 15.4 H (12.0-15.0) g/dL Hct 46.9 (37.0-47.0) % MCV 89.8 (80-100) fl MCH 29.5 (26-34) pg MCHC 32.8 (32-36) g/dl RDW 13.5 (11.5-14.5) % Plt Count 262 (150-375) k/mm3 MPV 9.7 (7.4-10.4) fl Immature Gran % (Auto) 0.3 (0-0.5) % Neut % (Auto) 66.9 (45.5-73.1) % Lymph % (Auto) 23.8 (18.3-44.2) % Frontier % (Auto) 7.3 (2.6-8.5) % Eos % (Auto) 1.6 (0-4.4) % Baso % (Auto) 0.1 L (0.2-1.2) % Lymph # (Auto) 1.79 (0.9-3.2) K/mm3 Frontier # (Auto) 0.6 (0.1-0.6) K/mm3 Eos # (Auto) 0.1 (0-0.3) K/mm3 Baso # (Auto) 0.0 (0.0-0.1) K/mm3 Abs Immat Gran (auto) 0.02 (0.00-0.031) K/mm3 Absolute Neuts (auto) 5.0 (1.3-6.7) K/mm3 Absolute Nucleated RBC 0.000 (0.0-0.012) K/mm3 Nucleated RBC % 0.0 (0.0-0.2) % Sodium 138 (137-145) mmol/L Potassium 3.7 (3.4-5.0) mmol/L Chloride 103 (98-107) mmol/L Carbon Dioxide 29 (22-30) mmol/L Anion Gap 6 (4-12) mmol/L BUN 19 H (7-17) mg/dL Creatinine 1.07 H (0.7-1.0) mg/dL Estim Creat Clear Calc 50 ml/min Estimated GFR 50 L (59 - ) Glucose 103 (65-110) mg/dL Lactic Acid 0.9 (0.7-2.0) mmol/L Calcium 9.4 (8.4-10.2) mg/dL Total Bilirubin 0.6 (0.2-1.3) mg/dL AST 23 (14-36) U/L ALT 27 (6-35) U/L Alkaline Phosphatase 70 (38-126) U/L Total Protein 7.3 (6.3-8.2) g/dL Albumin 3.9 (3.5-5.1) g/dL Lipase 54 (23-300) U/L Urine Color Yellow (Yellow) Urine Appearance Clear (Clear) Urine pH 6.5 (5.0-9.0) Ur Specific [place] 1.005 (1.001-1.035) Urine Protein Negative (Negative) mg/dL Urine Glucose (UA) Negative (Negative) mg/dL Urine Ketones Negative (Negative) mg/dL Ur Blood (Man) Negative (Negative) Urine Nitrate Negative (Negative) Urine Bilirubin Negative (Negative) Urine Urobilinogen 0.2 (<2.0) mg/dL Leukocyte Esterase Rfl Trace H (Negative) ABBY/UL Urine RBC 0-2 (0-2) /hpf Urine WBC 0-5 (0-3) /hpf Ur Squamous Epith Cells Occasional (Few) /hpf Urine Bacteria None seen /hpf Urine Casts 0-2 Imaging Data Attestation: I personally reviewed and interpreted this imaging study as follows: Radiologist's impression: ITS Impressions Abdomen/Pelvis CT 06/17/25 10:09 IMPRESSION: 1. Acute uncomplicated diverticulitis of the colon at the junction of the descending and sigmoid colon. No evidence for perforation. 2: Lytic defect of L4, suspicious for metastatic disease or myeloma. Correlate for history of malignancy. Discharge Plan Discharge Clinical Impression: Diverticulitis, Lytic lesion of bone on x-ray Patient Disposition: Home Condition: Stable Instructions: Antibiotic Form, Diverticulitis (ED), Diverticulitis Diet (ED) Additional Instructions: Take antibiotics as prescribed for diverticulitis. Finish both courses. Stay well hydrated. Recommend low fiber foods while on antibiotics, then gradually increase fiber supplementation once finished with the antibiotics. Follow-up closely with your primary care doctor for further evaluation. Return to the ED if you experience worsening or severe symptoms, unable to keep down food or drink, severe pain, fevers, rectal bleeding, vomiting blood, or any other symptoms of concern. Your imaging showed an abnormal lytic lesion of L4. Follow-up with your primary care doctor for further management of this. Patient Language: [place] Prescriptions: New metronidazole 500 mg tablet 500 mg PO Q8H 7 Days Qty: 21 0RF ciprofloxacin HCl 500 mg tablet 500 mg PO Q12H 7 Days Qty: 14 0RF No Action triamcinolone acetonide 0.1 % cream 1 applic topical BID 7 Days Qty: 30 0RF lidocaine 5 % ointment 1 applic topical QID PRN (Reason: pain) Qty: 30 0RF Rx Instructions: Apply sparingly to affected area promethazine 25 mg tablet 25 mg PO TID PRN (Reason: nausea and vomiting) amlodipine 5 mg tablet 5 mg PO DAILY levothyroxine [Levoxyl] 125 mcg tablet 125 mcg PO DAILY Gvoke HypoPen 2-Pack 1 mg/0.2 mL auto-injector 1 mg subcut ONCE Qty: 0.4 4RF Rx Instructions: may repeat once after 15 minutes if no response acetaminophen 500 mg tablet 500 mg PO .q8 PRN (Reason: pain) Qty: 20 0RF alprazolam [Xanax] 1 mg Tablet 1 mg PO DAILY Rx Instructions: take 1mg PO QAM AND 2 MG PO QHS Gaviscon 80-14.2 mg Tablet,Chewable 2 tablet PO QID PRN (Reason: Indigestion) amitriptyline 10 mg tablet 20 mg PO HS (DME) blood-glucose meter [OneTouch Verio Reflect Start] Kit See Rx Instructions .Route Qty: 1 0RF Rx Instructions: As directed to check blood sugars twice daily (DME) lancets [OneTouch Delica Plus Lancet] 30 gauge misc See Rx Instructions .Route Qty: 200 2RF Rx Instructions: As directed (DME) OneTouch Verio test strips Strip See Rx Instructions .Route Qty: 100 3RF Rx Instructions: As directed to check blood sugars twice daily insulin lispro 100 unit/mL insulin pen 5 unit subcut TIDWMEAL MDD 33 Qty: 30 2RF Rx Instructions: take 5 units premeal + SSI 150-200: 1 unit 201-250: 2 units 251-300: 3 units 301-350: 4 units 351-400: 5 units >401: 6 units (DME) pen needle, diabetic [BD Ultra-Fine Hui Pen Needle] 32 gauge x 5/32 needle See Rx Instructions .Route Qty: 100 3RF Rx Instructions: use once daily insulin degludec [Tresiba FlexTouch U-200] 200 unit/mL (3 mL) insulin pen 40 unit subcut QHS 90 Days Qty: 18 3RF cholecalciferol (vitamin D3) 1,250 mcg (50,000 unit) tablet 1,250 mcg PO WEEKLY Qty: 14 2RF Follow-up/Referrals: Nicol,DAVID Saldivar [Primary Care Provider, Unknown] Time of Disposition: 10:58
[2025-06-17 09:42] LABS: Alanine Aminotransferase 27 U/L (6-35); Albumin Level 3.9 g/dL (3.5-5.1); Alkaline Phosphatase 70 U/L (38-126); Anion Gap 6 mmol/L (4-12); Aspartate Amino Transferase 23 U/L (14-36); Bilirubin,Total 0.6 mg/dL (0.2-1.3); Blood Urea Nitrogen 19 mg/dL (7-17); Calcium 9.4 mg/dL (8.4-10.2); Carbon Dioxide 29 mmol/L (22-30); Chloride 103 mmol/L (98-107); Estimated CRCL calculation 50 ml/min; Estimated Glomerular Filt Rate 50; Glucose 103 mg/dL (65-110); Lipase 54 U/L (23-300); Potassium 3.7 mmol/L (3.4-5.0); Sodium 138 mmol/L (137-145); Total Protein 7.3 g/dL (6.3-8.2)
[2025-06-17 09:45] LABS: Hematocrit 46.9 % (37.0-47.0); Hemoglobin 15.4 g/dL (12.0-15.0); Immature Granulocyte Percent A 0.3 % (0-0.5); Lymphocytes Absolute Auto 1.79 K/mm3 (0.9-3.2); Mean Corpuscular HGB Conc 32.8 g/dl (32-36); Mean Corpuscular Hemoglobin 29.5 pg (26-34); Mean Corpuscular Volume 89.8 fl (80-100); Nucleated Red Blood Cells Absolute Auto 0.000 K/mm3 (0.0-0.012); Nucleated Red Blood Cells Perc 0.0 % (0.0-0.2); Platelet Count Result 262 k/mm3 (150-375); Red Blood Count 5.22 M/mm3 (4.2-5.4); White Blood Count 7.5 K/mm3 (4.5-10.0)
[2025-06-17] MEDS: SODIUM CHLORIDE 0.9% IV 1,000 ML 999 ML IV CONT (10:25)
[2025-06-17 10:26] VITALS: BP 143/80; PULSE 71; RESP 20; O2SAT 98
[2025-06-17 10:41] LABS: Add Urine Microscopic? YES; Appearance Urine Clear (Clear); Glucose Urine UA Negative (Negative); Leukocyte Esterase Ur Trace LEU/UL (Negative); Nitrate Urine Negative (Negative); Non Pathogenic Casts 0-2; Specific Grav Ur 1.005 (1.001-1.035)
[2025-06-17] MEDS: CIPROFLOXACIN 500 MG TAB PO (11:32)
[2025-06-17] MEDS: PROMETHAZINE HCL 12.5 MG TABLET PO (11:32)
[2025-06-17 11:47] VITALS: BP 149/87; PULSE 79; RESP 20; O2SAT 98
--- OUTSIDE RECORDS SUMMARY | 2025-06-17 11:49 | XMS_ITS | Clinical Summary ---
Author Organization [facility] Address [address] [place] [address] Care Team Providers Care Mailing Machine Operator Name Role Phone Naif Brownlee MD Primary Care Provider [phone] Source Comments [facility],non-owned Affiliates and Associated Physician Practices is amultiple site organization consisting of ambulatory clinics and hospital sitesin [place], [place], [place] and [place]. This disclosure is being madepursuant to the Care Everywhere program and may not contain all information available regarding this patient. Last updated 18.[facility] [employer] Social History Tobacco Use Types Packs/Day Years [...] yrs (1 - 1-dose 75+ series) 2023 DEPRESSION SCREENING 08/29/2024 COVID-19 VACCINE ( - 2023-2 5 season) 2025 INFLUENZA VACCINE (#1) 2025 HEPATITIS B VACCINE Aged Out No [...] - OUT OF STATE MEDICARE Care Teams Mailing Machine Operator Relationship Specialty Start Date End Date Naif Brownlee MD [address] [place] [id number] PCP - General 02/10/18
== END 2025-06-17 11:48 | disposition home or self-care (01) ==
PROVIDERS: Emergency Provider Physician Assistant; PCP Physician Assistant
DX: K57.32 Diverticulitis of large intestine without perforation or abscess without bleeding (principal); M89.9 Disorder of bone, unspecified; M19.90 Unspecified osteoarthritis, unspecified site; E11.9 Type 2 diabetes mellitus without complications; N18.9 Chronic kidney disease, unspecified; F41.9 Anxiety disorder, unspecified; F32.A Depression, unspecified; E03.9 Hypothyroidism, unspecified
CPT/HCPCS: 36415; 74177; 80053; 81001; 83605; 83690; 85025; 96360; 99284; A9270; J7030; Q9967

== ENCOUNTER 2025-06-19 07:58 | Emergency (ER) | payer MEDICARE, MEDICAID, SELFPAY ==
[2025-06-19] VITALS (23 sets, daily range): BP systolic 141–162; BP diastolic 70–94; PULSE 84–101; RESP 14–32; TEMP 36.9; O2SAT 92–98
--- NOTE | ~2025-06-19 | XR_ITS ---
EXAMINATION: XR chest 1V portable COMPARISON: No comparisons available. HISTORY: Cough X WK W/FATIGUE NO FEVER FINDINGS: The lungs are clear, no effusion. No pneumothorax. Heart is normal size. Mediastinal and hilar contours are within normal limits. Bony thorax no acute abnormality. Miscellaneous: None Impression: No acute cardiopulmonary abnormality. Reviewed, dictated and finalized at location P. Impression: No acute cardiopulmonary abnormality.
--- NOTE | ~2025-06-19 | CT_ITS ---
Exam: CT chest without contrast Clinical History: [Productive cough. Wheezing ] Comparison: [ Chest x-ray 06/19/2025 Technique: Multiple axial CT images of the chest without with IV contrast. Sagittal and coronal reformatted images were obtained. FINDINGS: Lungs and pleura: [ Samuel bronchial tree is patent. No pneumothorax. No pleural effusion. No pulmonary mass. No focal pulmonary consolidation.] Small opacities in the lower lungs. Mediastinum and pulmonary lyle: [ No mass or adenopathy.] Axillary/intramammary and supraclavicular: [ No mass or adenopathy.] Heart and great vessels: [ Normal heart size.[ [ No pericardial effusion.] [ No aneurysm.] There are coronary artery calcifications. Mild atherosclerotic disease in the thoracic aorta. Chest Wall: [ Unremarkable.] Upper Abdomen: Cholecystectomy clips Osseous structures: [ No acute fracture or destructive lesion.] [ Multilevel degenerative change in the visualized spine.] Additional findings: [ None of significance.] IMPRESSION: 1. Small opacities in the lower lungs. Differential includes atelectasis or infiltrates. Reviewed, dictated and finalized at location Q. IMPRESSION: 1. Small opacities in the lower lungs. Differential includes atelectasis or inf iltrates.
[2025-06-19 08:36] LABS: Hematocrit 48.5 % (37.0-47.0); Hemoglobin 15.4 g/dL (12.0-15.0); Immature Granulocyte Percent A 0.5 % (0-0.5); Lymphocytes Absolute Auto 1.71 K/mm3 (0.9-3.2); Mean Corpuscular HGB Conc 31.8 g/dl (32-36); Mean Corpuscular Hemoglobin 29.3 pg (26-34); Mean Corpuscular Volume 92.4 fl (80-100); Nucleated Red Blood Cells Absolute Auto 0.000 K/mm3 (0.0-0.012); Nucleated Red Blood Cells Perc 0.0 % (0.0-0.2); Platelet Count Result 244 k/mm3 (150-375); Red Blood Count 5.25 M/mm3 (4.2-5.4); White Blood Count 10.0 K/mm3 (4.5-10.0)
[2025-06-19] MEDS: SODIUM CHLORIDE 0.9% IV 1,000 ML 999 ML IV CONT (08:40)
[2025-06-19 08:59] LABS: Alanine Aminotransferase 20 U/L (6-35); Albumin Level 4.0 g/dL (3.5-5.1); Alkaline Phosphatase 69 U/L (38-126); Anion Gap 6 mmol/L (4-12); Aspartate Amino Transferase 34 U/L (14-36); Bilirubin,Total 0.8 mg/dL (0.2-1.3); Blood Urea Nitrogen 18 mg/dL (7-17); Calcium 9.1 mg/dL (8.4-10.2); Carbon Dioxide 29 mmol/L (22-30); Chloride 103 mmol/L (98-107); Estimated CRCL calculation 46 ml/min; Estimated Glomerular Filt Rate 45; Glucose 137 mg/dL (65-110); Lipase 61 U/L (23-300); Potassium 4.0 mmol/L (3.4-5.0); Sodium 138 mmol/L (137-145); Total Protein 7.3 g/dL (6.3-8.2)
[2025-06-19 09:14] LABS: Influenza A QL RT-PCR Negative (Negative); Influenza B QL RT-PCR Negative (Negative); RSV RNA, RT-PCR Negative (Negative); SARS-CoV-2 RNA PCR Negative (Negative)
--- OUTSIDE RECORDS SUMMARY | 2025-06-19 09:19 | XMS_ITS | Clinical Summary ---
Author Organization [facility] Address [address] [place] [address] Care Team Providers Care Senior Principal Architect Name Role Phone Naif Brownlee MD Primary Care Provider [phone] Source Comments [facility],non-owned Affiliates and Associated Physician Practices is amultiple site organization consisting of ambulatory clinics and hospital sitesin [place], [place], [place] and [place]. This disclosure is being madepursuant to the Care Everywhere program and may not contain all information available regarding this patient. Last updated 18.[facility] [employer] Social History Tobacco Use Types Packs/Day Years [...] - OUT OF STATE MEDICARE Care Teams Senior Principal Architect Relationship Specialty Start Date End Date Naif Brownlee MD [address] [place] [id number] PCP - General 02/10/18
--- OUTSIDE RECORDS SUMMARY | 2025-06-19 09:19 | XMS_ITS | Clinical Summary ---
Author Organization [facility] Address [address] [place] [address] Care Team Providers Care Roller Bearing Inspector Name Role Phone Unavailable Primary Care Provider [...] Comments Blood Pressure 133/80 08/28/2024 10:20 AM PSYCHOLOGIST Pulse 80 08/28/2024 8:29 AM PSYCHOLOGIST Temperature 36.6 C (97.8 F) 08/28/2024 9:55 AM PSYCHOLOGIST Respiratory Rate 18 08/28/2024 10:10 AM PSYCHOLOGIST Oxygen Saturation 96% 08/28/2024 10:20 AM PSYCHOLOGIST Inhaled Oxygen Concentration - - Weight 95.3 kg (210 lb) 08/28/2024 8:29 AM PSYCHOLOGIST Height 175.3 cm (5' 9) 08/28/2024 8:29 AM PSYCHOLOGIST Body Mass Index 31.01 08/28/2024 8:29 AM PSYCHOLOGIST Plan of Treatment Health Maintenance Due Date Last Done Comments Hepatitis C 1966 DTaP, Tdap and Td Vaccines (1 - Tdap) 1967 Zoster Vaccines (1 of 2) 1998 Annual Medicare Wellness Visit 2013 Dexa Scan (General) 2013 Pneumococcal Vaccine: 50+ Years (2 of 2 - PCV) 10/23/2016 10/23/2015 PHQ-2 (Physician [place]) 08/29/2024 COVID-19 Vaccine (3 - 5-26 season) 2025 06/25/2021, 05/25/2021 Influenza Adult (#1) 2025 06/14/2024, 06/18/2022, 06/22/2020, Additional history exists RSV Immunization or 60+ Years Completed 07/09/2024 Colorectal Cancer Screening Colonoscopy (10 Years) Discontinued 08/28/2024 Hepatitis A Vaccines Aged Out No long er eligible based on patient's age to complete this topic Meningococcal B Vaccine Aged Out No l onger eligible based on patient's age to complete this topic Meningococcal Vaccine Aged Out No benji james eligible based on patient's age to complete this topic RSV Immunizations Under 20 Months Aged Out No longer eligible based on patient's age to complete this topic Insurance MEDICAID MEDICARE
--- OUTSIDE RECORDS SUMMARY | 2025-06-19 09:19 | XMS_ITS | Patient Health Record ---
Author Organization [facility] Address [address] [facility] [address] [place] [address] Care Team Providers Care Commercial Truck Driver Name Role Phone Kristin Quispe Unavailable [phone] Reason For Referral No Information Medications Medication SIG (Take, Route, Frequency, Duration) Notes Start Date End Date Status Fluticasone Propionate Diskus 50 MCG/ACT Aerosol Powder Breath Activated Inhalation *Reorder from Night Out for eRx and Interaction Alerts* Active Amitriptyline HCl 10 MG Tablet Oral Active busPIRone HCl 5 MG Tablet Oral Active Famotidine 20 MG Tablet Oral Active Amoxicillin 875 MG Tablet Oral Active ALPRAZolam 1 MG Tablet Oral Active Plan Of Treatment No Information
--- NOTE | 2025-06-19 09:36 | PC.NURSE ---
Pt ambulated to the bathroom with a steady gait. Pt agreed to press call light when she returns so she can be hooked back up to the monitor.
--- NOTE | 2025-06-19 10:30 | ED_ITS ---
HPI - General Adult General Chief complaint: Nausea/Vomiting/Diarrhea Stated complaint: diarrhea History of Present Illness HPI narrative: This is a 74-year-old female presenting ED with chief complaint of cough. She was seen here several days ago and was treated for acute uncomplicated diverticulitis. Since then she has continued to have diarrhea although she has IBS diarrhea type. She is here today because she has developed a cough that has kept her awake all night. She has some associated chest tightness. Coughing up some sputum. No fevers. No sick contacts at home. No chest pain. She does have shortness of breath when she has a coughing fit. Related Data Home Medications ?Medication ?Instructions ?Recorded ?Confirmed ?Last Taken ?Type Al hyd-Mg tr-alg ac-sod bicarb 80 2 tablet PO QID PRN Indigestion 03/21/20 05/08/25 03/31/20 History mg-14.2 mg chewable tablet (Gaviscon) alprazolam 1 mg tablet (Xanax) 1 mg PO DAILY 03/21/20 05/08/25 03/31/20 History amitriptyline 10 mg tablet 20 mg PO HS 08/08/23 Unknown History promethazine 25 mg tablet 25 mg PO TID PRN nausea and 08/08/23 05/08/25 Unknown History vomiting amlodipine 5 mg tablet 5 mg PO DAILY 05/28/2405/08 Unknown History levothyroxine 125 mcg tablet 125 mcg PO DAILY 11/12/24 05/08/25 Unknown History (Levoxyl) Allergies Allergy/AdvReac Type Severity Reaction Status Date / Time albuterol Allergy Unknown ANXIETY. Verified 06/19/25 08:08 CAN'T STAND IT ondansetron (From Zofran) Allergy Other Verified 06/19/25 08:08 adhesive AdvReac Severe SKIN Verified 06/19/25 08:08 BLISTERS erythromycin base AdvReac Intermediate ABDOMINAL Verified 06/19/25 08:08 PAIN/VOMITING fentanyl AdvReac Intermediate Nausea and Verified 06/19/25 08:21 Vomiting codeine AdvReac Mild NAUSEA Verified 06/19/25 08:08 morphine AdvReac Mild NAUSEA Verified 06/19/25 08:08 propoxyphene AdvReac Mild Vomiting Verified 06/19/25 08:21 dicyclomine AdvReac Unknown Nausea and Verified 06/19/25 08:21 Vomiting glimepiride AdvReac Unknown unknown Verified 06/19/25 08:08 hydrocodone AdvReac Unknown severe Verified 06/19/25 08:21 vomiting metoclopramide AdvReac Unknown anxiety Verified 06/19/25 08:21 phenazopyridine AdvReac Unknown NAUSEA Verified 06/19/25 08:08 diazepam AdvReac Vomiting Verified 06/19/25 08:08 FOR[facility], [facility] Past Medical History Medical History Liver disease Uterine cancer Trochanteric bursitis of right hip Primary osteoarthritis of right knee Tibia fracture Effusion, right knee Complex tear of lateral meniscus of right knee as current injury Body mass index (BMI) 35 or more (06/13/17) Type 2 diabetes mellitus with hyperglycemia Nontoxic multinodular goiter Irritable bowel syndrome with diarrhea DVT prophylaxis Alcohol use Chronic kidney disease, stage 3 Baseline creatinine between 1.1 and 1.20. Polycythemia Elevated lipase Degenerative disc disease PTSD (post-traumatic stress disorder) Anxiety Depression Osteoarthritis Gastroesophageal reflux disease Sarcoidosis In remission for over 40 years. Hypothyroidism Surgical History Surgical History History of cardiac catheterization No evidence of coronary artery disease. History of cystoscopy For evaluation of microscopic hematuria reportedly unremarkable History of partial thyroidectomy (~2007) Pathology revealed a benign nodule. History of appendectomy (~1997) Incidental appendectomy at the time of her hysterectomy. History of hysterectomy (~1997) History of tonsillectomy History of bilateral cataract extraction History of cholecystectomy (~2007) Family History Family History Father Family history of malignant neoplasm of stomach Sibling Family history of malignant neoplasm of esophagus Mother Family history of osteoarthritis Family history of elevated blood lipids Family history of thyroid disease Family history of cataracts Family history of arthritis Family history of diabetes mellitus in first degree relative Grandparent Diabetes mellitus Other Family history of kidney disease Family history of malignant neoplasm Social History Social History Social History: Jazlyn is very confident filling out medical forms. Smoking status: Former smoker Tobacco type: cigarettes Additional smoking assessment comments: did not smoke often Alcohol intake: former Alcohol use details: quit end of 2021 Substance use: current Substance use type: marijuana Other substance usage details: occasional Lack of Transportation: No Lack of Food: Sometimes True Current Housing: I Have Housing Concerned About Future Housing: No Difficulty Paying Gas/Electric Bills: YES Difficulty Paying for Meds: YES Currently Unemployed: No Education: High School Diploma/GED Difficulty w/ Childcare or Family Care: No Living arrangements: with family Gender identity (if verbalized by the patient): Female Sexual Orientation (if Verbalized by the Patient): Straight or Heterosexual Spiritual care concerns: No Agree to blood products: Yes Exam 2 Narrative: APPEARANCE: No apparent distress. Head: atraumatic. EYES: EOMI, NOSE: Atraumatic NECK: Trachea midline RESPIRATORY: Mildly tachypneic, wheezing, 100% on room air CARDIOVASCULAR: RRR, no peripheral edema ABDOMINAL: Non-distended soft nontender MUSCULOSKELETAl: No obvious deformities NEURO: Alert. Moving 4/4 extremities SKIN:: Warm, dry. Normal color PSYCHIATRIC: Normal affect Course Vital Signs Vital signs: Vital Signs Temperature 98.4 F 06/19/25 07:56 Pulse Rate 99 06/19/25 07:56 Respiratory Rate 20 06/19/25 07:56 Blood Pressure 156/80 H 06/19/25 07:56 Pulse Oximetry 97 06/19/25 07:56 Oxygen Delivery Room Air 06/19/25 07:56 Temperature 98.4 F 06/19/25 07:56 Pulse Rate 94 06/19/25 12:01 Respiratory Rate 21 H 06/19/25 12:01 Blood Pressure 155/74 H 06/19/25 12:01 Pulse Oximetry 94 06/19/25 12:01 Oxygen Delivery Room Air 06/19/25 07:56 Medical Decision Making [facility] Narrative Medical decision making narrative: -Course: This 74-year-old female presenting for a cough. It kept her up all night and she feels miserable. Patient is wheezing on exam initially declined albuterol because it makes her anxious but later decided to give it a shot. She also received cough medicine with improvement. Patient's workup was unremarkable. White count was 10. Chest x-ray is clear. Given persistent symptoms and advanced age is CT chest was ordered to evaluate for occult pneumonia. Showed some very subtle infiltrates worse atelectasis but given her clinical picture is more likely atelectasis and clinically she has bronchitis. On re-evaluation the patient is feeling much better after the breathing treatment and the cough medicine. She is comfortable going home. She will be discharged with albuterol inhaler and cough medicine. Given return precautions for fevers worsening chest pain or shortness of breath. -DDX includes but is not limited to: Bronchitis, pneumonia, viral syndrome Vital Signs Vital Signs: Vital Signs Temperature 98.4 F 06/19/25 07:56 Pulse Rate 99 06/19/25 07:56 Respiratory Rate 20 06/19/25 07:56 Blood Pressure 156/80 H 06/19/25 07:56 Pulse Oximetry 97 06/19/25 07:56 Oxygen Delivery Room Air 06/19/25 07:56 Temperature 98.4 F 06/19/25 07:56 Pulse Rate 94 06/19/25 12:01 Respiratory Rate 21 H 06/19/25 12:01 Blood Pressure 155/74 H 06/19/25 12:01 Pulse Oximetry 94 06/19/25 12:01 Oxygen Delivery Room Air 06/19/25 07:56 Lab Data 06/19/25 08:30 06/19/25 08:30 Labs: Lab Results 06/19/25 Range/Units 08:30 WBC 10.0 (4.5-10.0) K/mm3 RBC 5.25 (4.2-5.4) M/mm3 Hgb 15.4 H (12.0-15.0) g/dL Hct 48.5 H (37.0-47.0) % MCV 92.4 (80-100) fl MCH 29.3 (26-34) pg MCHC 31.8 L (32-36) g/dl RDW 13.5 (11.5-14.5) % Plt Count 244 (150-375) k/mm3 MPV 9.9 (7.4-10.4) fl Immature Gran % (Auto) 0.5 (0-0.5) % Neut % (Auto) 74.2 H (45.5-73.1) % Lymph % (Auto) 17.1 L (18.3-44.2) % [place] % (Auto) 5.8 (2.6-8.5) % Eos % (Auto) 2.2 (0-4.4) % Baso % (Auto) 0.2 (0.2-1.2) % Lymph # (Auto) 1.71 (0.9-3.2) K/mm3 [place] # (Auto) 0.6 (0.1-0.6) K/mm3 Eos # (Auto) 0.2 (0-0.3) K/mm3 Baso # (Auto) 0.0 (0.0-0.1) K/mm3 Abs Immat Gran (auto) 0.05 H (0.00-0.031) K/mm3 Absolute Neuts (auto) 7.4 H (1.3-6.7) K/mm3 Absolute Nucleated RBC 0.000 (0.0-0.012) K/mm3 Nucleated RBC % 0.0 (0.0-0.2) % Sodium 138 (137-145) mmol/L Potassium 4.0 (3.4-5.0) mmol/L Chloride 103 (98-107) mmol/L Carbon Dioxide 29 (22-30) mmol/L Anion Gap 6 (4-12) mmol/L BUN 18 H (7-17) mg/dL Creatinine 1.18 H (0.7-1.0) mg/dL Estim Creat Clear Calc 46 ml/min Estimated GFR 45 L (59 - ) Glucose 137 H (65-110) mg/dL Calcium 9.1 (8.4-10.2) mg/dL Total Bilirubin 0.8 (0.2-1.3) mg/dL AST 34 (14-36) U/L ALT 20 (6-35) U/L Alkaline Phosphatase 69 (38-126) U/L Total Protein 7.3 (6.3-8.2) g/dL Albumin 4.0 (3.5-5.1) g/dL Lipase 61 (23-300) U/L Influenza A (RT-PCR) Negative (Negative) Influenza B (RT-PCR) Negative (Negative) RSV (RT-PCR) Negative (Negative) SARS-CoV-2 RNA (RT-PCR) Negative (Negative) Discharge Plan Discharge Clinical Impression: Bronchitis Patient Disposition: Home Condition: Stable Instructions: Antibiotic Form, Acute Bronchitis (ED) Additional Instructions: You were seen in the ED for bronchitis. Please use albuterol inhaler every 4 hours as needed. Use Robitussin for cough. Follow-up with your primary care physician in 3-5 days for re-evaluation. If you feel your condition is getting worse including worsening shortness of breath, chest pain,fevers or weakness please return to ED for re-evaluation. Patient Language: Frisian Prescriptions: New albuterol sulfate [Ventolin HFA] 90 mcg/actuation HFA aerosol inhaler 2 puff inhalation QID PRN (Reason: shortness of breath or wheezing) Qty: 8.5 0RF dextromethorphan-guaifenesin [Robitussin Cough-Chest Fortino DM] 5-100 mg/5 mL liquid 10 ml PO Q4-8H PRN (Reason: cough) Qty: 500 0RF No Action triamcinolone acetonide 0.1 % cream 1 applic topical BID 7 Days Qty: 30 0RF lidocaine 5 % ointment 1 applic topical QID PRN (Reason: pain) Qty: 30 0RF Rx Instructions: Apply sparingly to affected area promethazine 25 mg tablet 25 mg PO TID PRN (Reason: nausea and vomiting) amlodipine 5 mg tablet 5 mg PO DAILY levothyroxine [Levoxyl] 125 mcg tablet 125 mcg PO DAILY Gvoke HypoPen 2-Pack 1 mg/0.2 mL auto-injector 1 mg subcut ONCE Qty: 0.4 4RF Rx Instructions: may repeat once after 15 minutes if no response acetaminophen 500 mg tablet 500 mg PO .q8 PRN (Reason: pain) Qty: 20 0RF metronidazole 500 mg tablet 500 mg PO Q8H 7 Days Qty: 21 0RF ciprofloxacin HCl 500 mg tablet 500 mg PO Q12H 7 Days Qty: 14 0RF alprazolam [Xanax] 1 mg Tablet 1 mg PO DAILY Rx Instructions: take 1mg PO QAM AND 2 MG PO QHS Gaviscon 80-14.2 mg Tablet,Chewable 2 tablet PO QID PRN (Reason: Indigestion) amitriptyline 10 mg tablet 20 mg PO HS (DME) blood-glucose meter [UboolyTouch Verio Reflect Start] Kit See Rx Instructions .Route Qty: 1 0RF Rx Instructions: As directed to check blood sugars twice daily (DME) lancets [OneTouch Delica Plus Lancet] 30 gauge misc See Rx Instructions .Route Qty: 200 2RF Rx Instructions: As directed (DME) OneTouch Verio test strips Strip See Rx Instructions .Route Qty: 100 3RF Rx Instructions: As directed to check blood sugars twice daily insulin lispro 100 unit/mL insulin pen 5 unit subcut TIDWMEAL MDD 33 Qty: 30 2RF Rx Instructions: take 5 units premeal + SSI 150-200: 1 unit 201-250: 2 units 251-300: 3 units 301-350: 4 units 351-400: 5 units >401: 6 units (DME) pen needle, diabetic [BD Ultra-Fine Hui Pen Needle] 32 gauge x 5/32 needle See Rx Instructions .Route Qty: 100 3RF Rx Instructions: use once daily insulin degludec [Tresiba FlexTouch U-200] 200 unit/mL (3 mL) insulin pen 40 unit subcut QHS 90 Days Qty: 18 3RF cholecalciferol (vitamin D3) 1,250 mcg (50,000 unit) tablet 1,250 mcg PO WEEKLY Qty: 14 2RF Follow-up/Referrals: Nicol,DAVID Saldivar [Primary Care Provider, Unknown]
--- NOTE | 2025-06-19 10:30 | PC.NURSE ---
respiratory therapy at bedside at this time.
[2025-06-19] MEDS: IPRATROPIUM 0.5 MG/ALBUTEROL SULFATE 2.5 MG (BASE) AMPUL.NEB 3 ML 6 ML INHALATION (10:34)
--- NOTE | 2025-06-19 11:05 | PC.NURSE ---
Pt. states albuterol treatments make her anxious. Pt. requesting home dose of Xanax. Dr. Thomson notified and verbal order given.
[2025-06-19] MEDS: ALPRAZolam (*CRX) 0.5 MG TABLET 1 MG PO (11:19)
--- NOTE | 2025-06-19 11:19 | PC.NURSE ---
Pt. states she is aware she cannot drive after taking xanax. Pt. states her son will pick her up from ER if she is d/c.
--- NOTE | 2025-06-19 12:44 | PC.NURSE ---
Dr. Thomson at bedside talking with pt.
--- NOTE | 2025-06-19 13:10 | PC.NURSE ---
Pt believes that the reason for her cough is the flagyl that was prescribed on Tuesday. Pt stated that she was not going to continue this medication because she does not want to cough like this anymore. Pt was advised that she should continue both antibiotics as they were ordered.
== END 2025-06-19 13:11 | disposition home or self-care (01) ==
PROVIDERS: Emergency Provider Emergency Medicine; PCP Physician Assistant
DX: J40 Bronchitis, not specified as acute or chronic (principal); Z20.822 Contact with and (suspected) exposure to COVID-19; Z85.42 Personal history of malignant neoplasm of other parts of uterus; N18.30 Chronic kidney disease, stage 3 unspecified; E03.9 Hypothyroidism, unspecified; E11.22 Type 2 diabetes mellitus with diabetic chronic kidney disease; K21.9 Gastro-esophageal reflux disease without esophagitis; F41.8 Other specified anxiety disorders; Z87.891 Personal history of nicotine dependence
CPT/HCPCS: 36415; 71045; 71250; 80053; 83690; 85025; 87637; 94640; 96360; 99284; A9270; J7030

== ENCOUNTER 2025-07-11 09:06 | Outpatient (CLI) | payer MEDICARE, MEDICAID, SELFPAY ==
--- NOTE | ~2025-07-11 | PE_ITS ---
EXAMINATION: PET skull to mid thigh DATE: 07/11/2025 11:53 INDICATION: Lytic bone lesions on x-ray TECHNIQUE: Blood glucose level was 178 mg/dL. 11.013 mCi of 18- fluorodeoxyglucose (18-FDG) was administered i.v. Low dose computed tomography (CT) images were acquired from the base of the brain to the proximal thighs for attenuation correction and anatomic localization. Positron emission tomography (PET) images were acquired in the same distribution beginning 62 minutes after injection. Images including fused PET/CT images were reconstructed in axial, coronal, and sagittal planes. Automated exposure control technique was employed. The dose-length product was 1143.45mGy-cm. COMPARISON: CT studies dated 06/19/2025 and 06/17/2025 and 07/05/2023 FINDINGS: Head/neck: There is symmetric increased activity in the oral cavity, palatine tonsils, laryngeal muscles and ocular muscles without CT correlate, likely physiologic. No pathologically enlarged cervical lymphadenopathy or suspicious foci of increased FDG uptake in the visualized head or neck. Chest: Respiratory motion and mild dependent atelectasis in both lungs. No suspicious pulmonary nodules, pneumonia, pulmonary edema or other pulmonary infiltrates. No pleural effusion. Heart size is normal. Small amount of atherosclerotic coronary artery calcifications. No pericardial effusion. Thoracic aorta is normal in caliber. No pathologically enlarged or FDG avid thoracic lymphadenopathy. Abdomen/pelvis/proximal thighs: Physiologic renal accumulation and excretion of FDG activity in the kidneys, bladder and along portions of ureters. Photopenic defect associated with a subtle hypodense 1.8 cm left renal cyst which is better appreciated on the prior contrast enhanced CT. Cholecystectomy clips the gallbladder fossa. Normal degree and heterogenous pattern of increased uptake throughout the liver without radiologic correlate or dominant FDG avid lesion. The pancreas, spleen and bilateral adrenal glands are normal. Mild uptake scattered throughout the bowels without radiologic correlate, also likely physiologic. Moderate diverticulosis with sigmoid predominance without adjacent from trace stranding to suggest diverticulitis. Supraumbilical ventral hernia mesh repair. No other abnormal foci of increased FDG uptake or pathologically enlarged lymphadenopathy in the abdomen, pelvis or proximal thighs. Musculoskeletal: There is likely physiologic increased uptake associated with the musculature at the bilateral hands.. There is no abnormal FDG activity associated with a lytic lesion in the L4 vertebral body which can be seen on CT studies dating back to 01/23/2021 strongly suggesting a benign lesion statistically most likely to represent a hemangioma. No other suspicious lytic, blastic or abnormally FDG avid bone lesions. IMPRESSION: 1. No abnormal uptake associated with the previous noted lytic lesion at the L4 vertebral body which could be seen dating back to at least 01/23/2021 strongly favoring a benign etiology such as in most likely to represent a hemangioma. No other FDG avid lesions suspicious for primary malignancy or metastatic disease. Reviewed, dictated and finalized at location A. IGERATION MANAGER IMPRESSION: 1. No abnormal uptake associated with the previous noted lytic lesion at the L4 vertebral body which could be seen dating back to at least 01/23/2021 strongly favoring a benign etiology such as in most likely to represent a hemangioma. No other FDG avid lesions suspicious for primary malignancy or metastatic disease .
--- OUTSIDE RECORDS SUMMARY | 2025-07-11 09:36 | XMS_ITS | Patient Health Record ---
Author Organization [facility] As [employer] Address [address] [facility] [address] [place] [address] Care Team Providers Care Emd Teacher Name Role Phone Kristin Quispe Unavailable [phone] Reason For Referral No Information Medications Medication SIG (Take, Route, Frequency, Duration) Notes Start Date End Date Status Fluticasone Propionate Diskus 50 MCG/ACT Aerosol Powder Breath Activated Inhalation *Reorder from [employer] for eRx and Interaction Alerts* Active Amitriptyline HCl 10 MG Tablet Oral Active busPIRone HCl 5 MG Tablet Oral Active Famotidine 20 MG Tablet Oral Active Amoxicillin 875 MG Tablet Oral Active ALPRAZolam 1 MG Tablet Oral Active Plan Of Treatment No Information
--- OUTSIDE RECORDS SUMMARY | 2025-07-11 09:36 | XMS_ITS | Clinical Summary ---
Author Organization [facility] Address [address] [place] [address] Care Team Providers Care Title Clerk Name Role Phone Naif Brownlee MD Primary Care Provider [phone] Source Comments [facility],non-owned Affiliates and Associated Physician Practices is amultiple site organization consisting of ambulatory clinics and hospital sitesin [place], [place], [place] and [place]. This disclosure is being madepursuant to the Care Everywhere program and may not contain all information available regarding this patient. Last updated 18.[facility] [employer] Social History Tobacco Use Types Packs/Day Years [...] - OUT OF STATE MEDICARE Care Teams Title Clerk Relationship Specialty Start Date End Date Naif Brownlee MD [address] [place] [id number] PCP - General 02/10/18
--- OUTSIDE RECORDS SUMMARY | 2025-07-11 09:36 | XMS_ITS | Clinical Summary ---
Author Organization [facility] Address [address] [place] [address] Care Team Providers Care Military Source Operations Officer Name Role Phone Unavailable Primary Care Provider [...] Comments Blood Pressure 133/80 08/28/2024 10:20 AM MACHINE ROOM OPERATOR Pulse 80 08/28/2024 8:29 AM MACHINE ROOM OPERATOR Temperature 36.6 C (97.8 F) 08/28/2024 9:55 AM MACHINE ROOM OPERATOR Respiratory Rate 18 08/28/2024 10:10 AM MACHINE ROOM OPERATOR Oxygen Saturation 96% 08/28/2024 10:20 AM MACHINE ROOM OPERATOR Inhaled Oxygen Concentration - - Weight 95.3 kg (210 lb) 08/28/2024 8:29 AM MACHINE ROOM OPERATOR Height 175.3 cm (5' 9) 08/28/2024 8:29 AM MACHINE ROOM OPERATOR Body Mass Index 31.01 08/28/2024 8:29 AM MACHINE ROOM OPERATOR Plan of Treatment Health Maintenance Due Date Last Done Comments Hepatitis C 1968 DTaP, Tdap and Td Vaccines (1 - Tdap) 1967 Zoster Vaccines (1 of 2) 1998 Annual Medicare Wellness Visit 2013 Dexa Scan (General) 2013 Pneumococcal Vaccine: 50+ Years (2 of 2 - PCV) 10/23/2016 10/23/2015 PHQ-2 (Physician [place]) 08/29/2024 COVID-19 Vaccine (3 - 5-26 season) [...]
== END 2025-07-11 09:07 | disposition home or self-care (01) ==
PROVIDERS: PCP Physician Assistant; Visit Provider Physician Assistant
DX: R93.5 Abnormal findings on diagnostic imaging of other abdominal regions, including retroperitoneum (principal); M89.8X9 Other specified disorders of bone, unspecified site
CPT/HCPCS: 78815; A9552

== ENCOUNTER 2025-08-14 13:49 | Outpatient (CLI) | payer MEDICARE, MEDICAID, SELFPAY ==
--- NOTE | ~2025-08-14 | US_ITS ---
EXAMINATION: US renal BI, 08/14/2025 14:15 INFORMATION MANAGEMENT MANAGER HISTORY: N18.31 - Chronic kidney disease, stage 3a Comparison: None Technique: Mckeon-scale and color Doppler images were obtained. Findings: KIDNEYS: The renal cortices are thinned and echogenic, there are no solid masses or calculi, no hydronephrosis. Right Kidney: Right kidney measures 11.2 x 4.2 x 4 cm. Left Kidney: Left kidney measures 9.9 x 4.9 x 4.5 cm. Left kidney midpole simple appearing renal cyst 2 x 2.2 cm. Bladder: The bladder is unremarkable. . Impression: Medical renal disease. No obstruction Reviewed, dictated and finalized at location P. RMATION MANAGEMENT MANAGER Impression: Medical renal disease. No obstruction
--- NOTE | ~2025-08-14 | XR_ITS ---
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 Findings: No acute fracture or malalignment. No significant degenerative changes. Soft tissues unremarkable. Impression: No acute fracture or malalignment. Reviewed, dictated and finalized at location P. PPING MACHINE OPERATOR Impression: No acute fracture or malalignment.
--- OUTSIDE RECORDS SUMMARY | 2025-08-14 16:24 | XMS_ITS | Clinical Summary ---
Author Organization [facility] Address [address] [place] [address] Care Team Providers Care Special Education Professional Name Role Phone Unavailable Primary Care Provider [...] Comments Blood Pressure 133/80 08/28/2024 10:20 AM ATHLETIC SCOUT Pulse 80 08/28/2024 8:29 AM ATHLETIC SCOUT Temperature 36.6 C (97.8 F) 08/28/2024 9:55 AM ATHLETIC SCOUT Respiratory Rate 18 08/28/2024 10:10 AM ATHLETIC SCOUT Oxygen Saturation 96% 08/28/2024 10:20 AM ATHLETIC SCOUT Inhaled Oxygen Concentration - - Weight 95.3 kg (210 lb) 08/28/2024 8:29 AM ATHLETIC SCOUT Height 175.3 cm (5' 9) 08/28/2024 8:29 AM ATHLETIC SCOUT Body Mass Index 31.01 08/28/2024 8:29 AM ATHLETIC SCOUT Plan of Treatment Health Maintenance Due Date Last Done Comments Hepatitis C 1968 DTaP, Tdap and Td Vaccines (1 - Tdap) 1967 Zoster Vaccines (1 of 2) 1998 Annual Medicare Wellness Visit 2013 Dexa Scan (General) 2013 Pneumococcal Vaccine: 50+ Years (2 of 2 - PCV) 10/23/2016 10/23/2015 PHQ-2 (Physician [place]) 08/29/2024 COVID-19 Vaccine (3 - 5-26 season) [...]
--- OUTSIDE RECORDS SUMMARY | 2025-08-14 16:24 | XMS_ITS | Patient Health Record ---
Author Organization [facility] [employer] Address [address] [facility] [address] [place] [address] Care Team Providers Care Brand Recorder Name Role Phone Kristin Quispe Unavailable [phone] Reason For Referral No Information Medications Medication SIG (Take, Route, Frequency, Duration) Notes Start Date End Date Status Fluticasone Propionate Diskus 50 MCG/ACT Aerosol Powder Breath Activated Inhalation *Reorder from [employer] for eRx and Interaction Alerts* Active Amitriptyline HCl 10 MG Tablet Oral Active busPIRone HCl 5 MG Tablet Oral Active Famotidine 20 MG Tablet Oral Active Amoxicillin 875 MG Tablet Oral Active ALPRAZolam 1 MG Tablet Oral Active Plan Of Treatment No Information
--- OUTSIDE RECORDS SUMMARY | 2025-08-14 16:24 | XMS_ITS | Data Portability ---
Author Organization [facility], Main Office Address [address] [place] [address] Care Team Providers Care Owner/Operator Name Role Phone BAMBIMARGARITANataliyaADRIEN Primary Care Provider [phone] ADRIEN STEVENS Referring Provider [phone] Assessment No assessment recorded. Plan of Treatment Reminders Order Date Submit Date Provider Last Modified By Organization Details Last Modified Time Details Appointments None recorded. Lab urinalysis, complete 2022 023 [facility], [address], [place], [address], 3 21:12:08 culture, urine 2022 023 [employer] [employer] [facility], [address], [place], [address], 3 21:12:10 BMP, serum or plasma 2022 023 [employer] [employer] [facility], [address], [place], [address], 3 21:12:03 CBC w/ auto diff 2022 023 [facility], [address], [place], [address], 3 21:12:07 hepatic function panel, serum 2022 023 [employer] [facility], [address], [place], [address], 3 21:12:04 lipid panel, serum 2022 023 [facility], [address], [address], [place], [address], 3 21:12:03 microalbumi n/creatinin e, mass ratio, urine 2022 023 [facility], [address], [place], [address], 3 21:12:02 C-reactive protein, quantitativ e, serum or plasma 2022 023 [facility], [address], [address], [place], [address], 3 21:12:09 erythrocyte sedimentati on rate by westergren method 2022 023 [facility], [address], [place], [address], 3 21:12:06 TSH, serum or plasma 2022 023 [facility], [address], [address], [place], [address], 3 21:12:05 T4, free, serum 2022 023 [facility], [address], [place], [address], 3 21:12:06 vitamin B12, serum 2022 023 [facility], [facility] [address], [place], [address], 3 21:12:09 Referral None recorded. Procedures None recorded. Surgeries None recorded. Imaging XR, pelvis 2022 023 [email or web address] [facility], [address], [address], [place], [address], 3 16:52:53 XR, hip, bilateral 2022 023 [facility] , [address], [address], [place], [address], 3 12:44:42 Medication Orders cyanocobala min (vit B-12) 1,000 mcg/mL injection solution 2022 023 [email or web address] [id number], [address], [place], [id number], 3 17:13:03 cyanocobala min (vit B-12) 1,000 mcg/mL injection solution 2022 023 [email or web address] [id number], [address], [place], [id number], 3 12:42:30 Patient TargetsNo targets recorded. Patient InstructionsNo instructions recorded. Reason for Referral None Reported. Results Created Date Observation Date Name Description Value Unit Range Abnormal Flag Note LastModifiedBy Organization Detail LastModifiedTime 03/18/2003/19/2023 ALBUM IN, MARIA TERESA Starr URINE W/CRE ATINI NE creatinine, random urine 104 mg/dL 20-275 normal Not Available [facility] [employer] [address] [address] [place], [address], 03/19/2023 21:12:02 03/18/20 23 03/19/2023 ALBUM INMARIA TERESA URINE W/CRE ATINI NE albumin, urine 0.3 mg/dL see note: normal Refer ence Range : Refer ence Range Not estab lishe d Not Available [facility] [employer] [facility] [address] [place], [address], 03/19/2023 21:12:02 03/18/20 23 03/19/2023 ALBUM IN, [...] a diagn ostic categ ory. Not Available [address] [place], [address], 03/19/2023 21:12:02 03/18/20 23 03/19/2023 LIPID PANEL WITH RATIO S cholesterol, total 257 mg/dL <200 high Not Available [address] [place], [address], 03/19/2023 21:12:03 03/18/20 23 03/19/2023 LIPID PANEL WITH RATIO S HDL cholesterol 46 mg/dL > or = 50 low Not Available [address], [address], 03/19/2023 21:12:03 03/18/20 23 03/19/2023 LIPID PANEL WITH RATIO S triglyceride s 218 mg/dL <150 high If a non-f astin g speci men was colle cted, consi santiago repea t trigl yceri de testi ng on a fasti ng speci men if clini magali indic ated. Zac wells et al. J. of Clin. Lipid ol. 2015; 9:129 -169. Not Available [address] [address] [place], [address], 03/19/2023 21:12:03 03/18/20 23 03/19/2023 LIPID PANEL [...] calcu lated using the Lorelei n-Hop kins calcu nyla n, which is a valid ated novel lalao d provi rosalino carrerate r accur acy than the Fried shai equat ion in the estim ation of LDL-C . Lorelei brink SS et al. YINA. 2013; 310(1 9): 2061- 2068 (http ://ed ucati on.Qu Hibernater. com/f aq/FA Q164) Not Available [facility] [address] [address] [place], [address], 03/19/2023 21:12:03 03/18/20 23 03/19/2023 LIPID PANEL WITH RATIO S chol/HDLC ratio 5.6 (calc ) <5.0 high Not Available [facility] [address] [address] [place], [address], 03/19/2023 21:12:03 03/18/20 23 03/19/2023 LIPID PANEL WITH RATIO S LDL/HDL ratio 3.7 (calc ) Below avera ge Risk: <2.34 [place] ge Risk: 2.35- 4.12 Moder ate Risk: 4.13- 5.56 High Risk: >5.57 Not Available [facility] [address] [place], [address], 03/19/2023 21:12:03 03/18/20 23 03/19/2023 LIPID PANEL WITH RATIO S non HDL cholesterol 211 mg/dL _(cici c) <130 high For patie nts with diabe robert plus 1 major ASCVD risk facto r, treat ing to a non-H DL-C goal of <100 mg/dL (LDL- C of <70 mg/dL ) is andrezi nakita a tessa peluz maria c optio n. Not Available [address] [address] [place], [address], 03/19/2023 21:12:03 03/18/20 23 03/19/2023 BASIC METAB OLIC PANEL glucose 160 mg/dL 65-99 high Fasti ng refer ence inter griffin For someo ne witho ut known diabe robert, a gluco se value >125 mg/dL indic ates that they may have diabe robert and this shoul d be confi rmed with a follo w-up test. Not Available [address] [place], [address], 03/19/2023 21:12:03 03/18/20 23 03/19/2023 BASIC METAB OLIC PANEL urea nitrogen (BUN) 20 mg/dL 7-25 normal Not Available [address], [address], 03/19/2023 21:12:03 03/18/20 23 03/19/2023 BASIC METAB OLIC PANEL creatinine 1.11 mg/dL 0.60-1 .00 high Not Available [address], [address], 03/19/2023 21:12:03 03/18/20 23 03/19/2023 BASIC METAB OLIC PANEL eGFR 52 mL/mi n/1.7 3m2 > or = 60 low The eGFR is based on the CKD-E PI 2020 equat ion. To calcu late the new eGFR from a previ ous Creat inine or Cysta tin C resul t, go to https ://alfie w.kid wicho.o kat/harpreet phillips s/ kdoqi /gfr% 5Fcal culat or Not Available [address] [address] [place], [address], 03/19/2023 21:12:03 03/18/20 23 03/19/2023 BASIC METAB OLIC PANEL BUN/creatini ne ratio 18 (calc ) 6-22 normal Not Available [address], [place], [address], 03/19/2023 21:12:03 03/18/20 23 03/19/2023 BASIC METAB OLIC PANEL sodium 138 mmol/ L 135-14 6 normal Not Available [address], [address], 03/19/2023 21:12:03 03/18/20 23 03/19/2023 BASIC METAB OLIC PANEL potassium 4.2 mmol/ L 3.5-5. 3 normal Not Available [address], [address], 03/19/2023 21:12:03 03/18/20 23 03/19/2023 BASIC METAB OLIC PANEL chloride 103 mmol/ L 98-110 normal Not Available [address], [address], 03/19/2023 21:12:03 03/18/20 23 03/19/2023 BASIC METAB OLIC PANEL carbon dioxide 28 mmol/ L 20-32 normal Not Available [address], [address], 03/19/2023 21:12:03 03/18/20 23 03/19/2023 BASIC METAB OLIC PANEL calcium 9.5 mg/dL 8.6-10 .4 normal Not Available [address], [address], 03/19/2023 21:12:03 03/18/20 23 03/19/2023 HEPAT IC FUNCT ION PANEL protein, total 6.7 g/dL 6.1-8. 1 normal Not Available [address], [address], 03/19/2023 21:12:04 03/18/20 23 03/19/2023 HEPAT IC FUNCT ION PANEL albumin 3.9 g/dL 3.6-5. 1 normal Not Available [address] [address] [place], [address], 03/19/2023 21:12:04 03/18/20 23 03/19/2023 HEPAT IC FUNCT ION PANEL globulin 2.8 g/dL_ (calc ) 1.9-3. 7 normal Not Available [address] [address] [place], [address], 03/19/2023 21:12:04 03/18/20 23 03/19/2023 HEPAT IC FUNCT ION PANEL albumin/glob ulin ratio 1.4 (calc ) 1.0-2. 5 normal Not Available [address], [address], 03/19/2023 21:12:04 03/18/20 23 03/19/2023 HEPAT IC FUNCT ION PANEL bilirubin, total 0.6 mg/dL 0.2-1. 2 normal Not Available [address] [address] [place], [address], 03/19/2023 21:12:04 03/18/20 23 03/19/2023 HEPAT IC FUNCT ION PANEL bilirubin, direct 0.1 mg/dL < or = 0.2 normal Not Available [address] [address] [place], [address], 03/19/2023 21:12:04 03/18/20 23 03/19/2023 HEPAT IC FUNCT ION PANEL bilirubin, indirect 0.5 mg/dL _(cici c) 0.2-1. 2 normal Not Available [address] [address] [place], [address], 03/19/2023 21:12:04 03/18/20 23 03/19/2023 HEPAT IC FUNCT ION PANEL alkaline phosphatase 63 U/L 37-153 normal Not Available [address] [address] [place], [address], 03/19/2023 21:12:04 03/18/20 23 03/19/2023 HEPAT IC FUNCT ION PANEL AST 12 U/L 10-35 normal Not Available [address], [address], 03/19/2023 21:12:04 03/18/20 23 03/19/2023 HEPAT IC FUNCT ION PANEL ALT 16 U/L 6-29 normal Not Available [address], [address], 03/19/2023 21:12:04 03/18/20 23 03/19/2023 TSH TSH 1.13 mIU/L 0.40-4 .50 normal Not Available [address], [address], 03/19/2023 21:12:05 03/18/20 23 03/19/2023 T4, FREE T4, free 1.2 NG/dL 0.8-1. 8 normal Not Available [address], [address], 03/19/2023 21:12:06 03/18/20 23 03/19/2023 SED RATE BY MODIF IED WESTE RGREN sed rate by modified westergren 28 mm/h < or = 30 normal Not Available [address], [address], 03/19/2023 21:12:06 03/18/20 23 03/19/2023 CBC (INCL UDES DIFF/ PLT) white blood cell count 4.7 thous and/u L 3.8-10 .8 normal Not Available [address], [address], 03/19/2023 21:12:07 03/18/20 23 03/19/2023 CBC (INCL UDES DIFF/ PLT) red blood cell count 4.97 rosy on/uL 3.80-5 .10 normal Not Available [facility] [address], [address], 03/19/2023 21:12:07 03/18/20 23 03/19/2023 CBC (INCL UDES DIFF/ PLT) hemoglobin 14.0 g/dL 11.7-1 5.5 normal Not Available [address], [address], 03/19/2023 21:12:07 03/18/20 23 03/19/2023 CBC (INCL UDES DIFF/ PLT) hematocrit 42.4 % 35.0-4 5.0 normal Not Available [address], [address], 03/19/2023 21:12:07 03/18/20 23 03/19/2023 CBC (INCL UDES DIFF/ PLT) MCV 85.3 fL 80.0-1 00.0 normal Not Available [address], [address], 03/19/2023 21:12:07 03/18/20 23 03/19/2023 CBC (INCL UDES DIFF/ PLT) MCH 28.2 pg 27.0-3 3.0 normal Not Available [address], [address], 03/19/2023 21:12:07 03/18/20 23 03/19/2023 CBC (INCL UDES DIFF/ PLT) MCHC 33.0 g/dL 32.0-3 6.0 normal Not Available [address], [address], 03/19/2023 21:12:07 03/18/20 23 03/19/2023 CBC (INCL UDES DIFF/ PLT) RDW 13.1 % 11.0-1 5.0 normal Not Available [address], [address], 03/19/2023 21:12:07 03/18/20 23 03/19/2023 CBC (INCL UDES DIFF/ PLT) platelet count 213 thous and/u L 140-40 0 normal Not Available [address], [address], 03/19/2023 21:12:07 03/18/20 23 03/19/2023 CBC (INCL UDES DIFF/ PLT) MPV 10.4 fL 7.5-12 .5 normal Not Available [address], [address], 03/19/2023 21:12:07 03/18/20 23 03/19/2023 CBC (INCL UDES DIFF/ PLT) absolute neutrophils 2515 cells /uL 1500-7 800 normal Not Available [address], [address], 03/19/2023 21:12:07 03/18/20 23 03/19/2023 CBC (INCL UDES DIFF/ PLT) absolute lymphocytes 1814 cells /uL 850-39 00 normal Not Available [address], [address], 03/19/2023 21:12:07 03/18/20 23 03/19/2023 CBC (INCL UDES DIFF/ PLT) absolute monocytes 301 cells /uL 200-95 0 normal Not Available [address], [address], 03/19/2023 21:12:07 03/18/20 23 03/19/2023 CBC (INCL UDES DIFF/ PLT) absolute eosinophils 71 cells /uL 15-500 normal Not Available [address], [address], 03/19/2023 21:12:07 03/18/20 23 03/19/2023 CBC (INCL UDES DIFF/ PLT) absolute basophils 0 cells /uL 0-200 normal Not Available [address], [address], 03/19/2023 21:12:07 03/18/20 23 03/19/2023 CBC (INCL UDES DIFF/ PLT) neutrophils 53.5 % normal Not Available [facility] [address], [address], 03/19/2023 21:12:07 03/18/20 23 03/19/2023 CBC (INCL UDES DIFF/ PLT) lymphocytes 38.6 % normal Not Available [facility] [address], [address], 03/19/2023 21:12:07 03/18/20 23 03/19/2023 CBC (INCL UDES DIFF/ PLT) monocytes 6.4 % normal Not Available [facility] [address], [address], 03/19/2023 21:12:07 03/18/20 23 03/19/2023 CBC (INCL UDES DIFF/ PLT) eosinophils 1.5 % normal Not Available [facility] [address], [address], 03/19/2023 21:12:07 03/18/20 23 03/19/2023 CBC (INCL UDES DIFF/ PLT) basophils 0.0 % normal Not Available [address], [address], 03/19/2023 21:12:07 03/18/20 23 03/19/2023 URINA LYSIS , COMPL ETE color YELLOW yellow normal Not Available [address], [address], 03/19/2023 21:12:08 03/18/20 23 03/19/2023 URINA LYSIS , COMPL ETE appearance CLEAR clear normal Not Available [facility] [address], [address], 03/19/2023 21:12:08 03/18/20 23 03/19/2023 URINA LYSIS , COMPL ETE specific gravity 1.015 1.001- 1.035 normal Not Available [address], [address], 03/19/2023 21:12:08 03/18/20 23 03/19/2023 URINA LYSIS , COMPL ETE pH < OR = 5.0 5.0-8. 0 normal Not Available [address], [address], 03/19/2023 21:12:08 03/18/20 23 03/19/2023 URINA LYSIS , COMPL ETE glucose NEGATI VE negati ve normal Not Available [address], [address], 03/19/2023 21:12:08 03/18/20 23 03/19/2023 URINA LYSIS , COMPL ETE bilirubin NEGATI VE negati ve normal Not Available [address], [address], 03/19/2023 21:12:08 03/18/20 23 03/19/2023 URINA LYSIS , COMPL ETE ketones NEGATI VE negati ve normal Not Available [address], [address], 03/19/2023 21:12:08 03/18/20 23 03/19/2023 URINA LYSIS , COMPL ETE occult blood NEGATI VE negati ve normal Not Available [facility] [address], [address], 03/19/2023 21:12:08 03/18/20 23 03/19/2023 URINA LYSIS , COMPL ETE protein NEGATI VE negati ve normal Not Available [address], [address], 03/19/2023 21:12:08 03/18/20 23 03/19/2023 URINA LYSIS , COMPL ETE nitrite NEGATI VE negati ve normal Not Available [address], [address], 03/19/2023 21:12:08 03/18/20 23 03/19/2023 URINA LYSIS , COMPL ETE leukocyte esterase NEGATI VE negati ve normal Not Available [address], [address], 03/19/2023 21:12:08 03/18/20 23 03/19/2023 URINA LYSIS , COMPL ETE WBC NONE SEEN /hpf < or = 5 normal Not Available [address], [address], 03/19/2023 21:12:08 03/18/20 23 03/19/2023 URINA LYSIS , COMPL ETE RBC NONE SEEN /hpf < or = 2 normal Not Available [address], [address], 03/19/2023 21:12:08 03/18/20 23 03/19/2023 URINA LYSIS , COMPL ETE squamous epithelial cells 10-20 /hpf < or = 5 abnormal Not Available [address] [address] [place], [address], 03/19/2023 21:12:08 03/18/20 23 03/19/2023 URINA LYSIS , COMPL ETE bacteria NONE SEEN /hpf none seen normal Not Available [facility] [address], [address], 03/19/2023 21:12:08 03/18/20 23 03/19/2023 URINA LYSIS , COMPL ETE hyaline cast NONE SEEN /lpf none seen normal Not Available [address] [address] [place], [address], 03/19/2023 21:12:08 03/18/20 23 03/19/2023 VITAM IN B12 vitamin B12 >2000 pg/mL 200-11 00 high Not Available [facility] [address] [address] [place], [address], 03/19/2023 21:12:09 03/18/20 23 03/19/2023 C-JOANIE CTIVE PROTE IN C-reactive protein 4.3 mg/L <8.0 normal Not Available [facility] [address] [address] [place], [address], 03/19/2023 21:12:09 03/18/20 23 03/19/2023 CULTU RE, URINE , ROUTI NE culture, urine, routine CULTU RE, URINE , ROUTI NE Micro Numbe r: [id number] Test Statu s: Final Speci men [...] Cultu re Trans port Tube. Not Available [facility] [address] [address] , [place], [address], 03/19/2023 21:12:10 07/20/20 22 07/20/2022 XR, chest , 2 view No observ ation record ed. [id number] [facility] [address], [place], [address], 10/27/2022 01:16:06 09/06/1908/11/2022 MRI, lumba r spine , w/wo contr ast No observ ation record ed. [id number] [facility] [address], [place], [address], 10/27/2022 01:16:06 03/18/20 23 03/18/2023 XR, hip, bilat eral No observ ation record ed. [email or web address] [facility] [address], [place], [address], 03/25/2023 10:35:06 Result Notes None recorded. Problems Name Problem SNOMED Code Status Onset Date Resolution Date Notes Provider Name and Address Organization Details Recorded Time Irritable bowel syndrome 54281113 Active Not Available [facility] 3 01:05:13 Chronic vaginitis 60348575 Active Not Available [facility] 3 01:05:13 Herpes labialis 6846595 Active Not Available [facility] 3 01:05:13 Constipati on 98243771 Active Not Available [facility] 3 01:05:13 Acute sinusitis 99834668 Active Not Available [facility] 3 01:05:13 Left flank pain 045550458 Active Not Available [facility] 3 01:05:13 Cobalamin deficiency 596797258 Active Not Available [facility] 3 01:05:13 Recurrent anxiety 738117821 Active Not Available [facility] 3 01:05:13 Gastroesop hageal reflux disease 204082547 Active Not Available [facility] 3 01:05:13 Headache 45443956 Active Not Available [facility] 3 01:05:13 Rib pain 097719784 Active Not Available [facility] 3 01:05:14 Right upper quadrant pain 478248998 Active Not Available [facility] 3 01:05:14 Otitis externa 9097872 Active Not Available [facility] 3 01:05:14 Acute pharyngiti s 660795259 Active Not Available [facility] 3 01:05:14 Hypothyroi dism 28096178 Active Not Available [facility] 3 01:05:14 Nausea 874917598 Active Not Available [facility] 3 01:05:14 Night sweats 01961595 Active Not Available [facility] 3 01:05:14 Streptococ cici sore throat 56433170 Active Not Available [facility] 3 01:05:14 Anxiety 63737548 Active Not Available [facility] 3 01:05:15 Dysuria 75988902 Active Not Available [facility] 3 01:05:15 Cough 04636885 Active Not Available [facility] 3 01:05:15 Atrophic vaginitis 24841490 Active Not Available [facility] 3 01:05:15 Otitis media 68565439 Active Not Available [facility] 3 01:05:15 Posterior rhinorrhea 64847565 Active Not Available [facility] 3 01:05:16 Epigastric pain 75711844 Active Not Available [facility] 3 01:05:16 Diffuse spasm of esophagus 87481303 Active Not Available [facility] 3 01:05:16 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 Not Available [facility] 3 01:05:16 Impaired glucose tolerance 1493977 Active Not Available [facility] 3 01:05:16 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 Not Available [facility] 3 01:05:16 Sarcoidosi s 12150675 Active 1977 Not Available [facility] 3 01:05:14 Screening mammograph y Active 2021 Not Available [facility] 3 01:05:13 Long-term drug therapy Active 2021 Not Available [facility] 3 01:05:13 Uncontroll ed type 2 diabetes mellitus 477706900 Active 2021 Not Available [facility] 3 01:05:14 Hyperlipid emia 70481615 Active 2021 Not Available [facility] 3 01:05:15 Vitamin B12 deficiency (non anemic) 26441873 Active 2021 Not Available [facility] 3 01:05:15 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 2021 Not Available [facility] 3 01:05:16 Essential hypertensi on 08999893 Active 2021 Not Available [facility] 3 01:05:15 COVID-19 022558441 Active 2021 Not Available [facility] 3 01:05:16 Mixed hyperlipid emia 653878757 Active 2021 Not Available [facility] 3 01:05:13 Dizziness 861250761 Active 2021 Not Available [facility] 3 01:05:14 Low back pain 374294522 Active 2021 Not Available [facility] 3 01:05:13 Acute urinary tract infection 428297318 Active 2022 Not Available [facility] 3 01:05:14 Stomach cramps 74198473 Active 2022 Not Available [facility] 3 01:05:15 Pain in pelvis 80158255 Active 2022 CAPO Rasheed [address], [address], [place], [address] , [facility] 3 10:22:00 Pain of bilateral hip joints 4923322652331 9100 Active 2022 CAPO Rasheed [address], [address], [place], [address] , [facility] 3 10:22:08 Pain of multiple joints 51704414 Active 2022 CAPO Rasheed [address], [address], [place], [address] , [facility] 3 10:25:00 Lower urinary tract symptoms 574577672 Active 2022 CAPO Rasheed [address], [address], [place], [address] , [facility] 3 10:25:35 Gastroesop hageal reflux disease without esophagiti s 773326212 Active 2022 CAPO Rasheed [address], [address], [place], [address] , [facility] [employer] [facility] 3 15:51:34 Thoracic back pain 717681927 Active 2022 CAPO Rasheed [address] [facility] [address], [place], [address] , [facility] [employer] [facility] 3 14:55:34 Problem Notes None recorded. Procedures Surgical History Date Name Laterality Status Provider Name and Address Organization Details Recorded Time 04/01/20 20 Date of Last Colonoscopy completed Not Available [facility] 10/27/2022 00:57:07 01/27/20 16 Most Recent Bone Density completed Not Available [facility] 10/27/2022 00:57:08 12/14/19 09 Colonoscopy completed Not Available [facility] 10/27/2022 00:57:11 cholecystectomy completed Not Available [facility] 10/27/2022 00:57:11 Removal of thyroid completed Not Available [facility] 10/27/2022 00:57:11 Tonsillectomy completed Not Available [facility] 10/27/2022 00:57:11 hysterectomy completed Not Available [facility] 10/27/2022 00:57:11 hernia repair completed Not Available [facility] 10/27/2022 00:57:11 Imaging Results None recorded. Procedure Notes None recorded. Medical Equipment None Reported. Allergies Allergen ID Allergen Name Allergen Category Reaction Reaction Severity Criticality Documentation Date Start Date Code Code System Note Provider Name and Address Organization Details Recorded Time 1774 Valium medicatio n Not available Not available Not available 10/27/202253612 2 RxNorm Not Available [facility] 3 01:15:26 1775 tetracycl ine medicatio n vomiting moderate Not available 10/27/2022 06092 RxNorm Not Available [facility] 3 01:15:26 1776 Pyridium medicatio n vomiting Not available Not available 10/27/2022 8998 RxNorm Not Available [facility] 3 01:15:27 1777 morphine medicatio n vomiting Not available Not available 10/27/2022 7052 RxNorm Not Available [facility] 3 01:15:27 1778 hydrocodo ne Not available vomiting Not available Not available 10/27/2022 5489 RxNorm Not Available [facility] 3 01:15:27 1779 codeine medicatio n vomiting Not available Not available 10/27/2022 2670 RxNorm Not Available [facility] 3 01:15:27 1780 Cipro medicatio n nausea Not available Not available 10/27/2022 99353 3 RxNorm Not Available [facility] 3 01:15:27 1781 cefdinir medicatio n rash Not available Not available 10/27/2022 68404 RxNorm head, neck, chest redne ss Not Available [facility] 3 01:15:27 1782 diazepam medicatio n dizziness Not available Not available 10/27/2022 3322 RxNorm error Not Available [facility] 3 01:15:27 1783 amitripty line medicatio n Not available Not available Not available 10/27/2022 704 RxNorm Not Available [facility] 3 01:15:27 Medications Name Sig [...] Available prednison e 10 mg tablet take 0f6ipaz, 7m8txci, 4e4sije, 3x0eecv active Not Available Not Available No t [...] injectio n route. 07/07 completed [facility]#: [id number] [id number] Not Available Not Available Not Available [...] subcutan eous route. 2022 active [facility]# [id number] 44-00Tol erated well. Not Available Not Available [...] Available Not Available No t Available Fluvirin 3470-6707 45 mcg (15 mcg x 3)/0.5 mL intramusc ular suspensio n active Not Available Not Available Not Available Jardiance 10 mg tablet TAKE 1 TABLET BY MOUTH DAILY active Not Available Not Available No t Available Fluzone High-Dose 3034-9812 (PF) 180 mcg/0.5 mL intramusc ular syringe ADM 0.5ML IM UTD active Not Available Not Available No t Available OneTouch Ultra Blue Test Strip USE TO CHECK BLOOD SUGAR TWICE DAILY active Not Available Not Available No t Available Fluzone High-Dose 1381-1891 (PF) 180 mcg/0.5 mL intramusc ular syringe [...] Vitals Date Recorded Body height Oxygen saturation Heart rate Respiratory rate Body temperature Systolic And Diastolic Provider Name and Address Organization Details Last Updated DateTime 3 167.64 cm 98 % 72 /min 16 /min 97 [degF] 122/78 mm[Hg] Not Available [facility] 3 01:00:35 Date Recorded Body mass index (BMI) Body height Oxygen saturation Heart rate Body temperature Body weight Systolic And Diastolic Provider Name and Address Organization Details Last Updated DateTime 3 32.1 kg/m2 167.64 cm 98 % 97 /min 97.2 [degF] 03284.8 8 g 122/78 mm[Hg] Not Available [facility] 3 01:00:35 Date Recorded Body height Body temperature Body mass index (BMI) Body weight Respiratory rate Oxygen saturation Heart rate Systolic And Diastolic Provider Name and Address Organization Details Last Updated DateTime 3 167.64 cm 97.3 [degF] 34.6 kg/m2 63219.5 6 g 16 /min 96 % 81 /min 140/90 mm[Hg] MARIA D Jane CA - [facility] 3 09:55:30 Date Recorded Body height Body temperature Provider N jules and Address Organization Details Last Updated DateTime 06/15/2022 167.64 cm 98.2 [degF] Not Available [facility] 10/27/2022 01:00:44 Date Recorded Body height Body temperature Body mass index (BMI) Body weight Respiratory rate Oxygen saturation Heart rate Systolic And Diastolic Provider Name and Address Organization Details Last Updated DateTime 3 167.64 cm 96.5 [degF] 35.2 kg/m2 24104.1 4 g 16 /min 96 % 80 /min 138/80 mm[Hg] MARIA D Jane CA - [facility] 3 14:28:10 Social History Question Answer Notes LastModified by Organizat ion Details LastModified Time Tobacco Smoking Status Former Smoker Not Available [facility] 10/27/2022 00:53:42 Do You Have An Advance Directive? Yes [id number] Information not available 10/27/2022 Are You Blind Or Do You Have Difficulty Seeing? No MIGRATION.944510 6465 Information not available 10/27/2022 What Is Your Level Of Caffeine Consumption? Moderate MIGRATION.021529 7706 Information not available 10/27/2022 How Much Tobacco Do You Chew? None MIGRATION.248600 0238 Information not available 10/27/2022 In The 14 Days Before Symptom Onset, Have You Had Close Contact With A Laboratory-confirm ed COVID-19 While That Case Was Ill? No MIGRATION.982383 9512 Information not available 10/27/2022 In The 14 Days Before Symptom Onset, Have You Had Close Contact With A Person Who Is Under Investigation For COVID-19 While That Person Was Ill? No MIGRATION.201507 4626 Information not available 10/27/2022 Are You Deaf Or Do You Have Serious Difficulty Hearing? No MIGRATION.906331 1457 Information not available 10/27/2022 What Type Of Diet Are You Following? REGULAR MIGRATION.452171 0256 Information not available 10/27/2022 Which Illicit Or Recreational Drugs Have You Used? None MIGRATION.951585 1271 Information not available 10/27/2022 Have There Been Any Changes To Your Family Or Social Situation? No MIGRATION.470831 8292 Information not available 10/27/2022 Are There Any Guns Present In Your Home? Yes MIGRATION.793200 2685 Information not available 10/27/2022 Do You Use Insect Repellent Routinely? No [email or web address] Information not available 03/17/2023 Do You Have A Medical Power Of Database Administration Project Manager? No MIGRATION.325907 8450 Information not available 10/27/2022 What Was The Date Of Your Most Recent Tobacco Screening? 10/31/2020 MIGRATION.541571 9961 Information not available 10/27/2022 What Is Your Relationship Status? MIGRATION.626130 0375 Information not available 10/27/2022 Do You Use Your Seat Belt Or Car Seat Routinely? Yes MIGRATION.162832 0330 Information not available 10/27/2022 Do You Have Smoke And Carbon Monoxide Detectors In Your Home? Yes MIGRATION.771718 3872 Information not available 10/27/2022 At What Age Did You Start Smoking Tobacco? 28 MIGRATION.808902 6635 Information not available 10/27/2022 How Much Tobacco Do You Smoke? 0.5 PPD MIGRATION.578794 2226 Information not available 10/27/2022 Do You Use Sunscreen Routinely? No MIGRATION.053720 9925 Information not available 10/27/2022 Have You Recently Traveled Abroad? No MIGRATION.639734 1377 Information not available 10/27/2022 Do You Have Difficulty Walking Or Climbing Stairs? No MIGRATION.297165 7865 Information not available 10/27/2022 Do You Have Any Dietary Restrictions? No MIGRATION.732604 5014 Information not available 10/27/2022 Sex: Female Functional Status Question Answer Note LastModified by [employer] ion Details LastModified Time Do you or have you ever used smokeless tobacco? Never used smokeless tobacco MIGRATION.414246 4994 Information not available 10/27/2022 Are you currently employed? No [email or web address] Information not available 03/17/2023 Do you have transportation difficulties? No MIGRATION.603548 0973 Information not available 10/27/2022 Are you able to care for yourself independently? Yes MIGRATION.689086 6061 Information not available 10/27/2022 Do you have difficulty dressing, bathing, grooming, or toileting? No MIGRATION.772181 4968 Information not available 10/27/2022 Do you or have you ever used e-cigarettes or vape? Never used electronic cigarettes MIGRATION.638964 8874 Information not available 10/27/2022 What is your exercise level? None MIGRATION.088523 5752 Information not available 10/27/2022 Do you use any illicit or recreational drugs? No MIGRATION.483418 9271 Information not available 10/27/2022 Do you or have you ever used any other forms of tobacco or nicotine? No MIGRATION.123379 6006 Information not available 10/27/2022 What is your level of alcohol consumption? Occasional MIGRATION.904997 8474 Information not available 10/27/2022 Are you able to walk independently without assistance or assistive devices? YESWOREST MIGRATION.657091 5018 Information not available 10/27/2022 Do you have difficulty doing errands alone? No MIGRATION.292961 9885 Information not available 10/27/2022 What is your occupation? Retired MIGRATION.721338 7762 Information not available 10/27/2022 Mental Status Question Answer Note LastModified by Organizat ion Details LastModified Time Do you have difficulty concentrating, remembering or making decisions? Yes MIGRATION.[id number] 6 Information not available 10/27/2022 Family History Relationship Description Onset Age of this Age Resolved Age Notes LastModified by Organization Details LastModified Time Mother Diabetes mellitus MIGRATION.243 [id number] Not available 10/27/2022 00:57:14 Father Malignant neoplasm of stomach 83 MIGRATION.090 [id number] Not available 10/27/2022 00:57:14 Brother Malignant neoplasm of esophagus MIGRATION.327 4471899 Not available 10/27/2022 00:57:14 Son Mental disorder MIGRATION.865 [id number] Not available 10/27/2022 00:57:14 Medical History Condition [...] HAVE YOU BEEN HOSPITALIZED OR SEEN IN [facility] IN THE PAST YEAR ? N ATHEROSCLEROSIS [...] and Address Organization Details Recorded Time Novel Dkbexinks-W5N0-40, all formulations 6 completed Not Available [facility] 10/27/2022 01:15:16 influenza, unspecified formulation 6 completed Not Available [facility] 10/27/2022 01:15:16 COVID-19, mRNA, LNP-S, PF, 30 mcg/0.3 mL dose 1 completed Not Available [facility] 10/27/2022 01:15:16 COVID-19, mRNA, LNP-S, PF, 30 mcg/0.3 mL dose 1 completed Not Available [facility] 10/27/2022 01:15:16 Influenza, split virus, quadrivalent, preservative 8 completed Not Available [facility] 10/27/2022 01:15:16 influenza, unspecified formulation 4 completed Not Available [facility] 10/27/2022 01:15:16 Influenza, high-dose, trivalent, PF 7 completed Not Available [facility] 10/27/2022 01:15:16 pneumococcal polysaccharide PPV23 6 completed Not Available [facility] 10/27/2022 01:15:16 Influenza, split virus, quadrivalent, preservative 5 completed Not Available [facility] 10/27/2022 01:15:16 Past Encounters Encounter ID Performer Location Encounter Start Date Encounter Closed Date Diagnosis/Indication Diagnosis SNOMED-CT Code Diagnosis ICD10 Code Diagnosis IMO Codes Diagnosis Note [id number] CAPO Rasheed [facility] [address] [place] [address] 10/31/2020 00:00:00 11/22/2020 20:55:14 [id number] CAPO Rasheed [facility] [address] [place] [address] 01/20/2021 00:00:00 01/23/2021 17:41:58 [id number] CAPO Rasheed [facility] [address] [place] [address] 03/25/2021 00:00:00 03/26/2021 00:43:21 [id number] CAPO Rasheed [facility] [address] [place] [address] 05/05/2021 00:00:00 05/28/2021 20:25:19 [id number] CAPO Rasheed [facility] [address] [place] [address] 06/30/2021 00:00:00 07/19/2021 21:24:40 [id number] CAPO Rasheed [facility] [address] [place] [address] 07/01/2021 00:00:00 07/02/2021 15:06:48 [id number] CAPO Rasheed [facility] [address] [place] [address] 09/25/2021 00:00:00 09/27/2021 11:22:11 [id number] CAPO Rasheed [facility] [address] [place] [address] 11/30/2021 00:00:00 12/26/2021 10:03:24 [id number] Shankar Hoffmann MD [facility] [address] [place] [address] 12/29/2021 00:00:00 01/26/2022 23:04:19 [id number] Shankar Hoffmann MD [facility] [address] [place] [address] 01/05/2022 00:00:00 01/05/2022 18:00:20 [id number] Shankar Hoffmann MD [facility] [address] [place] [address] 04/20/2022 00:00:00 04/25/2022 09:13:56 [id number] CAPO Rasheed [facility] [address] [place] [address] 05/18/2022 00:00:00 05/18/2022 17:53:51 [id number] CAPO Rasheed [facility] [address] [place] [address] 06/15/2022 00:00:00 06/15/2022 18:35:44 [id number] CAPO Rasheed [facility] [address] [place] [address] 09/15/2022 00:00:00 09/28/2022 20:36:03 [id number] CAPO Rasheed [facility] [address] [place] [address] 10/25/2022 00:00:00 10/25/2022 19:30:46 [id number] CAPO Rasheed [facility] [address] [place] [address] 03/18/2023 09:48:00 03/18/2023 10:28:22 Pain of bilateral hip joints 9388347234 6833695 M25.552 M25.551 check xrays of hip bilaterall y. Pain in pelvis 72945591 R10.2 check xray pelvis Cobalamin deficiency 190 577403 E53.8 refill b12 RX and check lab Hyperlipidemia 02018572 E78.5 fasting lipids are due Hypothyroidism 03604504 E03.9 on supplement and due for TFTs Pain of mu ltiple joints 61034648 M25.50 screening CRP and ESR with spike up in joint pain Long-term drug therapy 542054780 Z79.899 routine bmp, CBC and LFT due Lower urin estephania tract symptoms 532629873 R39.9 screening UA w/cx with long hx of UTIs and frequency noted Uncontroll ed type 2 diabetes mellitus 534357787 E11.65 managed by endo and A1c checked in that office. she is still due for albumin annual check [id number] CAPO Rasheed [facility] [address] [place] [address] 07/20/2023 14:12:34 07/20/2023 15:02:26 Thoracic back pain 480746584 M54.6 right lateral flank pain episodes are reported by the patient today. she is not having pain currently. She will discuss this further with her pain management team and if P.T. can also be completed for this area while she is having her SI joint therapy. Vitamin B1 2 deficiency (non anemic) 70155424 E53.8 b12 injection given today. Health Concerns Section Related Observation LastModified by Organization Detai ls LastModified Time None Recorded Concern Status LastModified by Organization Details LastModified Time None Recorded Advance Directives Directive Y: Payers Insurance Date Sequence Insurance Name Policy Number Policy Street Covered Member ID Street Member ID Guarantor Name 09/05/2023 2 [place] WHEN MEDICARE OR MEDICARE REPLACEMENT PRIMARY) Jazlyn Montgomery [id number] Jazlyn Montgomery 09/05/2023 1 [place] Jazlyn Montgomery [id number] Jazlyn Montgomery 03/15/2024 2 [place] Jazlyn Montgomery [id number] Jazlyn Montgomery 03/15/2024 2 [facility] (MEDICAID HMO) [id number] Jazlyn Montgomery [id number] Jazlyn Montgomery 03/15/2024 [facility] (MEDICAID HMO) [id number] Jazlyn Montgomery [id number] Jazlyn Montgomery Notes Date Note Type Note Provider Name and Address Organization Details Recorded Time 3 text/html FatigueReported by PatientHPIFor severity, patient reportsworseningbut reportsnormal sleep patterns,normal exercise habits, andnormal activity. For timing, patient reportsworsebut reportsactual date: (6 months). For quality, patient reportscontinuous. For duration, patient reportsconstant. For context, patient reportssymptoms improve on weekends/vacationandno problems/stress at work or home. For modifying factors, patient reportsno new stressors in lifeandtaking vitamins. For associated symptoms, patient reportsno drug/alcohol withdrawal,no depression,no anxiety,no sleep disturbances,no snoring,periods of not breathing (apnea) have not been observed, andno recent change in weight(pain).She is also having pain all over. She seen PM and chiropractor. Pm gave her injections and it didnt help. The pain is all over her body. CAPO Rasheed [address], [facility] [address], [place], [address], [place] 03/27/2023 12:34:43 3 text/html Generic HPI TemplateReported by PatientPt is here for an e/r f/u from 07/05/23 for abd pain. They dx her w/gastritis. Records are in the room w/her. She says she had it for a couple more days after that but doing ok today. They didnt put her on anything. CAPO Rasheed [address], [facility] [address], [place], [address], [place] 07/21/2023 11:29:18 OBGyn Episode No OBEpisode recorded.
--- OUTSIDE RECORDS SUMMARY | 2025-08-14 16:24 | XMS_ITS | Clinical Summary ---
Author Organization [facility] Address [address] [place] [address] Care Team Providers Care Maintenance Chief Name Role Phone Naif Brownlee MD Primary Care Provider [phone] Source Comments [facility],non-owned Affiliates and Associated Physician Practices is amultiple site organization consisting of ambulatory clinics and hospital sitesin [place], [place], [place] and [place]. This disclosure is being madepursuant to the Care Everywhere program and may not contain all information available regarding this patient. Last updated 18.[facility] [employer] Social History Tobacco Use Types Packs/Day Years [...] series) 2023 DEPRESSION SCREENING 08/29/2024 COVID-19 VACCINE (1 - 2024-2 6 season) 2025 INFLUENZA VACCINE (#1) 2025 HEPATITIS [...] - OUT OF STATE MEDICARE Care Teams Maintenance Chief Relationship Specialty Start Date End Date Naif Brownlee MD [address] [place] [id number] PCP - General 02/10/18
== END 2025-08-14 13:50 | disposition home or self-care (01) ==
PROVIDERS: PCP Physician Assistant; Visit Provider Internal Medicine Nephrology
DX: M25.552 Pain in left hip (principal); M25.551 Pain in right hip; E11.22 Type 2 diabetes mellitus with diabetic chronic kidney disease; I12.9 Hypertensive chronic kidney disease with stage 1 through stage 4 chronic kidney disease, or unspecified chronic kidney disease; N18.31 Chronic kidney disease, stage 3a
CPT/HCPCS: 73521; 76770